=== PATIENT | female | born 1940 | race Caucasian/White ===

== ENCOUNTER → 2016-06-08 | Outpatient (CLI) | payer OTHER, MEDICARE ==
[~2016-06-08] MED LIST: AMLO5TAB12 PO; APIX1TAB PO; ASPI-232 PO; ASPI-435 PO; Boost PO; CEPH-570 PO; CILO100T PO; CMD4 PO; CNT PO; DIGO0.1267 PO; DOCU-94 PO; FURO-85 PO; HYDR-3419 PO; LNX125 PO; LSX20 PO; METO1TAB70 PO; NUTR-7 PO; SERT100T PO; SIMV40TA4 PO; SULF-183 PO; TRAM-10 PO; ULT/50 PO; VLTG EXT; ZCRT/40 PO; [UNRECOGNIZED DRUG - CODE] PO
== END | disposition home or self-care (01) ==
LOC: C.RADBC 13:47
PROVIDERS: ATTEND Internal Medicine Geriatric Medicine
DX: R05 Cough (principal)

== ENCOUNTER → 2016-06-09 | Outpatient (CLI) | payer OTHER, MEDICARE ==
--- NOTE | 2016-06-09 11:56 | DIAGNOSTIC IMAGING REPORT ---
CHEST 2 VIEWS ROUTINE CLINICAL HISTORY: Cough. COMPARISON STUDY: Chest radiograph August 20, 2013. FINDINGS: A dual lead left subclavian pacemaker is in place. There is no pneumothorax. There is a moderate to large left pleural effusion and a small right pleural effusion. Interstitial thickening is noted. There are perihilar and bibasilar opacities. IMPRESSION: 1. Moderate to large left and small right pleural effusions. 2. Interstitial thickening suggestive of pulmonary edema. 2. Perihilar and bibasilar opacities which could reflect pulmonary edema or consolidation. Radiographic follow-up to ensure resolution is recommended. Electronically signed by: Rikki Mcpherson M.D. 06/09/2016 11:54 AM Dictated Date/Time: 06/09/2016 11:52 AM
== END | disposition home or self-care (01) ==
LOC: C.RADBC 11:37
PROVIDERS: ATTEND Internal Medicine Geriatric Medicine
DX: R05 Cough (principal); J90 Pleural effusion, not elsewhere classified

== ENCOUNTER 2016-06-11 12:17 | Inpatient (IN) | payer OTHER, MEDICARE ==
[~2016-06-11] VITALS: Ht 162.6 cm; Wt 39.8 kg
[~2016-06-11 12:17] MED LIST changes: -APIX1TAB PO; -ASPI-232 PO; -ASPI-435 PO; -Boost PO; -CEPH-570 PO; -CNT PO; -DOCU-94 PO; -FURO-85 PO; -LNX125 PO; -LSX20 PO; -NUTR-7 PO; -TRAM-10 PO; -ULT/50 PO; -VLTG EXT; -ZCRT/40 PO
[2016-06-11] MEDS ORDERED: APIX1TAB PO (12:34)
[2016-06-11] MEDS ORDERED: ACETAMINOPHEN 500 MG TAB PO STA (12:38)
[2016-06-11] MEDS ORDERED: ONDANSETRON INJ 2 MG/ML 2 ML VIAL IV STA (12:38)
[2016-06-11] MEDS ORDERED: SODIUM CHLORIDE 0.9% 1000ML 1,000 ML IV STA (12:38)
[2016-06-11] MEDS ORDERED: IBUPROFEN 200 MG TAB PO STA (12:38)
--- NOTE | 2016-06-11 12:54 | EMERGENCY ROOM VISIT NOTE ---
History Report prepared by Moshe: Mega Eid Under the Supervision of: Dr. Aleja Gilliam M.D. First contact with patient: 12:37 Chief Complaint: FLU LIKE SX Stated Complaint: FLU LIKE SYMPTOMS History of Present Illness The patient is a 76 year old female who presents to the Emergency Room with complaints of a persistent illness that started a few days ago. The patient says that she has had cold symptoms, which include a cough and intermittent fevers. She denies any swelling in her legs. The patient notes that her family doctor told the patient that she has excess fluid in her lungs. The patient is on Digoxin for her heart and she has a pacemaker. She is not on Coumadin. She does take Eliquis. Source of History: patient Onset: A few days ago Position: other (global - illness) Timing: other (persistent) Associated Symptoms: + cough, + fevers Note: Associated symptoms: Denies any swelling in legs. Review of Systems See HPI for pertinent positives & negatives. A total of 10 systems reviewed and were otherwise negative. Past Medical & Surgical Medical Problems: (1) Atrial fibrillation (2) Benign hypertension (3) Cardiac pacemaker procedure (4) Chronic congestive heart failure (5) Hyperlipidemia Family History Family history omitted secondary to age. Social History Smoking Status: Former Smoker Drug Use: none Marital Status: single Occupation Status: retired Current/Historical Medications Scheduled Amlodipine Besylate-Valsartan (Exforge), 1 TAB PO DAILY Apixaban (Eliquis), 1 TAB PO BID Aspirin (Halfprin), 81 MG PO DAILY Cilostazol (Pletal), 100 MG PO Q12HR Digoxin (Lanoxin), 0.125 MG PO DAILY Metoprolol Succinate (Toprol Xl), 200 MG PO DAILY Sertraline Hcl (Zoloft), 100 MG PO DAILY Simvastatin (Zocor), 40 MG PO QAM Allergies Coded Allergies: HOLDEN Inhibitors (Verified Adverse Reaction, Mild, COUGH, 06/11/16) Physical Exam Vital Signs Date Time Temp Pulse Resp B/P Pulse Ox O2 Delivery O2 Flow Rate FiO2 06/11/16 19:16 88 20 143/84 92 Nasal Cannula 2.0 06/11/16 17:09 93 Nasal Cannula 2.0 06/11/16 17:07 81 111/81 88 Room Air 06/11/16 14:25 141/79 06/11/16 12:22 115 20 126/79 98 Room Air Physical Exam CONSTITUTIONAL: Mild distress. HEENT: No icterus, moist mucous membranes NECK: No meningismus, trachea is midline. CARDIOVASCULAR: Regular rate, normal perfusion RESPIRATORY: Unlabored breathing. Breath sounds present bilaterally. Diminished at bases L > R GASTROINTESTINAL: Non-tender GENITOURINARY: No flank tenderness MUSCULOSKELETAL: Full range of motion NEUROLOGIC: No acute gross focal deficits. PSYCHIATRIC: Normal affect SKIN: Normal for ethnicity. No pedal edema. Medical Decision & Procedures ER Provider Diagnostic Interpretation: X-ray results as stated below per interpretation by me and the radiologist. CHEST 2 VIEWS ROUTINE CLINICAL HISTORY: weakness FLULIKE SYMPTOMS COMPARISON STUDY: 06/09/2016 FINDINGS: The heart remains enlarged. There is a left subclavian dual-chamber central venous pacemaker present. There are persistent bilateral pleural effusions left greater than right. Left effusion appears slightly larger. There are associated bibasal airspace opacities. Right perihilar airspace opacities are also evident.[ IMPRESSION: Persistent bilateral pleural effusions left greater than right slight interval increase in the size of the left pleural effusion. Persistent right perihilar and bibasal airspace opacities. Electronically signed by: Cristopher Bedoya M.D. 06/11/2016 2:42 PM Dictated Date/Time: 06/11/2016 2:41 PM Laboratory Results 06/11/16 13:05 Red Blood Count 4.53, Mean Corpuscular Volume 93.2, Mean Corpuscular Hemoglobin 31.6, Mean Corpuscular Hemoglobin Concent 33.9, Mean Platelet Volume 10.1, Neutrophils (%) (Auto) 76.3, Lymphocytes (%) (Auto) 9.8, Monocytes (%) (Auto) 10.6, Eosinophils (%) (Auto) 2.6, Basophils (%) (Auto) 0.5, Neutrophils # (Auto ) 7.29, Lymphocytes # (Auto) 0.94, Monocytes # (Auto) 1.01, Eosinophils # (Auto ) 0.25, Basophils # (Auto) 0.05 06/11/16 13:05 Test 06/11/16 13:05 06/11/16 13:10 06/11/16 13:15 06/11/16 15:00 White Blood Count 9.56 K/uL (4.8-10.8) Red Blood Count 4.53 M/uL (4.2-5.4) Hemoglobin 14.3 g/dL (12.0-16.0) Hematocrit 42.2 % (37-47) Mean Corpuscular Volume 93.2 fL (80-100) Mean Corpuscular Hemoglobin 31.6 pg (25-34) Mean Corpuscular Hemoglobin Concent 33.9 g/dl (32-36) Platelet Count 252 K/uL (130-400) Mean Platelet Volume 10.1 fL (7.4-10.4) Neutrophils (%) (Auto) 76.3 % Lymphocytes (%) (Auto) 9.8 % Monocytes (%) (Auto) 10.6 % Eosinophils (%) (Auto) 2.6 % Basophils (%) (Auto) 0.5 % Neutrophils # (Auto) 7.29 K/uL (1.4-6.5) Lymphocytes # (Auto) 0.94 K/uL (1.2-3.4) Monocytes # (Auto) 1.01 K/uL (0.11-0.59) Eosinophils # (Auto) 0.25 K/uL (0-0.5) Basophils # (Auto) 0.05 K/uL (0-0.2) RDW Standard Deviation 51.7 fL (36.4-46.3) RDW Coefficient of Variation 15.3 % (11.5-14.5) Immature Granulocyte % (Auto) 0.2 % Immature Granulocyte # (Auto) 0.02 K/uL (0.00-0.02) Prothrombin Time 12.0 SECONDS (9.0-12.0) Prothromb Time International Ratio 1.1 (0.9-1.1) Activated Partial Thromboplast Time 31.5 SECONDS (21.0-31.0) Partial Thromboplastin Ratio 1.2 Anion Gap 10.0 mmol/L (3-11) Estimated GFR () 80.6 Estimated GFR (Non- 69.6 BUN/Creatinine Ratio 21.9 (10-20) Calcium Level 9.7 mg/dl (8.5-10.1) Magnesium Level 2.0 mg/dl (1.8-2.4) Pro-B-Type Natriuretic Peptide 8400 pg/ml (0-1800) Digoxin Level 1.4 ng/ml (0.8-2.0) Bedside Lactic Acid Venous 1.55 mmol/L (0.90-1.70) Influenza Type A Antigen Neg for Influ A (NEG) Influenza Type B Antigen Neg for Influ B (NEG) Troponin I 0.068 ng/ml (0-0.045) Labs reviewed by ED physician. Medications Administered Medications (Trade) Dose Ordered Sig/Christine Route Start Time Stop Time Status Last Admin Dose Admin Acetaminophen (Tylenol Tab) 1,000 mg NOW STAT PO 06/11/16 12:38 06/11/16 12:40 DC 06/11/16 13:37 1,000 MG Ibuprofen 400 mg 400 mg NOW STAT PO 06/11/16 12:38 06/11/16 12:40 DC 06/11/16 13:36 400 MG Sodium Chloride (Nss 1000ml) 1,000 ml @ 0 mls/hr Q0M STAT IV 06/11/16 12:38 06/11/16 16:42 DC 06/11/16 13:36 0 MLS/HR Ondansetron HCl (Zofran Inj) 4 mg NOW STAT IV 06/11/16 12:38 06/11/16 12:40 DC 06/11/16 13:36 4 MG Furosemide (Lasix Inj) 40 mg NOW STAT IV 06/11/16 16:41 06/11/16 16:42 DC 06/11/16 17:04 40 MG ECG Indication: other (illness) Rate (beats per minute): 68 Rhythm: other (atrial fibrillation paced) Findings: other (nonspecific ST findings, artifact, incomplete RBBB) ED Course 1238: Past medical records reviewed. The patient was evaluated in room A3. A complete history and physical examination was performed. 1238: Ordered Zofran Inj 4 mg IV, NSS 1000 ml @ 0 mls/hr Wide Open IV, Advil Tab 400 mg PO, Tylenol Tab 1000 mg PO. 1641: Ordered Lasix Inj 40 mg IV. 1743: I discussed the patient with Dr. Elkins - [facility] [place] straddle buggy operator - he will evaluate the patient for further treatment. 1746: I reevaluated the patient and she is resting comfortably. The patient verbally expressed agreement and understanding of the treatment plan. The patient will be evaluated for further treatment. Medical Decision Differential diagnoses include: Viral syndrome, congestive heart failure, pneumonia. 76 y/o afib on anticoagulation and digoxin presented with friend for evaluation of occasional dyspnea and concern about about "fluid on my lungs" after discussion with PCP's office. Review of systems notable for chronic worsening cough without fevers or other systemic complaints. The circumstances around outpatient management thus far are unclear at this time. Patient was noted to have a substantial pleural effusion and elevated BNP the emergency room she was also noted to be hypoxic at 88% with exertion. Therefore, decision made to hospitalize. Consults Time Called: 174 Consulting Physician: Dr. Severo TAVAREZ straddle buggy operator Returned Call: 174 I discussed the patient with Dr. Severo TAVAREZ straddle buggy operator - he will evaluate the patient for further treatment. Impression Primary Impression: Pleural effusion Additional Impression: Hypoxia Scribe Attestation The scribe's documentation has been prepared under my direction and personally reviewed by me in its entirety. I confirm that the note above accurately reflects all work, treatment, procedures, and medical decision making performed by me. Departure Information Dispostion Being Evaluated By Hospitalist Referrals Francesco Mancia M.D. (PCP) Patient Instructions A Signature Page, My [facility]
[2016-06-11 13:27] LABS: BASO % 0.5 %; BASO ABS # 0.05 K/uL (0-0.2); COMPLETE YES; EOS % 2.6 %; HEMATOCRIT 42.2 % (37-47); IG% 0.2 %; LYMPH % 9.8 %; LYMPH ABS # 0.94 K/uL (1.2-3.4); MEAN CELL VOLUME 93.2 fL (80-100); MEAN CORPUSCULAR HEMOGLOBIN 31.6 pg (25-34); MEAN CORPUSCULAR HGB CONC 33.9 g/dl (32-36); MEAN PLATELET VOLUME 10.1 fL (7.4-10.4); MONO % 10.6 %; NEUT % 76.3 %; PLATELET COUNT 252 K/uL (130-400); RED BLOOD COUNT 4.53 M/uL (4.2-5.4); WHITE BLOOD COUNT 9.56 K/uL (4.8-10.8)
[2016-06-11 13:45] LABS: BLOOD UREA NITROGEN 18 mg/dl (7-18); BUN/CREATININE RATIO 21.9 (10-20); CALCIUM 9.7 mg/dl (8.5-10.1); CARBON DIOXIDE 24 mmol/L (21-32); CHLORIDE 110 mmol/L (98-107); CREATININE 0.81 mg/dl (0.60-1.20); GLUCOSE 100 mg/dl (70-99); POTASSIUM 3.8 mmol/L (3.5-5.1); SODIUM 144 mmol/L (136-145)
--- NOTE | 2016-06-11 14:44 | DIAGNOSTIC IMAGING REPORT ---
CHEST 2 VIEWS ROUTINE CLINICAL HISTORY: weakness FLULIKE SYMPTOMS COMPARISON STUDY: 06/09/2016 FINDINGS: The heart remains enlarged. There is a left subclavian dual-chamber central venous pacemaker present. There are persistent bilateral pleural effusions left greater than right. Left effusion appears slightly larger. There are associated bibasal airspace opacities. Right perihilar airspace opacities are also evident.[ IMPRESSION: Persistent bilateral pleural effusions left greater than right slight interval increase in the size of the left pleural effusion. Persistent right perihilar and bibasal airspace opacities. Electronically signed by: Cristopher Bedoya M.D. 06/11/2016 2:42 PM Dictated Date/Time: 06/11/2016 2:41 PM
[2016-06-11] MEDS ORDERED: FUROSEMIDE 40 MG/4 ML VIAL IV STA ×2 (16:41→20:15)
[2016-06-11 18:48] VITALS: O2SAT 94
[2016-06-11] MEDS ORDERED: ALUMINUM/MAGNESIUM/SIMETH (MAALOX MAX) 30 ML UDC PO PRN (19:00)
[2016-06-11] MEDS ORDERED: ONDANSETRON INJ 2 MG/ML 2 ML VIAL IV PRN (19:00)
[2016-06-11] MEDS ORDERED: ACETAMINOPHEN 325 MG TAB PO PRN (19:00)
[2016-06-11 19:11] LABS: INR 1.1 (0.9-1.1); PARTIAL THROMBOPLASTIN RATIO 1.2
[2016-06-11 20:00] VITALS: O2SAT 95
--- NOTE | 2016-06-11 20:13 | History and Physical ---
History & Physical Date & Time of Service: Jun 11, 2016 at 19:55 Chief Complaint: Flu Like Symptoms Primary Care Physician: Francesco Mancia M.D. History of Present Illness Source: patient The patient is a 76 year old female who presents to the Emergency Room as a referral from her PCP Dr Mancia. Pt reports last week having flu like sx including cough, intermittent fevers. Pt reported to Dr Brady office where she had an CXR obtained and was told that she had fluid around her lung. She reports no edema, or worsening shortness of breath. Pt has hx of only atrial fibrillation and is on eliquis. Pt also has hx of pacemaker. Upon arrival to ER pt noted mod effusions left greater than right on CXR. Past Medical/Surgical History Medical Problems: (1) Atrial fibrillation Status: Chronic (2) Benign hypertension Status: Chronic (3) Cardiac pacemaker procedure Status: Resolved (4) Chronic congestive heart failure Status: Chronic (5) Hyperlipidemia Status: Chronic Social History Smoking Status: Former Smoker Drug Use: none Marital Status: single Occupational Status: retired Immunizations History of Influenza Vaccine: Yes History of Tetanus Vaccine?: Yes History of Pneumococcal: No History of Hepatitis B Vaccine: No Multi-Drug Resistant Organisms History of MDRO: No Allergies Coded Allergies: HOLDEN Inhibitors (Verified Adverse Reaction, Mild, COUGH, 06/11/16) Home Medications Scheduled Amlodipine Besylate-Valsartan (Exforge), 1 TAB PO DAILY Apixaban (Eliquis), 1 TAB PO BID Aspirin (Halfprin), 81 MG PO DAILY Cilostazol (Pletal), 100 MG PO Q12HR Digoxin (Lanoxin), 0.125 MG PO DAILY Metoprolol Succinate (Toprol Xl), 200 MG PO DAILY Sertraline Hcl (Zoloft), 100 MG PO DAILY Simvastatin (Zocor), 40 MG PO QAM Review of Systems Constitutional: + fatigue, + weakness, No chills, No fever Respiratory: + cough, No dyspnea on exertion, No shortness of breath, No sputum , No wheezing Cardiovascular: No PND, No chest pain, No orthopnea Abdomen: No diarrhea, No nausea, No pain, No vomiting Musculoskeletal: No joint pain, No muscle pain Genitourinary - Female: No dysuria, No urinary frequency Neurologic: No paralysis, No weakness Physical Exam Vital Signs Date Time Temp Pulse Resp B/P Pulse Ox O2 Delivery O2 Flow Rate FiO2 06/11/16 19:48 88 20 154/77 92 06/11/16 19:16 88 20 143/84 92 Nasal Cannula 2.0 06/11/16 17:09 93 Nasal Cannula 2.0 06/11/16 17:07 81 111/81 88 Room Air 06/11/16 14:25 141/79 06/11/16 12:22 115 20 126/79 98 Room Air General Appearance: WD/WN, no apparent distress Neck: supple, no adenopathy Respiratory/Chest: chest non-tender, + decreased breath sounds, + crackles Cardiovascular: no edema, no gallop Abdomen/GI: non tender, soft Neurologic/Psych: alert, oriented x 3 Diagnostics Laboratory Results Results Past 24 Hours Test 06/11/16 13:05 06/11/16 13:10 06/11/16 13:15 06/11/16 15:00 Range/Units White Blood Count 9.56 4.8-10.8 K/uL Red Blood Count 4.53 4.2-5.4 M/uL Hemoglobin 14.3 12.0-16.0 g/dL Hematocrit 42.2 37-47 % Mean Corpuscular Volume 93.2 80-100 fL Mean Corpuscular Hemoglobin 31.6 25-34 pg Mean Corpuscular Hemoglobin Concent 33.9 32-36 g/dl Platelet Count 252 130-400 K/uL Mean Platelet Volume 10.1 7.4-10.4 fL Neutrophils (%) (Auto) 76.3 % Lymphocytes (%) (Auto) 9.8 % Monocytes (%) (Auto) 10.6 % Eosinophils (%) (Auto) 2.6 % Basophils (%) (Auto) 0.5 % Neutrophils # (Auto) 7.29 1.4-6.5 K/uL Lymphocytes # (Auto) 0.94 1.2-3.4 K/uL Monocytes # (Auto) 1.01 0.11-0.59 K/uL Eosinophils # (Auto) 0.25 0-0.5 K/uL Basophils # (Auto) 0.05 0-0.2 K/uL RDW Standard Deviation 51.7 36.4-46.3 fL RDW Coefficient of Variation 15.3 11.5-14.5 % Immature Granulocyte % (Auto) 0.2 % Immature Granulocyte # (Auto) 0.02 0.00-0.02 K/uL Prothrombin Time 12.0 9.0-12.0 SECONDS Prothromb Time International Ratio 1.1 0.9-1.1 Activated Partial Thromboplast Time 31.5 21.0-31.0 SECONDS Partial Thromboplastin Ratio 1.2 Sodium Level 144 136-145 mmol/L Potassium Level 3.8 3.5-5.1 mmol/L Chloride Level 110 98-107 mmol/L Carbon Dioxide Level 24 21-32 mmol/L Anion Gap 10.0 3-11 mmol/L Blood Urea Nitrogen 18 7-18 mg/dl Creatinine 0.81 0.60-1.20 mg/dl Estimated GFR () 80.6 Estimated GFR (Non- 69.6 BUN/Creatinine Ratio 21.9 10-20 Random Glucose 100 70-99 mg/dl Calcium Level 9.7 8.5-10.1 mg/dl Magnesium Level 2.0 1.8-2.4 mg/dl Troponin I 0.080 0.068 0-0.045 ng/ml Pro-B-Type Natriuretic Peptide 8400 0-1800 pg/ml Digoxin Level 1.4 0.8-2.0 ng/ml Bedside Lactic Acid Venous 1.55 0.90-1.70 mmol/L Influenza Type A Antigen Neg for Influ A NEG Influenza Type B Antigen Neg for Influ B NEG Microbiology Results 06/11/16 Blood Culture, Received Pending 06/11/16 Blood Culture, Received Pending Impression Assessment and Plan Pt is a 76 yo female with cough, malaise for past few days and presented to PCP Dr Brady in which CXR revealed moderate pleural effusions. Pt was referred to ER for further assessment. Cough/hypoxia likely secondary to pleural effusions. CXR with bilateral pleural effusions, left greater than right. Pt denies any hx of heart failure. Will obtain an ECHO at this time. Lasix 40 IV x 1 given in ER and will cont daily. Pt satting over 90% on 2 L NC at this time. Continue to monitor I/Os, daily weights. Poor EKG obtained, will repeat, trops only mildly elev, cont to trend. Tachybrady syndrome s/p pacemaker insertion HTN - Cont exforge Afib - Rate controlled on dig and metoprolol, will obtain level. Cont eliquis VTE Prophylaxis VTE Risk Assessment Done? Y/N: Yes Risk Level: Moderate
[2016-06-11] MEDS ORDERED: FUROSEMIDE INJ 40 MG in SYRINGE 0 ML IV SCH (20:45)
[2016-06-11 21:09] VITALS: BP 153/88; PULSE 80; TEMP 36.3; O2SAT 95; Ht 162.6 cm; Wt 39.8 kg
[2016-06-11] MEDS ORDERED: HEPARIN SOD 5000 UNIT/0.5 ML CARP SQ SCH (22:00)
[2016-06-11] MEDS: CILOSTAZOL 100 MG TAB PO SCH (22:00)
[2016-06-11] MEDS: APIXABAN 2.5 MG TAB PO SCH (22:01)
[2016-06-11 22:25] LABS: URINE APPEARANCE CLEAR (CLEAR); URINE BILIRUBIN NEG (NEG); URINE COLOR YELLOW; URINE NITRITE NEG (NEG); URINE SPECIFIC GRAVITY 1.002 (1.000-1.030); UROBILINOGEN NEG (NEG); ZZUR CULT IF INDIC CLEAN CATCH NO
[2016-06-11 22:28] LABS: MANUAL MICROSCOPIC REQUIRED? NO; REVIEW REQ? NO
[2016-06-11 23:59] VITALS: O2SAT 95
[2016-06-12] VITALS (10 sets, daily range): BP systolic 120–162; BP diastolic 54–74; PULSE 70–87; TEMP 36.2–36.8; O2SAT 95–98
--- NOTE | 2016-06-12 07:51 | DIAGNOSTIC IMAGING REPORT ---
CHEST ONE VIEW PORTABLE CLINICAL HISTORY: pleural effusions COMPARISON STUDY: 06/11/2016 FINDINGS: The heart is enlarged. There are bilateral pleural effusions left greater than right. There is associated basilar atelectasis/consolidation. There are subtle right perihilar airspace opacity similar to the prior study. There is a left subclavian dual-chamber central venous pacemaker. There is a left apical line shadow. A trace pneumothorax cannot be excluded.[ IMPRESSION: Persistent bilateral pleural effusions left greater than right with associated basilar airspace opacities. Persistent right perihilar airspace opacity. Equivocal trace left apical pneumothorax Electronically signed by: Cristopher Bedoya M.D. 06/12/2016 7:50 AM Dictated Date/Time: 06/12/2016 7:48 AM
[2016-06-12] MEDS: FUROSEMIDE INJ 40 MG in SYRINGE 0 ML IV SCH (08:01)
[2016-06-12] MEDS: APIXABAN 2.5 MG TAB PO SCH (08:01)
[2016-06-12] MEDS: ASPIRIN 81 MG ECTAB PO SCH (08:02)
[2016-06-12] MEDS: SIMVASTATIN 40 MG TAB PO SCH (08:03)
[2016-06-12] MEDS: CILOSTAZOL 100 MG TAB PO SCH ×2 (08:03→20:37)
[2016-06-12] MEDS: SERTRALINE HCL 100 MG TAB PO SCH (08:03)
[2016-06-12] MEDS: METOPROLOL SUCC 50MG EXT REL TAB PO SCH (08:03)
--- NOTE | 2016-06-12 09:14 | Clinical Documentation Query ---
CLINICAL DOCUMENTATION QUERY Dr. BORRERO, In your clinical opinion is this patient being managed for: ( ) Acute diastolic CHF ( ) Acute systolic CHF ( ) Acute combined systolic and diastolic CHF ( ) Other explanation of clinical findings (Please Explain) ( x ) Unable to determine (Please Define) Unsure if effusion due to CHF, going to get CT chest and possible thoracentesis to analyze pleural fluid, will document cause of effusion and status of CHF once effusion worked up ( ) Need to Discuss ( ) Not Agree The medical record reflects the following clinical findings, treatment, and risk factors. Clinical Indicators: 76 yo female presenting with flu like symptoms and cough. BNP 8400, lungs assessed with decreased breath sounds and crackles. O2 sat dropped to 88% on RA, improved to 92% on 2L. Treatment: tele monitoring, pending ECHO, O2 support, daily wts, IV lasix, I/O Risk Factors: age, HTN, A fib Please clarify and document your clinical opinion in the progress notes and discharge summary. Terms such as "probable", "suspected", "likely", "questionable", "possible", or "still to be ruled out" are acceptable. IF IN AGREEMENT, YOU MUST DOCUMENT ABOVE DIAGNOSTIC STATEMENT IN DAILY PROGRESS NOTES AND DISCHARGE SUMMARY. This document is not part of the patient's record. Thank You, Ora Rdz RN [phone]
[2016-06-12] MEDS ORDERED: OPTIRAY 320 IV PRN (09:30)
--- NOTE | 2016-06-12 10:50 | DIAGNOSTIC IMAGING REPORT ---
CT OF THE CHEST WITH IV CONTRAST CLINICAL HISTORY: Pleural effusions COMPARISON STUDY: Chest x-ray dated 06/12/2016, chest CT dated 06/02/2007 TECHNIQUE: Following the IV administration of 118 mL of [id number]-[id number], CT of the thorax was performed from the thoracic inlet to the lung bases. Images are reviewed in the axial, sagittal, and coronal planes. IV contrast was administered without complication. CT DOSE: 164.81 mGycm FINDINGS: Thyroid: Imaged portions of the thyroid gland are normal in appearance. Thoracic aorta: The thoracic aorta is normal in course and caliber, noting standard 3-vessel arch anatomy. No aneurysm or dissection is seen. Pulmonary vasculature: The pulmonary trunk is normal in caliber. There are no central filling defects identified to suggest pulmonary embolus. Note that this examination was not protocoled for the evaluation of pulmonary emboli. HEART: The heart is enlarged. There is a left subclavian dual-chamber central venous pacemaker. Lungs and pleural spaces: There is a moderate left pleural effusion. There is a very small right pleural effusion. There is left lower lobe compressive atelectatic change. There are dependent right basilar airspace opacities, likely atelectatic. There are subtle groundglass attenuation the right perihilar region. Postsurgical changes are evident within the right hemithorax. Mediastinum: There is no mediastinal lymphadenopathy. Vangie: Clear. Axilla: Clear. Upper abdomen: Partially visualized upper abdominal viscera is within normal limits. Skeletal structures: There are no lytic or blastic osseous lesions. IMPRESSION: 1. Presumed postsurgical changes involving the right hemithorax with trace pleural right fluid/thickening and minor basilar atelectatic change. There are areas of interstitial scarring. 2. Moderate left pleural effusion with left lower lobe compressive atelectatic changes 3. No evidence of pathologic adenopathy Electronically signed by: Cristopher Bedoya M.D. 06/12/2016 10:48 AM Dictated Date/Time: 06/12/2016 10:32 AM
--- NOTE | 2016-06-12 11:11 | Hospitalist Progress Note ---
Hospitalist Progress Note Date of Service Jun 12, 2016. Subjective Pt evaluation today including: conversation w/ patient, physical exam, chart review, lab review, review of studies, review of inpatient medication list Voiding: no voiding problems, no incontinence Patient states she is feeling well. Her only complaint at admission was "cold- like" symptoms and body aches. She admits to chest congestion today. Denies any SOB or dyspnea on exertion. Patient denies any fever, chills, sweats, lightheadedness, dizziness, vision changes, CP, palpitations, edema, SOB, wheezing, cough, abdominal pain, nausea, vomiting, diarrhea, urinary symptoms, melena, numbness/tingling, weakness, muscle/joint pain, anxiety/depression, active bleeding, or new skin discoloration/changes. Medications Current Inpatient Medications Medications (Trade) Dose Ordered Sig/Christine Route Start Time Stop Time Status Last Admin Dose Admin Acetaminophen (Tylenol Tab) 650 mg Q4H PRN PO 06/11/16 19:00 07/11/16 18:59 Al Hydrox/Mg Hydrox/Simethicone (Maalox Max Susp) 15 ml Q4H PRN PO 06/11/16 19:00 07/11/16 18:59 Ondansetron HCl 4 mg 4 mg Q6H PRN IV 06/11/16 19:00 07/11/16 18:59 Furosemide/Syringe (Lasix Inj/ Syringe) 4 ml @ 4 mls/min DAILY@0900 IV 06/12/16 09:00 07/12/16 08:59 06/12/16 08:01 4 MLS/MIN Aspirin (Ecotrin Tab) 81 mg DAILY PO 06/12/16 09:00 07/12/16 08:59 06/12/16 08:02 81 MG Cilostazol (Pletal Tab) 100 mg BID PO 06/11/16 21:00 07/11/16 20:59 06/12/16 08:03 100 MG Digoxin (Lanoxin Tab) 0.125 mg DAILY@1600 PO 06/12/16 16:00 07/12/16 15:59 Metoprolol Succinate (Toprol Xl Tab) 200 mg DAILY PO 06/12/16 09:00 07/12/16 08:59 06/12/16 08:03 200 MG Sertraline HCl (Zoloft Tab) 100 mg DAILY PO 06/12/16 09:00 07/12/16 08:59 06/12/16 08:03 100 MG Simvastatin (Zocor Tab) 40 mg QAM PO 06/12/16 09:00 07/12/16 08:59 06/12/16 08:03 40 MG Miscellaneous Information (Order Awaiting Action) 1 ea QS N/A 06/11/16 21:00 07/11/16 20:59 Ioversol (Optiray 320) 100 ml UD PRN IV 06/12/16 09:30 06/16/16 09:29 UNV Objective Vital Signs Date Time Temp Pulse Resp B/P Pulse Ox O2 Delivery O2 Flow Rate FiO2 06/12/16 08:42 36.6 87 20 124/63 96 Nasal Cannula 2.0 06/12/16 04:02 36.6 77 18 148/63 97 Nasal Cannula 2.0 06/12/16 04:00 95 Nasal Cannula 2.0 06/12/16 00:00 36.3 86 18 162/74 95 Nasal Cannula 2.0 06/11/16 23:59 95 Nasal Cannula 2.0 06/11/16 21:09 36.3 80 18 153/88 95 Nasal Cannula 2.0 06/11/16 20:00 95 Nasal Cannula 2.0 06/11/16 19:48 88 20 154/77 92 06/11/16 19:16 88 20 143/84 92 Nasal Cannula 2.0 06/11/16 18:48 94 Nasal Cannula 2.0 06/11/16 17:09 93 Nasal Cannula 2.0 06/11/16 17:07 81 111/81 88 Room Air 06/11/16 14:25 141/79 06/11/16 12:22 115 20 126/79 98 Room Air Physical Exam General Appearance: no apparent distress, + thin Eyes: normal inspection, PERRL ENT: hearing grossly normal Neck: supple Respiratory/Chest: no respiratory distress, no accessory muscle use, + decreased breath sounds (L>R ), + crackles (right lung base) Cardiovascular: no edema, + irregularly irregular Abdomen: normal bowel sounds, non tender, soft Extremities: no pedal edema, no calf tenderness Neurologic/Psychiatric: alert, normal mood/affect, oriented x 3 Skin: normal color, warm/dry, no rash Laboratory Results Last 24 Hours Test 06/11/16 13:05 06/11/16 13:10 06/11/16 13:15 06/11/16 15:00 White Blood Count 9.56 K/uL Red Blood Count 4.53 M/uL Hemoglobin 14.3 g/dL Hematocrit 42.2 % Mean Corpuscular Volume 93.2 fL Mean Corpuscular Hemoglobin 31.6 pg Mean Corpuscular Hemoglobin Concent 33.9 g/dl Platelet Count 252 K/uL Mean Platelet Volume 10.1 fL Neutrophils (%) (Auto) 76.3 % Lymphocytes (%) (Auto) 9.8 % Monocytes (%) (Auto) 10.6 % Eosinophils (%) (Auto) 2.6 % Basophils (%) (Auto) 0.5 % Neutrophils # (Auto) 7.29 K/uL Lymphocytes # (Auto) 0.94 K/uL Monocytes # (Auto) 1.01 K/uL Eosinophils # (Auto) 0.25 K/uL Basophils # (Auto) 0.05 K/uL RDW Standard Deviation 51.7 fL RDW Coefficient of Variation 15.3 % Immature Granulocyte % (Auto) 0.2 % Immature Granulocyte # (Auto) 0.02 K/uL Prothrombin Time 12.0 SECONDS Prothromb Time International Ratio 1.1 Activated Partial Thromboplast Time 31.5 SECONDS Partial Thromboplastin Ratio 1.2 Sodium Level 144 mmol/L Potassium Level 3.8 mmol/L Chloride Level 110 mmol/L Carbon Dioxide Level 24 mmol/L Anion Gap 10.0 mmol/L Blood Urea Nitrogen 18 mg/dl Creatinine 0.81 mg/dl Estimated GFR () 80.6 Estimated GFR (Non- 69.6 BUN/Creatinine Ratio 21.9 Random Glucose 100 mg/dl Calcium Level 9.7 mg/dl Magnesium Level 2.0 mg/dl Troponin I 0.080 ng/ml 0.068 ng/ml Pro-B-Type Natriuretic Peptide 8400 pg/ml Digoxin Level 1.4 ng/ml Bedside Lactic Acid Venous 1.55 mmol/L Influenza Type A Antigen Neg for Influ A Influenza Type B Antigen Neg for Influ B Test 06/11/16 20:38 06/11/16 22:00 Troponin I 0.087 ng/ml Urine Color YELLOW Urine Appearance CLEAR Urine pH 5.0 Urine Specific Bennet 1.002 Urine Protein NEG Urine Glucose (UA) NEG Urine Ketones NEG Urine Occult Blood NEG Urine Nitrite NEG Urine Bilirubin NEG Urine Urobilinogen NEG Urine Leukocyte Esterase NEG Diagnostic Results CHEST ONE VIEW PORTABLE CLINICAL HISTORY: pleural effusions COMPARISON STUDY: 06/11/2016 FINDINGS: The heart is enlarged. There are bilateral pleural effusions left greater than right. There is associated basilar atelectasis/consolidation. There are subtle right perihilar airspace opacity similar to the prior study. There is a left subclavian dual-chamber central venous pacemaker. There is a left apical line shadow. A trace pneumothorax cannot be excluded.[ IMPRESSION: Persistent bilateral pleural effusions left greater than right with associated basilar airspace opacities. Persistent right perihilar airspace opacity. Equivocal trace left apical pneumothorax Electronically signed by: Cristopher Bedoya M.D. 06/12/2016 7:50 AM Dictated Date/Time: 06/12/2016 7:48 AM The status of this report is Signed. Draft = Not yet reviewed or approved by Radiologist. Signed = Reviewed and approved by Radiologist. Assessment and Plan The patient is a 76 year old female who presents to the Emergency Room as a referral from her PCP Dr Mancia. Pt reports last week having flu like sx including cough, intermittent fevers. Pt reported to Dr Mancia's office where she had an CXR obtained and was told that she had fluid around her lung. She reports no edema, or worsening shortness of breath. Pt has hx of only atrial fibrillation and is on Eliquis. Pt also has hx of pacemaker. Upon arrival to ER pt noted mod effusions left greater than right on CXR. Cough/hypoxia likely secondary to pleural effusions: -Admit tele -CXR with bilateral pleural effusions, left greater than right (06/11) --Repeated CXR on 06/12 Persistent bilateral pleural effusions left greater than right with associated basilar airspace opacities. Persistent right perihilar airspace opacity. Equivocal trace left apical pneumothorax --Repeat CXR tomorrow (06/13) -Chest CT- moderate left pleural effusions with small right pleural effusion. No evidence of pathologic adenopathy. -ECHO -Lasix 40 IV x 1 given in ER on 06/11 and will continue daily -Monitor I/Os, daily weights -Trend troponin -Patient requiring 2L O2. Does not wear O2 at home -Blood cultures pending Tachybrady syndrome s/p pacemaker insertion HTN: -Continue Exforge 1 tablet PO daily Afib, rate controlled: -Continue Digoxin 0.125 mg PO daily -Checked dig level, 1.4 -Continue Metoprolol 200 mg PO daily -Held Eliquis 2.5 mg PO BID. Last dose given 06/12 @ 0800. ?need for thoracic surgery intervention. PVD: -Continue Zocor 40 mg PO QAM -Continue Pletal 100 mg PO BID Anxiety: -Continue Zoloft 100 mg PO daily DVT prophylaxis: -Held Eliquis, ?need for thoracic surgery intervention. -ALICIA and SCDs Code Status: -LEVEL V, DNR Dispo: -Diuresis tonight. ?Consult thoracic surgery, pending how patient does with IV Lasix. F/U CXR tomorrow AM. -PT/OT evaluations. Patient currently lives with a friend
--- NOTE | 2016-06-12 12:56 | ECHOCARDIOGRAM REPORT ---
*NOTICE TO RECEIVING LIBERTARIAN AGENCY This information is strictly Confidential and protected under [place] law. [place] law prohibits you from making any further disclosure of this information unless further disclosure is expressly permitted by the written consent of the person to whom it pertains or is authorized by law. A general authorization for the release of medical or other information is not sufficient for this purpose. Hospital accepts no responsibility if the information is made available to any other person, INCLUDING THE PATIENT. Interpretation Summary * Name: ARTURO SALINAS Study Date: 06/12/2016 06:51 AM BP: 148/63 mmHg * Patient Location: C.2T\S\S229\S\1 HR: 82 * : 1940 (M/d/yyy) Gender: Female Height: 64 in * Age: 76 yrs Ethnicity: [place] Weight: 87 lb * Ordering Physician: Mandeep Elkins * Referring Physician: Self, Referred * Performed By: Amado Erazo RCS * * Reason For Study: Pleural Effusions * BSA: 1.4 m2 * -- Conclusions -- * Left ventricular systolic function is normal. * No regional wall motion abnormalities noted. * Ejection Fraction = 60-65%. * There is mild concentric left ventricular hypertrophy. * There is mild mitral regurgitation. * There is mild tricuspid regurgitation. * Large left pleural effusion. Procedure Details * A complete two-dimensional transthoracic echocardiogram was performed (2D, M-mode, Doppler and color flow Doppler). Left Ventricle * The left ventricle is normal in size. * There is mild concentric left ventricular hypertrophy. * Ejection Fraction = 60-65%. * Left ventricular systolic function is normal. * No regional wall motion abnormalities noted. Right Ventricle * The right ventricle is grossly normal size. * There is a pacemaker lead in the right ventricle. * The right ventricular systolic function is normal. Atria * The left atrial size is normal. * Right atrial size is normal. * No ASD detected; PFO is not assessed. Mitral Valve * The mitral valve is grossly normal. * There is no mitral valve stenosis. * There is mild mitral regurgitation. Tricuspid Valve * The tricuspid valve is not well visualized, but is grossly normal. * There is mild tricuspid regurgitation. Aortic Valve * The aortic valve is not well visualized. * The aortic valve opens well. * No hemodynamically significant valvular aortic stenosis. * There is no significant aortic regurgitation. Pulmonic Valve * The pulmonary valve is not well seen, but the Doppler examination is normal without significant regurgitation or stenosis. * There is no significant pulmonary regurgitation. Great Vessels * The aortic root is normal size. * The pulmonary is not well visualized. Pericardium/Pleural * There is no pericardial effusion. * Large left pleural effusion. Great Vessels * Normal inferior vena cava size and collapsability with sniff indicates a normal right atrial pressure of 3 mmHg MMode 2D Measurements and Calculations IVSd 0.83 cm IVSs 1.0 cm LVIDd 3.5 cm LVIDs 2.1 cm LVPWd 0.86 cm LVPWs 1.0 cm IVS/LVPW 0.96 FS 39.5 % EDV(Teich) 50.2 ml ESV(Teich) 14.5 ml EF(Teich) 71.1 % EDV(cubed) 42.2 ml ESV(cubed) 9.3 ml EF(cubed) 77.9 % % IVS thick 26.4 % % LVPW thick 18.9 % LV mass(C)d 80.5 grams LV mass(C)dI 58.6 grams/m\S\2 LV mass(C)s 53.5 grams LV mass(C)sI 39.0 grams/m\S\2 CO(Teich) 3.2 l/min CI(Teich) 2.4 l/min/m\S\2 SV(Teich) 35.7 ml SI(Teich) 26.0 ml/m\S\2 CO(cubed) 3.0 l/min CI(cubed) 2.2 l/min/m\S\2 SV(cubed) 32.8 ml SI(cubed) 23.9 ml/m\S\2 Ao root diam 3.3 cm Ao root area 8.4 cm\S\2 ACS 1.4 cm LA dimension 3.3 cm LA/Ao 1.0 LVAd ap4 15.5 cm\S\2 LVLd ap4 6.1 cm EDV(MOD-sp4) 33.0 ml LVAs ap4 8.2 cm\S\2 LVLs ap4 5.3 cm ESV(MOD-sp4) 11.0 ml EF(MOD-sp4) 66.7 % LVAd ap2 15.5 cm\S\2 LVLd ap2 6.4 cm EDV(MOD-sp2) 34.0 ml LVAs ap2 8.8 cm\S\2 LVLs ap2 5.5 cm ESV(MOD-sp2) 14.0 ml EF(MOD-sp2) 58.8 % CO(MOD-sp4) 2.0 l/min CI(MOD-sp4) 1.5 l/min/m\S\2 SV(MOD-sp4) 22.0 ml SI(MOD-sp4) 16.0 ml/m\S\2 CO(MOD-sp2) 1.8 l/min CI(MOD-sp2) 1.3 l/min/m\S\2 SV(MOD-sp2) 20.0 ml SI(MOD-sp2) 14.6 ml/m\S\2 Doppler Measurements and Calculations MV E max delisa 120.4 cm/sec MV P1/2t max delisa 145.2 cm/sec MV P1/2t 58.1 msec MVA(P1/2t) 3.8 cm\S\2 MV dec slope 732.5 cm/sec\S\2 MV dec time 0.15 sec Ao V2 max 128.0 cm/sec Ao max PG 6.6 mmHg Ao max PG (full) 4.0 mmHg LV V1 max PG 2.6 mmHg LV V1 max 80.5 cm/sec PA V2 max 90.8 cm/sec PA max PG 3.3 mmHg TR max delisa 326.3 cm/sec
[2016-06-12] MEDS ORDERED: DIGOXIN 0.125 MG TAB PO SCH (16:00)
[2016-06-13 03:23] VITALS: BP 117/60; PULSE 69; TEMP 36.5; O2SAT 97
[2016-06-13 06:19] LABS: HEMATOCRIT 34.5 % (37-47); MEAN CORPUSCULAR HEMOGLOBIN 30.9 pg (25-34); MEAN CORPUSCULAR HGB CONC 33.6 g/dl (32-36); MEAN PLATELET VOLUME 9.9 fL (7.4-10.4); PLATELET COUNT 225 K/uL (130-400); RED BLOOD COUNT 3.75 M/uL (4.2-5.4); WHITE BLOOD COUNT 6.46 K/uL (4.8-10.8)
[2016-06-13 06:54] LABS: BUN/CREATININE RATIO 19.2 (10-20); CALCIUM 8.4 mg/dl (8.5-10.1); CREATININE 0.88 mg/dl (0.60-1.20); POTASSIUM 3.5 mmol/L (3.5-5.1)
--- NOTE | 2016-06-13 07:20 | DIAGNOSTIC IMAGING REPORT ---
CHEST ONE VIEW PORTABLE CLINICAL HISTORY: Bilateral pleural effusions COMPARISON STUDY: 06/12/2016 FINDINGS: The heart remains enlarged. There is a left subclavian dual-chamber central venous pacemaker present. There are persistent bilateral pleural effusions left greater than right. There is associated left basilar atelectasis/consolidation.[ IMPRESSION: Stable findings. Electronically signed by: Cristopher Bedoya M.D. 06/13/2016 7:18 AM Dictated Date/Time: 06/13/2016 7:16 AM
[2016-06-13] MEDS: ASPIRIN 81 MG ECTAB PO SCH (07:45)
[2016-06-13] MEDS: FUROSEMIDE INJ 40 MG in SYRINGE 0 ML IV SCH (07:45)
[2016-06-13] MEDS: CILOSTAZOL 100 MG TAB PO SCH (07:45)
[2016-06-13] MEDS: SERTRALINE HCL 100 MG TAB PO SCH (07:46)
[2016-06-13] MEDS: SIMVASTATIN 40 MG TAB PO SCH (07:46)
[2016-06-13] MEDS: METOPROLOL SUCC 50MG EXT REL TAB PO SCH (07:46)
[2016-06-13 08:00] VITALS: O2SAT 98
[2016-06-13 08:54] VITALS: BP 107/59; PULSE 68; TEMP 36.6; O2SAT 98
--- NOTE | 2016-06-13 11:12 | Hospitalist Progress Note ---
Hospitalist Progress Note Date of Service Jun 13, 2016. Subjective Pt evaluation today including: conversation w/ patient, physical exam, chart review, lab review, review of studies, review of inpatient medication list Voiding: no voiding problems, no incontinence Patient states she is feeling well. She is eating and drinking OK. +nasal congestion/drip- per patient has experienced this on and off throughout the year. Patient denies any fever, chills, sweats, lightheadedness, dizziness, vision changes, CP, palpitations, edema, SOB, wheezing, cough, abdominal pain, nausea, vomiting, diarrhea, urinary symptoms, melena, numbness/tingling, weakness, muscle/joint pain, anxiety/depression, active bleeding, or new skin discoloration/changes. Medications Current Inpatient Medications Medications (Trade) Dose Ordered Sig/Christine Route Start Time Stop Time Status Last Admin Dose Admin Acetaminophen (Tylenol Tab) 650 mg Q4H PRN PO 06/11/16 19:00 07/11/16 18:59 Al Hydrox/Mg Hydrox/Simethicone (Maalox Max Susp) 15 ml Q4H PRN PO 06/11/16 19:00 07/11/16 18:59 Ondansetron HCl 4 mg 4 mg Q6H PRN IV 06/11/16 19:00 07/11/16 18:59 Furosemide/Syringe (Lasix Inj/ Syringe) 4 ml @ 4 mls/min DAILY@0900 IV 06/12/16 09:00 07/12/16 08:59 06/13/16 07:45 4 MLS/MIN Aspirin (Ecotrin Tab) 81 mg DAILY PO 06/12/16 09:00 07/12/16 08:59 06/13/16 07:45 81 MG Cilostazol (Pletal Tab) 100 mg BID PO 06/11/16 21:00 07/11/16 20:59 06/13/16 07:45 100 MG Digoxin (Lanoxin Tab) 0.125 mg DAILY@1600 PO 06/12/16 16:00 07/12/16 15:59 06/12/16 15:38 0.125 MG Metoprolol Succinate (Toprol Xl Tab) 200 mg DAILY PO 06/12/16 09:00 07/12/16 08:59 06/13/16 07:46 200 MG Sertraline HCl (Zoloft Tab) 100 mg DAILY PO 06/12/16 09:00 07/12/16 08:59 06/13/16 07:46 100 MG Simvastatin (Zocor Tab) 40 mg QAM PO 06/12/16 09:00 07/12/16 08:59 06/13/16 07:46 40 MG Miscellaneous Information (Order Awaiting Action) 1 ea QS N/A 06/11/16 21:00 07/11/16 20:59 Ioversol (Optiray 320) 100 ml UD PRN IV 06/12/16 09:30 06/16/16 09:29 Objective Vital Signs Date Time Temp Pulse Resp B/P Pulse Ox O2 Delivery O2 Flow Rate FiO2 06/13/16 08:54 36.6 68 18 107/59 98 Nasal Cannula 2.0 06/13/16 08:00 98 Nasal Cannula 2.0 06/13/16 04:00 Nasal Cannula 2.0 06/13/16 03:23 36.5 69 16 117/60 97 Nasal Cannula 2.0 06/12/16 23:59 Nasal Cannula 2.0 06/12/16 23:01 36.2 83 16 149/68 98 Nasal Cannula 3.0 06/12/16 20:00 Nasal Cannula 2.0 06/12/16 19:12 36.6 70 18 152/73 97 Nasal Cannula 3.0 06/12/16 18:48 97 Nasal Cannula 3.0 06/12/16 16:00 98 Nasal Cannula 2.0 06/12/16 15:38 77 06/12/16 15:00 36.8 79 19 120/54 96 Nasal Cannula 3.0 06/12/16 12:00 Nasal Cannula 2.0 06/12/16 11:59 36.4 79 16 126/69 98 Room Air Physical Exam General Appearance: no apparent distress, + thin Eyes: normal inspection, PERRL ENT: hearing grossly normal Neck: supple Respiratory/Chest: lungs clear, no respiratory distress, no accessory muscle use, + decreased breath sounds (L>R at lung bases ) Cardiovascular: no edema, + irregularly irregular Abdomen: normal bowel sounds, non tender, soft Extremities: no pedal edema, no calf tenderness Neurologic/Psychiatric: alert, normal mood/affect, oriented x 3 Skin: normal color, warm/dry, no rash Laboratory Results Last 24 Hours Test 06/13/16 05:25 White Blood Count 6.46 K/uL Red Blood Count 3.75 M/uL Hemoglobin 11.6 g/dL Hematocrit 34.5 % Mean Corpuscular Volume 92.0 fL Mean Corpuscular Hemoglobin 30.9 pg Mean Corpuscular Hemoglobin Concent 33.6 g/dl RDW Standard Deviation 49.4 fL RDW Coefficient of Variation 14.7 % Platelet Count 225 K/uL Mean Platelet Volume 9.9 fL Sodium Level 145 mmol/L Potassium Level 3.5 mmol/L Chloride Level 107 mmol/L Carbon Dioxide Level 30 mmol/L Anion Gap 8.0 mmol/L Blood Urea Nitrogen 17 mg/dl Creatinine 0.88 mg/dl Est Creatinine Clear Calc Drug Dose 33.1 ml/min Estimated GFR () 72.9 Estimated GFR (Non- 62.9 BUN/Creatinine Ratio 19.2 Random Glucose 85 mg/dl Calcium Level 8.4 mg/dl Diagnostic Results CHEST ONE VIEW PORTABLE CLINICAL HISTORY: Bilateral pleural effusions COMPARISON STUDY: 06/12/2016 FINDINGS: The heart remains enlarged. There is a left subclavian dual-chamber central venous pacemaker present. There are persistent bilateral pleural effusions left greater than right. There is associated left basilar atelectasis/consolidation.[ IMPRESSION: Stable findings. Electronically signed by: Cristopher Bedoya M.D. 06/13/2016 7:18 AM Dictated Date/Time: 06/13/2016 7:16 AM The status of this report is Signed. Draft = Not yet reviewed or approved by Radiologist. Signed = Reviewed and approved by Radiologist Assessment and Plan The patient is a 76 year old female who presents to the Emergency Room as a referral from her PCP Dr Mancia. Pt reports last week having flu like sx including cough, intermittent fevers. Pt reported to Dr Macnia's office where she had an CXR obtained and was told that she had fluid around her lung. She reports no edema, or worsening shortness of breath. Pt has hx of only atrial fibrillation and is on Eliquis. Pt also has hx of pacemaker. Upon arrival to ER pt noted mod effusions left greater than right on CXR. Cough/hypoxia likely secondary to pleural effusions: -Admit tele -CXR with bilateral pleural effusions, left greater than right (06/11) --Repeated CXR on 06/12: Persistent bilateral pleural effusions left greater than right with associated basilar airspace opacities. Persistent right perihilar airspace opacity. Equivocal trace left apical pneumothorax --Repeated CXR on 06/13: Stable findings. Persistent bilateral pleural effusions L>R. -Chest CT- moderate left pleural effusions with small right pleural effusion. No evidence of pathologic adenopathy. -ECHO: * Left ventricular systolic function is normal. * No regional wall motion abnormalities noted. * Ejection Fraction = 60-65%. * There is mild concentric left ventricular hypertrophy. * There is mild mitral regurgitation. * There is mild tricuspid regurgitation. * Large left pleural effusion. -Lasix 40 IV x 1 given in ER on 06/11 and will continue daily -Monitor I/Os, daily weights -Trend troponin -Patient requiring 2L O2. Does not wear O2 at home -Blood cultures, preliminary negative -Persistent bilateral pleural effusions despite IV Lasix treatment. Consult thoracic surgery, appreciate recommendations. Tachybrady syndrome s/p pacemaker insertion HTN: -Continue Exforge 1 tablet PO daily Afib, rate controlled: -Continue Digoxin 0.125 mg PO daily -Checked dig level, 1.4 -Continue Metoprolol 200 mg PO daily -Held Eliquis 2.5 mg PO BID. Last dose given 06/12 @ 0800. ?need for thoracic surgery intervention. PVD: -Continue Zocor 40 mg PO QAM -Continue Pletal 100 mg PO BID Anxiety: -Continue Zoloft 100 mg PO daily DVT prophylaxis: -Held Eliquis, ?need for thoracic surgery intervention. -ALICIA and SCDs Code Status: -LEVEL V, DNR Dispo: -Consult thoracic surgery. ?thoracentesis -PT/OT- patient is OK to return to home. Lives with a friend.
[2016-06-13 11:48] VITALS: BP 116/56; PULSE 86; TEMP 36.4; O2SAT 94
[2016-06-13 12:00] VITALS: O2SAT 98
--- NOTE | 2016-06-13 12:36 | DIAGNOSTIC IMAGING REPORT ---
CHEST ONE VIEW PORTABLE CLINICAL HISTORY: pleural effusion--s/p thoracentesis COMPARISON STUDY: 06/13/2016 FINDINGS: The cardiac and mediastinal contours remain stable. There is a left subclavian dual-chamber central venous pacemaker present. There is evidence for interval left-sided thoracentesis with significant reduction in the pleural fluid and improved aeration left lower lobe. No pneumothorax is visualized. Postsurgical changes are again visualized in the right hemithorax with partial resection of the posterior eighth rib.[ IMPRESSION: Interval left sided thoracentesis. Significant reduction in the amount of left pleural fluid. No evidence of pneumothorax Electronically signed by: Cristopher Bedoya M.D. 06/13/2016 12:35 PM Dictated Date/Time: 06/13/2016 12:33 PM
[2016-06-13 12:39] LABS: PLEURAL FLUID TOTAL PROTEIN 2.4 g/dl
--- NOTE | 2016-06-13 14:39 | Discharge Instructions ---
Discharge Instructions Admission Reason for Admission: Pleural Effusion Discharge Discharge Diagnosis / Problem: Bilateral pleural effusions Discharge Goals Goal(s): Decrease discomfort, Diagnostic testing, Therapeutic intervention Activity Recommendations Activity Limitations: resume your previous activity . Instructions / Follow-Up Instructions / Follow-Up You may resume Eliquis 2.5 mg by mouth twice per day on 06/14. You will need close follow-up with your family provider. You received a thoracentesis (removal of the fluid around your lung)- this fluid was sent off for testing. You will need to follow-up with your PCP for these results. You may resume all regular home medications as prescribed to you Please follow-up with your PCP within 5-7 days. Please follow-up/keep all of your subspecialty appointments. Current Hospital Diet Patient's current hospital diet: AHA Diet (Heart Healthy) Discharge Diet Recommended Diet: AHA Diet (Heart Healthy) Procedures Procedures Performed: 1. Thoracentesis 2. Echocardiogram 3. Chest CT 4. CXR x4 Pending Studies Studies pending at discharge: yes List of pending studies: Pleural fluid studies Laboratory Results Last 24 Hours Test 06/13/16 00:00 06/13/16 05:25 06/13/16 12:25 Pleural Fluid pH 7.48 Pleural Fluid Total Protein 2.4 g/dl Pleural Fluid LDH 77 IU Pleural Fluid Glucose 103 mg/dl Pleural Fluid Amylase 45 U/L White Blood Count 6.46 K/uL Red Blood Count 3.75 M/uL Hemoglobin 11.6 g/dL Hematocrit 34.5 % Mean Corpuscular Volume 92.0 fL Mean Corpuscular Hemoglobin 30.9 pg Mean Corpuscular Hemoglobin Concent 33.6 g/dl RDW Standard Deviation 49.4 fL RDW Coefficient of Variation 14.7 % Platelet Count 225 K/uL Mean Platelet Volume 9.9 fL Sodium Level 145 mmol/L Potassium Level 3.5 mmol/L Chloride Level 107 mmol/L Carbon Dioxide Level 30 mmol/L Anion Gap 8.0 mmol/L Blood Urea Nitrogen 17 mg/dl Creatinine 0.88 mg/dl Est Creatinine Clear Calc Drug Dose 33.1 ml/min Estimated GFR () 72.9 Estimated GFR (Non- 62.9 BUN/Creatinine Ratio 19.2 Random Glucose 85 mg/dl Calcium Level 8.4 mg/dl Lactate Dehydrogenase 187 U/L Medical Emergencies . Who to Call and When: Medical Emergencies: If at any time you feel your situation is an emergency, please call 911 immediately. . Non-Emergent Contact Non-Emergency issues call your: Primary Care Provider Call Non-Emergent contact if: you have a fever, your pain is unusual for you, your pain is concerning you, you have any medication questions . Past History Medical & Surgical History: (1) Atrial fibrillation (2) Benign hypertension (3) Cardiac pacemaker procedure (4) Chronic congestive heart failure (5) Hyperlipidemia . "Provider Documentation" section prepared by Jeri Machado. VTE Core Measure Inpt VTE Proph given/why not?: Other Anticoagulation, T.E.D. Stockings, SCD's
--- NOTE | 2016-06-13 14:41 | Discharge Summary ---
Discharge Summary Admission Date: Jun 11, 2016 at 18:48 Discharge Date: Jun 13, 2016 Discharge Disposition: Home Principal Diagnosis: Bilateral pleural effusions Immunizations: Have You Had Influenza Vaccine: Yes History of Tetanus Vaccine?: Yes History of Pneumococcal: No History of Hepatitis B Vaccine: No Procedures: 1. ECHOCARDIOGRAM Interpretation Summary * Name: ARTURO SALINAS Study Date: 06/12/2016 06:51 AM BP: 148/63 mmHg * Patient Location: [facility]\S\[facility]\S\1 HR: 82 * : 1940 (M/d/yyyy) Gender: Female Height: 64 in * Age: 76 yrs Ethnicity: [place] Weight: 87 lb * Ordering Physician: Mandeep Elkins * Referring Physician: Self, Referred * Performed By: Amado Erazo RCS * * Reason For Study: Pleural Effusions * BSA: 1.4 m2 * -- Conclusions -- * Left ventricular systolic function is normal. * No regional wall motion abnormalities noted. * Ejection Fraction = 60-65%. * There is mild concentric left ventricular hypertrophy. * There is mild mitral regurgitation. * There is mild tricuspid regurgitation. * Large left pleural effusion. Procedure Details * A complete two-dimensional transthoracic echocardiogram was performed (2D, M- mode, Doppler and color flow Doppler). Left Ventricle * The left ventricle is normal in size. * There is mild concentric left ventricular hypertrophy. * Ejection Fraction = 60-65%. * Left ventricular systolic function is normal. * No regional wall motion abnormalities noted. Right Ventricle * The right ventricle is grossly normal size. * There is a pacemaker lead in the right ventricle. * The right ventricular systolic function is normal. Atria * The left atrial size is normal. * Right atrial size is normal. * No ASD detected; PFO is not assessed. Mitral Valve * The mitral valve is grossly normal. * There is no mitral valve stenosis. * There is mild mitral regurgitation. Tricuspid Valve * The tricuspid valve is not well visualized, but is grossly normal. * There is mild tricuspid regurgitation. Aortic Valve * The aortic valve is not well visualized. * The aortic valve opens well. * No hemodynamically significant valvular aortic stenosis. * There is no significant aortic regurgitation. Pulmonic Valve * The pulmonary valve is not well seen, but the Doppler examination is normal without significant regurgitation or stenosis. * There is no significant pulmonary regurgitation. Great Vessels * The aortic root is normal size. * The pulmonary is not well visualized. Pericardium/Pleural * There is no pericardial effusion. * Large left pleural effusion. Great Vessels * Normal inferior vena cava size and collapsability with sniff indicates a normal right atrial pressure of 3 mmHg MMode 2D Measurements and Calculations IVSd 0.83 cm IVSs 1.0 cm LVIDd 3.5 cm LVIDs 2.1 cm LVPWd 0.86 cm LVPWs 1.0 cm IVS/LVPW 0.96 FS 39.5 % EDV(Teich) 50.2 ml ESV(Teich) 14.5 ml EF(Teich) 71.1 % EDV(cubed) 42.2 ml ESV(cubed) 9.3 ml EF(cubed) 77.9 % % IVS thick 26.4 % % LVPW thick 18.9 % LV mass(C)d 80.5 grams LV mass(C)dI 58.6 grams/m\S\2 LV mass(C)s 53.5 grams LV mass(C)sI 39.0 grams/m\S\2 CO(Teich) 3.2 l/min CI(Teich) 2.4 l/min/m\S\2 SV(Teich) 35.7 ml SI(Teich) 26.0 ml/m\S\2 CO(cubed) 3.0 l/min CI(cubed) 2.2 l/min/m\S\2 SV(cubed) 32.8 ml SI(cubed) 23.9 ml/m\S\2 Ao root diam 3.3 cm Ao root area 8.4 cm\S\2 ACS 1.4 cm LA dimension 3.3 cm LA/Ao 1.0 LVAd ap4 15.5 cm\S\2 LVLd ap4 6.1 cm EDV(MOD-sp4) 33.0 ml LVAs ap4 8.2 cm\S\2 LVLs ap4 5.3 cm ESV(MOD-sp4) 11.0 ml EF(MOD-sp4) 66.7 % LVAd ap2 15.5 cm\S\2 LVLd ap2 6.4 cm EDV(MOD-sp2) 34.0 ml LVAs ap2 8.8 cm\S\2 LVLs ap2 5.5 cm ESV(MOD-sp2) 14.0 ml EF(MOD-sp2) 58.8 % CO(MOD-sp4) 2.0 l/min CI(MOD-sp4) 1.5 l/min/m\S\2 SV(MOD-sp4) 22.0 ml SI(MOD-sp4) 16.0 ml/m\S\2 CO(MOD-sp2) 1.8 l/min CI(MOD-sp2) 1.3 l/min/m\S\2 SV(MOD-sp2) 20.0 ml SI(MOD-sp2) 14.6 ml/m\S\2 Doppler Measurements and Calculations MV E max delisa 120.4 cm/sec MV P1/2t max delisa 145.2 cm/sec MV P1/2t 58.1 msec MVA(P1/2t) 3.8 cm\S\2 MV dec slope 732.5 cm/sec\S\2 MV dec time 0.15 sec Ao V2 max 128.0 cm/sec Ao max PG 6.6 mmHg Ao max PG (full) 4.0 mmHg LV V1 max PG 2.6 mmHg LV V1 max 80.5 cm/sec PA V2 max 90.8 cm/sec PA max PG 3.3 mmHg TR max delisa 326.3 cm/sec Created: Initialized: 06/12/16; 1256 <Electronically signed by Franco Becker M.D.> Signed: 06/12/16 1533 Franco Becker M.D. The status of this report is Signed. Draft = Not yet reviewed or approved by Line Mechanic. Signed = Reviewed and approved by Line Mechanic. 2. Thoracentesis Consultations: Thoracic Surgery- Dr. Lamas, Zhen Ruiz, PAAbelC Medication Reconciliation Continued Medications: Amlodipine Besylate-Valsartan (Exforge) 1 Tab Tab 1 TAB PO DAILY Apixaban (Eliquis) 2.5 Mg Tab 1 TAB PO BID Aspirin (Halfprin) 81 Mg Tab 81 MG PO DAILY Cilostazol (Pletal) 100 Mg Tab 100 MG PO Q12HR, TAB Digoxin (Lanoxin) 0.125 Mg Tab 0.125 MG PO DAILY, TAB Metoprolol Succinate (Toprol Xl) 200 Mg Tab 200 MG PO DAILY, TAB Sertraline Hcl (Zoloft) 100 Mg Tab 100 MG PO DAILY, TAB Simvastatin (Zocor) 40 Mg Tab 40 MG PO QAM, TAB Discharge Exam Review of Systems: Constitutional: No chills, No fatigue, No fever, No sweats, No weakness ENT: + nasal symptoms Respiratory: No cough, No hemoptysis, No shortness of breath Cardiovascular: No chest pain, No edema, No palpitations Abdomen: No constipation, No diarrhea, No nausea, No pain, No vomiting Genitourinary - Female: No dysuria, No hematuria Neurologic: No weakness Psychiatric: No anxiety, No depression symptoms Hematologic / Lymphatic: No abnormal bleeding/bruising Integumentary: No itch, No new/changing skin lesions, No rash Physical Exam: General Appearance: no apparent distress, + thin Eyes: normal inspection, PERRL ENT: hearing grossly normal Neck: supple Respiratory/Chest: lungs clear, no respiratory distress, no accessory muscle use, + decreased breath sounds (at bilateral lung bases L>R) Cardiovascular: no edema, + irregularly irregular Abdomen / GI: normal bowel sounds, non tender, soft Extremities: no calf tenderness, no pedal edema Neurologic/Psychiatric: alert, normal mood/affect, oriented x 3 Skin: normal color, warm/dry, no rash Hospital Course The patient is a 76 year old female who presents to the Emergency Room as a referral from her PCP Dr Mancia. Pt reports last week having flu like sx including cough, intermittent fevers. Pt reported to Dr Mancia's office where she had an CXR obtained and was told that she had fluid around her lung. She reports no edema, or worsening shortness of breath. Pt has hx of only atrial fibrillation and is on Eliquis. Pt also has hx of pacemaker. Upon arrival to ER pt noted mod effusions left greater than right on CXR. Cough/hypoxia likely secondary to pleural effusions: -Admit tele -CXR with bilateral pleural effusions, left greater than right (06/11) --Repeated CXR on 06/12: Persistent bilateral pleural effusions left greater than right with associated basilar airspace opacities. Persistent right perihilar airspace opacity. Equivocal trace left apical pneumothorax --Repeated CXR on 06/13: Stable findings. Persistent bilateral pleural effusions L>R. --Repeated CXR of 06/13 s/p thoracentesis: Interval left sided thoracentesis. Significant reduction in the amount of left pleural fluid. No evidence of pneumothorax -Chest CT- moderate left pleural effusions with small right pleural effusion. No evidence of pathologic adenopathy. -ECHO: * Left ventricular systolic function is normal. * No regional wall motion abnormalities noted. * Ejection Fraction = 60-65%. * There is mild concentric left ventricular hypertrophy. * There is mild mitral regurgitation. * There is mild tricuspid regurgitation. * Large left pleural effusion. -Lasix 40 IV x 1 given in ER on 06/11 and will continue daily -Monitor I/Os, daily weights -Trend troponin -Patient requiring 2L O2. Does not wear O2 at home -Blood cultures, preliminary negative -Persistent bilateral pleural effusions despite IV Lasix treatment. Consult thoracic surgery, appreciate recommendations. --Thoracentesis on 06/13. Pleural fluid studies pending. Tachybrady syndrome s/p pacemaker insertion HTN: -Continue Exforge 1 tablet PO daily Afib, rate controlled: -Continue Digoxin 0.125 mg PO daily -Checked dig level, 1.4 -Continue Metoprolol 200 mg PO daily -Held Eliquis 2.5 mg PO BID. Last dose given 06/12 @ 0800. ?need for thoracic surgery intervention. --Thoracentesis on 06/13- may resume medication on 06/14 PVD: -Continue Zocor 40 mg PO QAM -Continue Pletal 100 mg PO BID Anxiety: -Continue Zoloft 100 mg PO daily DVT prophylaxis: -Held Eliquis, ?need for thoracic surgery intervention. -ALICIA and SCDs Code Status: -LEVEL V, DNR Dispo: -Discharge to home Total Time Spent: Greater than 30 minutes This includes examination of the patient, discharge planning, medication reconciliation, and communication with other providers. Discharge Instructions Please refer to the electronic Patient Visit Report (Discharge Instructions) for additional information. Follow-Up Please follow-up with your PCP within 5-7 days. Please follow-up/keep all of your subspecialty appointments. Additional Copies To Francesco Mancia M.D.
[2016-06-13 15:10] LABS: PLEURAL FLUID APPEARANCE CLOUDY; PLEURAL FLUID COLOR YELLOW; PLEURAL FLUID MONONUC RELAT 76.7 %; PLEURAL FLUID POLYNUC 23.3 %; PLEURAL FLUID SOURCE LEFT LUNG; PLEURAL FLUID WBC (A) 512 /uL
[2016-06-13 15:33] VITALS: BP 116/56; PULSE 86; TEMP 36.4; O2SAT 98
--- NOTE | 2016-06-13 19:35 | OPERATIVE REPORT ---
DATE OF OPERATION: 06/13/2016 PREOPERATIVE DIAGNOSIS: Left pleural effusion. POSTOPERATIVE DIAGNOSIS: Same. PROCEDURE: Left thoracentesis. SURGEON: Dr. Lamas. CHIEF EXECUTIVE OFFICER: CARMELINA Pedersen. ANESTHESIA: Local. SPECIFICS OF PROCEDURE: The patient seated up and on evaluation of her chest with the ultrasound, I was able to find a nice window about the eighth interspace in the posterior axillary line. She was prepped and draped in usual sterile fashion. Appropriate timeout was called. A skin wheal was raised with 25 gauge needle, 1% Xylocaine. A large bore needle was used to anesthetize the deeper tissues and then free flowing fluid was obtained. A guidewire was inserted through needle and needle removed. A dilator was slid over the guidewire and then removed. The triple lumen catheter was then slid over the guidewire and the guidewire removed. This was then inserted up to 17 cm. Approximately 500 mL of fluid was drained. However, she had reexpansion pain and it appeared that we got to the end of the drainage. I removed this catheter. We placed an antimicrobial dressing over her puncture site. X-ray showed no evidence of pneumothorax with excellent resolution of the fluid. She tolerated it well. I attest to the content of the Intraoperative Record and any orders documented therein. Any exceptio ns are noted below.
--- NOTE | 2016-06-14 02:18 | SURGICAL CONSULTATION ---
DATE OF CONSULTATION: 06/13/2016 REASON FOR CONSULTATION: Left pleural effusion. HISTORY OF PRESENT ILLNESS: This is a delightful 76-year-old petite female who presented with flu like symptoms over the last week or so. She is normally followed by Dr. Francesco Mancia. She had a chest x-ray and bilateral pleural effusions, left greater than right. She is on room air but does have dyspnea on exertion. I was asked to evaluate her for management of these pleural effusions. PAST MEDICAL HISTORY: 1. Hypertension. 2. Atrial fibrillation. 3. Episodes of congestive heart failure in the past. 4. Hyperlipidemia. 5. History of cigarette smoking in the past. PAST SURGICAL HISTORY: Insertion of a left infraclavicular pacemaker. MEDICATIONS: 1. Exforge. 2. Zocor. 3. Zoloft. 4. Eliquis. 5. Toprol. 6. Aspirin. 7. Lanoxin. 8. Pletal. ALLERGIES: HOLDEN INHIBITORS. SOCIAL HISTORY: The patient is never . She has no children. She smoked in the past. 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 She lives with a friend who is . She is independent with her activities of daily living. REVIEW OF SYSTEMS: The patient denies any fevers or chills, but she has been quite tired. She has also been quite weak. She has had a cough that is really not productive now. She also has dyspnea on exertion but denies any wheezing or orthopnea. She denies any peripheral edema. She has had no chest pain, no palpitations. She denies any GI or complaints such as nausea, vomiting, diarrhea, or hematuria. She has had no neurologic events such as amaurosis, fugax, transient ischemic attack. PHYSICAL EXAMINATION: GENERAL: This is a very tiny woman who stands 5 feet 5 inches tall but only weighs 88 pounds. HEENT: Her extraocular movements are intact. She appears to have temporal wasting. Her teeth are pretty good repair. She has no nasolabial flattening. Her tongue is midline. Oral mucosa is a bit dry. She has no leukoplakia or oral candidiasis. NECK: Supple. I detect no supraclavicular or cervical lymphadenopathy or neck vein distention. She has no thyroid nodules. LUNGS: He has decreased breath sounds in the base, especially the left relative to the right. HEART: She is being paced, regular rate and rhythm in the 60s. ABDOMEN: Soft and nontender. EXTREMITIES: She has femoral pulses. She really has no peripheral edema and I can palpate dorsalis pedis pulses. She has no joint effusions. NEUROLOGIC: She is awake, alert, oriented, and has no obvious focal deficits. DATA: I reviewed her chest x-ray and she does have significant effusions, left much greater than the right. PLAN: I am going to perform a left thoracentesis as I think this will be helpful in not only diagnosing the etiology but also helping her dyspnea. MOLLY
--- NOTE | 2016-06-18 14:47 | EDITING REQUIRED CODING QUERY ---
CODING QUERY To promote full compliance with coding requirements relating to patient care, provider participation is requested in all cases of powered bridge specialist uncertainty. Please assist us with the question(s) below: Dear Dr. Sorensen, Coding Question(s): Please clarify Pneumothorax CXR with bilateral pleural effusions, left greater than right (06/11) --Repeated CXR on 06/12: Persistent bilateral pleural effusions left greater than right with associated basilar airspace opacities. Persistent right perihilar airspace opacity. Equivocal trace left apical pneumothorax --Repeated CXR on 06/13: Stable findings. Persistent bilateral pleural effusions L>R. --Repeated CXR of 06/13 s/p thoracentesis: Interval left sided thoracentesis. Significant reduction in the amount of left pleural fluid. No evidence of pneumothorax Pneumothorax: ( ) Possible Pneumothorax (x ) Pneumothorax Ruled Out ( ) Other: Please explain ( ) Unable to determine Physician's Response(s): Thank you for your time. Lilliana García [facility] Principal Diagnosis: "_that condition established after study, to be chiefly responsible for occasioning the admission of the patient to the hospital for care." Co-Existing Principal Diagnosis: "_when two or more diagnoses equally meet the criteria for principal diagnosis as determined by the circumstances of admission, diagnostic work up, and/or therapy provided, and the Alphabetic Index, Tabular List, or another coding guideline does not provide sequencing direction, any one of the diagnoses may be sequenced first." "When the physician has documented what appears to be a current diagnosis in the body of the record, but has not included the diagnosis in the final diagnostic statement, the physician should be asked whether the diagnosis should be added." (Source [facility] 2 QTR90. p3-4)
[2016-06-24] MEDS ORDERED: LNX125 PO (14:07)
[2016-06-24] MEDS ORDERED: VLTG EXT (14:07)
[2016-06-24] MEDS ORDERED: CNT PO (14:07)
[2016-06-24] MEDS ORDERED: CEPH-570 PO (14:07)
[2016-06-24] MEDS ORDERED: LSX20 PO (14:07)
[2016-06-24] MEDS ORDERED: Boost PO (14:07)
== END 2016-06-13 15:53 | disposition home or self-care (01) | DRG 188 ==
LOC: ENRESERVTM → ENRESERVDT → C.EDB 12:19 → C.2T 18:48
PROVIDERS: ADMIT Hospitalist; ATTEND Internal Medicine
PROC: 0W9B3ZZ Drainage of Left Pleural Cavity, Percutaneous Approach (ICD-10-PCS; principal; 2016-06-13)
DX: J90 Pleural effusion, not elsewhere classified (principal); I48.2 Chronic atrial fibrillation; E78.5 Hyperlipidemia, unspecified; F41.9 Anxiety disorder, unspecified; I48.91 Unspecified atrial fibrillation; I50.9 Heart failure, unspecified; I73.9 Peripheral vascular disease, unspecified; R09.02 Hypoxemia; R05 Cough; I11.0 Hypertensive heart disease with heart failure; R53.83 Other fatigue; Z87.891 Personal history of nicotine dependence; Z66 Do not resuscitate; Z95.0 Presence of cardiac pacemaker; Z79.82 Long term (current) use of aspirin; Z79.899 Other long term (current) drug therapy; Z79.01 Long term (current) use of anticoagulants

== ENCOUNTER 2016-06-20 03:00 | Inpatient (IN) | payer OTHER, MEDICARE ==
[2016-06-20] VITALS (11 sets, daily range): BP systolic 117–147; BP diastolic 54–79; PULSE 61–75; TEMP 36.2–36.5; O2SAT 94–100; Ht 162.6 cm; Wt 37.4 kg
[~2016-06-20] VITALS: Ht 162.6 cm; Wt 37.4 kg
[~2016-06-20 03:00] MED LIST changes: +APIX1TAB PO; -CMD4 PO; -HYDR-3419 PO; -SULF-183 PO
[2016-06-20] MEDS ORDERED: LORAZEPAM 2 MG/ML 1 ML VIAL ONE (03:10)
[2016-06-20] MEDS ORDERED: FUROSEMIDE 40 MG/4 ML VIAL IV STA (03:26)
[2016-06-20] MEDS ORDERED: NITROGLYCERIN OINT 2% 1GM PACKET ONE (03:28)
--- NOTE | 2016-06-20 03:39 | EMERGENCY ROOM VISIT NOTE ---
History Report prepared by Moshe: Iker London Under the Supervision of: Dr. Federico Malik M.D. First contact with patient: 03:07 Chief Complaint: RESPIRATORY PROBLEMS Stated Complaint: RESPIRATORY PROBLEMS History of Present Illness The patient is a 76 year old female who presents to the Emergency Room with complaints of worsening shortness of breath beginning today. She states that she felt a little short of breath earlier today, but that it significantly worsened shortly prior to arrival. EMS states that the patient significantly worsened upon arrival to the ED. They state that the patient's blood oxygen saturations were 92-94% en route. HPI limited secondary to respiratory distress. Source of History: patient, EMS History Limited By: other (respiratory distress) Onset: Today Symptom Intensity: Blood oxygen saturation 92-94% Quality: other (shortness of breath) Timing: worsening Review of Systems ROS limited secondary to respiratory distress. Past Medical & Surgical Medical Problems: (1) Atrial fibrillation (2) Benign hypertension (3) Cardiac pacemaker procedure (4) Chronic congestive heart failure (5) Hyperlipidemia Family History Unobtainable secondary to respiratory distress. Social History Smoking Status: Former Smoker Drug Use: none Marital Status: single Occupation Status: retired Current/Historical Medications Scheduled Amlodipine Besylate-Valsartan (Exforge), 1 TAB PO DAILY Apixaban (Eliquis), 1 TAB PO BID Aspirin (Aspirin 81), 81 MG PO DAILY Cilostazol (Pletal), 100 MG PO Q12HR Digoxin (Digoxin), 0.125 MG PO DAILY Metoprolol Succinate (Toprol Xl), 200 MG PO DAILY Sertraline Hcl (Zoloft), 100 MG PO DAILY Simvastatin (Zocor), 40 MG PO QAM Allergies Coded Allergies: HOLDEN Inhibitors (Verified Adverse Reaction, Mild, COUGH, 06/11/16) Physical Exam Vital Signs Date Time Temp Pulse Resp B/P Pulse Ox O2 Delivery O2 Flow Rate FiO2 06/20/16 05:01 67 24 126/72 99 BiPAP 60 06/20/16 04:45 61 24 123/62 96 BiPAP 60 06/20/16 04:36 63 100 60 06/20/16 04:30 61 24 120/64 96 BiPAP 60 06/20/16 03:22 92 Non-Rebreather 15.0 06/20/16 03:22 75 95 100 06/20/16 03:21 78 06/20/16 03:09 80 Room Air 06/20/16 03:09 36.4 105 30 186/142 80 Room Air 06/20/16 03:00 85 Non-Rebreather 15.0 Physical Exam GENERAL: Patient is in significant respiratory distress. HEENT: No acute trauma, normocephalic atraumatic, mucous membranes moist, no nasal congestion, no scleral icterus. NECK: No stridor, no adenopathy, no meningismus, trachea is midline. LUNGS: Crackles bilaterally. Breath sounds diminished but equal. Increased respiratory rate with respiratory distress. HEART: Tachycardic with an irregular rhythm. No obvious murmurs. ABDOMEN: Soft, nontender, bowel sounds positive, no hernias, no peritonitis. EXTREMITIES: No cyanosis or edema, full range of motion of all the joints without pain or difficulty, no signs for acute trauma. NEUROLOGIC: Oriented x 3, no acute motor or sensory deficits, no focal weakness. SKIN: No rash, no jaundice, mild diaphoresis. Medical Decision & Procedures ER Provider Diagnostic Interpretation: One View Chest X-ray interpreted by me: Left sided pleural effusion. CHF noted. No pneumothorax. Laboratory Results 06/20/16 03:25 Red Blood Count 4.29, Mean Corpuscular Volume 94.2, Mean Corpuscular Hemoglobin 31.7, Mean Corpuscular Hemoglobin Concent 33.7, Mean Platelet Volume 9.9, Neutrophils (%) (Auto) 70.6, Lymphocytes (%) (Auto) 18.3, Monocytes (%) (Auto) 7.7, Eosinophils (%) (Auto) 2.8, Basophils (%) (Auto) 0.2, Neutrophils # (Auto) 8.54, Lymphocytes # (Auto) 2.21, Monocytes # (Auto) 0.93, Eosinophils # (Auto) 0.34, Basophils # (Auto) 0.03 06/20/16 03:25 Test 06/20/16 00:00 06/20/16 03:25 06/20/16 03:30 White Blood Count 12.10 K/uL (4.8-10.8) Red Blood Count 4.29 M/uL (4.2-5.4) Hemoglobin 13.6 g/dL (12.0-16.0) Hematocrit 40.4 % (37-47) Mean Corpuscular Volume 94.2 fL (80-100) Mean Corpuscular Hemoglobin 31.7 pg (25-34) Mean Corpuscular Hemoglobin Concent 33.7 g/dl (32-36) Platelet Count 325 K/uL (130-400) Mean Platelet Volume 9.9 fL (7.4-10.4) Neutrophils (%) (Auto) 70.6 % Lymphocytes (%) (Auto) 18.3 % Monocytes (%) (Auto) 7.7 % Eosinophils (%) (Auto) 2.8 % Basophils (%) (Auto) 0.2 % Neutrophils # (Auto) 8.54 K/uL (1.4-6.5) Lymphocytes # (Auto) 2.21 K/uL (1.2-3.4) Monocytes # (Auto) 0.93 K/uL (0.11-0.59) Eosinophils # (Auto) 0.34 K/uL (0-0.5) Basophils # (Auto) 0.03 K/uL (0-0.2) RDW Standard Deviation 52.6 fL (36.4-46.3) RDW Coefficient of Variation 15.4 % (11.5-14.5) Immature Granulocyte % (Auto) 0.4 % Immature Granulocyte # (Auto) 0.05 K/uL (0.00-0.02) Prothrombin Time 13.1 SECONDS (9.0-12.0) Prothromb Time International Ratio 1.2 (0.9-1.1) Activated Partial Thromboplast Time 31.1 SECONDS (21.0-31.0) Partial Thromboplastin Ratio 1.2 Anion Gap 13.0 mmol/L (3-11) Estimated GFR () 50.1 Estimated GFR (Non- 43.3 BUN/Creatinine Ratio 22.2 (10-20) Calcium Level 8.8 mg/dl (8.5-10.1) Total Bilirubin 0.4 mg/dl (0.2-1) Aspartate Amino Transf (AST/SGOT) 61 U/L (15-37) Alanine Aminotransferase (ALT/SGPT) 51 U/L (12-78) Alkaline Phosphatase 69 U/L (45-117) Troponin I 0.044 ng/ml (0-0.045) Pro-B-Type Natriuretic Peptide 6176 pg/ml (0-1800) Total Protein 6.9 gm/dl (6.4-8.2) Albumin 3.5 gm/dl (3.4-5.0) Globulin 3.4 gm/dl (2.5-4.0) Albumin/Globulin Ratio 1.0 (0.9-2) Digoxin Level 1.1 ng/ml (0.8-2.0) Lactic Acid Level 4.2 mmol/L (0.4-2.0) Laboratory results reviewed by me. Medications Administered Medications (Trade) Dose Ordered Sig/Christine Route Start Time Stop Time Status Last Admin Dose Admin Lorazepam (Ativan Inj) 2 mg STK-MED ONCE .ROUTE 06/20/16 03:10 06/20/16 03:11 DC 06/20/16 03:10 2 MG Furosemide (Lasix Inj) 40 mg NOW STAT IV 06/20/16 03:26 06/20/16 03:27 DC 06/20/16 03:46 40 MG Nitroglycerin (Nitroglycerin 2% Oint) 2 inch STK-MED ONCE .ROUTE 06/20/16 03:28 06/20/16 03:30 DC 06/20/16 03:28 2 INCH ECG Indication: SOB/dyspnea Rate (beats per minute): 92 Rhythm: atrial fibrillation (with paced beats) Findings: PVC, ST depression (inferior and lateral leads), T-wave inversion ( inferior and lateral leads) Comparison ECG Date: Jun 11, 2016 Change: T-wave changes are more pronounced and there are less paced beats. ED Course 0306: The patient was evaluated in room A12B. A complete history and physical exam was performed. 0310: Ordered Ativan Inj 0.5 mg IV. 0316: The patient was placed on BiPAP. Her symptoms appeared to improve immediately. 0326: Ordered Lasix Inj 40 mg IV, Nitroglycerin 2% Oint 2 inch EXT. 0425: Upon reexamination the patient is resting comfortably. I discussed results and treatment plan with the patient. She verbalizes agreement and understanding. The patient will be evaluated for further management. Medical Decision The patient is a 76 year old female who presents to the ED with complaints of shortness of breath. Differential diagnoses considered include CHF, pneumothorax pneumonia, acute bronchitis, cardiac ischemia, anemia, [place], electrolyte imbalance, as well as other etiologies were considered. There is a mild leukocytosis, this could be consistent with infection or just the stress of her presentation. No concerning anemia. No significant electrolyte abnormality, kidney failure or hepatitis. There is no coagulopathy. Digoxin level is not toxic. EKG shows A. fib without any acute ischemia. Cardiac enzyme testing times one is not suggestive of acute cardiac injury. Chest x-ray shows CHF with a left effusion, no pneumothorax. BNP is elevated consistent with fluid overload. Lactic acid level is elevated, I suspect this elevation may be from her hypoxia, I doubt she is septic. Influenza testing is pending. The patient was aggressively managed. She was in respiratory distress upon arrival. She was quickly given nitro paste and IV Ativan, she was placed on BiPAP. She was given IV Lasix. With the above treatment, the patient has significantly improved, she is resting comfortably. She is no longer hypoxic. She is no longer in any respiratory distress. Admission/observation is warranted. The patient requires further hospital care. I spoke to case management and the patient, the on-call hospitalist was consulted. Consults Time Called: [phone] Consulting Physician: [facility] [place] Returned Call: [phone] Discussed the patient's case. The patient will be evaluated for further management. Impression Primary Impression: Respiratory distress Additional Impressions: Hypoxia CHF (congestive heart failure) Critical Care I have personally spent greater than 30 minutes of critical care time in the direct management of this patient. This includes bedside care, interpretation of diagnostic studies, and testing, discussion with consultants, patient, and family members, and other required patient management activities. This 30 minutes is in excess of all separately billable procedures. Scribe Attestation The scribe's documentation has been prepared under my direction and personally reviewed by me in its entirety. I confirm that the note above accurately reflects all work, treatment, procedures, and medical decision making performed by me. Departure Information Dispostion Being Evaluated By Hospitalist Referrals Francesco Mancia M.D. (PCP) Patient Instructions My [facility] Problem Qualifiers
[2016-06-20 03:45] LABS: BASO % 0.2 %; BASO ABS # 0.03 K/uL (0-0.2); COMPLETE YES; EOS % 2.8 %; HEMATOCRIT 40.4 % (37-47); IG% 0.4 %; LYMPH % 18.3 %; LYMPH ABS # 2.21 K/uL (1.2-3.4); MEAN CELL VOLUME 94.2 fL (80-100); MEAN CORPUSCULAR HEMOGLOBIN 31.7 pg (25-34); MEAN CORPUSCULAR HGB CONC 33.7 g/dl (32-36); MEAN PLATELET VOLUME 9.9 fL (7.4-10.4); MONO % 7.7 %; NEUT % 70.6 %; PLATELET COUNT 325 K/uL (130-400); RED BLOOD COUNT 4.29 M/uL (4.2-5.4)
[2016-06-20 04:04] LABS: INR 1.2 (0.9-1.1); PARTIAL THROMBOPLASTIN RATIO 1.2; PROTHROMBIN TIME (PATIENT) 13.1 SECONDS (9.0-12.0)
[2016-06-20 04:06] LABS: ALT/SGPT 51 U/L (12-78); AST/SGOT 61 U/L (15-37); BLOOD UREA NITROGEN 27 mg/dl (7-18); BUN/CREATININE RATIO 22.2 (10-20); CALCIUM 8.8 mg/dl (8.5-10.1); CARBON DIOXIDE 21 mmol/L (21-32); CHLORIDE 110 mmol/L (98-107); GLUCOSE 180 mg/dl (70-99); POTASSIUM 3.5 mmol/L (3.5-5.1); SODIUM 144 mmol/L (136-145)
[2016-06-20 04:10] LABS: ALKALINE PHOSPHATASE 69 U/L (45-117)
[2016-06-20] MEDS ORDERED: LNX125 PO (04:45)
[2016-06-20] MEDS ORDERED: ASPI-435 PO (04:45)
[2016-06-20] MEDS ORDERED: ALUMINUM/MAGNESIUM/SIMETH (MAALOX MAX) 30 ML UDC PO PRN (05:45)
[2016-06-20] MEDS ORDERED: ONDANSETRON INJ 2 MG/ML 2 ML VIAL IV PRN (05:45)
[2016-06-20] MEDS ORDERED: POLYETHYLENE (MIRALAX) 17 GM PACK PO PRN (05:45)
[2016-06-20] MEDS ORDERED: ZOLPIDEM TARTRATE 5 MG TAB PO PRN (05:45)
[2016-06-20] MEDS ORDERED: MoRPHine SULFATE 2 MG/ML CARP IV PRN (05:45)
[2016-06-20] MEDS ORDERED: MAGNESIUM HYDROXIDE SUSP 30 ML UDC PO PRN (05:45)
[2016-06-20] MEDS ORDERED: NITROGLYCERIN 0.4 MG SL PER TAB CHARGE SL PRN (05:45)
[2016-06-20 06:06] LABS: INFLUENZA A PCR Neg for Influ A (NEG); INFLUENZA B PCR Neg for Influ B (NEG)
--- NOTE | 2016-06-20 06:10 | History and Physical ---
History & Physical Date & Time of Service: Jun 20, 2016 at 05:57 Chief Complaint: Respiratory Problems Primary Care Physician: Francesco Mancia M.D. History of Present Illness Source: patient 76 y.o F w/Hx AF, diasolic CHF and recent admission for effusions and related hypoxia. Pt had required IR drainage of effusions prior to D/C. She had been mildly SOB over the past 2 days and then woke from sleep thi arias in distress. She was brought into the hospital where she required Lasix and Bipap and is exhibiting improvement at the time of admission. She denies CP, a productive cough or fevers. Initial labs and imaging are consistent with CHF exacerbation. There appears to be reaccumulation of her effusions as well. Past Medical/Surgical History Medical Problems: (1) Atrial fibrillation Status: Chronic (2) Benign hypertension Status: Chronic (3) Cardiac pacemaker procedure (4) Chronic congestive heart failure Chronic systolic CHF (5) Hyperlipidemia Status: Chronic Family History Noncontributory Social History Smoking Status: Former Smoker Drug Use: none Marital Status: single Occupational Status: retired Immunizations History of Influenza Vaccine: Yes History of Tetanus Vaccine?: Yes History of Pneumococcal: No History of Hepatitis B Vaccine: No Multi-Drug Resistant Organisms History of MDRO: No Allergies Coded Allergies: HOLDEN Inhibitors (Verified Adverse Reaction, Mild, COUGH, 06/11/16) Home Medications Scheduled Amlodipine Besylate-Valsartan (Exforge), 1 TAB PO DAILY Apixaban (Eliquis), 1 TAB PO BID Aspirin (Aspirin 81), 81 MG PO DAILY Cilostazol (Pletal), 100 MG PO Q12HR Digoxin (Digoxin), 0.125 MG PO DAILY Metoprolol Succinate (Toprol Xl), 200 MG PO DAILY Sertraline Hcl (Zoloft), 100 MG PO DAILY Simvastatin (Zocor), 40 MG PO QAM Review of Systems Constitutional: No chills, No fever, No sweats Eyes: No worsening of vision ENT: No hearing loss, No nasal symptoms, No unusual epistaxis Respiratory: + dyspnea at rest, + dyspnea on exertion, + shortness of breath, No cough, No sputum, No wheezing Cardiovascular: + orthopnea, No chest pain Abdomen: No nausea, No pain, No vomiting Musculoskeletal: No joint pain, No muscle pain Genitourinary - Female: No dysuria, No urinary frequency, No urinary urgency Neurologic: No memory loss, No paralysis Psychiatric: No depression symptoms Endocrine: No fatigue Hematologic / Lymphatic: No abnormal bleeding/bruising Integumentary: No rash Allergic / Immunologic: No environmental allergies, No seasonal allergies Physical Exam Vital Signs Date Time Temp Pulse Resp B/P Pulse Ox O2 Delivery O2 Flow Rate FiO2 06/20/16 05:01 67 24 126/72 99 BiPAP 60 06/20/16 04:45 61 24 123/62 96 BiPAP 60 06/20/16 04:36 63 100 60 06/20/16 04:30 61 24 120/64 96 BiPAP 60 06/20/16 04:15 68 24 133/72 98 BiPAP 60 06/20/16 03:45 74 28 160/134 93 BiPAP 80 06/20/16 03:22 92 Non-Rebreather 15.0 06/20/16 03:22 75 95 100 06/20/16 03:21 78 06/20/16 03:09 80 Room Air 06/20/16 03:09 36.4 105 30 186/142 80 Room Air 06/20/16 03:00 85 Non-Rebreather 15.0 General Appearance: + thin, + pertinent finding (Thin elderly female - no distress following LAsix and 02 in ER) Head: normocephalic, atraumatic Eyes: normal inspection, EOMI ENT: normal ENT inspection, pharynx normal Neck: supple, + JVD Respiratory/Chest: chest non-tender, + accessory muscle use, + pertinent finding (Very poor b/l Air entry - no air at bases - no wheezing audible) Cardiovascular: regular rate, rhythm, no edema, + JVD Abdomen/GI: normal bowel sounds, non tender, soft Back: + pertinent finding (Kyphosis present) 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, no motor/sensory deficits, alert, oriented x 3 Skin: normal color, warm/dry, no rash Diagnostics Laboratory Results Results Past 24 Hours Test 06/20/16 00:00 06/20/16 03:25 06/20/16 03:30 06/20/16 05:42 Range/Units White Blood Count 12.10 4.8-10.8 K/uL Red Blood Count 4.29 4.2-5.4 M/uL Hemoglobin 13.6 12.0-16.0 g/dL Hematocrit 40.4 37-47 % Mean Corpuscular Volume 94.2 80-100 fL Mean Corpuscular Hemoglobin 31.7 25-34 pg Mean Corpuscular Hemoglobin Concent 33.7 32-36 g/dl Platelet Count 325 130-400 K/uL Mean Platelet Volume 9.9 7.4-10.4 fL Neutrophils (%) (Auto) 70.6 % Lymphocytes (%) (Auto) 18.3 % Monocytes (%) (Auto) 7.7 % Eosinophils (%) (Auto) 2.8 % Basophils (%) (Auto) 0.2 % Neutrophils # (Auto) 8.54 1.4-6.5 K/uL Lymphocytes # (Auto) 2.21 1.2-3.4 K/uL Monocytes # (Auto) 0.93 0.11-0.59 K/uL Eosinophils # (Auto) 0.34 0-0.5 K/uL Basophils # (Auto) 0.03 0-0.2 K/uL RDW Standard Deviation 52.6 36.4-46.3 fL RDW Coefficient of Variation 15.4 11.5-14.5 % Immature Granulocyte % (Auto) 0.4 % Immature Granulocyte # (Auto) 0.05 0.00-0.02 K/uL Prothrombin Time 13.1 9.0-12.0 SECONDS Prothromb Time International Ratio 1.2 0.9-1.1 Activated Partial Thromboplast Time 31.1 21.0-31.0 SECONDS Partial Thromboplastin Ratio 1.2 Sodium Level 144 136-145 mmol/L Potassium Level 3.5 3.5-5.1 mmol/L Chloride Level 110 98-107 mmol/L Carbon Dioxide Level 21 21-32 mmol/L Anion Gap 13.0 3-11 mmol/L Blood Urea Nitrogen 27 7-18 mg/dl Creatinine 1.20 0.60-1.20 mg/dl Estimated GFR () 50.1 Estimated GFR (Non- 43.3 BUN/Creatinine Ratio 22.2 10-20 Random Glucose 180 70-99 mg/dl Calcium Level 8.8 8.5-10.1 mg/dl Total Bilirubin 0.4 0.2-1 mg/dl Aspartate Amino Transf (AST/SGOT) 61 15-37 U/L Alanine Aminotransferase (ALT/SGPT) 51 12-78 U/L Alkaline Phosphatase 69 45-117 U/L Troponin I 0.044 0-0.045 ng/ml Pro-B-Type Natriuretic Peptide 6176 0-1800 pg/ml Total Protein 6.9 6.4-8.2 gm/dl Albumin 3.5 3.4-5.0 gm/dl Globulin 3.4 2.5-4.0 gm/dl Albumin/Globulin Ratio 1.0 0.9-2 Digoxin Level 1.1 0.8-2.0 ng/ml Lactic Acid Level 4.2 0.4-2.0 mmol/L Microbiology Results 06/20/16 Blood Culture, Received Pending 06/20/16 Blood Culture, Received Pending Diagnostic Radiology CXR consistent with CHF - b/l effusions L > R EKG AF - occasional pacing - nondiagnostic Impression Assessment and Plan 76 y.o F w/Hx AF, diasolic CHF and recent admission for effusions and related hypoxia. Pt had required IR drainage of effusions prior to D/C. She had been mildly SOB over the past 2 days and then woke from sleep this arias in distress. Rrequired Lasix and Bipap in ER and is exhibiting improvement at the time of admission. Initial labs and imaging are consistent with CHF exacerbation. There appears to be reaccumulation of her effusions as well. 1) CHF exacerbation / pleural effusions - placed on 02 protocol and will continue diuresis with BID Lasix - CXR will be repeated at noon and if there is no improvement she may require additional thoracentesis. Cont Bblocker. Will rule out acute event with serial trop. Lactic acid is elevated - likely due to hypoxemia - will repeat 2) AF - rate controlled with Dig and Metoprolol - will be continued - anticoagulated with Apixaban 3) HPL - cont statin Full code confirmed with pt - Apixaban precludes additional prophylaxis Total time foir this admit including review of records, labs, EKG, CXR - med rec - discussion with ER attending and Pt - 38 min Level of Care Telemetry Resuscitation Status FULL RESUSCITATION VTE Prophylaxis VTE Risk Assessment Done? Y/N: Yes Risk Level: Moderate Given or contraindicated: Other Anticoagulation
--- NOTE | 2016-06-20 06:40 | DIAGNOSTIC IMAGING REPORT ---
CHEST ONE VIEW PORTABLE CLINICAL HISTORY: Respiratory distress COMPARISON STUDY: 06/13/2016 FINDINGS: There is a left subclavian dual-chamber central venous pacemaker present. The heart is enlarged. There is evidence for asymmetric pulmonary edema. There are bilateral pleural effusions left greater than right.[ IMPRESSION: Interval development of asymmetric pulmonary edema pattern right greater than left. Cardiomegaly. Bilateral pleural effusions left greater than right. Electronically signed by: Cristopher Bedoya M.D. 06/20/2016 6:38 AM Dictated Date/Time: 06/20/2016 6:37 AM
[2016-06-20] MEDS: SERTRALINE HCL 100 MG TAB PO SCH (08:31)
[2016-06-20] MEDS: SIMVASTATIN 40 MG TAB PO SCH (08:31)
[2016-06-20] MEDS: ASPIRIN 81 MG ECTAB PO SCH (08:31)
[2016-06-20] MEDS: METOPROLOL SUCC 50MG EXT REL TAB PO SCH (08:31)
[2016-06-20] MEDS: CILOSTAZOL 100 MG TAB PO SCH ×2 (08:31→20:39)
[2016-06-20] MEDS: FUROSEMIDE INJ 40 MG in SYRINGE 0 ML IV SCH ×2 (08:31→16:24)
[2016-06-20] MEDS: POTASSIUM CHLORIDE 20 MEQ TABCR PO SCH ×2 (08:32→20:39)
[2016-06-20] MEDS ORDERED: APIXABAN 2.5 MG TAB PO SCH (09:00)
[2016-06-20] MEDS: NITROGLYCERIN OINT 2% 1GM PACKET EXT SCH ×3 (10:52→22:10)
--- NOTE | 2016-06-20 12:45 | DIAGNOSTIC IMAGING REPORT ---
SINGLE VIEW CHEST CLINICAL HISTORY: CHF. FINDINGS: An AP, portable, upright chest radiograph is compared to study performed earlier the same day 06/20/2016 and correlated with chest CT dated 06/12/2016. A 2-lead cardiac pacemaker is unchanged in position. The heart is enlarged and there is atherosclerotic calcification of the thoracic aorta. There is pulmonary vessel congestion with evidence of interstitial edema. This has modestly improved from earlier today. Layering pleural effusions with bibasilar consolidation is unchanged. No pneumothorax is seen. The skeletal structures are osteopenic. The bony thorax is grossly intact. IMPRESSION: 1. Cardiomegaly and cardiac pacemaker. There is evidence of congestive failure and interstitial edema. This has modestly improved from earlier today. 2. Layering pleural effusions and bibasilar consolidation is similar to previous. Electronically signed by: Federico Collazo M.D. 06/20/2016 12:43 PM Dictated Date/Time: 06/20/2016 12:42 PM
--- NOTE | 2016-06-20 13:33 | Hospitalist Progress Note ---
Hospitalist Progress Note Date of Service Jun 20, 2016. (Jeri Machado ., BRO) Subjective Pt evaluation today including: conversation w/ patient, physical exam, chart review, lab review, review of studies, review of inpatient medication list Voiding: bustamante catheter in place (Draining light yellow urine ) Patient is feeling OK today. +SOB. +non-productive cough. Patient denies any fever, chills, sweats, lightheadedness, dizziness, vision changes, CP, palpitations, edema, wheezing, abdominal pain, nausea, vomiting, diarrhea, urinary symptoms, melena, numbness/tingling, weakness, muscle/joint pain, anxiety/depression, active bleeding, or new skin discoloration/changes. (Jeri Machado ., RACHAELC) Medications Current Inpatient Medications Medications (Trade) Dose Ordered Sig/Christine Route Start Time Stop Time Status Last Admin Dose Admin Apixaban (Eliquis Tab) 2.5 mg BID PO 06/20/16 09:00 07/20/16 08:59 06/20/16 08:32 2.5 MG Aspirin (Ecotrin Tab) 81 mg DAILY PO 06/20/16 09:00 07/20/16 08:59 06/20/16 08:31 81 MG Cilostazol (Pletal Tab) 100 mg BID PO 06/20/16 09:00 07/20/16 08:59 06/20/16 08:31 100 MG Digoxin (Lanoxin Tab) 0.125 mg DAILY@1600 PO 06/20/16 16:00 07/20/16 15:59 Metoprolol Succinate (Toprol Xl Tab) 200 mg DAILY PO 06/20/16 09:00 07/20/16 08:59 06/20/16 08:31 200 MG Sertraline HCl (Zoloft Tab) 100 mg DAILY PO 06/20/16 09:00 07/20/16 08:59 06/20/16 08:31 100 MG Simvastatin (Zocor Tab) 40 mg QAM PO 06/20/16 09:00 07/20/16 08:59 06/20/16 08:31 40 MG Miscellaneous Information (Order Awaiting Action) 1 ea QS N/A 06/20/16 08:00 07/20/16 07:59 Acetaminophen (Tylenol Tab) 650 mg Q4H PRN PO 06/20/16 05:45 07/20/16 05:44 Al Hydrox/Mg Hydrox/Simethicone (Maalox Max Susp) 15 ml Q4H PRN PO 06/20/16 05:45 07/20/16 05:44 Magnesium Hydroxide (Milk Of Magnesia Susp) 30 ml Q12H PRN PO 06/20/16 05:45 07/20/16 05:44 Zolpidem Tartrate (Ambien Tab) 5 mg HSZ PRN PO 06/20/16 05:45 07/20/16 05:44 Ondansetron HCl (Zofran Inj) 4 mg Q6H PRN IV 06/20/16 05:45 07/20/16 05:44 Nitroglycerin (Nitrostat Tab) 0.4 mg UD PRN SL 06/20/16 05:45 07/20/16 05:44 Nitroglycerin (Nitroglycerin 2% Oint) 1 inch Q6H EXT 06/20/16 10:00 07/20/16 05:44 Morphine Sulfate (MoRPHine SULFATE INJ) 2 mg Q30M PRN IV 06/20/16 05:45 07/04/16 05:44 Polyethylene 17 gm 17 gm DAILY PRN PO 06/20/16 05:45 07/20/16 05:44 Furosemide/Syringe (Lasix Inj/ Syringe) 4 ml @ 4 mls/min BID17 IV 06/20/16 09:00 07/20/16 08:59 06/20/16 08:31 4 MLS/MIN Potassium Chloride (Klor-Con Tab) 20 meq BID PO 06/20/16 09:00 07/20/16 08:59 06/20/16 08:32 20 MEQ (Jeri Machado, CARMELINA-C) Objective Vital Signs Date Time Temp Pulse Resp B/P Pulse Ox O2 Delivery O2 Flow Rate FiO2 06/20/16 07:03 64 20 118/64 97 BiPAP 06/20/16 06:30 66 22 138/67 98 BiPAP 60 06/20/16 06:00 66 22 117/69 97 BiPAP 60 06/20/16 05:01 67 24 126/72 99 BiPAP 60 06/20/16 04:45 61 24 123/62 96 BiPAP 60 06/20/16 04:36 63 100 60 06/20/16 04:30 61 24 120/64 96 BiPAP 60 06/20/16 04:15 68 24 133/72 98 BiPAP 60 06/20/16 03:45 74 28 160/134 93 BiPAP 80 06/20/16 03:22 92 Non-Rebreather 15.0 06/20/16 03:22 75 95 100 06/20/16 03:21 78 06/20/16 03:09 80 Room Air 06/20/16 03:09 36.4 105 30 186/142 80 Room Air 06/20/16 03:00 85 Non-Rebreather 15.0 (Jeri Machado, PA-C) Physical Exam General Appearance: no apparent distress, + thin Eyes: normal inspection, PERRL ENT: hearing grossly normal Neck: supple Respiratory/Chest: no respiratory distress, no accessory muscle use, + decreased breath sounds (bilateral lung bases, L>R) Cardiovascular: no edema, + irregularly irregular Abdomen: normal bowel sounds, non tender, soft Extremities: no pedal edema, no calf tenderness Neurologic/Psychiatric: alert, normal mood/affect, oriented x 3 Skin: normal color, warm/dry, no rash (Jeri Machado ., PA-C) Laboratory Results Last 24 Hours Test 06/20/16 00:00 06/20/16 03:25 06/20/16 03:30 06/20/16 06:24 Influenza Type A (RT-PCR) Neg for Influ A Influenza Type B (RT-PCR) Neg for Influ B White Blood Count 12.10 K/uL Red Blood Count 4.29 M/uL Hemoglobin 13.6 g/dL Hematocrit 40.4 % Mean Corpuscular Volume 94.2 fL Mean Corpuscular Hemoglobin 31.7 pg Mean Corpuscular Hemoglobin Concent 33.7 g/dl Platelet Count 325 K/uL Mean Platelet Volume 9.9 fL Neutrophils (%) (Auto) 70.6 % Lymphocytes (%) (Auto) 18.3 % Monocytes (%) (Auto) 7.7 % Eosinophils (%) (Auto) 2.8 % Basophils (%) (Auto) 0.2 % Neutrophils # (Auto) 8.54 K/uL Lymphocytes # (Auto) 2.21 K/uL Monocytes # (Auto) 0.93 K/uL Eosinophils # (Auto) 0.34 K/uL Basophils # (Auto) 0.03 K/uL RDW Standard Deviation 52.6 fL RDW Coefficient of Variation 15.4 % Immature Granulocyte % (Auto) 0.4 % Immature Granulocyte # (Auto) 0.05 K/uL Prothrombin Time 13.1 SECONDS Prothromb Time International Ratio 1.2 Activated Partial Thromboplast Time 31.1 SECONDS Partial Thromboplastin Ratio 1.2 Sodium Level 144 mmol/L Potassium Level 3.5 mmol/L Chloride Level 110 mmol/L Carbon Dioxide Level 21 mmol/L Anion Gap 13.0 mmol/L Blood Urea Nitrogen 27 mg/dl Creatinine 1.20 mg/dl Estimated GFR () 50.1 Estimated GFR (Non- 43.3 BUN/Creatinine Ratio 22.2 Random Glucose 180 mg/dl Calcium Level 8.8 mg/dl Total Bilirubin 0.4 mg/dl Aspartate Amino Transf (AST/SGOT) 61 U/L Alanine Aminotransferase (ALT/SGPT) 51 U/L Alkaline Phosphatase 69 U/L Troponin I 0.044 ng/ml 0.488 ng/ml Pro-B-Type Natriuretic Peptide 6176 pg/ml Total Protein 6.9 gm/dl Albumin 3.5 gm/dl Globulin 3.4 gm/dl Albumin/Globulin Ratio 1.0 Digoxin Level 1.1 ng/ml Lactic Acid Level 4.2 mmol/L (Jeri Machado, PAAbelC) Assessment and Plan 76 y.o F w/Hx AF, diasolic CHF and recent admission for effusions and related hypoxia. Pt had required IR drainage of effusions prior to D/C. She had been mildly SOB over the past 2 days and then woke from sleep thi arias in distress. She was brought into the hospital where she required Lasix and Bipap and is exhibiting improvement at the time of admission. She denies CP, a productive cough or fevers. Initial labs and imaging are consistent with CHF exacerbation. There appears to be reaccumulation of her effusions as well. CHF exacerbation/bilateral pleural effusions: - Admit med/surg - CXR: Interval development of asymmetric pulmonary edema pattern right greater than left. Cardiomegaly. Bilateral pleural effusions left greater than right.Equivocal trace left apical pneumothorax -- Repeated CXR with modest improvement in pulmonary edema. No change in pleural effusions - ECHO on 06/12/16: * Left ventricular systolic function is normal. * No regional wall motion abnormalities noted. * Ejection Fraction = 60-65%. * There is mild concentric left ventricular hypertrophy. * There is mild mitral regurgitation. * There is mild tricuspid regurgitation. * Large left pleural effusion. - Lasix 40 IV x 1 given in ER on 06/20 and will continue BID - Monitor I/Os, daily weights - Trending upward troponin, ?likely secondary to increased oxygen demand - Patient requiring BIPAP at admission--> currently on 4L. Does not wear O2 at home - Pending blood cultures - Lactic acid 4.2, repeat of 1.1. ?likely secondary to hypoxia. Leukocytosis of 12.10. Follow s/s of infections/need for antibiotic therapy - Dieresis with IV Lasix, consider thoracic consult for thoracentesis as patient required this on 06/13/16. -- Reviewed pleural fluid, Light's Criteria not met- likely not exudative -Check TSH Tachybrady syndrome s/p pacemaker insertion" - Interrogate pacemaker HTN: - Continue Exforge 1 tablet PO daily Afib, rate controlled: - Continue Digoxin 0.125 mg PO daily -Checked dig level, 1.1 - Continue Metoprolol 200 mg PO daily - Hold Eliquis 2.5 mg PO BID. Last dose given @ 0830. ?need thoracentesis. PVD: - Continue Zocor 40 mg PO QAM - Continue Pletal 100 mg PO BID Anxiety: - Continue Zoloft 100 mg PO daily DVT prophylaxis: - Held Eliquis, ?need for thoracentesis - ALICIA and SCDs Code Status: - LEVEL V, DNR Dispo: - Lives at home with friend. - Cleared by PT/OT at last admission on 06/12/16--> will reconsult PT/OT when patient's status improves due to readmission. (Jeri Machado ., PAOscar) Attending Attestation: Pt seen/examined, chart reviewed, and care plan d/w CARMELINA Machado I agree with the campuzano components of her progress note documentation. During the visit the patient reports improved dyspnea and less orthopnea. Some cough. Tele with a. fib. Denies chest pain. VSS, afebrile gen - thin, cacechtic neck - no JVD heart - irregularly irregular, s1, s2 lungs - crackles b/l, decreased BS left base extending 1/2 way up back, mildly decreased right base abd - soft, NT, no mass ext - no edema labs - troponin + at 1.2 repeat lactate level normal A/P: 1. acute/chronic diastolic CHF 2. b/l pleural effusions, L>R, s/p thoracentesis 1 week ago for same issue; fluid studies previous admission suggestive of transudative 3. acute hypoxic resp failure 2nd to #1 4. +troponin - difficult to say if type 1 [place] vs type 2 [place]; certainly has risk factors for type 1; received eliquis this am; once cleared from system place on heparin drip; cont nitrates, BB 5. chronic a. fib with pacemaker insertion in past for tachy-nkechi syndrome cont lasix diuresis may need thoracentesis for left sided effusion but certainly she is stable and this is not urgent issue pacemaker interrogation; a. fib could be driving #1 TSH patient quite cacechtic -- underlying cancer??? add boost, MVI, etc Juancarlos LOWERY MD (Steffen Loweyr MD)
[2016-06-20] MEDS: DIGOXIN 0.125 MG TAB PO SCH (16:16)
[2016-06-20 19:13] LABS: CKMB/CK RATIO 17.4 (0-3.0)
[2016-06-20] MEDS: HEPARIN 25,000 UNIT/500ML D5W 500 ML IV PRN (20:36)
[2016-06-21] VITALS (8 sets, daily range): BP systolic 115–136; BP diastolic 54–76; PULSE 68–76; TEMP 36.3–36.5; O2SAT 94–98
[2016-06-21 03:02] LABS: PARTIAL THROMBOPLASTIN RATIO 2.4
[2016-06-21] MEDS: NITROGLYCERIN OINT 2% 1GM PACKET EXT SCH ×4 (04:11→21:26)
[2016-06-21 06:29] LABS: PARTIAL THROMBOPLASTIN RATIO 2.4
[2016-06-21 06:50] LABS: BUN/CREATININE RATIO 29.1 (10-20); CALCIUM 8.9 mg/dl (8.5-10.1); CREATININE 0.98 mg/dl (0.60-1.20); MAGNESIUM 1.7 mg/dl (1.8-2.4); POTASSIUM 3.7 mmol/L (3.5-5.1)
[2016-06-21] MEDS: CEROVITE ADV FORMULA TAB PO SCH (08:43)
[2016-06-21] MEDS: ASPIRIN 81 MG ECTAB PO SCH (08:43)
[2016-06-21] MEDS: FUROSEMIDE INJ 40 MG in SYRINGE 0 ML IV SCH (08:43)
[2016-06-21] MEDS: POTASSIUM CHLORIDE 20 MEQ TABCR PO SCH ×2 (08:44→21:23)
[2016-06-21] MEDS: SERTRALINE HCL 100 MG TAB PO SCH (08:44)
[2016-06-21] MEDS: METOPROLOL SUCC 50MG EXT REL TAB PO SCH (08:44)
[2016-06-21] MEDS: SIMVASTATIN 40 MG TAB PO SCH (08:44)
[2016-06-21] MEDS: CILOSTAZOL 100 MG TAB PO SCH ×2 (08:44→21:24)
[2016-06-21] MEDS ORDERED: MAGNESIUM SULFATE 1GM / D5W 1 GM in PREMIXED IN D5W 100 ML IV ONE (09:00)
[2016-06-21 10:28] LABS: PARTIAL THROMBOPLASTIN RATIO 2.4
[2016-06-21] MEDS: BOOST VANILLA PO SCH ×4 (10:43→16:49)
--- NOTE | 2016-06-21 14:22 | Hospitalist Progress Note ---
Hospitalist Progress Note Date of Service Jun 21, 2016. (Jeri Machado ., BRO) Subjective Pt evaluation today including: conversation w/ patient, physical exam, chart review, lab review, review of inpatient medication list Voiding: bustamatne catheter in place (draining yellow urine ) Patient states she is feeling very well. She was sitting in bedside chair while interviewing. SOB have greatly improved. She is eating and drinking OK. Patient denies any fever, chills, sweats, lightheadedness, dizziness, vision changes, CP , palpitations, edema, wheezing, cough, abdominal pain, nausea, vomiting, diarrhea, urinary symptoms, melena, numbness/tingling, weakness, muscle/joint pain, anxiety/depression, active bleeding, or new skin discoloration/changes. (Jeri Machado ., RACHAELC) Medications Current Inpatient Medications Medications (Trade) Dose Ordered Sig/Christine Route Start Time Stop Time Status Last Admin Dose Admin Apixaban (Eliquis Tab) 2.5 mg BID PO 06/20/16 09:00 07/20/16 08:59 Future Hold 06/20/16 08:32 2.5 MG Aspirin (Ecotrin Tab) 81 mg DAILY PO 06/20/16 09:00 07/20/16 08:59 06/21/16 08:43 81 MG Cilostazol (Pletal Tab) 100 mg BID PO 06/20/16 09:00 07/20/16 08:59 06/21/16 08:44 100 MG Digoxin (Lanoxin Tab) 0.125 mg DAILY@1600 PO 06/20/16 16:00 07/20/16 15:59 06/20/16 16:16 0.125 MG Metoprolol Succinate (Toprol Xl Tab) 200 mg DAILY PO 06/20/16 09:00 07/20/16 08:59 06/21/16 08:44 200 MG Sertraline HCl (Zoloft Tab) 100 mg DAILY PO 06/20/16 09:00 07/20/16 08:59 06/21/16 08:44 100 MG Simvastatin (Zocor Tab) 40 mg QAM PO 06/20/16 09:00 07/20/16 08:59 06/21/16 08:44 40 MG Miscellaneous Information (Order Awaiting Action) 1 ea QS N/A 06/20/16 08:00 07/20/16 07:59 Acetaminophen (Tylenol Tab) 650 mg Q4H PRN PO 06/20/16 05:45 07/20/16 05:44 Al Hydrox/Mg Hydrox/Simethicone (Maalox Max Susp) 15 ml Q4H PRN PO 06/20/16 05:45 07/20/16 05:44 Magnesium Hydroxide (Milk Of Magnesia Susp) 30 ml Q12H PRN PO 06/20/16 05:45 07/20/16 05:44 Zolpidem Tartrate (Ambien Tab) 5 mg HSZ PRN PO 06/20/16 05:45 07/20/16 05:44 Ondansetron HCl (Zofran Inj) 4 mg Q6H PRN IV 06/20/16 05:45 07/20/16 05:44 Nitroglycerin (Nitrostat Tab) 0.4 mg UD PRN SL 06/20/16 05:45 07/20/16 05:44 Nitroglycerin (Nitroglycerin 2% Oint) 1 inch Q6H EXT 06/20/16 10:00 07/20/16 05:44 06/21/16 04:11 1 INCH Morphine Sulfate (MoRPHine SULFATE INJ) 2 mg Q30M PRN IV 06/20/16 05:45 07/04/16 05:44 Polyethylene 17 gm 17 gm DAILY PRN PO 06/20/16 05:45 07/20/16 05:44 Furosemide/Syringe (Lasix Inj/ Syringe) 4 ml @ 4 mls/min BID17 IV 06/20/16 09:00 07/20/16 08:59 06/21/16 08:43 4 MLS/MIN Potassium Chloride 20 meq 20 meq BID PO 06/20/16 09:00 07/20/16 08:59 06/21/16 08:44 20 MEQ Heparin Sodium/ Dextrose (Heparin 25,000 Unit/500ml D5W) 500 ml @ 14 mls/hr Q24H PRN IV 06/20/16 20:15 07/20/16 20:14 06/20/16 20:36 14 MLS/HR Enteral Nutritional Formula (Boost) 1 can BIDM PO 06/21/16 08:00 07/21/16 07:59 Multivitamins/ Minerals (Multivitamin W/ Minerals Tab) 1 tab QAM PO 06/21/16 09:00 07/21/16 08:59 06/21/16 08:43 1 TAB (Jeri Machado PA-C) Objective Vital Signs Date Time Temp Pulse Resp B/P Pulse Ox O2 Delivery O2 Flow Rate FiO2 06/21/16 07:45 36.3 76 19 129/57 95 Nasal Cannula 2.0 06/21/16 04:11 70 136/54 06/21/16 04:00 Nasal Cannula 2.0 06/21/16 03:55 36.3 68 16 134/76 96 2.0 06/21/16 00:00 Nasal Cannula 2.0 06/20/16 23:59 36.3 69 16 125/68 96 2.0 06/20/16 22:06 67 146/71 06/20/16 20:12 36.5 68 18 147/73 95 Nasal Cannula 2.0 06/20/16 20:00 96 Nasal Cannula 2.0 06/20/16 19:31 36.5 74 14 129/57 95 Nasal Cannula 2.0 06/20/16 16:16 71 06/20/16 16:00 36.3 71 14 117/58 96 Room Air 06/20/16 16:00 96 Nasal Cannula 2.0 06/20/16 12:00 94 Nasal Cannula 2.0 06/20/16 10:52 36.2 61 16 126/54 97 Nasal Cannula 4.0 06/20/16 08:34 36.5 65 18 128/79 95 Nasal Cannula 4.0 (Jeri Machado PA-C) Physical Exam General Appearance: no apparent distress, + thin Eyes: normal inspection, PERRL ENT: hearing grossly normal Neck: supple Respiratory/Chest: no respiratory distress, no accessory muscle use, + decreased breath sounds (bilateral lower lung sanford L>R) Cardiovascular: no edema, + irregularly irregular Abdomen: normal bowel sounds, non tender, soft Extremities: no pedal edema, no calf tenderness Neurologic/Psychiatric: alert, normal mood/affect, oriented x 3 Skin: normal color, warm/dry, no rash (Jeri Machado, CARMELINA-C) Laboratory Results Last 24 Hours Test 06/20/16 12:28 06/20/16 13:58 06/20/16 18:09 06/21/16 02:34 Lactic Acid Level 1.1 mmol/L Troponin I 1.220 ng/ml 0.822 ng/ml Thyroid Stimulating Hormone (TSH) 1.800 uIu/ml Total Creatine Kinase 35 U/L Creatine Kinase MB 6.1 ng/ml Creatine Kinase MB Ratio 17.4 Activated Partial Thromboplast Time 62.7 SECONDS Partial Thromboplastin Ratio 2.4 Test 06/21/16 05:27 Activated Partial Thromboplast Time 63.4 SECONDS Partial Thromboplastin Ratio 2.4 Sodium Level 144 mmol/L Potassium Level 3.7 mmol/L Chloride Level 107 mmol/L Carbon Dioxide Level 26 mmol/L Anion Gap 11.0 mmol/L Blood Urea Nitrogen 29 mg/dl Creatinine 0.98 mg/dl Est Creatinine Clear Calc Drug Dose 29.4 ml/min Estimated GFR () 64.0 Estimated GFR (Non- 55.3 BUN/Creatinine Ratio 29.1 Random Glucose 89 mg/dl Calcium Level 8.9 mg/dl Magnesium Level 1.7 mg/dl (Jeri Machado ., PA-C) Assessment and Plan 76 y.o F w/Hx AF, diasolic CHF and recent admission for effusions and related hypoxia. Pt had required IR drainage of effusions prior to D/C. She had been mildly SOB over the past 2 days and then woke from sleep thi arias in distress. She was brought into the hospital where she required Lasix and Bipap and is exhibiting improvement at the time of admission. She denies CP, a productive cough or fevers. Initial labs and imaging are consistent with CHF exacerbation. There appears to be reaccumulation of her effusions as well. CHF exacerbation/bilateral pleural effusions: - Admit med/surg - CXR: Interval development of asymmetric pulmonary edema pattern right greater than left. Cardiomegaly. Bilateral pleural effusions left greater than right.Equivocal trace left apical pneumothorax -- Repeated CXR with modest improvement in pulmonary edema. No change in pleural effusions -- Repeat CXR - ECHO on 06/12/16: * Left ventricular systolic function is normal. * No regional wall motion abnormalities noted. * Ejection Fraction = 60-65%. * There is mild concentric left ventricular hypertrophy. * There is mild mitral regurgitation. * There is mild tricuspid regurgitation. * Large left pleural effusion. - Lasix 40 IV x 1 given in ER on 06/20 and will continue BID -- hold PM dosage on 06/21--> see how patient progresses - Monitor I/Os, daily weights -- ~4L urine output on 06/20 - Trending upward troponin, ?likely secondary to increased oxygen demand--> peaked at 1.220. Started IV Heparin on 06/20. -- Consult cardiology, appreciate recommendations - Patient requiring BIPAP at admission--> currently on 2L. Does not wear O2 at home -- Wean from O2 on 06/21 - Pending blood cultures- preliminary negative - Lactic acid 4.2, repeat of 1.1. ?likely secondary to hypoxia. Leukocytosis of 12.10. Follow s/s of infections/need for antibiotic therapy. No indications at this time. - Dieresis with IV Lasix, consider thoracic consult for thoracentesis as patient required this on 06/13/16. -- Reviewed pleural fluid, Light's Criteria not met- likely not exudative -Checked TSH- 1.8 Tachybrady syndrome s/p pacemaker insertion" - Interrogate pacemaker HTN: - Continue Exforge 1 tablet PO daily Afib, rate controlled: - Continue Digoxin 0.125 mg PO daily -Checked dig level, 1.1 - Continue Metoprolol 200 mg PO daily - Hold Eliquis 2.5 mg PO BID. Last dose given @ 0830. ?need thoracentesis. Hypomagnesemia: - Mag of 1.7- repleted with IV 1 gm - Follow mag level PVD: - Continue Zocor 40 mg PO QAM - Continue Pletal 100 mg PO BID Anxiety: - Continue Zoloft 100 mg PO daily DVT prophylaxis: - IV Heparin - ALICIA and SCDs Code Status: - LEVEL V, DNR Dispo: - Lives at home with friend. - PT/OT evaluations. (Jeri Machado ., PAOscar) Attending Attestation: Pt seen/examined, chart reviewed, and care plan d/w CARMELINA Machado I agree with the campuzano components of her progress note documentation except - pletal should be discontinued due to CHF. Pt w/o complaints for me today. Feels good. Denies dyspnea with exertion. Denies orthopnea. Tele with a. fib/paced rhythm. VSS, afebrile I/O: net neg nearly 4 liters gen - thin, cacechtic neck - no JVD heart - irregularly irregular, s1, s2 lungs - decreased BS left base but improved airation today; also decreased BS right base but that, too, is improved; no rales today abd - soft, NT, no mass ext - no edema labs - BMP with rising BUN Cr stable A/P: 1. acute/chronic diastolic CHF - improved clinically & radiographically 2. b/l pleural effusions, L>R, s/p thoracentesis 1 week ago for same issue; fluid studies previous admission suggestive of transudative; effusions clinically/radiographically are also better today 3. acute hypoxic resp failure 2nd to #1 - resolving nicely 4. +troponin - likely type 2 PA (demand ischemia from #1); cannot fully r/o type 1 PA; Cont heparin drip x 48 hours, nitrates, BB 5. chronic a. fib with pacemaker insertion in past for tachy-nkechi syndrome; pacer interrogation shows normal functioning pacer hold lasix this afternoon reassess labs and clinical exam in the AM to see if any further IV diuresis is needed daily weights defer on repeat thoracentesis as effusion (my interpretation) has gotten better wean O2 repeat cxr today consult cardiology (Katie MG) Juancarlos LOWERY MD Discharge planning: longterm facility (Steffen Lowery MD)
--- NOTE | 2016-06-21 14:51 | DIAGNOSTIC IMAGING REPORT ---
CHEST 2 VIEWS ROUTINE CLINICAL HISTORY: Congestive failure with bilateral pleural effusions COMPARISON STUDY: 06/20/2016 FINDINGS: There is a left subclavian dual-chamber central venous pacemaker present. The heart remains enlarged. There is resolving congestive failure with persistent bilateral pleural effusions left greater than right. There is associated left lower lobe atelectasis/consolidation.[ There is a stable nonspecific right perihilar opacity, likely representing a summation IMPRESSION: Cardiomegaly and resolving congestive failure with persistent bilateral pleural effusions left greater than right. Electronically signed by: Cristopher Bedoya M.D. 06/21/2016 2:49 PM Dictated Date/Time: 06/21/2016 2:48 PM
[2016-06-21] MEDS: HEPARIN 25,000 UNIT/500ML D5W 500 ML IV PRN ×2 (15:01→23:07)
--- NOTE | 2016-06-21 16:28 | Cardiology Consultation ---
Cardiology Consultation Date of Consultation: Jun 21, 2016 History of Present Illness Shaista Diaz is a 76 year old female seen in cardiology consultation per the request of Jeri Machado PA-C and Dr Steffen Lowery for the evaluation of acute diastolic heart failure decompensation, chronic atrial fibrillation, and troponin I elevation. The patient recently been admitted from 06/11/16-06/13/16 for newly diagnosed congestive heart failure. Echocardiogram revealed preserved LV systolic function during that admission. She responded favorably to IV diuretics, and ultimately underwent thoracentesis of a left-sided pleural effusion yielding 500 mL performed by thoracic surgery on 06/13/16. The patient was subsequently discharged, and after 3 days she felt poorly with recurrent shortness of breath. She therefore presented to the emergency department again in the shelter supervisor hours of 06/20/16. She required transient support with BiPAP in the emergency department improved after administration of IV diuretic. Chest x-ray had revealed triple development of asymmetric pulmonary edema pattern records and left, bilateral pleural effusions were noted left greater than right on admission. She received 3 doses of IV furosemide with significant urine output and fluid balance of -3.6 L for 06/20/16. Her last dose of diuretic was Lasix 40 mg which was advanced or this morning. Currently the patient is being monitored on telemetry. Her roommate from assisted living is visiting her. The patient is comfortable. She remains on supplemental oxygen. It has a Schwarz catheter in place. History PAST MEDICAL HISTORY: 1. Chronic atrial fibrillation, past difficulty regulating Coumadin and therefore she is on Eliquis as an outpatient 2. Prior history of atrial flutter for which she underwent right-sided flutter ablation in 2000 3. Sinoatrial node dysfunction for which she underwent Medtronic pacemaker implantation device check in our office in May 2016 the remaining generator longevity was 5 years she was ventricular paced 93% of the time and heart rates are noted to be well-controlled 4. 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 Hypertension 6. Bilateral peripheral vascular disease. The seen vascular surgery at [facility] in 2014 at that time she was graded as having moderate to severe lower extremity PAD, and the patient had declined intervention. 7. Dyslipidemia PAST SURGICAL HISTORY: History of permanent pacemaker implant FAMILY HISTORY: Noncontributory SOCIAL HISTORY: Former smoker, retired, lives in assisted living Review Of Systems See above for pertinent positives & negatives. A total of 10 systems reviewed and were otherwise negative. Allergies Coded Allergies: HOLDEN Inhibitors (Verified Adverse Reaction, Mild, COUGH, 06/11/16) Medications Reported Home Medications Medications Dose Route/Sig Max Daily Dose Days Date Category Digoxin 0.125 Mg Tab 0.125 Mg PO DAILY 06/20/16 Reported Aspirin 81 (Aspirin) 81 Mg Tab 81 Mg PO DAILY 06/20/16 Reported Eliquis (Apixaban) 2.5 Mg Tab 1 Tab PO BID 06/11/16 Reported Exforge (Amlodipine Besylate-Valsartan) 1 Tab Tab 1 Tab PO DAILY 01/06/13 Reported Zocor (Simvastatin) 40 Mg Tab 40 Mg PO QAM 10/03/12 Reported Toprol Xl (Metoprolol Succinate) 200 Mg Tab 200 Mg PO DAILY 10/03/12 Reported Zoloft (Sertraline Hcl) 100 Mg Tab 100 Mg PO DAILY 10/03/12 Reported Pletal (Cilostazol) 100 Mg Tab 100 Mg PO Q12HR 04/20/12 Reported Current Inpatient Medications Medications (Trade) Dose Ordered Sig/Christine Route Start Time Stop Time Status Last Admin Dose Admin Apixaban (Eliquis Tab) 2.5 mg BID PO 06/20/16 09:00 07/20/16 08:59 Future Hold 06/20/16 08:32 2.5 MG Aspirin (Ecotrin Tab) 81 mg DAILY PO 06/20/16 09:00 07/20/16 08:59 06/21/16 08:43 81 MG Cilostazol (Pletal Tab) 100 mg BID PO 06/20/16 09:00 07/20/16 08:59 06/21/16 08:44 100 MG Digoxin (Lanoxin Tab) 0.125 mg DAILY@1600 PO 06/20/16 16:00 07/20/16 15:59 06/20/16 16:16 0.125 MG Metoprolol Succinate (Toprol Xl Tab) 200 mg DAILY PO 06/20/16 09:00 07/20/16 08:59 06/21/16 08:44 200 MG Sertraline HCl (Zoloft Tab) 100 mg DAILY PO 06/20/16 09:00 07/20/16 08:59 06/21/16 08:44 100 MG Simvastatin (Zocor Tab) 40 mg QAM PO 06/20/16 09:00 07/20/16 08:59 06/21/16 08:44 40 MG Miscellaneous Information (Order Awaiting Action) 1 ea QS N/A 06/20/16 08:00 07/20/16 07:59 Acetaminophen (Tylenol Tab) 650 mg Q4H PRN PO 06/20/16 05:45 07/20/16 05:44 Al Hydrox/Mg Hydrox/Simethicone (Maalox Max Susp) 15 ml Q4H PRN PO 06/20/16 05:45 07/20/16 05:44 Magnesium Hydroxide (Milk Of Magnesia Susp) 30 ml Q12H PRN PO 06/20/16 05:45 07/20/16 05:44 Zolpidem Tartrate (Ambien Tab) 5 mg HSZ PRN PO 06/20/16 05:45 07/20/16 05:44 Ondansetron HCl (Zofran Inj) 4 mg Q6H PRN IV 06/20/16 05:45 07/20/16 05:44 Nitroglycerin (Nitrostat Tab) 0.4 mg UD PRN SL 06/20/16 05:45 07/20/16 05:44 Nitroglycerin (Nitroglycerin 2% Oint) 1 inch Q6H EXT 06/20/16 10:00 07/20/16 05:44 06/21/16 10:43 1 INCH Morphine Sulfate (MoRPHine SULFATE INJ) 2 mg Q30M PRN IV 06/20/16 05:45 07/04/16 05:44 Polyethylene (Miralax Powder Packet) 17 gm DAILY PRN PO 06/20/16 05:45 07/20/16 05:44 Potassium Chloride 20 meq 20 meq BID PO 06/20/16 09:00 07/20/16 08:59 06/21/16 08:44 20 MEQ Heparin Sodium/ Dextrose (Heparin 25,000 Unit/500ml D5W) 500 ml @ 14 mls/hr Q24H PRN IV 06/20/16 20:15 07/20/16 20:14 06/21/16 15:01 14 MLS/HR Enteral Nutritional Formula (Boost) 1 can BIDM PO 06/21/16 08:00 07/21/16 07:59 06/21/16 10:43 1 CAN Multivitamins/ Minerals (Multivitamin W/ Minerals Tab) 1 tab QAM PO 06/21/16 09:00 07/21/16 08:59 06/21/16 08:43 1 TAB Magnesium Oxide (Mag-Ox Tab) 400 mg BID PO 06/21/16 21:00 07/21/16 20:59 Physical Exam Vital Signs (Last 8hrs): Last 8 Hrs Date Time Temp Pulse Resp B/P Pulse Ox O2 Delivery O2 Flow Rate FiO2 06/21/16 16:01 36.4 69 16 126/67 96 Nasal Cannula 2.0 06/21/16 12:13 Nasal Cannula 2.0 06/21/16 12:00 36.3 74 20 126/74 94 Nasal Cannula 2.0 06/21/16 08:30 Nasal Cannula 2.0 General Appearance: Alert and Oriented x3. Cachectic, chronically ill in appearance Head: Normocephalic Atraumatic. Eyes: PERRLA, EOMI, conjunctiva and sclera clear Neck: Supple. No carotid bruits noted. No JVD. No HJD. Respiratory: Decreased breath sound bilaterally at the bases Cardiovascular: Reg rate and rhythm. S1 and S2 noted. No murmurs, rubs, gallops. PMI non displace. Abdomen: Normal bowel sounds, soft nontender. no abdominal bruits. Extremities: No edema, thin Neuro: No focal deficits. Data Serial troponin levels are drawn this admission, initially 0.044, 0.488, 1.22, and 0.822 ng/ml last measurement on 06/20/16 18:09hrs. Last Resulted 06/20/16 03:25 Red Blood Count 4.29, Mean Corpuscular Volume 94.2, Mean Corpuscular Hemoglobin 31.7, Mean Corpuscular Hemoglobin Concent 33.7, Mean Platelet Volume 9.9, Neutrophils (%) (Auto) 70.6, Lymphocytes (%) (Auto) 18.3, Monocytes (%) (Auto) 7.7, Eosinophils (%) (Auto) 2.8, Basophils (%) (Auto) 0.2, Neutrophils # (Auto) 8.54, Lymphocytes # (Auto) 2.21, Monocytes # (Auto) 0.93, Eosinophils # (Auto) 0.34, Basophils # (Auto) 0.03 Last Resulted 06/21/16 05:27 Past 24 Hours Test 06/20/16 18:09 Range/Units Creatine Kinase MB 6.1 H 0.5-3.6 ng/ml Creatine Kinase MB Ratio 17.4 H 0-3.0 Total Creatine Kinase 35 26-192 U/L Troponin I 0.822 *H 0-0.045 ng/ml Summary of transthoracic echocardiogram performed 06/12/2016 , interpreted by Dr Becker: Left ventricular systolic function is normal. No regional wall motion abnormalities noted. Ejection Fraction = 60-65%. There is mild concentric left ventricular hypertrophy. There is mild mitral regurgitation. There is mild tricuspid regurgitation. Large left pleural effusion. EKG: EKG on admission revealed atrial fibrillation with eyak QRS complexes, mild lateral ST segment depression consistent with ischemia. Repeat EKG performed at the bedside per my request on 06/21/2016 revealed underlying atrial fibrillation with ventricular paced curettes complexes Assessment & Plan Impression: 76-year-old female 1. Acute decompensation, recently diagnosed diastolic congestive heart failure 2. Chronic atrial fibrillation, tachybradycardia syndrome, for which patient has Medtronic pacemaker Discussion/recommendations: On admission, the patient was hypoxic, with a lactic acidosis at subsequently improved after BiPAP support and IV diuretic. Some degree of myocardial necrosis as documented with troponin peak at 1.22 ng/ ml , with no chest discomfort. Patient feels much improved with no anginal symptoms. Based on her history of underlying peripheral arterial disease, I would suspect the patient has underlying coronary artery disease. I see no past cardiac catheterizations on her inpatient or outpatient chart. At present, recommend medical therapy for non-ST segment elevation myocardial infarction, presumed type II event in the setting of hypoxia from acute diastolic heart failure. Her Eliquis has already been placed on hold, and she is on unfractionated heparin. Recommend infection heparin for 48 hours. If it is determined she does not need invasive therapy such as thoracentesis, will plan to transition her back to her Eliquis after 48 hours of heparin. She has had a significant diuretic effect, and I agree with holding off on her diuretics for now and reassessing her clinically and from a laboratory perspective tomorrow and determining ongoing diuretic therapy from there. It is noted that on her last admission she is not discharged on a daily dose of diuretic, and moving forward, will likely need a daily dose of loop diuretic. Other medication changes to note her that she was previously on Pletal on her outpatient medication list at [facility], and this has appropriately been discontinued as it is contraindicated in the setting of congestive heart failure. DVT prophylaxis she is on full dose anticoagulation with heparin infusion. Timothy Mae DO, FACC, FACOI Associate Design Engineer [employer] [facility], [facility]
[2016-06-21] MEDS: DIGOXIN 0.125 MG TAB PO SCH (16:46)
[2016-06-21] MEDS: MAGNESIUM OXIDE 400 MG TAB PO SCH (21:23)
[2016-06-22] VITALS (10 sets, daily range): BP systolic 96–152; BP diastolic 42–70; PULSE 60–80; TEMP 36.2–37.2; O2SAT 93–97
[2016-06-22] MEDS: NITROGLYCERIN OINT 2% 1GM PACKET EXT SCH ×2 (04:06→09:22)
[2016-06-22 06:21] LABS: HEMATOCRIT 33.5 % (37-47); MEAN CORPUSCULAR HEMOGLOBIN 31.6 pg (25-34); MEAN CORPUSCULAR HGB CONC 34.3 g/dl (32-36); MEAN PLATELET VOLUME 10.2 fL (7.4-10.4); PLATELET COUNT 276 K/uL (130-400); RED BLOOD COUNT 3.64 M/uL (4.2-5.4); WHITE BLOOD COUNT 14.21 K/uL (4.8-10.8)
[2016-06-22 06:50] LABS: CALCIUM 8.9 mg/dl (8.5-10.1); POTASSIUM 4.3 mmol/L (3.5-5.1)
[2016-06-22 06:57] LABS: CKMB/CK RATIO 9.6 (0-3.0)
[2016-06-22] MEDS: HEPARIN 25,000 UNIT/500ML D5W 500 ML IV PRN ×2 (07:02→08:34)
[2016-06-22] MEDS: METOPROLOL SUCC 50MG EXT REL TAB PO SCH (09:00)
[2016-06-22] MEDS: CEROVITE ADV FORMULA TAB PO SCH (09:20)
[2016-06-22] MEDS: SERTRALINE HCL 100 MG TAB PO SCH (09:20)
[2016-06-22] MEDS: SIMVASTATIN 40 MG TAB PO SCH (09:21)
[2016-06-22] MEDS: ASPIRIN 81 MG ECTAB PO SCH (09:22)
[2016-06-22] MEDS: POTASSIUM CHLORIDE 20 MEQ TABCR PO SCH ×2 (09:23→21:04)
[2016-06-22] MEDS: MAGNESIUM OXIDE 400 MG TAB PO SCH ×2 (09:24→21:04)
[2016-06-22] MEDS: AMLODIPINE BESYLATE 5 MG TAB PO SCH (09:26)
[2016-06-22] MEDS: RAMIPRIL 10 MG CAP PO SCH (09:28)
[2016-06-22] MEDS: BOOST VANILLA PO SCH ×4 (09:38→17:49)
--- NOTE | 2016-06-22 10:15 | Hospitalist Progress Note ---
Hospitalist Progress Note Date of Service Jun 22, 2016. (Jeri Machado ., PA-C) Subjective Pt evaluation today including: conversation w/ patient, physical exam, chart review, lab review, review of studies, review of inpatient medication list Voiding: bustamante catheter in place (draining pang urine) Patient states she is feeling well. SOB has improved- patient is currently on RA while interviewing. Unable to obtain pulse ox- patient did not appear SOB while speaking full sentences. Patient denies any fever, chills, sweats, lightheadedness, dizziness, vision changes, CP, palpitations, edema, wheezing, cough, abdominal pain, nausea, vomiting, diarrhea, urinary symptoms, melena, numbness/tingling, weakness, muscle/joint pain, anxiety/depression, active bleeding, or new skin discoloration/changes. (Jeri Machado ., PA-C) Medications Current Inpatient Medications Medications (Trade) Dose Ordered Sig/Christine Route Start Time Stop Time Status Last Admin Dose Admin Apixaban (Eliquis Tab) 2.5 mg BID PO 06/20/16 09:00 07/20/16 08:59 Future Hold 06/20/16 08:32 2.5 MG Aspirin (Ecotrin Tab) 81 mg DAILY PO 06/20/16 09:00 07/20/16 08:59 06/22/16 09:22 81 MG Digoxin (Lanoxin Tab) 0.125 mg DAILY@1600 PO 06/20/16 16:00 07/20/16 15:59 06/21/16 16:46 0.125 MG Metoprolol Succinate (Toprol Xl Tab) 200 mg DAILY PO 06/20/16 09:00 07/20/16 08:59 06/21/16 08:44 200 MG Sertraline HCl (Zoloft Tab) 100 mg DAILY PO 06/20/16 09:00 07/20/16 08:59 06/22/16 09:20 100 MG Simvastatin (Zocor Tab) 40 mg QAM PO 06/20/16 09:00 07/20/16 08:59 06/22/16 09:21 40 MG Acetaminophen (Tylenol Tab) 650 mg Q4H PRN PO 06/20/16 05:45 07/20/16 05:44 Al Hydrox/Mg Hydrox/Simethicone (Maalox Max Susp) 15 ml Q4H PRN PO 06/20/16 05:45 07/20/16 05:44 Magnesium Hydroxide (Milk Of Magnesia Susp) 30 ml Q12H PRN PO 06/20/16 05:45 07/20/16 05:44 Ondansetron HCl (Zofran Inj) 4 mg Q6H PRN IV 06/20/16 05:45 07/20/16 05:44 Nitroglycerin (Nitrostat Tab) 0.4 mg UD PRN SL 06/20/16 05:45 07/20/16 05:44 Nitroglycerin (Nitroglycerin 2% Oint) 1 inch Q6H EXT 06/20/16 10:00 07/20/16 05:44 06/22/16 09:22 1 INCH Morphine Sulfate (MoRPHine SULFATE INJ) 2 mg Q30M PRN IV 06/20/16 05:45 07/04/16 05:44 Polyethylene (Miralax Powder Packet) 17 gm DAILY PRN PO 06/20/16 05:45 07/20/16 05:44 Potassium Chloride 20 meq 20 meq BID PO 06/20/16 09:00 07/20/16 08:59 06/22/16 09:23 20 MEQ Heparin Sodium/ Dextrose (Heparin 25,000 Unit/500ml D5W) 500 ml @ 14 mls/hr Q24H PRN IV 06/20/16 20:15 07/20/16 20:14 06/22/16 08:34 14 MLS/HR Enteral Nutritional Formula (Boost) 1 can BIDM PO 06/21/16 08:00 07/21/16 07:59 06/22/16 09:38 1 CAN Multivitamins/ Minerals (Multivitamin W/ Minerals Tab) 1 tab QAM PO 06/21/16 09:00 07/21/16 08:59 06/22/16 09:20 1 TAB Magnesium Oxide (Mag-Ox Tab) 400 mg BID PO 06/21/16 21:00 07/21/16 20:59 06/22/16 09:24 400 MG Amlodipine Besylate (Norvasc Tab) 5 mg QAM PO 06/22/16 09:00 07/22/16 08:59 06/22/16 09:26 5 MG Ramipril (Ramipril) 10 mg QAM PO 06/22/16 09:00 07/22/16 08:59 06/22/16 09:28 10 MG Miscellaneous Information (Nursing Heparin Iv Rate Change) 1 ea ONE ONCE N/A 06/22/16 10:15 06/22/16 10:16 UNV (Jeri Machado, RACHAELC) Objective Vital Signs Date Time Temp Pulse Resp B/P Pulse Ox O2 Delivery O2 Flow Rate FiO2 06/22/16 07:09 36.8 62 18 101/42 93 Room Air 06/22/16 04:00 Nasal Cannula 2.0 06/22/16 02:56 36.7 60 16 111/61 97 Nasal Cannula 2.0 06/22/16 00:00 Nasal Cannula 2.0 06/21/16 23:34 36.5 68 16 115/68 98 06/21/16 20:00 Nasal Cannula 2.0 06/21/16 19:57 36.4 71 14 115/68 98 Nasal Cannula 2.0 06/21/16 16:46 69 06/21/16 16:01 36.4 69 16 126/67 96 Nasal Cannula 2.0 06/21/16 16:00 96 Nasal Cannula 2.0 06/21/16 12:13 Nasal Cannula 2.0 06/21/16 12:00 36.3 74 20 126/74 94 Nasal Cannula 2.0 06/21/16 08:30 Nasal Cannula 2.0 06/21/16 07:45 36.3 76 19 129/57 95 Nasal Cannula 2.0 (Jeri Machado PA-C) Physical Exam General Appearance: no apparent distress, + thin Eyes: normal inspection, PERRL ENT: hearing grossly normal Neck: supple, no JVD Respiratory/Chest: no respiratory distress, no accessory muscle use, + decreased breath sounds (bilateral lung bases, L>R--> slight improvement in BS ) , + crackles (bilateral lung bases ) Cardiovascular: regular rate, rhythm, no edema Abdomen: normal bowel sounds, non tender, soft Extremities: no pedal edema, no calf tenderness Neurologic/Psychiatric: alert, normal mood/affect, oriented x 3 Skin: normal color, warm/dry, no rash (Jeri Machado, RACHAELC) Laboratory Results Last 24 Hours Test 06/21/16 09:38 06/22/16 05:22 Activated Partial Thromboplast Time 62.5 SECONDS Partial Thromboplastin Ratio 2.4 White Blood Count 14.21 K/uL Red Blood Count 3.64 M/uL Hemoglobin 11.5 g/dL Hematocrit 33.5 % Mean Corpuscular Volume 92.0 fL Mean Corpuscular Hemoglobin 31.6 pg Mean Corpuscular Hemoglobin Concent 34.3 g/dl RDW Standard Deviation 50.3 fL RDW Coefficient of Variation 14.9 % Platelet Count 276 K/uL Mean Platelet Volume 10.2 fL Sodium Level 141 mmol/L Potassium Level 4.3 mmol/L Chloride Level 105 mmol/L Carbon Dioxide Level 27 mmol/L Anion Gap 9.0 mmol/L Blood Urea Nitrogen 30 mg/dl Creatinine 1.00 mg/dl Est Creatinine Clear Calc Drug Dose 29.5 ml/min Estimated GFR () 62.5 Estimated GFR (Non- 53.9 BUN/Creatinine Ratio 30.0 Random Glucose 120 mg/dl Calcium Level 8.9 mg/dl Magnesium Level 2.0 mg/dl Total Creatine Kinase 24 U/L Creatine Kinase MB 2.3 ng/ml Creatine Kinase MB Ratio 9.6 Troponin I 0.083 ng/ml (Jeri Machado ., PA-C) Diagnostic Results CHEST 2 VIEWS ROUTINE CLINICAL HISTORY: Congestive failure with bilateral pleural effusions COMPARISON STUDY: 06/20/2016 FINDINGS: There is a left subclavian dual-chamber central venous pacemaker present. The heart remains enlarged. There is resolving congestive failure with persistent bilateral pleural effusions left greater than right. There is associated left lower lobe atelectasis/consolidation.[ There is a stable nonspecific right perihilar opacity, likely representing a summation IMPRESSION: Cardiomegaly and resolving congestive failure with persistent bilateral pleural effusions left greater than right. Electronically signed by: Cristopher Bedoya M.D. 06/21/2016 2:49 PM Dictated Date/Time: 06/21/2016 2:48 PM The status of this report is Signed. Draft = Not yet reviewed or approved by Radiologist. Signed = Reviewed and approved by Radiologist. (Jeri Machado ., PA-C) Assessment and Plan 76 y.o F w/Hx AF, diasolic CHF and recent admission for effusions and related hypoxia. Pt had required IR drainage of effusions prior to D/C. She had been mildly SOB over the past 2 days and then woke from sleep thi arias in distress. She was brought into the hospital where she required Lasix and Bipap and is exhibiting improvement at the time of admission. She denies CP, a productive cough or fevers. Initial labs and imaging are consistent with CHF exacerbation. There appears to be reaccumulation of her effusions as well. CHF exacerbation/bilateral pleural effusions: - Admit med/surg - CXR: Interval development of asymmetric pulmonary edema pattern right greater than left. Cardiomegaly. Bilateral pleural effusions left greater than right.Equivocal trace left apical pneumothorax -- Repeated CXR with modest improvement in pulmonary edema. No change in pleural effusions -- Repeat CXR on 06/22- Cardiomegaly and resolving congestive failure with persistent bilateral pleural effusions left greater than right. -- Repeat CXR on 06/23 - ECHO on 06/12/16: * Left ventricular systolic function is normal. * No regional wall motion abnormalities noted. * Ejection Fraction = 60-65%. * There is mild concentric left ventricular hypertrophy. * There is mild mitral regurgitation. * There is mild tricuspid regurgitation. * Large left pleural effusion. - Lasix 40 IV x 1 given in ER on 06/20 and will continue BID -- hold PM dosage on 06/21--> see how patient progresses -- IV Lasix 40 mg x1 on 06/22 per cardiology -- Likely need daily diuretic at discharge ??torsemide 5 mg daily in am per cardiology - Monitor I/Os, daily weights -- ~4L urine output on 06/20 - Trending upward troponin, ?likely secondary to increased oxygen demand--> peaked at 1.220. Started IV Heparin on 06/20 x48 hrs -- Consult cardiology, appreciate recommendations - Patient requiring BIPAP at admission--> currently on 2L. Does not wear O2 at home -- Wean from O2 on 06/21 - Pending blood cultures- preliminary negative - Lactic acid 4.2, repeat of 1.1. ?likely secondary to hypoxia. Leukocytosis of 12.10. Follow s/s of infections/need for antibiotic therapy. No indications at this time. - Dieresis with IV Lasix, consider thoracic consult for thoracentesis as patient required this on 06/13/16. -- Reviewed pleural fluid, Light's Criteria not met- likely NOT exudative -Checked TSH- 1.8 Tachybrady syndrome s/p pacemaker insertion: - Interrogate pacemaker HTN: - Continue Exforge 1 tablet PO daily Afib, rate controlled: - Continue Digoxin 0.125 mg PO daily -Checked dig level, 1.1 - Continue Metoprolol 200 mg PO daily - Hold Eliquis 2.5 mg PO BID. Last dose given @ 0830. ?need thoracentesis. Hypomagnesemia: - Mag of 1.7- repleted with IV 1 gm on 06/21 - Follow mag level PVD: - Continue Zocor 40 mg PO QAM - Continue Pletal 100 mg PO BID -- d/c'd as per cardiology- contraindicated in CHF Anxiety: - Continue Zoloft 100 mg PO daily Moderate to severe protein calorie malnutrition: - Nutritional supplements DVT prophylaxis: - IV Heparin - ALICIA and SCDs Code Status: - LEVEL V, DNR Dispo: - Lives at home with friend. - PT/OT evaluations. (Jeri Machado ., PAAbelC) Attending Attestation: Pt seen/examined, chart reviewed, and care plan d/w CARMELINA Machado I agree with the campuzano components of her progress note documentation. O2 has been weaned off. She denies ANY pulmonary symptoms (no orthopnea, dyspnea, or cough). Main complaint is that of right knee pain. Chronic issue, a little worse lately however. Has had steroid shots in past w/ good relief. Tele with a. fib/paced rhythm. VSS, afebrile gen - thin, looks stable/NAD otherwise neck - no JVD heart - irregularly irregular, s1, s2 lungs - decreased BS left base but again improved airation today; slightly decreased BS right base; no rales abd - soft, NT, no mass ext - no edema; right knee - mild effusion noted; no warmth or redness; OA changes; scar medial joint line; passive ROM induces pain labs - BUN 30 Cr 1 K/mag nl trop <0.1 A/P: 1. acute/chronic diastolic CHF - resolved. 2. b/l pleural effusions, L>R, s/p thoracentesis 1 week ago for same issue; fluid studies previous admission suggestive of transudative; effusions clinically/radiographically improved. CXR for AM ordered by cardiology. 3. acute hypoxic resp failure 2nd to #1 - resolved. 4. +troponin - likely type 2 AZ (demand ischemia from #1); cannot fully r/o type 1 AZ; 5. chronic a. fib with pacemaker insertion in past for tachy-nkechi syndrome; pacer interrogation shows normal functioning pacer 6. right knee pain - likely advanced OA. Cannot rule out gout or pseudogout. check x-rays. offered steroid injection; she wants one - will perform tomorrow will stop heparin drip late tonight give injection in AM resume eliquis after injection in meantime - voltaren gel QID to right knee 7. weight loss, protein calorie malnutrition - needs w/u after discharge. Mammo [address] chest w/o mass. PT, OT consults appreciated need for rehab? Juancarlos LOWERY MD (Steffen Lowery MD)
--- NOTE | 2016-06-22 10:44 | Clinical Documentation Query ---
CLINICAL DOCUMENTATION QUERY Ms. MCMILLAN, In your clinical opinion is this patient being managed for: ( X ) moderate to severe protein-calorie malnutrition ( ) Other explanation of clinical findings (Please Explain) ( ) Unable to determine (Please Define) ( ) Need to Discuss ( ) Not Agree The medical record reflects the following clinical findings, treatment, and risk factors. Clinical Indicators:76 yo female presenting with acute diastolic CHF. Noted to have a BMI of 14.7. Paving Machine Operator note indicates pt has physical signs of moderate-severe malnutrition in the context of chronic illness with wt loss of 14% in the past year. Described as having cachexia, loss of subcutaneous fat noted in the orbital region and loss of muscle mass seen in temples & clavicle bone region. Suboptimal oral intake as evidenced by pt report of meal intake average ~ 50% at meals. Treatment:Liberalize diet to 2g Na+; AHA Rx too restrictive for pt, Continue Boost BID, Kitchen to send snacks BID b/w meals, MVI daily, daily wts and I/O monitoring Risk Factors: age, chronic illness--CHF, pleural effusion Please clarify and document your clinical opinion in the progress notes and discharge summary. Terms such as "probable", "suspected", "likely", "questionable", "possible", or "still to be ruled out" are acceptable. IF IN AGREEMENT, YOU MUST DOCUMENT ABOVE DIAGNOSTIC STATEMENT IN DAILY PROGRESS NOTES AND DISCHARGE SUMMARY. This document is not part of the patient's record. Thank You, Ora Rdz RN [phone]
--- NOTE | 2016-06-22 10:45 | Clinical Documentation Query ---
CLINICAL DOCUMENTATION QUERY Dr. MONAE, In your clinical opinion is this patient being managed for: ( ) moderate to severe protein-calorie malnutrition ( ) Other explanation of clinical findings (Please Explain) ( ) Unable to determine (Please Define) ( ) Need to Discuss ( ) Not Agree The medical record reflects the following clinical findings, treatment, and risk factors. Clinical Indicators:76 yo female presenting with acute diastolic CHF. Noted to have a BMI of 14.7. Director Of Billing note indicates pt has physical signs of moderate-severe malnutrition in the context of chronic illness with wt loss of 14% in the past year. Described as having cachexia, loss of subcutaneous fat noted in the orbital region and loss of muscle mass seen in temples & clavicle bone region. Suboptimal oral intake as evidenced by pt report of meal intake average ~ 50% at meals. Treatment:Liberalize diet to 2g Na+; AHA Rx too restrictive for pt, Continue Boost BID, Kitchen to send snacks BID b/w meals, MVI daily, daily wts and I/O monitoring Risk Factors: age, chronic illness--CHF, pleural effusion Please clarify and document your clinical opinion in the progress notes and discharge summary. Terms such as "probable", "suspected", "likely", "questionable", "possible", or "still to be ruled out" are acceptable. IF IN AGREEMENT, YOU MUST DOCUMENT ABOVE DIAGNOSTIC STATEMENT IN DAILY PROGRESS NOTES AND DISCHARGE SUMMARY. This document is not part of the patient's record. Thank You, Ora Rdz RN [phone]
[2016-06-22] MEDS: ACETAMINOPHEN 325 MG TAB PO PRN ×2 (10:56→17:49)
[2016-06-22] MEDS ORDERED: FUROSEMIDE INJ 40 MG in SYRINGE 0 ML IV ONE (11:30)
--- NOTE | 2016-06-22 12:10 | Cardiology Follow-Up ---
Subjective General Date of Service: Jun 22, 2016. Chief Complaint: follow up acute diastolic HF , chronic AF Pt evaluation today including: conversation w/ patient, physical exam History of Present Illness The patient is a 76 year old female seen in follow up. Pt comfortable. BUN still mildly elevated , but creatinine is stable. Allergies Coded Allergies: HOLDEN Inhibitors (Verified Adverse Reaction, Mild, COUGH, 06/11/16) Social History Smoking Status: Former Smoker Hx Tobacco Use In Past Year?: No Hx Alcohol Use - Type And Amou: No Hx Substance Use - Type And Am: No Problem List Medical Problems: (1) CHF (congestive heart failure) Status: Acute (2) Hypoxia Status: Acute (3) Hypoxia Status: Acute (4) Pleural effusion Status: Acute (5) Respiratory distress Status: Acute Physical Exam Vital Signs Last Vital Signs Documentation Date Time Temp Pulse Resp B/P Pulse Ox O2 Delivery O2 Flow Rate FiO2 06/22/16 11:40 37.2 79 18 146/64 95 Room Air 06/22/16 04:00 2.0 06/20/16 06:30 60 Physical Exam Constitutional: Level of Distress: chronically ill Neck: supple Lungs: Auscultation: no wheezing, no rales/crackles, no rhonchi Cardiovascular: Heart Auscultation: RRR, no murmurs Extremities: no cyanosis, no edema Neurologic: Gait & Station: pertinent finding (no focal deficits ) Assessment and Plan Assessment and Plan Impression: 76-year-old female 1. Acute decompensation, recently diagnosed diastolic congestive heart failure NSTEMI, likely type II myocardial injury in setting of hypoxia with assumed underlying CAD, no angina. 2. Chronic atrial fibrillation, tachybradycardia syndrome, for which patient has [employer] pacemaker 3. Moderate to severe PAD, declined past intervention to lower extremities, last seen by [facility] vascular surgery in 2014 Plan: Add back furosemide 40 mg IV x 1 today. No further diuretic until labs/ clinical assessment 06/23. I have requested a PA and later CXR to be performed in radiology department tomorrow for reassessment of pleural effusions/ chf. Will likely need daily diuretic at discharge, which she has not been on in the past, perhaps torsemide 5 mg daily in am. Continue medical Rx. Once it is determined if further invasive procedure necessary, can transition off of UF heparin and back to Eliquis Disposition: patient typically follows with Primo TAYLOR. Renata Mae DO Laboratory Results Last 24 Hours Test 06/22/16 05:22 White Blood Count 14.21 K/uL Red Blood Count 3.64 M/uL Hemoglobin 11.5 g/dL Hematocrit 33.5 % Mean Corpuscular Volume 92.0 fL Mean Corpuscular Hemoglobin 31.6 pg Mean Corpuscular Hemoglobin Concent 34.3 g/dl RDW Standard Deviation 50.3 fL RDW Coefficient of Variation 14.9 % Platelet Count 276 K/uL Mean Platelet Volume 10.2 fL Sodium Level 141 mmol/L Potassium Level 4.3 mmol/L Chloride Level 105 mmol/L Carbon Dioxide Level 27 mmol/L Anion Gap 9.0 mmol/L Blood Urea Nitrogen 30 mg/dl Creatinine 1.00 mg/dl Est Creatinine Clear Calc Drug Dose 29.5 ml/min Estimated GFR () 62.5 Estimated GFR (Non- 53.9 BUN/Creatinine Ratio 30.0 Random Glucose 120 mg/dl Calcium Level 8.9 mg/dl Magnesium Level 2.0 mg/dl Total Creatine Kinase 24 U/L Creatine Kinase MB 2.3 ng/ml Creatine Kinase MB Ratio 9.6 Troponin I 0.083 ng/ml
[2016-06-22] MEDS: DICLOFENAC SOD 1% GEL 100 GM TUBE EXT SCH ×2 (17:49→21:03)
[2016-06-22] MEDS: DIGOXIN 0.125 MG TAB PO SCH (17:51)
--- NOTE | 2016-06-22 23:38 | DIAGNOSTIC IMAGING REPORT ---
RIGHT KNEE 2 VIEWS CLINICAL HISTORY: Right knee swelling and pain. FINDINGS: AP and crosstable lateral portable views of the right knee are obtained. No prior studies are available for comparison at the time of dictation. The skeletal structures are osteopenic. No fracture is seen. There is advanced degenerative narrowing in the medial and patellofemoral compartments. Mild narrowing is seen in the lateral compartment. Bony sclerosis is seen in the medial compartment. There are large medial marginal osteophytes. Chondrocalcinosis is present in the medial and lateral compartments. There is a joint effusion and prepatellar soft tissue edema. Atherosclerotic calcification is noted in the popliteal artery. IMPRESSION: 1. Soft tissue edema and joint effusion. No acute bony abnormality is seen. 2. Osteopenia with arthritic change and chondrocalcinosis as above. Electronically signed by: Federico Collazo M.D. 06/22/2016 11:36 PM Dictated Date/Time: 06/22/2016 11:34 PM
[2016-06-23] VITALS (8 sets, daily range): BP systolic 110–128; BP diastolic 54–73; PULSE 57–90; TEMP 36.3–36.6; O2SAT 94–96
[2016-06-23 06:21] LABS: HEMATOCRIT 33.8 % (37-47); MEAN CELL VOLUME 93.4 fL (80-100); MEAN CORPUSCULAR HEMOGLOBIN 31.2 pg (25-34); MEAN CORPUSCULAR HGB CONC 33.4 g/dl (32-36); MEAN PLATELET VOLUME 9.8 fL (7.4-10.4); PLATELET COUNT 226 K/uL (130-400); RED BLOOD COUNT 3.62 M/uL (4.2-5.4)
[2016-06-23 06:50] LABS: CREATININE 1.1 mg/dl (0.60-1.20); MAGNESIUM 2.4 mg/dl (1.8-2.4); POTASSIUM 4.8 mmol/L (3.5-5.1)
[2016-06-23] MEDS: BOOST VANILLA PO SCH ×4 (07:56→16:53)
[2016-06-23] MEDS: INDOMETHACIN 25 MG CAP PO SCH ×3 (07:57→21:00)
[2016-06-23] MEDS ORDERED: PANTOprazole SOD 40 MG TAB PO ONE (08:00)
[2016-06-23] MEDS: ASPIRIN 81 MG ECTAB PO SCH (09:35)
[2016-06-23] MEDS: DICLOFENAC SOD 1% GEL 100 GM TUBE EXT SCH ×4 (09:35→21:01)
[2016-06-23] MEDS: MAGNESIUM OXIDE 400 MG TAB PO SCH ×2 (09:36→21:00)
[2016-06-23] MEDS: CEROVITE ADV FORMULA TAB PO SCH (09:36)
[2016-06-23] MEDS: POTASSIUM CHLORIDE 20 MEQ TABCR PO SCH ×2 (09:36→21:00)
[2016-06-23] MEDS: RAMIPRIL 10 MG CAP PO SCH (09:37)
[2016-06-23] MEDS: AMLODIPINE BESYLATE 5 MG TAB PO SCH (09:37)
[2016-06-23] MEDS: METOPROLOL SUCC 50MG EXT REL TAB PO SCH (09:38)
[2016-06-23] MEDS: SERTRALINE HCL 100 MG TAB PO SCH (09:39)
[2016-06-23] MEDS: SIMVASTATIN 40 MG TAB PO SCH (09:39)
--- NOTE | 2016-06-23 10:19 | DIAGNOSTIC IMAGING REPORT ---
TWO VIEW CHEST CLINICAL HISTORY: CHF and pleural effusions. FINDINGS: PA and lateral chest radiographs are compared to study dated 06/21/2016 and correlated with chest CT dated 06/12/2016. A 2-lead cardiac pacemaker is unchanged in position and partially obscures the left upper chest. The heart is enlarged and there is atherosclerotic calcification of the thoracic aorta. Pulmonary vascular congestion has a most completely resolved. Layering pleural effusions with bibasilar consolidation are unchanged, left larger than right. Apical scarring is observed. No pneumothorax is seen. The skeletal structures are osteopenic. The bony thorax is grossly intact. IMPRESSION: 1. Cardiomegaly and cardiac pacemaker. Pulmonary vascular congestion has also completely resolved. 2. Layering pleural effusions, left larger than right with bibasilar consolidation are similar to yesterday. Electronically signed by: Federico Collazo M.D. 06/23/2016 10:17 AM Dictated Date/Time: 06/23/2016 10:15 AM
--- NOTE | 2016-06-23 13:48 | CARDIOLOGY PROGRESS NOTE ---
DATE: 06/23/2016 DATE: 06/23/2016. The patient seen and examined. Chart, medications, telemetry reviewed. SUBJECTIVE: The patient feels well this morning. Notes that IV diuresis aided in symptoms yesterday. She is not wearing oxygen and is comfortable breathing at rest. Denies any chest pains or discomfort. OBJECTIVE: VITAL SIGNS: Heart rate is 83, blood pressure is 113/54. The patient is afebrile. HEAD, EYES, EARS, NOSE, AND THROAT EXAMINATION: Normocephalic, atraumatic. NECK: Thin. There is no jugular venous distention. LUNGS: Notable for blunted breath sounds at the left base. CARDIOVASCULAR EXAMINATION: Irregular with paced rhythm. Pacemaker sites without irritation. ABDOMEN: Soft. EXTREMITIES: Without cyanosis or clubbing. There is no peripheral edema. IMPRESSION: A 76-year-old female recently hospitalized with decompensated diastolic heart failure, bilateral pleural effusions who underwent thoracentesis. She is rehospitalized with rapid return of pleural effusion, mild congestive heart failure. Troponins are mildly elevated, likely secondary to demand ischemia. Issues are as follows: 1. Acute diastolic heart failure, clinically improved. Will resume diuretic with oral dosing at 20 mg of furosemide daily. Hopefully, this will aid in preventing recurrence of pleural effusions. 2. Chronic atrial fibrillation with pacemaker in place. The patient in the past had been anticoagulated with Eliquis. As there appears to be no acute plans for thoracentesis this time once orthopedic issues have been addressed would resume Eliquis at 2.5 mg twice per day with reduced dose secondary to weight less than 40 kilograms.
[2016-06-23] MEDS ORDERED: FUROSEMIDE 20 MG TAB PO ONE (14:00)
[2016-06-23] MEDS: DIGOXIN 0.125 MG TAB PO SCH (16:45)
--- NOTE | 2016-06-23 21:18 | Progress Note ---
Subjective Date of Service: Jun 23, 2016. Subjective Pt evaluation today including: conversation w/ patient, conversation w/ family (room-mate), physical exam, chart review, lab review, review of studies (x-rays , right knee), review of inpatient medication list Pain: right knee pain MARKEDLY improved; can bend knee w/o pain today PO Intake: fair Voiding: no voiding problems tele stable overnight with pacing/a. fib feels good with no sob, linton, orthopnea, pnd no chest pain right knee pain much better has chronic "buckling" of the knee with standing but this is unchanged swelling of knee also is better Problem List Medical Problems: (1) CHF (congestive heart failure) Status: Acute (2) Hypoxia Status: Acute (3) Hypoxia Status: Acute (4) Pleural effusion Status: Acute (5) Respiratory distress Status: Acute Objective Vital Signs Date Time Temp Pulse Resp B/P Pulse Ox O2 Delivery O2 Flow Rate FiO2 06/23/16 19:42 36.6 83 20 120/73 96 Room Air 06/23/16 19:20 Room Air 06/23/16 16:45 82 06/23/16 16:10 Room Air 06/23/16 15:17 36.4 57 16 126/58 96 Room Air 06/23/16 12:10 Room Air 06/23/16 11:16 36.3 90 16 113/54 94 Room Air 06/23/16 08:15 Room Air 06/23/16 08:01 36.6 83 16 128/63 95 Room Air 06/23/16 04:00 96 Room Air 06/23/16 03:40 36.4 60 16 110/58 96 Room Air 06/23/16 00:00 94 Room Air 06/22/16 23:52 36.8 80 16 152/70 93 Room Air Physical Exam General Appearance: no apparent distress, + cachetic, + thin ENT: pharynx normal Neck: no JVD Respiratory/Chest: lungs clear, no respiratory distress, no accessory muscle use, + decreased breath sounds (slight, left base only) Cardiovascular: no gallop, no murmur, + irregularly irregular Abdomen: normal bowel sounds, non tender, soft, no organomegaly Extremities: no pedal edema, + pertinent finding (right knee - effusion is improved; passive/active ROM is normal today with no pain; no warmth) Neurologic/Psychiatric: alert, oriented x 3 Laboratory Results Last 24 Hours Test 06/23/16 06:07 White Blood Count 9.40 K/uL Red Blood Count 3.62 M/uL Hemoglobin 11.3 g/dL Hematocrit 33.8 % Mean Corpuscular Volume 93.4 fL Mean Corpuscular Hemoglobin 31.2 pg Mean Corpuscular Hemoglobin Concent 33.4 g/dl RDW Standard Deviation 51.1 fL RDW Coefficient of Variation 15.0 % Platelet Count 226 K/uL Mean Platelet Volume 9.8 fL Erythrocyte Sedimentation Rate 34 mm/hr Sodium Level 140 mmol/L Potassium Level 4.8 mmol/L Chloride Level 105 mmol/L Carbon Dioxide Level 27 mmol/L Anion Gap 8.0 mmol/L Blood Urea Nitrogen 32 mg/dl Creatinine 1.10 mg/dl Est Creatinine Clear Calc Drug Dose 26.8 ml/min Estimated GFR () 55.7 Estimated GFR (Non- 48.1 BUN/Creatinine Ratio 29.0 Random Glucose 87 mg/dl Calcium Level 9.0 mg/dl Magnesium Level 2.4 mg/dl Assessment and Plan 76yo female with: 1. acute/chronic diastolic CHF - resolved. Cont BB, low-dose lasix, low-dose HOLDEN. Appears compensated. 2. b/l pleural effusions, L>R, s/p thoracentesis on left about 10 days ago for same issue; fluid studies previous admission suggestive of transudative; effusions clinically/radiographically improved. Suspect effusions 2nd to diastolic CHF. CXR today looks much better. Left-sided effusion is small and she is asymptomatic. Would not pursue any Rx of effusion (thoracentesis) at this time. 3. acute hypoxic resp failure 2nd to #1 - resolved. 4. +troponin - likely type 2 OH (demand ischemia from #1); cannot fully r/o type [address] she remains on BB, statin, HOLDEN, etc. 5. chronic a. fib with pacemaker insertion in past for tachy-nkechi syndrome; pacer interrogation shows normal functioning pacer. Resume eliquis tomorrow. 6. right knee pain - likely advanced OA and pseudogout. Latter is the likely reason for acute pain. MUCH improved today with NSAIDs. She can now bear weight and walk easily; defer on steroid injection. Cont indocin 1 more day then d/c. 7. weight loss, protein calorie malnutrition - needs w/u after discharge. Mammo [address] chest w/o mass. Has never had colonoscopy. Recommended one. hopefully d/c home tomorrow; will ask PT to re-eval her prior to discharge her room-mate was updated today
[2016-06-24 04:32] VITALS: BP 146/74; PULSE 61; TEMP 36.2; O2SAT 98
[2016-06-24 07:26] VITALS: BP 156/75; PULSE 85; TEMP 36.2; O2SAT 96
[2016-06-24 07:54] LABS: BUN/CREATININE RATIO 33.6 (10-20); CALCIUM 9.4 mg/dl (8.5-10.1); CREATININE 1.1 mg/dl (0.60-1.20); POTASSIUM 6.1 mmol/L (3.5-5.1)
[2016-06-24] MEDS: BOOST VANILLA PO SCH ×2 (08:00)
[2016-06-24] MEDS: DICLOFENAC SOD 1% GEL 100 GM TUBE EXT SCH ×2 (08:08→12:41)
[2016-06-24] MEDS: INDOMETHACIN 25 MG CAP PO SCH (08:09)
[2016-06-24] MEDS: ASPIRIN 81 MG ECTAB PO SCH (08:09)
[2016-06-24] MEDS: POTASSIUM CHLORIDE 20 MEQ TABCR PO SCH (08:11)
[2016-06-24] MEDS: MAGNESIUM OXIDE 400 MG TAB PO SCH (08:12)
[2016-06-24] MEDS: CEROVITE ADV FORMULA TAB PO SCH (08:13)
[2016-06-24] MEDS: AMLODIPINE BESYLATE 5 MG TAB PO SCH (08:13)
[2016-06-24] MEDS: RAMIPRIL 10 MG CAP PO SCH (08:14)
[2016-06-24] MEDS: SERTRALINE HCL 100 MG TAB PO SCH (08:15)
[2016-06-24] MEDS: SIMVASTATIN 40 MG TAB PO SCH (08:15)
[2016-06-24] MEDS: METOPROLOL SUCC 50MG EXT REL TAB PO SCH (08:15)
[2016-06-24] MEDS ORDERED: FUROSEMIDE 20 MG TAB PO SCH (09:00)
[2016-06-24 11:43] VITALS: BP 110/68; PULSE 63; TEMP 36.2; O2SAT 96
--- NOTE | 2016-06-24 11:49 | CARDIOLOGY PROGRESS NOTE ---
DATE: 06/24/2016 The patient seen and examined. Chart, medications, telemetry reviewed. SUBJECTIVE: The patient feels improved this morning. Notes no dizziness, lightheadedness, syncope or near syncope. Breathing is easy. She has not been hypoxic on room air. She has been up to the bathroom with good tolerance. PHYSICAL EXAMINATION: VITAL SIGNS: Heart rate is 80, blood pressure is 156/75. HEENT: Normocephalic, atraumatic. NECK: Thin. There is no jugular venous distention. LUNGS: Notable for mildly blunted breath sounds at the left base, but predominantly are clear. CARDIOVASCULAR: Regular with paced rhythm. There is no S3 gallop. ABDOMEN: Soft. EXTREMITIES: Free of edema. LABORATORY DATA: Sodium is 140, potassium is 4.7, chloride is 104, bicarb is 27, BUN is 37, creatinine is 1.1. IMPRESSION: A 76-year-old female admitted with recurrent pleural effusions after recent thoracentesis for transudative effusion secondary to diastolic heart failure. The patient has brittle diastolic dysfunction and longstanding hypertension, as well as chronic atrial fibrillation. RECOMMENDATIONS: Continue anticoagulation with Eliquis. Continue antihypertensive therapies with amlodipine, Toprol. Add furosemide initially at 20 mg per day. This may ultimately need to be reduced to 20 mg every other day. Would recommend follow up with primary care physician, as well as cardiology, in the next 2 weeks' time. MOLLY
[2016-06-24] MEDS ORDERED: APIXABAN 2.5 MG TAB PO SCH (12:00)
[2016-06-24 12:21] LABS: URINE APPEARANCE CLOUDY (CLEAR); URINE BILIRUBIN NEG (NEG); URINE COLOR YELLOW; URINE NITRITE POS (NEG); UROBILINOGEN NEG (NEG)
[2016-06-24 12:27] LABS: MANUAL MICROSCOPIC REQUIRED? NO; REVIEW REQ? NO
[2016-06-24 13:18] VITALS: BP 110/68; PULSE 63; O2SAT 96
[2016-06-24] MEDS ORDERED: CEFTRIAXONE SOD INJ 1 GM in DEXTROSE 5% ADD-VANTAGE 50ML 50 ML IV ONE (14:00)
[2016-06-24] MEDS ORDERED: LNX125 PO (14:07)
[2016-06-24] MEDS ORDERED: LSX20 PO (14:07)
[2016-06-24] MEDS ORDERED: VLTG EXT (14:07)
[2016-06-24] MEDS ORDERED: CEPH-570 PO (14:07)
[2016-06-24] MEDS ORDERED: Boost PO (14:07)
[2016-06-24] MEDS ORDERED: CNT PO (14:07)
--- NOTE | 2016-06-24 14:21 | Discharge Instructions ---
Discharge Instructions Admission Reason for Admission: Congestive Heart Failure Discharge Discharge Diagnosis / Problem: Congestive Heart Failure - MUCH IMPROVED. Likely bladder infection. Discharge Goals Goal(s): Learn about illness, Diagnostic testing, Therapeutic intervention Activity Recommendations Activity Limitations: resume your previous activity (as tolerated) Driving or Machine Use: no limitations . Instructions / Follow-Up Instructions / Follow-Up From Dr. Lowery - 1. Congestive Heart failure instructions: Call your Primary Care doctor if any of the following symptoms or problems start or get worse: * Shortness of breath or difficulty breathing * Wake up at night short of breath * Chest pain * Cough * Swelling of your hands, feet, or legs * More fatigued or tired with your normal activity * Palpitations - sudden fast heart beats WEIGHT * Weigh yourself every morning after using the bathroom. * Use the same scale. * Wear the same amount of clothing. * Write your weight down on a chart. * Call your Primary Care doctor or Stretching Machine Operator if you gain more than 2-3 pounds in 1-2 days.* MEDICATIONS * Use this discharge instruction sheet for medication instructions. * Take your medications at the time your doctor ordered. * Do not skip a dose of your medicines. * If you miss a dose of medicine, take it as soon as possible, but DO NOT DOUBLE A DOSE. * Read your medicine information when you get home. * Know all of the side effects of your medicine. If in doubt, ask your pharmacist * Call your Primary Care doctor's office if you have any side effects. * Be sure all of your doctors know what medicine and herbs you take (including cold, flu, and herbal medicine). Take the following with you to your follow-up doctor appointments: * Weight Chart * Medication List * List of questions 2. We have started you on LASIX (furosemide). This is a diuretic or "water pill." Take this EVERY MORNING. This is for your congestive heart failure. 3. STOP your pletal (cilastazol). 4. For your suspected urinary tract infection - * take keflex (cephalexin) 250mg twice daily for 6 days starting SATURDAY AM, 06/25 5. REDUCE your digoxin dose to every SATURDAY, SATURDAY, and SATURDAY only. Skip it on the other days. 6. RESUME your eliquis TONIGHT, 06/24/16. 7. You may use the voltaren gel to either knee up to 4 times a day. Use 4 grams for each application. 8. Take a multivitamin every day. 9. Consider drinking boost or ensure twice daily to help with your weight loss. 10. Lastly, speak with Dr. Mancia about having a colonoscopy because of your weight loss and diarrhea. 11. Appointments - * please see Dr. Mancia no later than THIS SATURDAY * see CARMELINA Vasquez - cardiology with Katie - within 1 week 12. Other - * we are going to order a "home health nurse" to come to your home a few times to check on your congestive heart failure and to ensure you are doing well; this will be arranged by our social workers Current Hospital Diet Patient's current hospital diet: Low Sodium Diet (2gm Na) Discharge Diet Recommended Diet: Low Sodium Diet (2gm Na) Fluid Restriction: 1800 ml (7 cups) Procedures Procedures Performed: 1. multiple chest x-rays that showed fluid from congestive heart failure. 2. right knee x-rays with "pseudogout" and advanced arthritis. Pending Studies Studies pending at discharge: yes List of pending studies: Urine culture - final result will be back by 06/26/16. Medical Emergencies . Who to Call and When: Call 911 or go to the Emergency Room if: * If at any time you feel your situation is an emergency * You have tightness or pain in your chest that does not go away with rest or Nitroglycerin * You are very short of breath even with rest . Non-Emergent Contact Non-Emergency issues call your: Primary Care Provider, Stretching Machine Operator Call Non-Emergent contact if: temperature is above 100.5, your pain is concerning you, you have any medication questions Weight gain, shortness of breath, difficulty breathing at night or with activity , fluid in your legs, etc. . . "Provider Documentation" section prepared by Steffen Lowery. VTE Core Measure Inpt VTE Proph given/why not?: Other Anticoagulation
[2016-06-24 14:35] VITALS: BP 110/68; PULSE 63; TEMP 36.2; O2SAT 96
--- NOTE | 2016-06-25 14:09 | EDITING REQUIRED CODING QUERY ---
CONGESTIVE HEART FAILURE To Promote full compliance with coding requirements relating to patient care, physician participation is requested in all cases of hat blocking machine operator uncertainty. Please assist us with the following questions. A diagnosis of Congestive Heart Failure is documented in the patient's medical record. To accurately code this diagnosis and to compare patient severity, we ask that you specify the type of heart failure by placing an X within the parenthesis (x). BOTH ACUTE DIASTOLIC, AND CHRONIC SYSTOLIC HEART FAILURE WAS DOCUMENTED. COULD YOU PLEASE VERIFY THE DIAGNOSIS. SYSTOLIC HEART FAILURE - NOT PRESENT; patient has normal ejection fraction. ( ) Acute ( ) Chronic ( ) Acute on Chronic ( ) Rheumatic ( ) Unknown DIASTOLIC HEART FAILURE ( ) Acute ( ) Chronic (x ) Acute on Chronic ( ) Rheumatic ( ) Unknown COMBINED SYSTOLIC AND DIASTOLIC HEART FAILURE - NOT PRESENT ( ) Acute ( ) Chronic ( ) Acute on Chronic ( ) Rheumatic ( ) Unknown Was the CHF Present On Admission? Please check the appropriate box: (x ) Present on Admission ( ) Not Present On Admission ( ) Clinically undetermined Thank you Darcy Jang
--- NOTE | 2016-06-25 22:41 | Discharge Summary ---
Discharge Summary Admission Date: Jun 20, 2016 at 05:51 Discharge Date: Jun 24, 2016 Discharge Disposition: Home with services Principal Diagnosis: acute/chronic diastolic CHF Problems/Secondary Diagnoses: 1. left-sided pleural effusion, transudative, 2nd to CHF 2. right knee pain 2nd to acute pseudogout and OA 3. a. fib on chronic anticoagulation 4. pacemaker status 5. recent weight loss - etiology uncertain 6. 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 HTN 9. hyperlipidemia 10. UTI 11. acute hypoxic respiratory failure - resolved; 2nd to CHF 12. type 2 CT (myocardial demand ischemia) Immunizations: Have You Had Influenza Vaccine: Yes History of Tetanus Vaccine?: Yes History of Pneumococcal: No History of Hepatitis B Vaccine: No Consultations: cardiology - Timothy Mae, PT, OT Medication Reconciliation New Medications: Cephalexin (Keflex) 250 Mg Cap 1 CAP PO BID for 6 Days, #12 CAP 0 Refills start 06/25/16 Diclofenac Sod (Voltaren) 100 Appln/100 Gm Gel 4 GM EXT QID PRN for knee pain, #1 1 Refill apply 4 grams to either knee up to 4 times each day as needed for pain. Furosemide (Furosemide) 20 Mg Tab 20 MG PO QAM, #30 TAB 2 Refills Multivitamins/Minerals (Certavite/Antioxidants) 1 Tab Tab 1 TAB PO QAM, #100 TAB 3 Refills [Boost] () 1 CAN LIQD 1 CAN PO BIDM, #60 2 Refills Changed Medications: Digoxin (Digoxin) 0.125 Mg Tab 0.125 MG PO Saturday/Sat/Saturday, #30 1 Refill (Changed from: DAILY; Refills: ) Continued Medications: Amlodipine Besylate-Valsartan (Exforge) 1 Tab Tab 1 TAB PO DAILY Apixaban (Eliquis) 2.5 Mg Tab 1 TAB PO BID Aspirin (Aspirin 81) 81 Mg Tab 81 MG PO DAILY Metoprolol Succinate (Toprol Xl) 200 Mg Tab 200 MG PO DAILY, TAB Sertraline Hcl (Zoloft) 100 Mg Tab 100 MG PO DAILY, TAB Simvastatin (Zocor) 40 Mg Tab 40 MG PO QAM, TAB Discontinued Medications: Cilostazol (Pletal) 100 Mg Tab 100 MG PO Q12HR, TAB Referrals At Discharge Follow up Referrals: [employer] Referral - Within 1 Week with Primo Johnson PA-C Physician Referral - Please Call For Appointment with Gerald Mancia M.D. Discharge Exam Physical Exam: General Appearance: no apparent distress, + cachetic, + thin ENT: pharynx normal Neck: no JVD Respiratory/Chest: lungs clear, no respiratory distress, no accessory muscle use, + decreased breath sounds (minimal, left base) Cardiovascular: no gallop, no murmur, normal peripheral pulses, + irregularly irregular Abdomen / GI: normal bowel sounds, non tender, soft, no organomegaly Extremities: no pedal edema, + pertinent finding (right knee with OA changes and crepitus with passive ROM; minimal effusion present; no warmth or redness ) Neurologic/Psychiatric: alert, oriented x 3 Hospital Course HISTORY OF PRESENT ILLNESS: Ms. Diaz is a 76yo female with history of atrial fibrillation, chronic diastolic CHF, and recent admission for pleural effusions and related hypoxia. Patient underwent left-sided thoracentesis during the recent stay; fluid studies were suggestive of transudative effusion. Following discharge she was feeling well. However, over the past 2 days, she developed worsening shortness of breath and then awoke from sleep tonight with respiratory distress. She was brought into the hospital where she required Lasix and Bipap for acute/chronic diastolic CHF. She denied chest pain, a productive cough or fevers. Initial labs and imaging were consistent with CHF exacerbation. There appeared to be reaccumulation of her pleural effusions as well. HOSPITAL COURSE: 1. acute hypoxic respiratory failure 2nd to acute/chronic diastolic CHF - resolved with use of BiPAP, diuresis, and supportive care. The patient was weaned from O2 support prior to discharge. Fortunately her pleural effusions also improved clinically and radiographically while here. She was seen in consult [facility] who recommended daily lasix 20mg QAM. She remains on beta jean and ARB. She was given CHF instructions including the importance of daily weights. Discharge weight was 37.5 kg. In light of her low body weight she may not need lasix every day; depending on labs and clinical status she may simply require every other day dosing or a weight-based scale. She will need follow-up in 3-4 days with her PCP and within 1 week with [facility] due to high risk of readmission. 2. b/l pleural effusions, L>R, s/p thoracentesis on left during her prior admission - Fluid studies during her prior stay were suggestive of transudative etiology likely from her diastolic CHF. Her most recent chest x-ray prior to discharge this admission showed resolution of the right-sided effusion and only a small, residual left-sided effusion. No intervention was taken on the left effusion. . Hopefully she will have full resolution with daily diuretic use at home. 3. right knee pain 2nd to advanced OA and pseudogout - she quickly responded to NSAIDs for such, and at discharge is walking well without limitation. She will discharge home on voltaren gel QID. 4. suspected UTI - on day of discharge her urinalysis was suggested of UTI. She received rocephin x 1, and will complete a course of oral keflex at home. Final urine culture is pending at discharge. 5. chronic a. 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 fib. She remains on eliquis. Digoxin level was top-normal, and in light of CKD and low body mass, we adjusted her digoxin to SATURDAY/SATURDAY/SATURDAY administration. 6. weight loss, protein calorie malnutrition - The patient has been losing an unspecified amount of weight over the last year. Records indicate her last mammogram was in [address] chest showed no mass. She has had change in bowel habits with diarrhea over the last few months. She also mentioned that she has never had a colonoscopy. I recommended she speak with her PCP about obtaining referral for colonoscopy and other testing. 7. type 2 CT - peak troponin was 1.2. Suspected to be type 2 CT from acute CHF. Cannot rule out a type 1 event, but less likely. 8. other - Seen by PT/OT and was cleared for home. We did ask social work to set up home nursing for CHF teaching and monitoring of this high-risk patient. Total Time Spent: Greater than 30 minutes This includes examination of the patient, discharge planning, medication reconciliation, and communication with other providers. Discharge Instructions Please refer to the electronic Patient Visit Report (Discharge Instructions) for additional information. Follow-Up 1. see CARMELINA Vasquez - [facility] - within [address] Mancia, PCP, within 3-4 days Additional Copies To Gerald Mancia M.D.; Francesco Mancia M.D.; Primo Johnson PA-C
--- NOTE | 2016-08-09 11:17 | EDITING REQUIRED CODING QUERY ---
CODING QUERY To promote full compliance with coding requirements relating to patient care, provider participation is requested in all cases of criminal research specialist uncertainty. Please assist us with the question(s) below: Coding Question(s): Please clarify Type 2 AL below Physician's Response(s): (x ) Demand Ischemia ( ) NSTEMI ( ) other(Please clarify) ( ) Unable to determine Thank you Darcy Jang Principal Diagnosis: "_that condition established after study, to be chiefly responsible for occasioning the admission of the patient to the hospital for care." Co-Existing Principal Diagnosis: "_when two or more diagnoses equally meet the criteria for principal diagnosis as determined by the circumstances of admission, diagnostic work up, and/or therapy provided, and the Alphabetic Index, Tabular List, or another coding guideline does not provide sequencing direction, any one of the diagnoses may be sequenced first." "When the physician has documented what appears to be a current diagnosis in the body of the record, but has not included the diagnosis in the final diagnostic statement, the physician should be asked whether the diagnosis should be added." (Source Coding Clinic 2 QTR90. p3-4)
== END 2016-06-24 14:55 | disposition home health service (06) | DRG 291 ==
LOC: ENRESERVTM → ENRESERVDT → EDBD 03:00 → C.EDA 03:01 → C.MED 05:51
PROVIDERS: ADMIT Internal Medicine; ATTEND Internal Medicine
DX: I50.33 Acute on chronic diastolic (congestive) heart failure (principal); J96.01 Acute respiratory failure with hypoxia; E43 Unspecified severe protein-calorie malnutrition; I42.9 Cardiomyopathy, unspecified; N39.0 Urinary tract infection, site not specified; R64 Cachexia; I13.0 Hypertensive heart and chronic kidney disease with heart failure and stage 1 through stage 4 chronic kidney disease, or unspecified chronic kidney disease; N18.4 Chronic kidney disease, stage 4 (severe); I24.8 Other forms of acute ischemic heart disease; M11.261 Other chondrocalcinosis, right knee; M17.11 Unilateral primary osteoarthritis, right knee; E78.5 Hyperlipidemia, unspecified; I25.10 Atherosclerotic heart disease of native coronary artery without angina pectoris; I48.2 Chronic atrial fibrillation; I49.5 Sick sinus syndrome; I73.9 Peripheral vascular disease, unspecified; Z66 Do not resuscitate; Z87.891 Personal history of nicotine dependence; Z95.0 Presence of cardiac pacemaker; Z79.01 Long term (current) use of anticoagulants; Z79.82 Long term (current) use of aspirin; F41.9 Anxiety disorder, unspecified; R63.4 Abnormal weight loss

== ENCOUNTER → 2016-06-26 | Outpatient (CLI) | payer OTHER, MEDICARE ==
[~2016-06-26] MED LIST changes: +ASPI-232 PO; +ASPI-435 PO; +Boost PO; +CEPH-570 PO; -CILO100T PO; +CNT PO; -DIGO0.1267 PO; +DOCU-94 PO; +FURO-85 PO; +LNX125 PO; +LSX20 PO; +NUTR-7 PO; +TRAM-10 PO; +ULT/50 PO; +VLTG EXT; +ZCRT/40 PO; -[UNRECOGNIZED DRUG - CODE] PO
--- NOTE | 2016-06-26 10:38 | DIAGNOSTIC IMAGING REPORT ---
CHEST 2 VIEWS ROUTINE CLINICAL HISTORY: Bilateral pleural effusions COMPARISON STUDY: 06/22/2016 FINDINGS: The chest has an emphysematous configuration. There is a left subclavian dual-chamber central venous pacemaker present. There are small bilateral pleural effusions left greater than right. There is associated left basilar atelectasis/consolidation.[ IMPRESSION: No significant change. Persistent bilateral pleural effusions left greater than right. Associated left basilar atelectasis/consolidation remains unchanged. Electronically signed by: Cristopher Bedoya M.D. 06/26/2016 10:36 AM Dictated Date/Time: 06/26/2016 10:35 AM
== END | disposition home or self-care (01) ==
LOC: C.RAD1850 10:22
PROVIDERS: ATTEND Internal Medicine
DX: J90 Pleural effusion, not elsewhere classified (principal)

== ENCOUNTER 2016-06-27 13:25 | Day surgery (SDC) | payer OTHER, MEDICARE ==
[~2016-06-27] VITALS: Ht 162.6 cm; Wt 39.0 kg
[~2016-06-27 13:25] MED LIST changes: -ASPI-232 PO; -DOCU-94 PO; -FURO-85 PO; -NUTR-7 PO; -TRAM-10 PO; -ULT/50 PO; -ZCRT/40 PO
--- NOTE | 2016-06-27 13:30 | Discharge Instructions ---
Discharge Instructions Visit Reason for Visit: Left Pleural Effusion Discharge Discharge Diagnosis / Problem: Left Pleural Effusion Discharge Goals Goal(s): Improve function, Learn about illness Activity Recommendations Activity Limitations: resume your previous activity (in 24 hours) Anesthesia . Post Anesthesia Instructions: If you have had General Anesthesia or IV Sedation: * Do not drive today. * Resume driving when surgeon permits. * Do not make important decisions or sign legal documents today. * Call surgeon for: 1. Temperature elevations greater than 101 degrees F. 2. Uncontrollable pain. 3. Excessive bleeding. 4. Persistent nausea and vomiting. 5. Medication intolerance (nausea, vomiting or rash). * For nausea and vomiting use only clear liquids such as: tea, soda, bouillon until nausea subsides, then gradually increase diet as tolerated. * If you have any concerns or questions, call your surgeon's office. If physician is unavailable and it is an emergency, call 911 or go to the nearest emergency room. . Instructions / Follow-Up Instructions / Follow-Up 1. Visiting nurses will assist you with drainage of pleurex catheter. Record amounts and bring to appointment with Dr. Lamas. 2. Keep your scheduled appointment with Dr. Lamas on July 04 @ 10:30. You will need a chest x-ray prior to appointment. Procedures Procedures Performed: Insertion of left pleurex catheter. Pending Studies Studies pending at discharge: no Medical Emergencies . Who to Call and When: Medical Emergencies: If at any time you feel your situation is an emergency, please call 911 immediately. . Non-Emergent Contact Non-Emergency issues call your: Surgeon Call Non-Emergent contact if: you have a fever, your pain is not controlled, wound has increased drainage . . "Provider Documentation" section prepared by Jean-Pierre Ruiz.
[2016-06-27] MEDS ORDERED: LIDOCAINE HCL 1% 20 ML VIAL ONE (13:36)
[2016-06-27 13:44] VITALS: BP 138/67; PULSE 75; TEMP 36.7; O2SAT 97; Ht 162.6 cm; Wt 39.0 kg
[2016-06-27] MEDS ORDERED: TRAMADOL HCL 50 MG TAB PO STA (14:18)
[2016-06-27] MEDS ORDERED: ULT/50 PO (14:21)
[2016-06-27] MEDS ORDERED: TRAMADOL HCL 50 MG TAB ONE (14:22)
[2016-06-27 14:30] VITALS: BP 134/67; PULSE 60; TEMP 36.7; O2SAT 99
[2016-06-27 15:06] LABS: PLEURAL FLUID TOTAL PROTEIN 2.9 g/dl
--- NOTE | 2016-06-27 15:10 | OPERATIVE REPORT ---
DATE OF OPERATION: 06/27/2016 PREOPERATIVE DIAGNOSIS: Recurrent left pleural effusion. POSTOPERATIVE DIAGNOSIS: Same. PROCEDURE: Insertion left PleurX catheter with ultrasound guidance. SURGEON: Dr. Lamas. SOCIETY REPORTER: Zhen Ruiz PA-C. ANESTHESIA: Local. SPECIFICS OF PROCEDURE: With the patient in right lateral decubitus position left chest prepped and draped in the usual sterile fashion. A ultrasound was used to find a good window into the left pleural cavity where there was pleural fluid. This was marked with indelible ink. The patient was then prepped and draped in usual sterile fashion and after appropriate timeout had been called a 25 gauge needle with 1% xylocaine was used to anesthetize the subcutaneous tissues at about the 8th interspace just a bit posterior to the mid axillary line. A large bore needle was used to anesthetize the skin, subcutaneous tissues and then the pleural cavity was entered. A guidewire was inserted through the needle and needle removed. A 1 cm incision was made here. About 10 cm anterior to this, another skin wheal was raised, 25 gauge needle 1% Xylocaine and another 1 cm incision was made. A long needle was used to anesthetize subcutaneous tissues between these 2 and then a tunneler was attached to the PleurX catheter and dragged from the anterior to posterior incision. The tunneler was removed. Introducer sheath was slid over the guidewire into the pleural cavity and inner cannula and guidewire removed. The PleurX catheter was inserted through the peel away sheath which was removed. Two separate 3-0 silk sutures were used to close the posterior incision and a 3-0 silk suture was used to anchor the catheter to the patient's skin anteriorly. About 500 mL of serous fluid was drained. Chest x-ray showed we completely drained her left chest. She tolerated it well. X-ray showed a very small pneumothorax but we did introduce some air. She tolerated it well. We will see her back in the office next week. I attest to the content of the Intraoperative Record and any orders documented therein. Any exceptio ns are noted below.
--- NOTE | 2016-06-27 15:13 | DIAGNOSTIC IMAGING REPORT ---
CHEST ONE VIEW PORTABLE CLINICAL HISTORY: pleurex insertion COMPARISON STUDY: 06/26/2016 FINDINGS: The heart is borderline enlarged. There is a left subclavian dual-chamber central venous pacemaker present. There is a small right pleural effusion. There is pulmonary emphysema. Increased markings are present within the right perihilar region, similar to the prior study and possibly representing postsurgical scar. There is been interval placement of a left-sided Pleurx catheter. There is marked interval decrease in the size of the left pleural effusion. There is a 1 cm left apical pneumothorax.[ IMPRESSION: 1. Interval insertion of a left-sided Pleurx catheter with evacuation left pleural effusion 2. Interval development of a small 1 cm left apical pneumothorax 3. Emphysema 4. Small right pleural effusion Electronically signed by: Cristopher Bedoya M.D. 06/27/2016 3:11 PM Dictated Date/Time: 06/27/2016 3:08 PM
[2016-06-27 16:51] LABS: PLEURAL FLUID APPEARANCE HAZY; PLEURAL FLUID COLOR YELLOW; PLEURAL FLUID MONONUC RELAT 86.9 %; PLEURAL FLUID POLYNUC 13.1 %; PLEURAL FLUID SOURCE LEFT LUNG; PLEURAL FLUID WBC (A) 777 /uL
[2016-06-28] MEDS ORDERED: TRAM-10 PO (01:02)
[2016-06-28] MEDS ORDERED: LNX125 PO (01:04)
[2016-06-28] MEDS ORDERED: FURO-85 PO (01:06)
[2016-06-28] MEDS ORDERED: NUTR-7 PO (01:08)
[2016-06-28] MEDS ORDERED: ASPI-232 PO (01:10)
[2016-06-28] MEDS ORDERED: APIX1TAB PO (01:11)
[2016-06-28] MEDS ORDERED: ZCRT/40 PO (01:13)
== END 2016-06-27 15:00 | disposition home or self-care (01) ==
LOC: C.ACU 13:25
PROVIDERS: ATTEND Surgery
DX: J90 Pleural effusion, not elsewhere classified (principal); T81.89XA Other complications of procedures, not elsewhere classified, initial encounter; Z79.01 Long term (current) use of anticoagulants; I48.91 Unspecified atrial fibrillation; I10 Essential (primary) hypertension; I50.9 Heart failure, unspecified; E78.5 Hyperlipidemia, unspecified; Z95.0 Presence of cardiac pacemaker; Z79.82 Long term (current) use of aspirin; Z87.891 Personal history of nicotine dependence

== ENCOUNTER 2016-06-27 22:39 | Emergency (ER) | payer OTHER, MEDICARE ==
[~2016-06-27] VITALS: Ht 162.6 cm; Wt 38.6 kg
[~2016-06-27 22:39] MED LIST changes: +ULT/50 PO
[2016-06-27 22:52] VITALS: TEMP 36.4; Ht 162.6 cm; Wt 38.6 kg
--- NOTE | 2016-06-27 23:49 | EMERGENCY ROOM VISIT NOTE ---
History Report prepared by Moshe: Mignon Kim Under the Supervision of: Dr. Praveena White M.D. First contact with patient: 23:13 Chief Complaint: OTHER COMPLAINT Stated Complaint: BLOODY DISCHARGE FROM CHEST DRAIN History of Present Illness The patient is a 76 year old female who presents to the Emergency Room with complaints of constant bleeding for the past 3 hours. Earlier today the patient had a Pleurx catheter placed in the left chest wall by Dr. Lamas. She states that after the procedure she was having some pain. Fluid was draining and it was slightly bloody. She took a nap and woke up 3 hours ago due to the pain in her left chest wall. She rates her pain as a 6/10 in severity. The patient notes that the incision site started bleeding more heavily when she woke up and this has been persistent for the past 3 hours. The area was only lightly bleeding when she left the hospital earlier today. She takes Eliquis for atrial fibrillation. Source of History: patient Onset: 3 hours ago Position: chest (left) Symptom Intensity: 6/10 Quality: other (bleeding) Timing: constant Modifying Factors (Worsening): other (recent Pleurx catheter placement) Review of Systems See HPI for pertinent positives & negatives. A total of 10 systems reviewed and were otherwise negative. Past Medical & Surgical Medical Problems: (1) Atrial fibrillation (2) Benign hypertension (3) Cardiac pacemaker procedure (4) CHF exacerbation (5) Chronic congestive heart failure (6) Hyperlipidemia (7) Pleural effusion Family History Heart disease Social History Smoking Status: Former Smoker Drug Use: none Marital Status: single Occupation Status: retired Current/Historical Medications Scheduled Amlodipine Besylate-Valsartan (Exforge), 1 TAB PO DAILY Apixaban (Eliquis), 2.5 MG PO BID Aspirin (Aspir-81), 81 MG PO DAILY Cephalexin (Keflex), 1 CAP PO BID Digoxin (Digoxin), 0.125 MG PO 3XWK Furosemide (Lasix), 20 MG PO QAM Metoprolol Succinate (Toprol Xl), 200 MG PO DAILY Multivitamins/Minerals (Certavite/Antioxidants), 1 TAB PO QAM Nutritional Supplements (Boost), 1 CAN PO BIDM Sertraline Hcl (Zoloft), 100 MG PO DAILY Simvastatin (Zocor), 40 MG PO QAM Scheduled PRN Diclofenac Sod (Voltaren), 4 GM EXT QID PRN for knee pain Tramadol (Ultram), 50 MG PO Q4H PRN for Pain Allergies Coded Allergies: HOLDEN Inhibitors (Verified Adverse Reaction, Mild, COUGH, 06/11/16) Physical Exam Vital Signs Date Time Temp Pulse Resp B/P Pulse Ox O2 Delivery O2 Flow Rate FiO2 06/28/16 01:49 65 18 130/65 96 06/28/16 00:18 64 18 121/62 95 Room Air 06/27/16 22:52 36.4 81 16 148/78 97 Room Air Physical Exam Vital signs reviewed. General: Chronically ill-appearing, thin 76-year-old female, in no significant distress. HEENT: No scleral icterus, PERRLA, neck supple. Atraumatic. Cardiovascular: Regular rate and rhythm, no extra sounds. Pulmonary: Clear to auscultation bilaterally, normal work of breathing. Chest: Catheter in the left chest wall with a blood saturated dressing. Abdomen: Soft, nontender, nondistended, positive bowel sounds. Musculoskeletal: Atraumatic, no peripheral edema. Neurologic: Patient awake alert and oriented x 3 Skin: Warm, dry, no rash Medical Decision & Procedures ER Provider Diagnostic Interpretation: 2-view chest x-ray as interpreted by myself reveals Pleurx catheter in the left base in good position, trace pleural effusion on the right, no pleural effusion on the left, pace-maker in place, no pneumothorax. Laboratory Results 06/28/16 00:25 Red Blood Count 3.58, Mean Corpuscular Volume 95.3, Mean Corpuscular Hemoglobin 31.0, Mean Corpuscular Hemoglobin Concent 32.6, Mean Platelet Volume 9.7, Neutrophils (%) (Auto) 85.5, Lymphocytes (%) (Auto) 7.1, Monocytes (%) (Auto) 6.8, Eosinophils (%) (Auto) 0.2, Basophils (%) (Auto) 0.2, Neutrophils # (Auto) 8.61, Lymphocytes # (Auto) 0.72, Monocytes # (Auto) 0.69, Eosinophils # (Auto) 0.02, Basophils # (Auto) 0.02 06/28/16 00:25 Test 06/28/16 00:25 White Blood Count 10.08 K/uL (4.8-10.8) Red Blood Count 3.58 M/uL (4.2-5.4) Hemoglobin 11.1 g/dL (12.0-16.0) Hematocrit 34.1 % (37-47) Mean Corpuscular Volume 95.3 fL (80-100) Mean Corpuscular Hemoglobin 31.0 pg (25-34) Mean Corpuscular Hemoglobin Concent 32.6 g/dl (32-36) Platelet Count 231 K/uL (130-400) Mean Platelet Volume 9.7 fL (7.4-10.4) Neutrophils (%) (Auto) 85.5 % Lymphocytes (%) (Auto) 7.1 % Monocytes (%) (Auto) 6.8 % Eosinophils (%) (Auto) 0.2 % Basophils (%) (Auto) 0.2 % Neutrophils # (Auto) 8.61 K/uL (1.4-6.5) Lymphocytes # (Auto) 0.72 K/uL (1.2-3.4) Monocytes # (Auto) 0.69 K/uL (0.11-0.59) Eosinophils # (Auto) 0.02 K/uL (0-0.5) Basophils # (Auto) 0.02 K/uL (0-0.2) RDW Standard Deviation 51.2 fL (36.4-46.3) RDW Coefficient of Variation 14.8 % (11.5-14.5) Immature Granulocyte % (Auto) 0.2 % Immature Granulocyte # (Auto) 0.02 K/uL (0.00-0.02) Anion Gap 10.0 mmol/L (3-11) Est Creatinine Clear Calc Drug Dose 23.5 ml/min Estimated GFR () 50.1 Estimated GFR (Non- 43.3 BUN/Creatinine Ratio 30.3 (10-20) Calcium Level 8.8 mg/dl (8.5-10.1) Laboratory results per my review. ED Course 2316: Past medical records reviewed. The patient was evaluated in room A12B. A complete history and physical examination was performed. 0135: I reassessed the patient at this time. A new dressing was applied to the patient's wound. She is feeling better and resting comfortably. I discussed the results and treatment plan with the patient. I answered all pertaining questions that she had. She expressed understanding and verbalized agreement. The patient will be discharged home. Medical Decision Differential diagnoses includes anticoagulant therapy, hemothorax, catheter misplacement. This pt was evaluated and lab work was drawn. Pt was placed on the radiographer cardiac catheterization. Catheter site appears to be doing well. A blood soaked dressing was removed, and only minimal bleeding was seen actively. CXR to my interpretation reveals catheter in good position. H/H appears to be stable. Pt is anticoagulated for afib and was advised to hold her Eliquis for the next 2-3 days. She will contact Dr Lamas later this morning and her PCP for further management of the anticoagulation. Cath site was redressed and Pt was d/c to care of a friend. She will return to the ED for worsening of symptoms or any medical concerns. Impression Primary Impression: Postoperative bleeding from incision Additional Impression: Anticoagulated Scribe Attestation The scribe's documentation has been prepared under my direction and personally reviewed by me in its entirety. I confirm that the note above accurately reflects all work, treatment, procedures, and medical decision making performed by me. Departure Information Dispostion Home / Self-Care Referrals Francesco Mancia M.D. (PCP) Forms HOME CARE DOCUMENTATION FORM, IMPORTANT VISIT INFORMATION, WORK / SCHOOL INSTRUCTIONS Patient Instructions My [facility] Additional Instructions Diagnosis: Bleeding from postoperative site, anticoagulation Do not take your Eloquis for the next 2 days. Contact your primary care physician tomorrow for further management of anticoagulation. Follow-up with Dr. Lamas by phone tomorrow. Case management will contact you tomorrow morning for assistance. Return to the ER for worsening of symptoms or any medical concerns. Problem Qualifiers
[2016-06-28 00:56] LABS: BASO % 0.2 %; BASO ABS # 0.02 K/uL (0-0.2); COMPLETE YES; EOS % 0.2 %; HEMATOCRIT 34.1 % (37-47); IG% 0.2 %; LYMPH % 7.1 %; LYMPH ABS # 0.72 K/uL (1.2-3.4); MEAN CELL VOLUME 95.3 fL (80-100); MEAN CORPUSCULAR HGB CONC 32.6 g/dl (32-36); MEAN PLATELET VOLUME 9.7 fL (7.4-10.4); MONO % 6.8 %; NEUT % 85.5 %; PLATELET COUNT 231 K/uL (130-400); RED BLOOD COUNT 3.58 M/uL (4.2-5.4); WHITE BLOOD COUNT 10.08 K/uL (4.8-10.8)
[2016-06-28] MEDS ORDERED: TRAM-10 PO (01:02)
[2016-06-28] MEDS ORDERED: LNX125 PO (01:04)
[2016-06-28] MEDS ORDERED: FURO-85 PO (01:06)
[2016-06-28] MEDS ORDERED: NUTR-7 PO (01:08)
[2016-06-28] MEDS ORDERED: ASPI-232 PO (01:10)
[2016-06-28] MEDS ORDERED: APIX1TAB PO (01:11)
[2016-06-28 01:12] LABS: BUN/CREATININE RATIO 30.3 (10-20); CALCIUM 8.8 mg/dl (8.5-10.1); CREATININE 1.2 mg/dl (0.60-1.20); POTASSIUM 4.1 mmol/L (3.5-5.1)
[2016-06-28] MEDS ORDERED: ZCRT/40 PO (01:13)
[2016-06-28 01:49] VITALS: BP 130/65; PULSE 65; O2SAT 96
--- NOTE | 2016-06-28 08:01 | DIAGNOSTIC IMAGING REPORT ---
CHEST 2 VIEWS ROUTINE CLINICAL HISTORY: L pleurx catheter bleeding COMPARISON STUDY: Chest radiograph June 27, 2016. FINDINGS: A left basilar pleural catheter is in place. A small left apical pneumothorax with pleural separation of 9 mm is unchanged. A small right pleural effusion is noted. There is a trace left pleural effusion. There is hazy right lower lung opacity. There is no evidence of pulmonary edema. Cardiomediastinal silhouette is stable. A dual lead left subclavian pacemaker is in place. IMPRESSION: 1. Small left apical pneumothorax with left pleural catheter in place. No significant change since prior exam. 2. Small right and trace left pleural effusions with hazy right basilar opacity. Electronically signed by: Rikki Mcpherson M.D. 06/28/2016 8:00 AM Dictated Date/Time: 06/28/2016 7:54 AM
== END 2016-06-28 01:49 | disposition home or self-care (01) ==
LOC: EDBD 22:39 → C.EDA 22:40
DX: T81.89XA Other complications of procedures, not elsewhere classified, initial encounter (principal); Z79.01 Long term (current) use of anticoagulants; I48.91 Unspecified atrial fibrillation; I10 Essential (primary) hypertension; I50.9 Heart failure, unspecified; E78.5 Hyperlipidemia, unspecified; J90 Pleural effusion, not elsewhere classified; Z95.0 Presence of cardiac pacemaker; Z79.82 Long term (current) use of aspirin; Z87.891 Personal history of nicotine dependence

== ENCOUNTER → 2016-06-29 | Outpatient (CLI) | payer OTHER, MEDICARE ==
[~2016-06-29] MED LIST changes: +ASPI-232 PO; +CILO100T PO; +CMD4 PO; +DIGO0.1267 PO; +DOCU-94 PO; +FURO-85 PO; +HYDR-3419 PO; +NUTR-7 PO; +SULF-183 PO; +TRAM-10 PO; +ZCRT/40 PO; +[UNRECOGNIZED DRUG - CODE] PO
--- NOTE | 2016-06-29 17:09 | DIAGNOSTIC IMAGING REPORT ---
CHEST 2 VIEWS ROUTINE HISTORY: Follow up bilateral pleural effusions. COMPARISON: Chest 06/28/2016. FINDINGS: Small left apical pneumothorax has slightly decreased in size. This demonstrates a pleural gap of 4 mm. Small right and trace left pleural effusions persist. Left basilar chest tube is unchanged in position. Hazy appearance to the right lung base remains unchanged. No new focal lung consolidations. The heart is normal in size. There is a left-sided dual-chamber a smoker. IMPRESSION: Slight decrease in size in the small left apical pneumothorax. Bilateral pleural effusions persist. Electronically signed by: Rob Lobato M.D. 06/29/2016 5:08 PM Dictated Date/Time: 06/29/2016 5:06 PM
== END | disposition home or self-care (01) ==
LOC: C.RADBC 16:52
PROVIDERS: ATTEND Internal Medicine
DX: J90 Pleural effusion, not elsewhere classified (principal)

== ENCOUNTER 2016-07-17 00:08 | Emergency (ER) | payer OTHER, MEDICARE ==
[~2016-07-17] VITALS: Ht 162.6 cm; Wt 40.5 kg
[~2016-07-17 00:08] MED LIST changes: -ASPI-435 PO; -Boost PO; -CILO100T PO; -CMD4 PO; -DIGO0.1267 PO; -DOCU-94 PO; -HYDR-3419 PO; -LSX20 PO; -SIMV40TA4 PO; -SULF-183 PO; -ULT/50 PO; -[UNRECOGNIZED DRUG - CODE] PO
[2016-07-17 00:09] VITALS: TEMP 36.7; Ht 162.6 cm; Wt 40.5 kg
[2016-07-17] MEDS ORDERED: SODIUM CHLORIDE 0.9% 500ML 500 ML IV STA (00:31)
--- NOTE | 2016-07-17 00:40 | EMERGENCY ROOM VISIT NOTE ---
History Report prepared by Moshe: Netta Widler Under the Supervision of: Dr. Cuhck Montalvo M.D. First contact with patient: 00:22 Chief Complaint: ABDOMINAL PAIN Stated Complaint: ABDOMINAL PAIN Nursing Triage Summary: Pt arrived via [facility] from home. Per EMS, pt has not had BM in 5-7 days. Normally regular. Has been having abdominal pain, especially while trying to move bowels. Pain got worse today and called EMS for evaluation. Took laxative yesterday without result. Drain to left chest to drain pleural fluid. Home health changes dressing and empties drain. Denies SOB. History of Present Illness The patient is a 76 year old female who presents to the Emergency Room with complaints of persistent constipation starting about 1 week [employer]OUBLE [employer]. The patient states that she has been unable to have a bowl movement over the last week and has had some abdominal pain associated with the constipation. She states she has been eating normally over the last week but has had some abdominal pain and vomiting. She states that earlier tonight she took Miralax with no relief of her symptoms. The patient denies taking any medications daily, any history of abdominal surgeries or bowel obstructions. The patient states that she has been able to pass some gas during the last week. Source of History: patient Onset: 1 week DOUBLE [employer] Position: abdomen Timing: other (persistent) Associated Symptoms: + abdominal pain, + vomiting Review of Systems See HPI for pertinent positives & negatives. A total of 10 systems reviewed and were otherwise negative. Past Medical & Surgical Medical Problems: (1) Atrial fibrillation (2) Benign hypertension (3) Cardiac pacemaker procedure (4) CHF exacerbation (5) Chronic congestive heart failure (6) Hyperlipidemia (7) Pleural effusion Family History Heart disease Social History Smoking Status: Former Smoker Drug Use: none Marital Status: single Housing Status: lives with friends Occupation Status: retired Current/Historical Medications Scheduled Amlodipine Besylate-Valsartan (Exforge), 1 TAB PO DAILY Apixaban (Eliquis), 2.5 MG PO BID Aspirin (Aspir-81), 81 MG PO DAILY Digoxin (Digoxin), 0.125 MG PO 3XWK Docusate Sodium (Colace), 1 CAP PO BID Furosemide (Lasix), 20 MG PO QAM Metoprolol Succinate (Toprol Xl), 200 MG PO DAILY Multivitamins/Minerals (Certavite/Antioxidants), 1 TAB PO QAM Nutritional Supplements (Boost), 1 CAN PO BIDM Sertraline Hcl (Zoloft), 100 MG PO DAILY Simvastatin (Zocor), 40 MG PO QAM Scheduled PRN Diclofenac Sod (Voltaren), 4 GM EXT QID PRN for knee pain Tramadol (Ultram), 50 MG PO Q4H PRN for Pain Allergies Coded Allergies: HOLDEN Inhibitors (Verified Adverse Reaction, Mild, COUGH, 07/17/16) Physical Exam Vital Signs Date Time Temp Pulse Resp B/P Pulse Ox O2 Delivery O2 Flow Rate FiO2 07/17/16 03:17 84 16 161/60 99 07/17/16 01:46 78 18 150/68 98 Room Air 07/17/16 00:09 36.7 85 22 155/87 98 Room Air Physical Exam GENERAL: Patient is mild distress and uncomfortably appearing. Cachetic appearing. HEENT: No acute trauma, normocephalic atraumatic, mucous membranes dry, no nasal congestion, no scleral icterus. NECK: No stridor, no adenopathy, no meningismus, trachea is midline. LUNGS: No dyspnea. Clear to auscultation and equal bilaterally. No wheeze, no rhonchi. HEART: Regular rate and rhythm. No murmurs, rubs, gallops appreciated. ABDOMEN: Soft, vague diffuse abdominal tenderness, constipation felt on exam, bowel sounds positive, no masses appreciated, no peritonitis. BACK: No midline tenderness, no CVA tenderness EXTREMITIES: Normal motion all extremities, no cyanosis, no edema. NEUROLOGIC: Alert and oriented, no acute motor or sensory deficits, no focal weakness, cranial nerves grossly intact. SKIN: No rash, no jaundice, no diaphoresis. Medical Decision & Procedures ER Provider Diagnostic Interpretation: CT results as stated below per interpretation by me and the radiologist: Preliminary Findings Only--- See Final Report for Complete Findings: CT ABDOMEN & PELVIS: Large retained fecal ball in the rectum, suggesting constipation/fecal impaction Colonic diverticulosis without evidence of diverticulitis Extensive atherosclerosis with high-grade stenosis to occlusion of the left external iliac artery. 7 mm nonobstructing left renal calculus. Bilateral renal cortical scarring. Few bilateral renal hypodensities, some indeterminate, for example, a 12 mm focus in the lower pole of the right kidney (2/36). Recommended ultrasound for further evaluation. Heterogeneous enhancement of the liver, likely passive hepatic congestion. Cardiomegaly. Trace bilateral pleural effusions with bibasilar atelectasis. Radiologist: Torrey Marcus MD study ready at 0140 and initial results transmitted at 0204 Laboratory Results 07/17/16 01:03 Red Blood Count 3.85, Mean Corpuscular Volume 93.0, Mean Corpuscular Hemoglobin 30.4, Mean Corpuscular Hemoglobin Concent 32.7, Mean Platelet Volume 9.8, Neutrophils (%) (Auto) 76.7, Lymphocytes (%) (Auto) 10.2, Monocytes (%) (Auto) 9.4, Eosinophils (%) (Auto) 3.1, Basophils (%) (Auto) 0.3, Neutrophils # (Auto) 5.72, Lymphocytes # (Auto) 0.76, Monocytes # (Auto) 0.70, Eosinophils # (Auto) 0.23, Basophils # (Auto) 0.02 07/17/16 01:03 Test 07/17/16 01:03 07/17/16 01:10 White Blood Count 7.45 K/uL (4.8-10.8) Red Blood Count 3.85 M/uL (4.2-5.4) Hemoglobin 11.7 g/dL (12.0-16.0) Hematocrit 35.8 % (37-47) Mean Corpuscular Volume 93.0 fL (80-100) Mean Corpuscular Hemoglobin 30.4 pg (25-34) Mean Corpuscular Hemoglobin Concent 32.7 g/dl (32-36) Platelet Count 178 K/uL (130-400) Mean Platelet Volume 9.8 fL (7.4-10.4) Neutrophils (%) (Auto) 76.7 % Lymphocytes (%) (Auto) 10.2 % Monocytes (%) (Auto) 9.4 % Eosinophils (%) (Auto) 3.1 % Basophils (%) (Auto) 0.3 % Neutrophils # (Auto) 5.72 K/uL (1.4-6.5) Lymphocytes # (Auto) 0.76 K/uL (1.2-3.4) Monocytes # (Auto) 0.70 K/uL (0.11-0.59) Eosinophils # (Auto) 0.23 K/uL (0-0.5) Basophils # (Auto) 0.02 K/uL (0-0.2) RDW Standard Deviation 51.8 fL (36.4-46.3) RDW Coefficient of Variation 15.1 % (11.5-14.5) Immature Granulocyte % (Auto) 0.3 % Immature Granulocyte # (Auto) 0.02 K/uL (0.00-0.02) Est Creatinine Clear Calc Drug Dose 32.2 ml/min Estimated GFR () 69.1 Estimated GFR (Non- 59.6 BUN/Creatinine Ratio 29.9 (10-20) Calcium Level 8.8 mg/dl (8.5-10.1) Total Bilirubin 0.3 mg/dl (0.2-1) Direct Bilirubin 0.1 mg/dl (0-0.2) Aspartate Amino Transf (AST/SGOT) 18 U/L (15-37) Alanine Aminotransferase (ALT/SGPT) 21 U/L (12-78) Alkaline Phosphatase 50 U/L (45-117) Total Protein 6.4 gm/dl (6.4-8.2) Albumin 3.4 gm/dl (3.4-5.0) Lipase 276 U/L (73-393) Bedside Hemoglobin 12.2 g/dl (12.0-16.0) Bedside Hematocrit 36 % (37-47) Bedside Sodium 142 mEq/L (135-144) Bedside Potassium 3.9 mEq/L (3.3-5.0) Bedside Chloride 100 mEq/L (101-112) Bedside Total CO2 28 mEq/l (24-31) Anion Gap 19.0 mmol/L (16-25) Bedside Blood Urea Nitrogen 27 mg/dl (7-18) Bedside Creatinine 0.9 mg/dl (0.6-1.3) Bedside Glucose (other) 139 mg/dl (70-99) Bedside Ionized Calcium (So) 1.17 mmol/l (1.12-1.32) Laboratory results as reviewed by me. Medications Administered Medications (Trade) Dose Ordered Sig/Christine Route Start Time Stop Time Status Last Admin Dose Admin Sodium Chloride (Nss 500ml) 500 ml @ 999 mls/hr Q31M STAT IV 07/17/16 00:31 07/17/16 01:01 DC 07/17/16 01:45 999 MLS/HR Miscellaneous (Soap Suds Enema) 1 ea NOW STAT MS 07/17/16 02:19 07/17/16 02:20 DC 07/17/16 02:34 1 EA Lactulose (Chronulac Syrup) 30 gm NOW STAT PO 07/17/16 02:19 07/17/16 02:20 DC 07/17/16 02:38 30 GM ED Course 0025: The patient was evaluated in room A2. A complete history and physical exam was performed. 0031: Order Sodium Chloride 500 ml @ 999 mls/hr. 0219: Ordered Lactulose 30 gm PO, Soap Suds Enema 1 ea MS. 0230: I reevaluated the patient and she states she is feeling well and agreed to have an enema. 0312: I reevaluated the patient and she states she is feeling much better and is looking forwards to getting home. Discussed results and discharge instructions: She verbalized understanding and agreement. The patient is ready for discharge. Medical Decision Differential: Functional, Impaction, Obstruction, Volvulus, Ischemic Bowel, Infectious, Neurologic, Metabolic, amongst other pathologies entertained. Pleasant 76 yr old modestly cachetic (chronic) female arrives with abdominal discomfort and no BM in last week. Concerning as she notes having vomited earlier though denies other symptoms. Exam consistent with constipation however I feel that without significant history of this happening previously requires further investigation prior to coming to final diagnosis. CT with large amount of fecal impaction. Vastly improved after enema with large bowel movement. Patient happy and in no distress stating she wishes to go home. Discussed keeping well hydrated and will add on colace over next few days to keep regular. Impression Primary Impression: Constipation Scribe Attestation The scribe's documentation has been prepared under my direction and personally reviewed by me in its entirety. I confirm that the note above accurately reflects all work, treatment, procedures, and medical decision making performed by me. Departure Information Dispostion Home / Self-Care Prescriptions Docusate Sodium (COLACE) 100 Mg Cap 1 CAP PO BID for 15 Days, #30 CAP Prov: Chuck Montalvo M.D. 07/17/16 Referrals Francesco Mancia M.D. (PCP) Forms HOME CARE DOCUMENTATION FORM, IMPORTANT VISIT INFORMATION Patient Instructions ED Constipation, My [facility] Problem Qualifiers Primary Impression: Constipation Constipation type: slow transit constipation Qualified Codes: K59.01 - Slow transit constipation
[2016-07-17] MEDS ORDERED: OPTIRAY 320 IV PRN (00:45)
[2016-07-17 01:09] LABS: BASO % 0.3 %; BASO ABS # 0.02 K/uL (0-0.2); COMPLETE YES; EOS % 3.1 %; HEMATOCRIT 35.8 % (37-47); IG% 0.3 %; LYMPH % 10.2 %; LYMPH ABS # 0.76 K/uL (1.2-3.4); MEAN CORPUSCULAR HEMOGLOBIN 30.4 pg (25-34); MEAN CORPUSCULAR HGB CONC 32.7 g/dl (32-36); MEAN PLATELET VOLUME 9.8 fL (7.4-10.4); MONO % 9.4 %; NEUT % 76.7 %; PLATELET COUNT 178 K/uL (130-400); RED BLOOD COUNT 3.85 M/uL (4.2-5.4); WHITE BLOOD COUNT 7.45 K/uL (4.8-10.8)
[2016-07-17 01:20] LABS: ISTAT CREATININE 0.9 mg/dl (0.6-1.3); ISTAT HEMOGLOBIN 12.2 g/dl (12.0-16.0); ISTAT IONIZED CALCIUM 1.17 mmol/l (1.12-1.32)
[2016-07-17 02:00] LABS: BUN/CREATININE RATIO 29.9 (10-20); CALCIUM 8.8 mg/dl (8.5-10.1); CREATININE 0.92 mg/dl (0.60-1.20)
[2016-07-17] MEDS ORDERED: LACTULOSE SYRUP 20 GM/30 ML UDC PO STA (02:19)
[2016-07-17] MEDS ORDERED: SOAP SUDS ENEMA PR STA (02:19)
[2016-07-17] MEDS ORDERED: DOCU-94 PO (02:59)
[2016-07-17 03:17] VITALS: BP 161/60; PULSE 84; O2SAT 99
--- NOTE | 2016-07-17 07:20 | DIAGNOSTIC IMAGING REPORT ---
ABDOMEN AND PELVIS CT WITH IV CONTRAST CT DOSE: 259.74 mGy.cm HISTORY: Nausea. Vomiting. vomiting, no BM x 7 days TECHNIQUE: Multiaxial CT images of the abdomen and pelvis were performed following the use of intravenous contrast. COMPARISON STUDY: None. FINDINGS: Small bilateral pleural effusions. Like atelectasis both lung bases. Left basilar drainage catheter. Cortical scarring and atrophic change both kidneys. Nonobstructive bowel pattern within the abdomen. Fecal impaction. Chronic sigmoid diverticulosis. Trace free fluid within the pelvic cul-de-sac. IMPRESSION: 1. Fecal impaction. 2. Chronic sigmoid diverticulosis. 3. Nonobstructive bowel pattern.4. Chronic renal cortical scarring with a nonobstructing mid pole left renal calcification. 4. Small bilateral pleural effusions with mild bibasilar atelectatic change. Electronically signed by: Primo Hill M.D. 07/17/2016 7:19 AM Dictated Date/Time: 07/17/2016 7:17 AM
== END 2016-07-17 03:17 | disposition home or self-care (01) ==
LOC: EDBD 00:08 → C.EDA 00:09
DX: K59.01 Slow transit constipation (principal); R64 Cachexia; I48.91 Unspecified atrial fibrillation; I10 Essential (primary) hypertension; Z95.0 Presence of cardiac pacemaker; E78.5 Hyperlipidemia, unspecified; Z87.891 Personal history of nicotine dependence; Z79.82 Long term (current) use of aspirin; Z79.899 Other long term (current) drug therapy

== ENCOUNTER → 2016-07-18 | Outpatient (CLI) | payer OTHER, MEDICARE ==
[~2016-07-18] MED LIST changes: -CEPH-570 PO; +DOCU-94 PO
--- NOTE | 2016-07-18 12:47 | DIAGNOSTIC IMAGING REPORT ---
CHEST 2 VIEWS ROUTINE CLINICAL HISTORY: Pulmonary hypertension. COMPARISON STUDY: Chest CT June 12, 2016 and chest radiograph June 29, 2016. FINDINGS: A left basilar pleural catheter is in place. There are small bilateral pleural effusions. There is no pneumothorax. Linear right lung opacities favor atelectasis or scarring. Mild left basilar opacity is suggestive of atelectasis. There is no evidence of pulmonary edema. Cardiomediastinal silhouette is stable. A dual lead left subclavian pacemaker is in place. IMPRESSION: 1. Small bilateral pleural effusions with left basilar pleural catheter in place. No pneumothorax. 2. Linear right lung opacities which favor atelectasis or scarring. Electronically signed by: Rikki Mcpherson M.D. 07/18/2016 12:45 PM Dictated Date/Time: 07/18/2016 12:43 PM
== END | disposition home or self-care (01) ==
LOC: C.RAD1850 12:26
PROVIDERS: ATTEND Internal Medicine
DX: I27.2 Other secondary pulmonary hypertension (principal); J90 Pleural effusion, not elsewhere classified

== ENCOUNTER → 2016-08-06 | Outpatient (CLI) | payer OTHER, MEDICARE ==
[~2016-08-06] MED LIST changes: -DOCU-94 PO
--- NOTE | 2016-08-06 10:58 | DIAGNOSTIC IMAGING REPORT ---
CHEST 2 VIEWS ROUTINE CLINICAL HISTORY: J90 Pleural [id number] dyspnea COMPARISON STUDY: 07/18/2016 FINDINGS: Unchanged position of a left basilar catheter. Small left effusion unchanged. Trace pleural effusion right base unchanged. Lungs otherwise are considered clear. IMPRESSION: No change in the prior exam. Left basilar catheter unchanged in position. Small bilateral pleural effusions unchanged Electronically signed by: Primo Hill M.D. 08/06/2016 10:56 AM Dictated Date/Time: 08/06/2016 10:55 AM
== END | disposition home or self-care (01) ==
LOC: C.RAD1850 09:47
PROVIDERS: ATTEND Surgery
DX: Z87.09 Personal history of other diseases of the respiratory system (principal)

== ENCOUNTER → 2016-09-10 | Outpatient (CLI) | payer OTHER, MEDICARE ==
[~2016-09-10] MED LIST changes: +METO-648 PO; -METO1TAB70 PO
--- NOTE | 2016-09-10 10:38 | DIAGNOSTIC IMAGING REPORT ---
TWO VIEW CHEST CLINICAL HISTORY: Pleural effusions. FINDINGS: PA and lateral chest radiographs are compared to study dated 08/06/2016 and correlated with chest CT dated 06/12/2016. A 2-lead cardiac pacemaker is unchanged in position and partially obscures the left upper chest. A pleural drain is again seen in the left lung base. The heart is enlarged and there is atherosclerotic calcification of the thoracic aorta. The pulmonary vasculature is noncongested. Emphysema is suspected. Small pleural effusions with bibasilar consolidation are unchanged. Apical scarring is observed. No pneumothorax is seen. The skeletal structures are osteopenic. The bony thorax is grossly intact. IMPRESSION: 1. Cardiomegaly and cardiac pacemaker without radiographic evidence of congestive failure. 2. Small pleural effusions with bibasilar consolidation are similar to previous. A left pleural drain is unchanged in position. Electronically signed by: Federico Collazo M.D. 09/10/2016 10:36 AM Dictated Date/Time: 09/10/2016 10:32 AM
== END | disposition home or self-care (01) ==
LOC: C.RAD1850 10:10
PROVIDERS: ATTEND Surgery
DX: J90 Pleural effusion, not elsewhere classified (principal); I51.7 Cardiomegaly; Z95.0 Presence of cardiac pacemaker

== ENCOUNTER → 2016-10-18 | Outpatient (CLI) | payer OTHER, MEDICARE ==
--- NOTE | 2016-10-18 09:57 | DIAGNOSTIC IMAGING REPORT ---
CHEST 2 VIEWS ROUTINE CLINICAL HISTORY: Bilateral pleural effusions COMPARISON STUDY: 09/10/2016 FINDINGS: The chest has an emphysematous configuration. There is stable right apical pleural thickening. There are small bilateral pleural effusions. There is no change the position of the left-sided pleural drainage catheter. The cardiac and sternal contours remain stable. There is a left subclavian dual-chamber central venous pacemaker present. There are old right-sided rib deformities.[ A left renal calculus is visualized. IMPRESSION: 1. Mild cardiomegaly and emphysema 2. Small bilateral pleural effusions with associated minor basilar opacities 3. No change in the position left-sided pleural drainage catheter 4. No evidence of pneumothorax 5. Left-sided nephrolithiasis Electronically signed by: Cristopher Bedoya M.D. 10/18/2016 9:55 AM Dictated Date/Time: 10/18/2016 9:53 AM
== END | disposition home or self-care (01) ==
LOC: C.RAD1850 09:37
PROVIDERS: ATTEND Physician Assistant
DX: J90 Pleural effusion, not elsewhere classified (principal); R91.8 Other nonspecific abnormal finding of lung field; N20.0 Calculus of kidney

== ENCOUNTER → 2016-11-20 | Outpatient (CLI) | payer OTHER, MEDICARE ==
--- NOTE | 2016-11-20 10:57 | DIAGNOSTIC IMAGING REPORT ---
CHEST 2 VIEWS ROUTINE CLINICAL HISTORY: J90 Bilateral pleural [id number] COMPARISON STUDY: 10/18/2016 FINDINGS: Pleural catheter left lung base. Trace blunting right base and right lateral gastric angle. Lungs otherwise appear clear. Bipolar cardiac pacemaker. IMPRESSION: Stable evaluation of the chest. Small bilateral pleural effusions. No significant pneumothorax. No change from the prior exam. Electronically signed by: Primo Hill M.D. 11/20/2016 10:56 AM Dictated Date/Time: 11/20/2016 10:54 AM
== END | disposition home or self-care (01) ==
LOC: C.RAD1850 10:38
PROVIDERS: ATTEND Physician Assistant
DX: J90 Pleural effusion, not elsewhere classified (principal)

== ENCOUNTER 2016-11-30 13:03 | Emergency (ER) | payer OTHER, MEDICARE ==
[~2016-11-30] VITALS: Ht 165.1 cm; Wt 37.6 kg
[~2016-11-30 13:03] MED LIST changes: -METO-648 PO; +METO1TAB70 PO
[2016-11-30 13:09] VITALS: TEMP 36.4; Ht 165.1 cm; Wt 37.6 kg
[2016-11-30 14:34] LABS: BASO % 0.2 %; BASO ABS # 0.02 K/uL (0-0.2); COMPLETE YES; IG% 0.4 %; LYMPH % 11.7 %; LYMPH ABS # 0.96 K/uL (1.2-3.4); MEAN CELL VOLUME 92.4 fL (80-100); MEAN CORPUSCULAR HEMOGLOBIN 30.3 pg (25-34); MEAN CORPUSCULAR HGB CONC 32.7 g/dl (32-36); MEAN PLATELET VOLUME 9.9 fL (7.4-10.4); MONO % 12.1 %; NEUT % 73.6 %; PLATELET COUNT 187 K/uL (130-400); RED BLOOD COUNT 4.76 M/uL (4.2-5.4); WHITE BLOOD COUNT 8.19 K/uL (4.8-10.8)
[2016-11-30 14:56] LABS: INR 1.1 (0.9-1.1); PARTIAL THROMBOPLASTIN RATIO 1.1
[2016-11-30 14:58] LABS: CALCIUM 9.3 mg/dl (8.5-10.1); CREATININE 0.94 mg/dl (0.60-1.20); POTASSIUM 3.6 mmol/L (3.5-5.1)
--- NOTE | 2016-11-30 15:04 | EMERGENCY ROOM VISIT NOTE ---
History Report prepared by Moshe: Christian Mccoy Under the Supervision of: Dr. Praveena White M.D. First contact with patient: 13:42 Chief Complaint: BLEEDING Stated Complaint: BLEEDING FROM LUNG AREA Nursing Triage Summary: per triage. pt referred to ER by Dr. Lamas. pt had pleurec cathetar 3-4 months ago and has it drained mondays, wednesdays and . today 130ml blood drainage today which is unsual per patient. denies SOB, chest pain. chest tube not visualized in triage History of Present Illness The patient is a 76 year old female who presents to the Emergency Room with complaints of blood from left sided Pleurx catheter occurring today. The patient has a history of CHF. She had the Pleurx catheter placed about 3-4 months ago and has it drained Mondays, Wednesdays, and Fridays. This morning, the patient woke up with some blood in her mouth. The Home health nurse drained the catheter today and about 130 mls of blood came out. She was referred to the Emergency Room by Dr. Lamas's office. The patient currently denies any pain. She denies any history of malignancy. She has a history of A-Fib and is on Eliquis. She is also on Aspirin. The patient denies any chest pain, shortness of breath, blood in stool/urine, or any other complaints. Source of History: patient Onset: today Position: other (left sided Pleurx catheter ) Symptom Intensity: No pain Quality: other (blood drainage) Associated Symptoms: No chest pain, No SOB Review of Systems See HPI for pertinent positives & negatives. A total of 10 systems reviewed and were otherwise negative. Past Medical & Surgical Medical Problems: (1) Atrial fibrillation (2) Benign hypertension (3) Cardiac pacemaker procedure (4) CHF exacerbation (5) Chronic congestive heart failure (6) Hyperlipidemia (7) Pleural effusion Family History Heart disease Kidney disease Kidney stones Social History Smoking Status: Former Smoker Drug Use: none Marital Status: single Housing Status: lives with friends Occupation Status: retired Current/Historical Medications Scheduled Amlodipine Besylate-Valsartan (Exforge), 1 TAB PO DAILY Apixaban (Eliquis), 2.5 MG PO BID Aspirin (Aspir-81), 81 MG PO DAILY Digoxin (Digoxin), 0.125 MG PO 3XWK Furosemide (Lasix), 20 MG PO QAM Metoprolol Succinate (Toprol Xl), 200 MG PO DAILY Multivitamins/Minerals (Certavite/Antioxidants), 1 TAB PO QAM Sertraline Hcl (Zoloft), 100 MG PO DAILY Simvastatin (Zocor), 40 MG PO QAM Scheduled PRN Tramadol (Ultram), 50 MG PO Q4H PRN for Pain Allergies Coded Allergies: HOLDEN Inhibitors (Verified Adverse Reaction, Mild, COUGH, 11/30/16) Physical Exam Vital Signs Date Time Temp Pulse Resp B/P (MAP) Pulse Ox O2 Delivery O2 Flow Rate FiO2 11/30/16 16:42 64 17 152/74 98 Room Air 11/30/16 15:06 64 19 162/81 98 Room Air 11/30/16 14:50 67 11/30/16 13:09 36.4 88 22 134/69 94 Room Air Physical Exam Vital signs reviewed. General: Cachectic, chronically ill-appearing, in no significant distress. HEENT: No scleral icterus, PERRLA, neck supple. Atraumatic. Cardiovascular: Regular rate and rhythm, no extra sounds. Pulmonary: Pleurx catheter with serosanguineous in the left hemithorax. Lungs are largely clear, normal work of breathing. Abdomen: Soft, nontender, nondistended, positive bowel sounds. Musculoskeletal: Atraumatic, no significant edema. Neurologic: Patient awake alert and oriented x 3, full strength in all 4 extremities. Cranial nerves 2 through 12 grossly intact. Skin: Warm, dry, no rash Medical Decision & Procedures ER Provider Diagnostic Interpretation: X-ray results as stated below per interpretation by me and the radiologist: CHEST 2 VIEWS ROUTINE CLINICAL HISTORY: bloody pleur cath drainage catheter position COMPARISON STUDY: 11/20/2016 FINDINGS: Left basilar drainage catheter in good position. No evidence pneumothorax. Mild bibasilar interstitial change. Trace pleural fluid right base laterally. IMPRESSION: Left basilar drainage catheter in good position. Mild bibasilar atelectasis. No evidence pneumothorax. Electronically signed by: Primo Hill M.D. 11/30/2016 3:01 PM Dictated Date/Time: 11/30/2016 3:00 PM Laboratory Results 11/30/16 14:20 Red Blood Count 4.76, Mean Corpuscular Volume 92.4, Mean Corpuscular Hemoglobin 30.3, Mean Corpuscular Hemoglobin Concent 32.7, Mean Platelet Volume 9.9, Neutrophils (%) (Auto) 73.6, Lymphocytes (%) (Auto) 11.7, Monocytes (%) (Auto) 12.1, Eosinophils (%) (Auto) 2.0, Basophils (%) (Auto) 0.2, Neutrophils # (Auto ) 6.03, Lymphocytes # (Auto) 0.96, Monocytes # (Auto) 0.99, Eosinophils # (Auto ) 0.16, Basophils # (Auto) 0.02 11/30/16 14:20 Test 11/30/16 14:20 White Blood Count 8.19 K/uL (4.8-10.8) Red Blood Count 4.76 M/uL (4.2-5.4) Hemoglobin 14.4 g/dL (12.0-16.0) Hematocrit 44.0 % (37-47) Mean Corpuscular Volume 92.4 fL (80-100) Mean Corpuscular Hemoglobin 30.3 pg (25-34) Mean Corpuscular Hemoglobin Concent 32.7 g/dl (32-36) Platelet Count 187 K/uL (130-400) Mean Platelet Volume 9.9 fL (7.4-10.4) Neutrophils (%) (Auto) 73.6 % Lymphocytes (%) (Auto) 11.7 % Monocytes (%) (Auto) 12.1 % Eosinophils (%) (Auto) 2.0 % Basophils (%) (Auto) 0.2 % Neutrophils # (Auto) 6.03 K/uL (1.4-6.5) Lymphocytes # (Auto) 0.96 K/uL (1.2-3.4) Monocytes # (Auto) 0.99 K/uL (0.11-0.59) Eosinophils # (Auto) 0.16 K/uL (0-0.5) Basophils # (Auto) 0.02 K/uL (0-0.2) RDW Standard Deviation 51.7 fL (36.4-46.3) RDW Coefficient of Variation 15.3 % (11.5-14.5) Immature Granulocyte % (Auto) 0.4 % Immature Granulocyte # (Auto) 0.03 K/uL (0.00-0.02) Prothrombin Time 12.0 SECONDS (9.0-12.0) Prothromb Time International Ratio 1.1 (0.9-1.1) Activated Partial Thromboplast Time 28.9 SECONDS (21.0-31.0) Partial Thromboplastin Ratio 1.1 Anion Gap 5.0 mmol/L (3-11) Est Creatinine Clear Calc Drug Dose 29.3 ml/min Estimated GFR () 67.3 Estimated GFR (Non- 58.1 BUN/Creatinine Ratio 22.0 (10-20) Calcium Level 9.3 mg/dl (8.5-10.1) Total Bilirubin 0.4 mg/dl (0.2-1) Direct Bilirubin 0.1 mg/dl (0-0.2) Aspartate Amino Transf (AST/SGOT) 32 U/L (15-37) Alanine Aminotransferase (ALT/SGPT) 40 U/L (12-78) Alkaline Phosphatase 72 U/L (45-117) Total Protein 7.3 gm/dl (6.4-8.2) Albumin 3.8 gm/dl (3.4-5.0) Laboratory results per my review. ECG Indication: other (Blood drainage from Pleurx catheter) Rate (beats per minute): 71 Rhythm: other (Ventricular paced rhythm) Findings: other (Repolarization abnormality; consecutive supraventricular complexes) Comparison ECG Date: June 21, 2016 Change: Consecutive supraventricular complexes are new when compared to June 21, 2016. ED Course 1342: Past medical records reviewed. The patient was evaluated in room A12A. A complete history and physical examination was performed. 1645: Upon reevaluation, the patient appeared to have improvement of her symptoms. I discussed findings with her. She verbalized agreement of the treatment plan. She was discharged home. Medical Decision Medication Reconciliation: I attest that I have personally reviewed the patient' s current medication list. Blood Pressure Screening: Patient was found to have an elevated blood pressure and was referred to their primary doctor for recheck and further treatment. Differential diagnosis includes but is not limited to anticoagulation, thrombocytopenia, anemia, trauma, medication interaction, pneumonia, PE. This patient was evaluated and appeared to be in no significant distress. IV access was obtained and laboratory work was drawn. Chest x-ray reveals the pleurex catheter in good position. Laboratory work reveals a stable H&H. Patient complained of some oropharyngeal bleeding earlier in the day. She has been taking out his due to atrial fibrillation as well as aspirin. The patient was advised to stop her Eliquis 7 days, continue the aspirin therapy. She will elevate her primary care physician this week to discuss initiating the Eliquis was once again. She will return to the ED for worsening of symptoms or any medical concerns. Impression Primary Impression: Bloody pleural effusion Additional Impression: Anticoagulant adverse reaction Scribe Attestation The scribe's documentation has been prepared under my direction and personally reviewed by me in its entirety. I confirm that the note above accurately reflects all work, treatment, procedures, and medical decision making performed by me. Departure Information Dispostion Home / Self-Care Referrals Francesco Mancia M.D. (PCP) Forms HOME CARE DOCUMENTATION FORM, IMPORTANT VISIT INFORMATION Patient Instructions My [facility] Additional Instructions Diagnosis: Bloody pleural fluid Continue the aspirin as prescribed. Hold Eliquis for 1 week. Follow up with your doctor prior to restarting the medication. Continue drainage as prescribed. Follow up with your doctor this week for reevaluation. Return to the ED for worsening of symptoms or any medical concerns. Problem Qualifiers
[2016-11-30 16:42] VITALS: BP 152/74; PULSE 64; O2SAT 98
== END 2016-11-30 17:05 | disposition home or self-care (01) ==
LOC: C.EDB 13:04 → C.EDA 17:05
DX: J90 Pleural effusion, not elsewhere classified (principal); T45.515A Adverse effect of anticoagulants, initial encounter; I48.91 Unspecified atrial fibrillation; I10 Essential (primary) hypertension; E78.5 Hyperlipidemia, unspecified; Z79.01 Long term (current) use of anticoagulants; Z79.82 Long term (current) use of aspirin; Z79.899 Other long term (current) drug therapy; Z86.79 Personal history of other diseases of the circulatory system; Z87.891 Personal history of nicotine dependence; Z82.49 Family history of ischemic heart disease and other diseases of the circulatory system; Z84.1 Family history of disorders of kidney and ureter; Z97.8 Presence of other specified devices

== ENCOUNTER → 2016-12-24 | Outpatient (CLI) | payer OTHER, MEDICARE ==
--- NOTE | 2016-12-24 13:44 | DIAGNOSTIC IMAGING REPORT ---
CHEST 2 VIEWS ROUTINE CLINICAL HISTORY: J90 Bilateral pleural [id number] dyspnea COMPARISON STUDY: 11/30/2016 FINDINGS: Small bilateral pleural effusions. Mild bibasilar atelectasis. Appearance is similar as compared to the prior study. Mild emphysematous change. Chronic apical pleural thickening bilaterally. IMPRESSION: Mild bibasilar atelectatic change combined with a trace amount pleural fluid both lung bases. No major change compared to the prior study. The above report was generated using voice recognition software. It may contain grammatical, syntax or spelling errors. Electronically signed by: Primo Hill M.D. 12/24/2016 1:42 PM Dictated Date/Time: 12/24/2016 1:20 PM
== END | disposition home or self-care (01) ==
LOC: C.RAD1850 13:10
PROVIDERS: ATTEND Surgery
DX: J90 Pleural effusion, not elsewhere classified (principal)

== ENCOUNTER → 2017-01-28 | Outpatient (CLI) | payer OTHER, MEDICARE ==
[~2017-01-28] MED LIST changes: -NUTR-7 PO; -VLTG EXT
--- NOTE | 2017-01-28 10:24 | DIAGNOSTIC IMAGING REPORT ---
CHEST 2 VIEWS ROUTINE CLINICAL HISTORY: J90 Bilateral pleural effusion COMPARISON STUDY: 12/24/2016 FINDINGS: The chest has an emphysematous configuration. There is mild right apical pleural thickening. There is a left subclavian dual-chamber central venous pacemaker present. There are small bilateral pleural effusions similar to the prior study. There is no change the position of the left basilar pleural drainage catheter. There is no lobar consolidation. There is minor basilar atelectasis.[ IMPRESSION: No change the position of the left pleural drainage catheter. Emphysema. Small bilateral pleural effusions. Electronically signed by: Cristopher Bedoya M.D. 01/28/2017 10:23 AM Dictated Date/Time: 01/28/2017 10:21 AM
== END | disposition home or self-care (01) ==
LOC: C.RAD1850 10:07
PROVIDERS: ATTEND Physician Assistant
DX: J90 Pleural effusion, not elsewhere classified (principal); J43.9 Emphysema, unspecified; Z95.0 Presence of cardiac pacemaker

== ENCOUNTER → 2017-02-26 | Outpatient (CLI) | payer OTHER, MEDICARE ==
--- NOTE | 2017-02-26 14:02 | DIAGNOSTIC IMAGING REPORT ---
CHEST 2 VIEWS ROUTINE CLINICAL HISTORY: J90 Bilateral pleural [id number] COMPARISON STUDY: January 28, 2017 FINDINGS: There is a left subclavian dual-chamber central venous pacemaker present. The left-sided pleural drain is unchanged in position. The heart is the upper limits of normal in size. There is no failure. There is no lobar consolidation. There are small bilateral pleural effusions similar to the prior study. There is a minimal basilar atelectasis.[ IMPRESSION: No change from the prior study. Persistent small pleural effusions. Emphysema. No change in the position of the left pleural drainage catheter. Electronically signed by: Cristopher Bedoya M.D. 02/26/2017 2:01 PM Dictated Date/Time: 02/26/2017 1:55 PM
== END | disposition home or self-care (01) ==
LOC: C.RAD1850 13:44
PROVIDERS: ATTEND Surgery
DX: J90 Pleural effusion, not elsewhere classified (principal)

== ENCOUNTER 2017-05-20 08:28 | Observation (INO) | payer OTHER, MEDICARE ==
[~2017-05-20] VITALS: Ht 165.1 cm; Wt 37.3 kg
[~2017-05-20 08:28] MED LIST changes: +METO-648 PO; -METO1TAB70 PO
[2017-05-20] MEDS ORDERED: ACETAMINOPHEN 500 MG TAB PO STA (08:46)
--- NOTE | 2017-05-20 08:48 | EMERGENCY ROOM VISIT NOTE ---
History Report prepared by Moshe: Indu Morales Under the Supervision of: Dr. Gm Brown M.D. First contact with patient: 08:32 Chief Complaint: CHEST PAIN Stated Complaint: CHEST PAIN History of Present Illness The patient is a 77 year old white female with a past medical history of Atrial fibrillation, hypertension, pacemaker, congestive heart failure, hyperlipidemia , and pleural effusion who presents to the ED with a cc of intermittent chest pain beginning one month ago. Positive cough and pain in left arm. Negative shortness of breath, diaphoresis, nausea, fever, or chills. The patient states that certain movements and exertion worsen her symptoms. She states that she was taken off her Eloquis 3 days ago. Source of History: patient Onset: one month ago Position: chest Timing: intermittent Modifying Factors (Worsening): exertion, movement Associated Symptoms: + cough, No fevers, No chills, No diaphoresis, No SOB, No nausea Review of Systems See HPI for pertinent positives and negatives. A total of ten systems were reviewed and were otherwise negative. Past Medical & Surgical Medical Problems: (1) Atrial fibrillation (2) Benign hypertension (3) Cardiac pacemaker procedure (4) CHF exacerbation (5) Chronic congestive heart failure (6) Hyperlipidemia (7) Pleural effusion Family History Heart disease Kidney disease Kidney stones Social History Smoking Status: Former Smoker Drug Use: none Marital Status: single Housing Status: lives with friends Occupation Status: retired Current/Historical Medications Scheduled Amlodipine (Norvasc), 5 MG PO DAILY Apixaban (Eliquis), 2.5 MG PO BID Atorvastatin (Lipitor), 40 MG PO DAILY Digoxin (Digoxin), 0.125 MG PO DAILY Furosemide (Lasix), 20 MG PO DAILY Metoprolol Succinate (Toprolxl (Toprol-Xl), 200 MG PO DAILY Ramipril (Ramipril), 10 MG PO DAILY Sertraline (Zoloft), 100 MG PO DAILY Allergies Coded Allergies: HOLDEN Inhibitors (Verified Adverse Reaction, Mild, COUGH, 05/20/17) Physical Exam Vital Signs Date Time Temp Pulse Resp B/P (MAP) Pulse Ox O2 Delivery O2 Flow Rate FiO2 05/20/17 11:00 66 18 168/84 97 Room Air 05/20/17 10:11 64 18 157/64 94 Room Air 05/20/17 08:50 36.7 63 18 180/76 97 Room Air 05/20/17 08:39 97 Room Air 05/20/17 08:37 71 Physical Exam GENERAL: Awake, alert, emaciated-appearing, NAD, very thin. HENT: Normocephalic, atraumatic. EYES: Normal conjunctiva. Sclera non-icteric. NECK: Supple. No nuchal rigidity. FROM. CHEST: Device left lateral chest. RESPIRATORY: CTAB, no rhonchi, wheezing, crackles CARDIAC: RRR, no MRG ABDOMEN: Soft, NTND, BS+ MSK: Some left lateral chest wall TTP, no LE edema, dressing to the left mid axillary chest NEURO: GCS 15, CN 2-12 intact, moves all 4s on command SKIN: No rash or jaundice noted. Medical Decision & Procedures ER Provider Diagnostic Interpretation: X-ray: Per my interpretation, radiologist review. CHEST ONE VIEW PORTABLE CLINICAL HISTORY: Atypical chest pain COMPARISON STUDY: 04/08/2017 FINDINGS: The heart remains enlarged. There is a left subclavian dual-chamber central venous pacemaker present. The patient is hyperinflated. Underlying pulmonary emphysema is suspected. There is a left basilar pleural catheter unchanged in position. There are small bilateral pleural effusions. There is no lobar consolidation.[ IMPRESSION: Persistent small bilateral pleural effusions. No change in the position of the left basilar pleural drainage catheter. No evidence of acute parenchymal consolidation Electronically signed by: Cristopher Bedoya M.D. 05/20/2017 9:22 AM Dictated Date/Time: 05/20/2017 9:21 AM Laboratory Results 05/20/17 09:00 Red Blood Count 4.60, Mean Corpuscular Volume 93.5, Mean Corpuscular Hemoglobin 30.2, Mean Corpuscular Hemoglobin Concent 32.3, Mean Platelet Volume 10.2, Neutrophils (%) (Auto) 70.5, Lymphocytes (%) (Auto) 11.7, Monocytes (%) (Auto) 13.4, Eosinophils (%) (Auto) 3.7, Basophils (%) (Auto) 0.4, Neutrophils # (Auto ) 4.89, Lymphocytes # (Auto) 0.81, Monocytes # (Auto) 0.93, Eosinophils # (Auto ) 0.26, Basophils # (Auto) 0.03 05/20/17 09:00 Test 05/20/17 09:00 White Blood Count 6.94 K/uL (4.8-10.8) Red Blood Count 4.60 M/uL (4.2-5.4) Hemoglobin 13.9 g/dL (12.0-16.0) Hematocrit 43.0 % (37-47) Mean Corpuscular Volume 93.5 fL (80-100) Mean Corpuscular Hemoglobin 30.2 pg (25-34) Mean Corpuscular Hemoglobin Concent 32.3 g/dl (32-36) Platelet Count 193 K/uL (130-400) Mean Platelet Volume 10.2 fL (7.4-10.4) Neutrophils (%) (Auto) 70.5 % Lymphocytes (%) (Auto) 11.7 % Monocytes (%) (Auto) 13.4 % Eosinophils (%) (Auto) 3.7 % Basophils (%) (Auto) 0.4 % Neutrophils # (Auto) 4.89 K/uL (1.4-6.5) Lymphocytes # (Auto) 0.81 K/uL (1.2-3.4) Monocytes # (Auto) 0.93 K/uL (0.11-0.59) Eosinophils # (Auto) 0.26 K/uL (0-0.5) Basophils # (Auto) 0.03 K/uL (0-0.2) RDW Standard Deviation 49.0 fL (36.4-46.3) RDW Coefficient of Variation 14.5 % (11.5-14.5) Immature Granulocyte % (Auto) 0.3 % Immature Granulocyte # (Auto) 0.02 K/uL (0.00-0.02) Prothrombin Time 11.4 SECONDS (9.0-12.0) Prothromb Time International Ratio 1.1 (0.9-1.1) Activated Partial Thromboplast Time 28.9 SECONDS (21.0-31.0) Partial Thromboplastin Ratio 1.1 Anion Gap 4.0 mmol/L (3-11) Est Creatinine Clear Calc Drug Dose 39.2 ml/min Estimated GFR () 89.3 Estimated GFR (Non- 77.1 BUN/Creatinine Ratio 23.9 (10-20) Calcium Level 9.3 mg/dl (8.5-10.1) Total Bilirubin 0.4 mg/dl (0.2-1) Direct Bilirubin 0.1 mg/dl (0-0.2) Aspartate Amino Transf (AST/SGOT) 33 U/L (15-37) Alanine Aminotransferase (ALT/SGPT) 34 U/L (12-78) Alkaline Phosphatase 81 U/L (45-117) Troponin I < 0.015 ng/ml (0-0.045) Pro-B-Type Natriuretic Peptide 4464 pg/ml (0-1800) Total Protein 6.9 gm/dl (6.4-8.2) Albumin 3.3 gm/dl (3.4-5.0) Lipase 262 U/L (73-393) Laboratory results reviewed by me Medications Administered Medications (Trade) Dose Ordered Sig/Christine Route Start Time Stop Time Status Last Admin Dose Admin Acetaminophen (Tylenol Tab) 1,000 mg NOW STAT PO 05/20/17 08:46 05/20/17 08:48 DC 05/20/17 09:03 1,000 MG ECG Indication: chest pain Rate (beats per minute): 64 Rhythm: other (ventricularly paced) Findings: LBBB, T-wave inversion (lead 2 and 3), other (wide QRS) Comparison ECG Date: 11/30/16 Change: When compared to EKG done on 11/30/16, T wave inversions in lead 2 are new. ED Course 0841: The patient was evaluated in room B2. A complete history and physical exam was performed. 1017: I reevaluated the patient and she is resting comfortably. I discussed the test results with her and I discussed the treatment plan. She verbalized complete understanding and agreement. She is going to be evaluated for further treatment. 1021: I discussed the patients case with Dr. Barahona [facility] – [place], [place]. She is going to evaluate the patient for further treatment. Medical Decision Differential diagnosis: Etiologies such as cardiac ischemia, aortic dissection, pulmonary embolism, pneumonia, pneumothorax, musculoskeletal, infections, pericarditis, myocarditis , esophageal rupture, gastrointestinal, as well as others were considered. The patient is a 77 year old white female with a past medical history of Atrial fibrillation, hypertension, pacemaker, congestive heart failure, hyperlipidemia , and pleural effusion who presents to the ED with a cc of intermittent chest pain beginning one month ago. Patient was seen and evaluated at the bedside. Patient has been complaining of intermittent left-sided chest pain occasionally goes to the right side. Patient states is reproducible. Patient does not complain of exertional symptoms. Patient does state occasionally discomfort to the left arm. Patient does have a prior history of a Pleurx catheter. Patient states she gets a strained every 3 days. Patient denies any recent falls. Patient recently saw her PCP was taken off [place]. Patient distal take aspirin. Patient has no lower extremity swelling and does have some reproducible chest wall tenderness. Patient did have EKG, troponin, blood work, and chest x-ray completed. Patient's EKG did show some acute changes in her inferior leads she had no T- wave inversions. Patient denies any complaints of chest pain at this time. 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 I also discussed the hospitalist that the patient was recently taken off Elequis 3 days ago. Patient's troponin was negative and the rest of her blood work was fairly unremarkable. Patient was admitted for observation. Medication Reconcilliation Current Medication List: was personally reviewed by me Blood Pressure Screening Patient's blood pressure: Elevated blood pressure Blood pressure disposition: Referred to PCP (to hospitalist) Consults Time Called: 1018 Consulting Physician: CORBY Hart Returned Call: 1021 I discussed the patients case with CORBY Hart. She is going to evaluate the patient for further treatment. Impression Primary Impression: Atypical chest pain Additional Impression: Acute electrocardiogram changes Scribe Attestation The scribe's documentation has been prepared under my direction and personally reviewed by me in its entirety. I confirm that the note above accurately reflects all work, treatment, procedures, and medical decision making performed by me. Departure Information Dispostion Being Evaluated By Hospitalist Referrals Francesco Mancia M.D. (PCP) Problem Qualifiers
--- NOTE | 2017-05-20 09:23 | DIAGNOSTIC IMAGING REPORT ---
CHEST ONE VIEW PORTABLE CLINICAL HISTORY: Atypical chest pain COMPARISON STUDY: 04/08/2017 FINDINGS: The heart remains enlarged. There is a left subclavian dual-chamber central venous pacemaker present. The patient is hyperinflated. Underlying pulmonary emphysema is suspected. There is a left basilar pleural catheter unchanged in position. There are small bilateral pleural effusions. There is no lobar consolidation.[ IMPRESSION: Persistent small bilateral pleural effusions. No change in the position of the left basilar pleural drainage catheter. No evidence of acute parenchymal consolidation Electronically signed by: Cristopher Bedoya M.D. 05/20/2017 9:22 AM Dictated Date/Time: 05/20/2017 9:21 AM
[2017-05-20 09:31] LABS: BASO % 0.4 %; BASO ABS # 0.03 K/uL (0-0.2); COMPLETE YES; EOS % 3.7 %; IG% 0.3 %; LYMPH % 11.7 %; LYMPH ABS # 0.81 K/uL (1.2-3.4); MEAN CELL VOLUME 93.5 fL (80-100); MEAN CORPUSCULAR HEMOGLOBIN 30.2 pg (25-34); MEAN CORPUSCULAR HGB CONC 32.3 g/dl (32-36); MEAN PLATELET VOLUME 10.2 fL (7.4-10.4); MONO % 13.4 %; NEUT % 70.5 %; PLATELET COUNT 193 K/uL (130-400); WHITE BLOOD COUNT 6.94 K/uL (4.8-10.8)
[2017-05-20 09:38] LABS: INR 1.1 (0.9-1.1); PARTIAL THROMBOPLASTIN RATIO 1.1; PROTHROMBIN TIME (PATIENT) 11.4 SECONDS (9.0-12.0)
[2017-05-20 09:54] LABS: ALT/SGPT 34 U/L (12-78); AST/SGOT 33 U/L (15-37); BLOOD UREA NITROGEN 18 mg/dl (7-18); BUN/CREATININE RATIO 23.9 (10-20); CALCIUM 9.3 mg/dl (8.5-10.1); CARBON DIOXIDE 31 mmol/L (21-32); CHLORIDE 105 mmol/L (98-107); CREATININE 0.74 mg/dl (0.60-1.20); GLUCOSE 84 mg/dl (70-99); POTASSIUM 3.7 mmol/L (3.5-5.1); SODIUM 140 mmol/L (136-145)
[2017-05-20 09:59] LABS: ALKALINE PHOSPHATASE 81 U/L (45-117)
[2017-05-20] MEDS ORDERED: LNX125 PO (10:08)
[2017-05-20] MEDS ORDERED: APIX1TAB PO (10:08)
[2017-05-20] MEDS ORDERED: AMLO-110 PO (10:08)
[2017-05-20] MEDS ORDERED: LPT/40 PO (10:08)
[2017-05-20] MEDS ORDERED: SERT-234 PO (10:08)
[2017-05-20] MEDS ORDERED: FURO20TA PO (10:08)
[2017-05-20] MEDS ORDERED: RAMI10CA PO (10:08)
[2017-05-20] MEDS ORDERED: METO-649 PO (10:08)
[2017-05-20] MEDS ORDERED: ASPI81TA28 PO (10:08)
[2017-05-20] MEDS ORDERED: ONDANSETRON INJ 2 MG/ML 2 ML VIAL IV PRN (11:15)
[2017-05-20] MEDS ORDERED: ACETAMINOPHEN 325 MG TAB PO PRN (11:15)
[2017-05-20] MEDS ORDERED: MAGNESIUM HYDROXIDE SUSP 30 ML UDC PO PRN (11:15)
[2017-05-20] MEDS ORDERED: OPTIRAY 320 IV PRN (11:30)
--- NOTE | 2017-05-20 11:31 | History and Physical ---
History & Physical Date & Time of Service: May 20, 2017 at 11:14 Chief Complaint: Chest Pain Primary Care Physician: Francesco Mancia M.D. History of Present Illness Source: patient, family 77 y/o F c/o chest pain. Pt states that she has been having episodes of chest pain daily for the past month, but it has increased in frequency over the last week. The pain starts in the L side of the chest and can radiate to the R side , L arm, or other parts of the L side of her chest. The pain lasts from seconds to minutes and goes away spontaneously. She generally gets these pains when she moves her arms around. It does not seem to happen at rest. Because of this, she has been less active over the last week, but does not have issues with movement in general. There are no other sx with this pain. She has not had any SOB. She has a decreased appetite, but this is not new. She states she does not think she has lost weight. No intolerance to the PO she does take. Of note, pt has a L sided pleur-x drain in place, which has been the case for almost a year. This is for recurrent pleural effusions of unknown origin. She has nursing coming to her home to drain this periodically and there has been increased need for drainage lately. 3 days ago, HH was emptying her drain and the fluid was noted to be somewhat bloody in color. They do not believe there were any clots in the fluid, just a bloody discoloration. This has happened in the past as well. Pt's PCP was contacted and she was instructed to hold her eliquis for 3 days. HH was to return today to drain her catheter and she was to possibly resume her eliquis if the bleeding was no longer present. She takes eliquis and aspirin 81mg at baseline for afib and she was instructed to continue the aspirin during this time. Pt was also to see her order processing manager today and Dr. Lamas tomorrow for routine follow up appts. Pt denies fever, abd pain, n/v/c/d, LE pain or swelling. Past Medical/Surgical History Medical Problems: (1) Atrial fibrillation Status: Chronic (2) Benign hypertension Status: Chronic (3) Cardiac pacemaker procedure Status: Resolved (4) Chronic congestive heart failure Status: Chronic (5) Hyperlipidemia Status: Chronic Recurrent pleural effusions, pleur-x in place Family History Family history was reviewed; no changes noted. Father s/p MS Social History Smoking Status: Former Smoker (quit >30 years ago) Alcohol Use: none Drug Use: none Marital Status: single Occupational Status: retired Immunizations History of Influenza Vaccine: Yes History of Tetanus Vaccine?: Yes History of Pneumococcal: No History of Hepatitis B Vaccine: No Multi-Drug Resistant Organisms History of MDRO: No Allergies Coded Allergies: HOLDEN Inhibitors (Verified Adverse Reaction, Mild, COUGH, 05/20/17) Home Medications Scheduled Amlodipine (Norvasc), 5 MG PO DAILY Apixaban (Eliquis), 2.5 MG PO BID Atorvastatin (Lipitor), 40 MG PO DAILY Digoxin (Digoxin), 0.125 MG PO DAILY Furosemide (Lasix), 20 MG PO DAILY Metoprolol Succinate (Toprolxl (Toprol-Xl), 200 MG PO DAILY Ramipril (Ramipril), 10 MG PO DAILY Sertraline (Zoloft), 100 MG PO DAILY Review of Systems Pertinent positives and negatives reviewed in HPI--all others negative Physical Exam Vital Signs Date Time Temp Pulse Resp B/P (MAP) Pulse Ox O2 Delivery O2 Flow Rate FiO2 05/20/17 11:00 66 18 168/84 97 Room Air 05/20/17 10:11 64 18 157/64 94 Room Air 05/20/17 08:50 36.7 63 18 180/76 97 Room Air 05/20/17 08:39 97 Room Air 05/20/17 08:37 71 General Appearance: no apparent distress, + cachetic Head: normocephalic, atraumatic Eyes: normal inspection, EOMI, sclerae normal Respiratory/Chest: no respiratory distress, + crackles (bases, scant) Cardiovascular: no edema, normal peripheral pulses, + abnormal rhythm Abdomen/GI: non tender, soft Extremities/Musculoskelatal: no calf tenderness, no pedal edema Neurologic/Psych: alert, normal mood/affect, oriented x 3 Skin: normal color, warm/dry Diagnostics Laboratory Results Results Past 24 Hours Test 05/20/17 09:00 Range/Units White Blood Count 6.94 4.8-10.8 K/uL Red Blood Count 4.60 4.2-5.4 M/uL Hemoglobin 13.9 12.0-16.0 g/dL Hematocrit 43.0 37-47 % Mean Corpuscular Volume 93.5 80-100 fL Mean Corpuscular Hemoglobin 30.2 25-34 pg Mean Corpuscular Hemoglobin Concent 32.3 32-36 g/dl Platelet Count 193 130-400 K/uL Mean Platelet Volume 10.2 7.4-10.4 fL Neutrophils (%) (Auto) 70.5 % Lymphocytes (%) (Auto) 11.7 % Monocytes (%) (Auto) 13.4 % Eosinophils (%) (Auto) 3.7 % Basophils (%) (Auto) 0.4 % Neutrophils # (Auto) 4.89 1.4-6.5 K/uL Lymphocytes # (Auto) 0.81 1.2-3.4 K/uL Monocytes # (Auto) 0.93 0.11-0.59 K/uL Eosinophils # (Auto) 0.26 0-0.5 K/uL Basophils # (Auto) 0.03 0-0.2 K/uL RDW Standard Deviation 49.0 36.4-46.3 fL RDW Coefficient of Variation 14.5 11.5-14.5 % Immature Granulocyte % (Auto) 0.3 % Immature Granulocyte # (Auto) 0.02 0.00-0.02 K/uL Prothrombin Time 11.4 9.0-12.0 SECONDS Prothromb Time International Ratio 1.1 0.9-1.1 Activated Partial Thromboplast Time 28.9 21.0-31.0 SECONDS Partial Thromboplastin Ratio 1.1 Sodium Level 140 136-145 mmol/L Potassium Level 3.7 3.5-5.1 mmol/L Chloride Level 105 98-107 mmol/L Carbon Dioxide Level 31 21-32 mmol/L Anion Gap 4.0 3-11 mmol/L Blood Urea Nitrogen 18 7-18 mg/dl Creatinine 0.74 0.60-1.20 mg/dl Est Creatinine Clear Calc Drug Dose 39.2 ml/min Estimated GFR () 89.3 Estimated GFR (Non- 77.1 BUN/Creatinine Ratio 23.9 10-20 Random Glucose 84 70-99 mg/dl Calcium Level 9.3 8.5-10.1 mg/dl Total Bilirubin 0.4 0.2-1 mg/dl Direct Bilirubin 0.1 0-0.2 mg/dl Aspartate Amino Transf (AST/SGOT) 33 15-37 U/L Alanine Aminotransferase (ALT/SGPT) 34 12-78 U/L Alkaline Phosphatase 81 45-117 U/L Troponin I < 0.015 0-0.045 ng/ml Pro-B-Type Natriuretic Peptide 4464 0-1800 pg/ml Total Protein 6.9 6.4-8.2 gm/dl Albumin 3.3 3.4-5.0 gm/dl Lipase 262 73-393 U/L Diagnostic Radiology CXR: small b/l pleural effusions, catheter in place EKG Ventricular pacing Impression Assessment and Plan 77 y/o F who was admitted for observation on 05/20 for chest pain Chest pain: ACS seems less likely, possibly related to scar tissue or other catheter related irritation given pleur-x in place for almost 12 months vs new pathology related to pleural effusions EKG noted, monitor on tele Trop neg x1, serials pending Last CT chest was 06/2016, new imaging pending Given recent bloody pleural effusion and new/worsening chest pain with movement, I am concerned about the possibility of new pathology. She notes that her pleural effusions have no known etiology WBC WNL, afebrile, no SOB or hypoxia making PNA, PE less likely Follows with CARMELINA Vasquez and Dr. Cheung if needed Recent bloody pleural effusions: Nursing to drain catheter Continue to hold eliquis for now, will resume aspirin if no concern for blood Hb stable Recurrent pleural effusions: continue lasix Follows with Dr. Lamas if needed HTN: stable, continue home meds Afib: stable, aspirin and eliquis at baseline, possibly resume aspirin as noted above Depression: zoloft listed on med rec, however pt states she no longer takes this and friend who helps with her pill box does agree with this Other: Full code AHA diet Aspirin for DVT proph, possibly resume eliquis Level of Care Telemetry Resuscitation Status FULL RESUSCITATION VTE Prophylaxis VTE Risk Assessment Done? Y/N: Yes Risk Level: Low
[2017-05-20] MEDS ORDERED: IV FLUIDS COMPLETED PRN (11:45)
[2017-05-20 12:10] VITALS: O2SAT 96
--- NOTE | 2017-05-20 12:16 | DIAGNOSTIC IMAGING REPORT ---
CHEST CT WITH CONTRAST CT DOSE: 198.06 mGy.cm HISTORY: Acute chest pain with pleural effusion chest pain, bloody pleural effusion TECHNIQUE: Multiaxial CT images of the chest were performed following the intravenous administration of contrast. A dose lowering technique was utilized adhering to the principles of ALARA. COMPARISON: Chest radiograph 05/20/2017, chest CT 06/12/2016. FINDINGS: Thyroid is heterogeneous with multiple subcentimeter nodules. No definite pathologic adenopathy identified. Moderate cardiomegaly with coronary arterial calcifications. Pacer leads overlie the right atrium and right ventricle. No aortic aneurysm or dissection. There is at least moderate atherosclerosis of the thoracic aorta. Image great vessels appear to be patent. Atherosclerosis involving the proximal right renal artery causes high-grade stenosis as seen on image 299 series 4. There appears to be asymmetric atrophy of the right kidney compared to the left. The opacified pulmonary arterial tree is unremarkable. Small to moderate left and trace right pleural effusions. Biapical pleural-parenchymal scarring without pneumothorax. Subsegmental bibasilar consolidation. There is a calcified granuloma of the left lower lobe. There is a multifocal pleural parenchymal scarring are noted within the right lung base which appears unchanged from comparison. Mild bronchial wall thickening of the right lower lobe. Left-sided pleural drainage catheter is noted with distal tip terminating adjacent to the medial basal left lower lobe. No acute abnormality of the imaged upper abdomen. The soft tissues are unremarkable. The bones appear intact. Multiple remote right-sided rib fractures. IMPRESSION: 1. Small to moderate left and trace right pleural effusions with left pleural drainage catheter in place. Bibasilar consolidation suggests compressive atelectasis with superimposed pneumonia also in the differential. 2. Multifocal subsegmental pleural-parenchymal scarring of the right lung base redemonstrated. 3. Cardiomegaly with at least moderate atherosclerosis of the aorta and proximal branch vessels. Atherosclerosis at the origin of the right renal artery results in high-grade renal arterial luminal narrowing. Additionally there is asymmetric atrophy of the right kidney compared to the left suggesting chronic long-standing renal artery stenosis. Electronically signed by: Albert Nice M.D. 05/20/2017 12:14 PM Dictated Date/Time: 05/20/2017 12:05 PM
[2017-05-20 12:45] VITALS: BP 150/79; PULSE 82; TEMP 36.5; O2SAT 94
[2017-05-20 13:15] VITALS: Ht 165.1 cm; Wt 37.3 kg
[2017-05-20 15:21] VITALS: BP 146/64; PULSE 60; TEMP 36.6; O2SAT 96
[2017-05-20] MEDS ORDERED: DIGOXIN 0.125 MG TAB PO SCH (16:00)
[2017-05-20 19:04] VITALS: BP 149/70; PULSE 66; TEMP 36.4; O2SAT 97
[2017-05-20 23:22] VITALS: BP 158/74; PULSE 68; TEMP 36.6; O2SAT 95
[2017-05-21 04:00] VITALS: BP 166/71; PULSE 64; TEMP 36.5; O2SAT 96
[2017-05-21 07:24] VITALS: BP 161/77; PULSE 72; TEMP 36.4; O2SAT 95
[2017-05-21] MEDS ORDERED: METOPROLOL SUCC 50MG EXT REL TAB PO SCH (09:00)
[2017-05-21] MEDS ORDERED: ASPIRIN 81 MG ECTAB PO SCH (09:00)
[2017-05-21] MEDS ORDERED: FUROSEMIDE 20 MG TAB PO SCH (09:00)
[2017-05-21] MEDS ORDERED: AMLODIPINE BESYLATE 5 MG TAB PO SCH (09:00)
[2017-05-21] MEDS ORDERED: ENALAPRIL MALEATE 10 MG TAB PO SCH (09:00)
[2017-05-21] MEDS ORDERED: ATORVASTATIN 40 MG TAB PO SCH (09:00)
[2017-05-21 11:14] VITALS: BP 125/68; PULSE 75; TEMP 36.2; O2SAT 96
[2017-05-21] MEDS ORDERED: ASPI81TA28 PO (13:46)
--- NOTE | 2017-05-21 13:50 | Discharge Instructions ---
Discharge Instructions Date of Service May 21, 2017. Admission Reason for Admission: Atypical Chest Pain Discharge Discharge Diagnosis / Problem: Atypical Chest Pain Discharge Goals Goal(s): Decrease discomfort, Improve function, Increase independence Activity Recommendations Activity Limitations: resume your previous activity . Instructions / Follow-Up Instructions / Follow-Up Chest Pain: - This pain could be related to your catheter causing irritation/ musculoskeletal pain. Your heart rhythm was stable on monitor and cardiac enzymes were negative. This does not appear to be an acute heart issue - Would recommend to continue to follow with Dr. Lamas for your effusions and catheter. Continue drainage as prescribed with your home nurses -- May need to have repeat testing of the fluid since you had a bloody drainage to see if anything changed with the fluid - You may continue your aspirin and blood thinner as prescribed and monitor for further bleeding and discuss with your family doctor if it reoccurs Current Hospital Diet Patient's current hospital diet: AHA Diet (Heart Healthy) Discharge Diet Recommended Diet: AHA Diet (Heart Healthy) Pending Studies Studies pending at discharge: no Medical Emergencies . Who to Call and When: Medical Emergencies: If at any time you feel your situation is an emergency, please call 911 immediately. . Non-Emergent Contact Non-Emergency issues call your: Primary Care Provider Call Non-Emergent contact if: you have a fever, your pain is concerning you, you have any medication questions . . "Provider Documentation" section prepared by Josefina Sprague. . VTE Core Measure Inpt VTE Proph given/why not?: SCD's
[2017-05-21 14:35] VITALS: BP 146/73; PULSE 97; TEMP 36.4; O2SAT 96
[2017-05-21 15:03] VITALS: BP 146/73; PULSE 97; TEMP 36.4; O2SAT 96
--- NOTE | 2017-05-21 15:07 | Discharge Summary ---
Discharge Summary Date of Service May 21, 2017. Discharge Summary Admission Date: May 20, 2017 at 11:13 Discharge Date: May 21, 2017 Discharge Disposition: Home with services Principal Diagnosis: Atypical Chest Pain - Possible Musculoskeletal Problems/Secondary Diagnoses: 1. Persistent Atrial Fibrillation S/P Pacer - Underlying rhythm appears to be A Fib when not paced 2. HTN 3. Diastolic Congestive Heart Failure 4. HLD 5. Recurrent Idiopathic Pleural Effusions S/P L-Sided Pleur-X Immunizations: Have You Had Influenza Vaccine: Yes History of Tetanus Vaccine?: Yes History of Pneumococcal: No History of Hepatitis B Vaccine: No Procedures: CHEST CT WITH CONTRAST FINDINGS: Thyroid is heterogeneous with multiple subcentimeter nodules. No definite pathologic adenopathy identified. Moderate cardiomegaly with coronary arterial calcifications. Pacer leads overlie the right atrium and right ventricle. No aortic aneurysm or dissection. There is at least moderate atherosclerosis of the thoracic aorta. Image great vessels appear to be patent. Atherosclerosis involving the proximal right renal artery causes high-grade stenosis as seen on image 299 series 4. There appears to be asymmetric atrophy of the right kidney compared to the left. The opacified pulmonary arterial tree is unremarkable. Small to moderate left and trace right pleural effusions. Biapical pleural-parenchymal scarring without pneumothorax. Subsegmental bibasilar consolidation. There is a calcified granuloma of the left lower lobe. There is a multifocal pleural parenchymal scarring are noted within the right lung base which appears unchanged from comparison. Mild bronchial wall thickening of the right lower lobe. Left-sided pleural drainage catheter is noted with distal tip terminating adjacent to the medial basal left lower lobe. No acute abnormality of the imaged upper abdomen. The soft tissues are unremarkable. The bones appear intact. Multiple remote right-sided rib fractures. IMPRESSION: 1. Small to moderate left and trace right pleural effusions with left pleural drainage catheter in place. Bibasilar consolidation suggests compressive atelectasis with superimposed pneumonia also in the differential. 2. Multifocal subsegmental pleural-parenchymal scarring of the right lung base redemonstrated. 3. Cardiomegaly with at least moderate atherosclerosis of the aorta and proximal branch vessels. Atherosclerosis at the origin of the right renal artery results in high-grade renal arterial luminal narrowing. Additionally there is asymmetric atrophy of the right kidney compared to the left suggesting chronic long-standing renal artery stenosis. Consultations: 1. CT Surgery - Dr. Whitlark Medication Reconciliation Continued Medications: Amlodipine (Norvasc) 5 Mg Tab 5 MG PO DAILY Apixaban (Eliquis) 2.5 Mg Tab 2.5 MG PO BID Aspirin (Aspirin Ec) 81 Mg Tab 81 MG PO DAILY Atorvastatin (Lipitor) 40 Mg Tab 40 MG PO DAILY Digoxin (Digoxin) 0.125 Mg Tab 0.125 MG PO DAILY Furosemide (Lasix) 20 Mg Tab 20 MG PO DAILY Metoprolol Succinate (Toprolxl (Toprol-Xl) 200 Mg Tabcr 200 MG PO DAILY Ramipril (Ramipril) 10 Mg Cap 10 MG PO DAILY Sertraline (Zoloft) 100 Mg Tab 100 MG PO DAILY Discharge Exam Review of Systems: Constitutional: No fever, No chills Respiratory: No cough, No shortness of breath Cardiovascular: No chest pain Abdomen: No pain, No nausea, No vomiting, No diarrhea, No constipation Musculoskeletal: No swelling, No calf pain Genitourinary - Female: No dysuria Hematologic / Lymphatic: No abnormal bleeding/bruising Integumentary: No rash Physical Exam: General Appearance: no apparent distress, + cachetic ENT: hearing grossly normal Neck: supple, no JVD, trachea midline Respiratory/Chest: no respiratory distress, no accessory muscle use, + crackles (bases) Cardiovascular: + irregularly irregular Abdomen / GI: normal bowel sounds, non tender, soft Neurologic/Psychiatric: alert, oriented x 3 Skin: normal color, warm/dry Hospital Course ADMISSION: 77 y/o F c/o chest pain. Pt states that she has been having episodes of chest pain daily for the past month, but it has increased in frequency over the last week. The pain starts in the L side of the chest and can radiate to the R side, L arm, or other parts of the L side of her chest. The pain lasts from seconds to minutes and goes away spontaneously. She generally gets these pains when she moves her arms around. It does not seem to happen at rest. Because of this, she has been less active over the last week, but does not have issues with movement in general. There are no other sx with this pain. She has not had any SOB. She has a decreased appetite, but this is not new. She states she does not think she has lost weight. No intolerance to the PO she does take. Of note, pt has a L sided pleur-x drain in place, which has been the case for almost a year. This is for recurrent pleural effusions of unknown origin. She has nursing coming to her home to drain this periodically and there has been increased need for drainage lately. 3 days ago, HH was emptying her drain and the fluid was noted to be somewhat bloody in color. They do not believe there were any clots in the fluid, just a bloody discoloration. This has happened in the past as well. Pt's PCP was contacted and she was instructed to hold her eliquis for 3 days. HH was to return today to drain her catheter and she was to possibly resume her eliquis if the bleeding was no longer present. She takes eliquis and aspirin 81mg at baseline for afib and she was instructed to continue the aspirin during this time. Pt was also to see her president educational institution today and Dr. Lamas tomorrow for routine follow up appts. Pt denies fever, abd pain, n/v/c/d, LE pain or swelling. HOSPITAL COURSE: Ms. Diaz was admitted for atypical chest pain that may likely be musculoskeletal. Pain is reproducible with movement but denies SOB and no O2 needs while hospitalized. Normally is on Eliquis but has been held due to bloody drainage from Pleur-X. Plan is to continue with ASA therapy and Eliquis on D/C as drainage here in-hospital without blood. Serial cardiac enzymes obtained and negative. Monitor reveals a paced rhythm with underlying A Fib that is rate controlled when not paced. Recommend to continue monitoring with Dr. Lamas and consideration for further testing of fluid given blood drainage if suspicion of other etiology as currently patient reports idiopathic effusions. CT did reveal a calcified granuloma of the LLL that wasn't mentioned on previous imaging and can be monitored. Supervising Note DR. MARES I performed a history and physical examination. I reviewed and agree with above note, while also discussing analysis and plan with patient and APC. I answered all of the patient's questions while I was in the room with the patient. My physical exam is below: Physical Exam: General Appearance: WD/WN, no apparent distress, cachetic ENT: hearing grossly normal Neck: supple, no JVD, trachea midline Respiratory/Chest: lungs clear, normal breath sounds, no respiratory distress, no accessory muscle use Cardiovascular: irregularly irregular, no gallop, no murmur Abdomen / GI: normal bowel sounds, non tender, soft Neurologic/Psychiatric: alert, oriented x 3 Skin: normal color, warm/dry Total Time Spent: Greater than 30 minutes This includes examination of the patient, discharge planning, medication reconciliation, and communication with other providers. Discharge Instructions Please refer to the electronic Patient Visit Report (Discharge Instructions) for additional information. Additional Copies To Brionna Cee PA-C; Francesco Mancia M.D.
--- NOTE | 2017-05-21 16:39 | SURGICAL CONSULTATION ---
DATE OF CONSULTATION: 05/21/2017 DATE OF CONSULTATION: 05/21/2017 REASON FOR CONSULTATION: Followup of left PleurX catheter. HISTORY OF PRESENT ILLNESS: Shaista Diaz is a 77-year-old female that I know quite well. Almost a year ago I inserted a left PleurX catheter for chronic pleural effusion which is benign. This really helped her and while the drainage has decreased is is not to the point where we can remove this. She is quite anxious about having it removed because she feels so much better. She presented now with chest pain and apparently myocardial injury was ruled out. She states she has had no pain since she cam in from the ER last night. I saw her in the early afternoon of 05/21/2017. She was drained this morning for 100 mL. She was drained for about 225 last night in the ER. Her drainage has gone up. He had decreased quite a bit, in fact we were discussing removing this chest tube, but given her increased drainage the nurses had to come out there more frequently to drain her. In addition, the fluid became a bit bloody. She was taking Eliquis and aspirin and her aspirin was stopped. She feels much better now and would like to go home. PAST MEDICAL HISTORY: 1. Chronic atrial fibrillation. 2. Chronic left pleural effusion. 3. Sick sinus syndrome. 4. Hypertension. 5. Hyperlipidemia. PAST SURGICAL HISTORY: 1. Insertion of a pacemaker. 2. Insertion of left PleurX catheter. MEDICATIONS: Please see chart. SOCIAL HISTORY: The patient lives with her friend. She does not smoke cigarettes or use alcohol. She is retired of course. REVIEW OF SYSTEMS: She is a very small woman but her weight has been stable. She denies shortness of breath per se. She has had some bloody drainage from her PleurX in the past and is on Eliquis and usually stops when the Eliquis is held. She denies any neurologic symptoms such as amaurosis fugax, transient ischemic attacks. She states appetite has been a bit poor but she has been eating and drinking. Denies any genitourinary or GI symptoms. She has had no skin breakdown. She denies any auditory or visual symptoms. PHYSICAL EXAMINATION: GENERAL: This is a 5 feet 5 inch, 82 pound white female who is awake, alert and oriented. HEAD, EYES, EARS, NOSE, AND THROAT: Extraocular movements are intact. Pupils are equal, round and reactive. Oral mucosa is moist. Teeth are in good repair. NECK: Supple. I do not detect neck vein distention. She is moving air fairly well. She was drained this morning before I listened to her. Her PleurX site is clean. She has a well-healed pacemaker site. HEART: She has a regular rate and rhythm of her heart but appears she is being paced. ABDOMEN: Flat, soft, nontender with no hepatosplenomegaly. EXTREMITIES: She has no peripheral edema. NEUROLOGIC: She is completely intact. ASSESSMENT AND PLAN: Chronic left pleural effusion with PleurX catheter in place. We will follow her back up in the office. I am quite happy with her CT scan. She had some fluid but this was before we had drained her. She looks quite good.
== END 2017-05-21 15:58 | disposition home or self-care (01) ==
LOC: EDBD 08:28 → C.EDB 08:29 → C.MED 11:13 → ENRESERV 11:45
PROVIDERS: ADMIT Family Medicine; ATTEND Internal Medicine Sports Medicine
DX: R07.89 Other chest pain (principal); R94.31 Abnormal electrocardiogram [ECG] [EKG]; I48.91 Unspecified atrial fibrillation; I10 Essential (primary) hypertension; J90 Pleural effusion, not elsewhere classified; Z95.0 Presence of cardiac pacemaker; E78.5 Hyperlipidemia, unspecified; I50.9 Heart failure, unspecified; Z82.49 Family history of ischemic heart disease and other diseases of the circulatory system; Z84.1 Family history of disorders of kidney and ureter; Z87.891 Personal history of nicotine dependence; F32.9 Major depressive disorder, single episode, unspecified

== ENCOUNTER → 2017-06-20 | Outpatient (CLI) | payer OTHER, MEDICARE | END | disposition home or self-care (01) | LOC: C.RAD1850 10:38 | DX: J90 Pleural effusion, not elsewhere classified (principal) ==

== ENCOUNTER → 2017-07-23 | Outpatient (CLI) | payer OTHER, MEDICARE ==
[~2017-07-23] MED LIST changes: +AMLO-110 PO; -AMLO5TAB12 PO; -ASPI-232 PO; +ASPI81TA28 PO; -CNT PO; -FURO-85 PO; +FURO20TA PO; +LPT/40 PO; -METO-648 PO; +METO200T32 PO; +RAMI10CA PO; +SERT-234 PO; -SERT100T PO; -TRAM-10 PO; -ZCRT/40 PO
[2017-07-23 13:22] LABS: BASO % 0.4 %; BASO ABS # 0.02 K/uL (0-0.2); EOS % 2.7 %; EOS ABS # 0.15 K/uL (0-0.5); HEMATOCRIT 41.1 % (37-47); HEMOGLOBIN 13.5 g/dL (12.0-16.0); IG# 0.02 K/uL (0.00-0.02); LYMPH % 13.5 %; LYMPH ABS # 0.74 K/uL (1.2-3.4); MEAN CELL VOLUME 92.2 fL (80-100); MEAN CORPUSCULAR HEMOGLOBIN 30.3 pg (25-34); MEAN CORPUSCULAR HGB CONC 32.8 g/dl (32-36); MEAN PLATELET VOLUME 10.1 fL (7.4-10.4); MONO % 10.6 %; MONO ABS # 0.58 K/uL (0.11-0.59); NEUT % 72.4 %; NEUT ABS # 3.98 K/uL (1.4-6.5); PLATELET COUNT 206 K/uL (130-400); RED CELL DISTRIBUTION WIDTH CV 14.6 % (11.5-14.5); RED CELL DISTRIBUTION WIDTH SD 49.8 fL (36.4-46.3); WHITE BLOOD COUNT 5.49 K/uL (4.8-10.8)
[2017-07-23 15:25] LABS: ALBUMIN 3.4 gm/dl (3.4-5.0); ALT/SGPT 20 U/L (12-78); BLOOD UREA NITROGEN 20 mg/dl (7-18); CALCIUM 9.4 mg/dl (8.5-10.1); CARBON DIOXIDE 28 mmol/L (21-32); CREATININE 0.85 mg/dl (0.60-1.20); GLUCOSE 113 mg/dl (70-99); POTASSIUM 3.4 mmol/L (3.5-5.1); SODIUM 141 mmol/L (136-145)
[2017-07-23 15:28] LABS: ALKALINE PHOSPHATASE 70 U/L (45-117); AST/SGOT 24 U/L (15-37); TOTAL PROTEIN 7.2 gm/dl (6.4-8.2)
== END | disposition home or self-care (01) ==
LOC: C.LABBC 09:47
PROVIDERS: ATTEND Internal Medicine
DX: R05 Cough (principal)

== ENCOUNTER → 2017-08-05 | Outpatient (CLI) | payer OTHER, MEDICARE ==
--- NOTE | 2017-08-05 11:33 | DIAGNOSTIC IMAGING REPORT ---
CHEST 2 VIEWS ROUTINE CLINICAL HISTORY: J90 Pleural effusion, [id number] COMPARISON STUDY: 06/20/2017 FINDINGS: The cardiac and mediastinal contours remain stable. There is pulmonary emphysema. There is stable right apical pleural thickening. There are small bilateral pleural effusions left greater than right. There is no acute parenchymal consolidation. There is no failure.[ The left-sided pleural catheter remains unchanged in position. IMPRESSION: 1. Pulmonary emphysema 2. No change the position of the left-sided pleural drain 3. Small bilateral pleural effusions left greater than right Electronically signed by: Cristopher Bedoya M.D. 08/05/2017 11:31 AM Dictated Date/Time: 08/05/2017 11:31 AM
== END | disposition home or self-care (01) ==
LOC: C.RAD1850 11:21
PROVIDERS: ATTEND Surgery
DX: J90 Pleural effusion, not elsewhere classified (principal); J43.9 Emphysema, unspecified

== ENCOUNTER → 2017-08-19 | Outpatient (CLI) | payer OTHER, MEDICARE ==
--- NOTE | 2017-08-19 11:05 | DIAGNOSTIC IMAGING REPORT ---
CHEST 2 VIEWS ROUTINE CLINICAL HISTORY: 77 years-old Female presenting with J90 Pleural effusion, [id number]. TECHNIQUE: PA and lateral views of the chest were obtained. COMPARISON: 08/05/2017. FINDINGS: Interval removal of the left pleural drain. Left subclavian pacer with leads to the right atrium and right ventricular apex. Atherosclerosis of aortic arch. Cardiac silhouette mildly enlarged, unchanged. Persistent loculated bilateral small pleural effusions, greater on the left. Bibasilar opacities as on prior exam. Heterogeneity of lung parenchyma. No pneumothorax. Osteopenia may be present. Upper abdomen normal. IMPRESSION: 1. Unchanged bilateral small pleural effusions greater on the left, which are likely loculated. 2. Interval removal of the left pleural drain. No pneumothorax. 3. Persistent bibasilar consolidation or atelectasis. Electronically signed by: Francesco Anguiano M.D. 08/19/2017 11:03 AM Dictated Date/Time: 08/19/2017 11:01 AM
== END | disposition home or self-care (01) ==
LOC: C.RAD1850 09:54
PROVIDERS: ATTEND Physician Assistant
DX: J90 Pleural effusion, not elsewhere classified (principal)

== ENCOUNTER 2017-09-25 09:17 | Emergency (ER) | payer OTHER, MEDICARE ==
[~2017-09-25] VITALS: Ht 162.6 cm; Wt 39.6 kg
[2017-09-25 09:19] VITALS: TEMP 36.4; Ht 162.6 cm; Wt 39.6 kg
[2017-09-25 10:32] LABS: BASO % 0.3 %; BASO ABS # 0.02 K/uL (0-0.2); EOS % 2.1 %; EOS ABS # 0.12 K/uL (0-0.5); HEMATOCRIT 41.7 % (37-47); HEMOGLOBIN 13.7 g/dL (12.0-16.0); IG# 0.01 K/uL (0.00-0.02); LYMPH % 10.5 %; LYMPH ABS # 0.61 K/uL (1.2-3.4); MEAN CELL VOLUME 91.4 fL (80-100); MEAN CORPUSCULAR HGB CONC 32.9 g/dl (32-36); MEAN PLATELET VOLUME 9.4 fL (7.4-10.4); MONO % 11.5 %; MONO ABS # 0.67 K/uL (0.11-0.59); NEUT % 75.4 %; PLATELET COUNT 196 K/uL (130-400); RED CELL DISTRIBUTION WIDTH CV 15.8 % (11.5-14.5); WHITE BLOOD COUNT 5.83 K/uL (4.8-10.8)
[2017-09-25] MEDS ORDERED: MULT-506 PO (10:33)
[2017-09-25] MEDS ORDERED: SIMV40TA2 PO (10:33)
[2017-09-25 10:36] LABS: ALBUMIN 3.9 gm/dl (3.4-5.0); CALCIUM 9.5 mg/dl (8.5-10.1); CREATININE 0.81 mg/dl (0.60-1.20); POTASSIUM 3.3 mmol/L (3.5-5.1)
[2017-09-25 10:45] LABS: TOTAL PROTEIN 7.7 gm/dl (6.4-8.2)
[2017-09-25 11:31] VITALS: BP 175/88; PULSE 67; O2SAT 95
--- NOTE | 2017-09-25 13:45 | EMERGENCY ROOM VISIT NOTE ---
History Report prepared by Moshe: Surjit Forrest Under the Supervision of: Dr. Jae Orr D.O. First contact with patient: 09:25 Chief Complaint: UNABLE TO VOID Stated Complaint: CANT URINATE History of Present Illness The patient is a 77 year old female who presents to the Emergency Room with complaints of difficulty voiding urine that she has been experiencing for the past 2-3 days. The patient states that she feels the need to go, but is unable to void completely. She has not experienced any burning with urination or increased frequency. She does note some "fullness" in her abdomen as well. The patient has a pacemaker placed, but also mentioned that she has been able to feel her heart beating "irregularly" lately but notes that she does not feel this now.. She denies headache, change in vision, fevers, shortness of breath, nausea, vomiting, diarrhea. No new medications. Source of History: patient Onset: 2-3 days ago Position: abdomen, other (genitorurinary) Quality: other (Fullness in abdomen) Timing: constant Associated Symptoms: No fevers Review of Systems See HPI for pertinent positives & negatives. A total of 10 systems reviewed and were otherwise negative. Past Medical & Surgical Medical Problems: (1) Atrial fibrillation (2) Benign hypertension (3) Cardiac pacemaker procedure (4) CHF exacerbation (5) Chronic congestive heart failure (6) Hyperlipidemia (7) Pleural effusion Family History Heart disease Kidney disease Kidney stones Social History Smoking Status: Former Smoker Drug Use: none Marital Status: single Housing Status: lives with friends Occupation Status: retired Current/Historical Medications Scheduled Amlodipine (Norvasc), 5 MG PO DAILY Apixaban (Eliquis), 2.5 MG PO BID Aspirin (Aspirin Ec), 81 MG PO DAILY Digoxin (Digoxin), 0.125 MG PO DAILY Furosemide (Lasix), 20 MG PO DAILY Metoprolol Succinate (Toprolxl (Toprol-Xl), 200 MG PO DAILY Multivitamin (Multivitamin), 1 TAB PO DAILY Ramipril (Ramipril), 10 MG PO DAILY Sertraline (Zoloft), 100 MG PO DAILY Simvastatin (Zocor), 40 MG PO QPM Allergies Coded Allergies: HOLDEN Inhibitors (Verified Adverse Reaction, Mild, COUGH, 09/25/17) Physical Exam Vital Signs Date Time Temp Pulse Resp B/P (MAP) Pulse Ox O2 Delivery O2 Flow Rate FiO2 09/25/17 11:31 67 18 175/88 95 09/25/17 11:03 81 21 176/74 96 Room Air 09/25/17 11:03 71 09/25/17 09:19 36.4 85 18 174/96 98 Room Air Physical Exam GENERAL: Sitting up in bed, alert, well appearing, well nourished, no distress, non-toxic EYE EXAM: normal conjunctiva. OROPHARYNX: no exudate, no erythema, lips, buccal mucosa, and tongue normal and mucous membranes are moist NECK: supple, no nuchal rigidity, no adenopathy, non-tender LUNGS: Clear to auscultation. Normal chest wall mechanics HEART: no murmurs, S1 normal and S2 normal ABDOMEN: abdomen soft, non-tender, normo-active bowel sounds, no masses, no rebound or guarding. BACK: Back is symmetrical on inspection and there is no deformity, no midline tenderness, no CVA tenderness. SKIN: no rashes and no bruising UPPER EXTREMITIES: upper extremities are grossly normal. LOWER EXTREMITIES: No pitting edema. NEURO EXAM: Normal sensorium, cranial nerves II-XII grossly intact, normal speech, no gross weakness of arms, no gross weakness of legs. Medical Decision & Procedures Laboratory Results 09/25/17 10:00 Red Blood Count 4.56, Mean Corpuscular Volume 91.4, Mean Corpuscular Hemoglobin 30.0, Mean Corpuscular Hemoglobin Concent 32.9, Mean Platelet Volume 9.4, Neutrophils (%) (Auto) 75.4, Lymphocytes (%) (Auto) 10.5, Monocytes (%) (Auto) 11.5, Eosinophils (%) (Auto) 2.1, Basophils (%) (Auto) 0.3, Neutrophils # (Auto ) 4.40, Lymphocytes # (Auto) 0.61, Monocytes # (Auto) 0.67, Eosinophils # (Auto ) 0.12, Basophils # (Auto) 0.02 09/25/17 10:00 Test 09/25/17 10:00 09/25/17 10:20 White Blood Count 5.83 K/uL (4.8-10.8) Red Blood Count 4.56 M/uL (4.2-5.4) Hemoglobin 13.7 g/dL (12.0-16.0) Hematocrit 41.7 % (37-47) Mean Corpuscular Volume 91.4 fL (80-100) Mean Corpuscular Hemoglobin 30.0 pg (25-34) Mean Corpuscular Hemoglobin Concent 32.9 g/dl (32-36) Platelet Count 196 K/uL (130-400) Mean Platelet Volume 9.4 fL (7.4-10.4) Neutrophils (%) (Auto) 75.4 % Lymphocytes (%) (Auto) 10.5 % Monocytes (%) (Auto) 11.5 % Eosinophils (%) (Auto) 2.1 % Basophils (%) (Auto) 0.3 % Neutrophils # (Auto) 4.40 K/uL (1.4-6.5) Lymphocytes # (Auto) 0.61 K/uL (1.2-3.4) Monocytes # (Auto) 0.67 K/uL (0.11-0.59) Eosinophils # (Auto) 0.12 K/uL (0-0.5) Basophils # (Auto) 0.02 K/uL (0-0.2) RDW Standard Deviation 53.0 fL (36.4-46.3) RDW Coefficient of Variation 15.8 % (11.5-14.5) Immature Granulocyte % (Auto) 0.2 % Immature Granulocyte # (Auto) 0.01 K/uL (0.00-0.02) Anion Gap 3.0 mmol/L (3-11) Est Creatinine Clear Calc Drug Dose 35.2 ml/min Estimated GFR () 80.1 Estimated GFR (Non- 69.1 BUN/Creatinine Ratio 14.9 (10-20) Calcium Level 9.5 mg/dl (8.5-10.1) Total Bilirubin 0.6 mg/dl (0.2-1) Direct Bilirubin 0.2 mg/dl (0-0.2) Aspartate Amino Transf (AST/SGOT) 23 U/L (15-37) Alanine Aminotransferase (ALT/SGPT) 21 U/L (12-78) Alkaline Phosphatase 80 U/L (45-117) Total Protein 7.7 gm/dl (6.4-8.2) Albumin 3.9 gm/dl (3.4-5.0) Lipase 193 U/L (73-393) Urine Color YELLOW Urine Appearance CLEAR (CLEAR) Urine pH 7.0 (4.5-7.5) Urine Specific [place] 1.013 (1.000-1.030) Urine Protein 2+ (NEG) Urine Glucose (UA) NEG (NEG) Urine Ketones NEG (NEG) Urine Occult Blood 1+ (NEG) Urine Nitrite NEG (NEG) Urine Bilirubin NEG (NEG) Urine Urobilinogen NEG (NEG) Urine Leukocyte Esterase NEG (NEG) Urine WBC (Auto) 0 /hpf (0-5) Urine RBC (Auto) 5-10 /hpf (0-4) Urine Hyaline Casts (Auto) 1-5 /lpf (0-5) Urine Epithelial Cells (Auto) 5-10 /lpf (0-5) Urine Bacteria (Auto) NEG (NEG) Laboratory results per my review. Procedure BEDSIDE US: Bedside Ultra Sounds Reveals: This showed minimal residual urine in the bladder. ECG Per My Interpretation Indication: palpitations Rate (beats per minute): 92 Rhythm: atrial fibrillation (intermittently paced) Findings: nonspecific-ST abn (inferior and lateral), Q waves (Septal), T-wave inversion (Inferior and lateral), paced rhythm Comparison ECG Date: 04/20/2018 Change: no significant change ED Course ED COURSE: Vital signs were reviewed and showed hypertensive vitals. The patients medical record was reviewed The above diagnostic studies were performed and reviewed. ED treatments and interventions as stated above. 0931: The patient was evaluated in room A10. A complete history and physical examination was performed. 0956: I updated the patient and performed a BEDSIDE Ultra Sound of the bladder. This showed minimal residual urine in the bladder. 1107: Upon reevaluation, the patient is resting in bed.I discussed my findings with the patient and she understands and agrees with the treatment plan. Based on the patients age, coexisting illnesses, exam and lab findings the decision to treat as an outpatient was made. The patient remained stable while under my care. The patient appeared well at the time of discharge. Medical Decision Differential diagnoses includes but is not limited to gastritis, peptic ulcer disease, GERD, gallbladder disease, pancreatitis, small bowel obstruction, acute coronary syndrome, pericarditis, ischemic bowel, irritable bowel disease, irritable bowel syndrome, appendicitis, diverticulitis, malignancy, hernia, urinary tract infection, torsion, perforation, trauma, infectious. Patient is a 77-year-old female who presents the ER for urinary urgency and is feeling as though she cannot fully empty her bladder. She has no other complaints at this time with the exception of some intermittent fluttering in her heart but denies any chest pain or shortness of breath. CBC along with BMP , LFTs, bilirubin lipase is unremarkable. UA was negative. Bladder scan for 6 6 mL's postvoid. Bedside ultrasound was unremarkable for any large retention. EKG was unchanged from previous with an intermittently paced rhythm. Patient was updated at bedside. She was discharged to follow-up with PCP as an outpatient with symptoms involving the urinary tract. Discussed with Pt concerning signs and symptoms to watch out for. Pt was instructed to follow up with their PCP and discussed with the patient their option to return to the ED at anytime for persistent or worsening symptoms. The appropriate anticipatory guidance and out-patient management, including indications for return to the emergency department, were explained at length to the patient and understood. Medication Reconcilliation Current Medication List: was personally reviewed by me Blood Pressure Screening Patient's blood pressure: Elevated blood pressure Impression Primary Impression: Lower urinary tract symptoms Scribe Attestation The scribe's documentation has been prepared under my direction and personally reviewed by me in its entirety. I confirm that the note above accurately reflects all work, treatment, procedures, and medical decision making performed by me. Departure Information Dispostion Home / Self-Care Referrals Francesco Mancia M.D. (PCP) Forms HOME CARE DOCUMENTATION FORM, IMPORTANT VISIT INFORMATION, WORK / SCHOOL INSTRUCTIONS Patient Instructions My [facility] Additional Instructions Please follow up with your primary care doctor with in the next 24 hours. Any worsening of your symptoms, please return to the ED immediately. This includes any fevers greater than 100.4, worsening pain, chest pain, shortness breath, persistent nausea, vomiting, unable to eat or drink, or any other concerning signs or symptoms from your standpoint. Please follow-up with your primary care doctor to have a repeat bladder scan as your initial here was normal.
== END 2017-09-25 11:33 | disposition home or self-care (01) ==
LOC: C.EDB 09:19 → C.EDA 11:33
DX: R30.0 Dysuria (principal); Z95.0 Presence of cardiac pacemaker; I48.91 Unspecified atrial fibrillation; I11.0 Hypertensive heart disease with heart failure; E78.5 Hyperlipidemia, unspecified; Z84.1 Family history of disorders of kidney and ureter; Z87.891 Personal history of nicotine dependence; Z79.01 Long term (current) use of anticoagulants; Z79.899 Other long term (current) drug therapy; Z88.8 Allergy status to other drugs, medicaments and biological substances

== ENCOUNTER 2017-10-07 11:18 | Emergency (ER) | payer OTHER, MEDICARE ==
[~2017-10-07] VITALS: Ht 162.6 cm; Wt 39.7 kg
[~2017-10-07 11:18] MED LIST changes: -LPT/40 PO; +MULT-506 PO; +SIMV40TA2 PO
[2017-10-07 11:33] VITALS: TEMP 36.4; Ht 162.6 cm; Wt 39.7 kg
--- NOTE | 2017-10-07 12:41 | DIAGNOSTIC IMAGING REPORT ---
CHEST ONE VIEW PORTABLE CLINICAL HISTORY: Difficulty breathing. Pleural effusions. COMPARISON STUDY: 08/19/2017 FINDINGS: The heart is mildly enlarged. There is a left subclavian dual-chamber central venous pacemaker present. There is underlying pulmonary emphysema. There is slight increase in the bilateral pleural effusions left greater than right. Left pleural effusion is likely partially loculated. Left basal airspace opacities with nonspecific likely representing compressive atelectatic change. Postsurgical changes involve the right eighth rib.[ IMPRESSION: 1. Emphysema 2. Slight increase in the bilateral pleural effusions left greater than right 3. Left basal airspace opacities, likely representing compressive atelectasis Electronically signed by: Cristopher Bedoya M.D. 10/07/2017 12:40 PM Dictated Date/Time: 10/07/2017 12:38 PM
[2017-10-07 13:52] VITALS: BP 156/78; PULSE 77; O2SAT 97
--- NOTE | 2017-10-07 14:23 | EMERGENCY ROOM VISIT NOTE ---
History Report prepared by Moshe: Iker London Under the Supervision of: Dr. Hola Dia M.D. First contact with patient: 11:55 Chief Complaint: SHORTNESS OF BREATH Stated Complaint: HARD TO BREATH History of Present Illness The patient is a 77 year old female who presents to the Emergency Room with complaints of worsening shortness of breath beginning a few days ago. She states that she has been having recurrent pleural effusion requiring drainage. The patient previously had a catheter in place, but had it removed about a month ago. She feel that her left lung is filling up with fluid today. She denies any chest pain. Source of History: patient Onset: A few days ago Quality: other (shortness of breath) Timing: worsening Associated Symptoms: No chest pain Review of Systems See HPI for pertinent positives & negatives. A total of 10 systems reviewed and were otherwise negative. Past Medical & Surgical Medical Problems: (1) Atrial fibrillation (2) Benign hypertension (3) Cardiac pacemaker procedure (4) CHF exacerbation (5) Chronic congestive heart failure (6) Hyperlipidemia (7) Pleural effusion Family History Heart disease Kidney disease Kidney stones Social History Smoking Status: Former Smoker Drug Use: none Marital Status: single Housing Status: lives with friends Occupation Status: retired Current/Historical Medications Scheduled Amlodipine (Norvasc), 5 MG PO DAILY Apixaban (Eliquis), 2.5 MG PO BID Aspirin (Aspirin Ec), 81 MG PO DAILY Digoxin (Digoxin), 0.125 MG PO DAILY Furosemide (Lasix), 20 MG PO DAILY Ramipril (Ramipril), 10 MG PO DAILY Sertraline (Zoloft), 100 MG PO DAILY Simvastatin (Zocor), 40 MG PO QPM Allergies Coded Allergies: HOLDEN Inhibitors (Verified Adverse Reaction, Mild, COUGH, 10/07/17) Physical Exam Vital Signs Date Time Temp Pulse Resp B/P (MAP) Pulse Ox O2 Delivery O2 Flow Rate FiO2 10/07/17 13:52 77 18 156/78 97 Room Air 10/07/17 12:58 72 18 163/82 98 Room Air 10/07/17 12:23 Room Air 10/07/17 11:33 36.4 86 20 136/72 98 Room Air Physical Exam GENERAL: Awake, alert, well-appearing, in no acute distress HENT: Normocephalic, atraumatic. Oropharynx unremarkable. EYES: Normal conjunctiva. Sclera non-icteric. NECK: Supple. No nuchal rigidity. FROM. No JVD. RESPIRATORY: Distant lung sounds. CARDIAC: Regular rate, normal rhythm. Extremities warm and well perfused. Pulses equal. ABDOMEN: Soft, non-distended. No tenderness to palpation. No rebound or guarding. No masses. RECTAL: Deferred. MUSCULOSKELETAL: Chest examination reveals no tenderness. The back is symmetrical on inspection without obvious abnormality. There is no CVA tenderness to palpation. No joint edema. LOWER EXTREMITIES: Calves are equal size bilaterally and non-tender. No edema. No discoloration. NEURO: Normal sensorium. No sensory or motor deficits noted. SKIN: No rash or jaundice noted. Medical Decision & Procedures ER Provider Diagnostic Interpretation: Radiology results as stated below per my review and radiologist interpretation: CHEST ONE VIEW PORTABLE FINDINGS: The heart is mildly enlarged. There is a left subclavian dual-chamber central venous pacemaker present. There is underlying pulmonary emphysema. There is slight increase in the bilateral pleural effusions left greater than right. Left pleural effusion is likely partially loculated. Left basal airspace opacities with nonspecific likely representing compressive atelectatic change. Postsurgical changes involve the right eighth rib.[ IMPRESSION: 1. Emphysema 2. Slight increase in the bilateral pleural effusions left greater than right 3. Left basal airspace opacities, likely representing compressive atelectasis Electronically signed by: Cristopher Bedoya M.D. 10/07/2017 12:40 PM ED Course 1200: Past medical records reviewed. The patient was evaluated in room A9B. A complete history and physical examination was performed. 1251: A call was placed to Dr. Lamas's office. 1407: Dr. Lamas's office notified us that he is out of town. 1416: Upon reexamination the patient is resting comfortably. I discussed results and treatment plan with the patient. She verbalizes agreement and understanding. The patient is ready for discharge. Medical Decision Differential diagnosis: Etiologies such as infections, reactive airway disease, pneumonia, pneumothorax , COPD, CHF, cardiac ischemia, pulmonary embolism, musculoskeletal, gastrointestinal, as well as others were entertained. This is a 77-year-old female who presents the emergency department complaining of pleural effusion. Patient reports she is having difficulty breathing on the left side of her chest and attributes this to her pleural effusion. She notes that Dr. Lamas has placed a tube previously in this position to have the effusion drained. Using shared medical decision making with the patient the patient only wants to have a chest x-ray performed. This showed the effusion to be about the same size as previous. I did discuss this patient's case with Dr. Lamas's office. As he is unavailable to see the patient today she will have a close follow-up appointment with the office on the . Patient feels she is well enough to be discharged home until and however she will return if she develops severe chest pain or shortness of breath. Patient and family were in agreement with the treatment plan. Medication Reconcilliation Current Medication List: was personally reviewed by me Blood Pressure Screening Patient's blood pressure: Elevated blood pressure Blood pressure disposition: Referred to PCP Impression Primary Impression: Pleural effusion Scribe Attestation The scribe's documentation has been prepared under my direction and personally reviewed by me in its entirety. I confirm that the note above accurately reflects all work, treatment, procedures, and medical decision making performed by me. Departure Information Dispostion Home / Self-Care Referrals Francesco Mancia M.D. (PCP) Forms HOME CARE DOCUMENTATION FORM, IMPORTANT VISIT INFORMATION Patient Instructions Effusion Pleural, My [facility] Additional Instructions Follow up with Dr Lamas's office on 10/15 Return for difficulty breathing or chest pain You have been examined and treated today on an emergency basis only. This is not a substitute for, or an effort to provide, complete comprehensive medical care. It is impossible to recognize and treat all injuries or illnesses in a single emergency department visit. It is therefore important that you follow up closely with [facility]. Call as soon as possible for an appointment. Thank you for your time and consideration. I look forward to speaking with you again soon. Please don't hesitate to call us if you have any questions.
== END 2017-10-07 14:28 | disposition home or self-care (01) ==
LOC: C.EDB 11:19 → C.EDA 14:28
DX: J90 Pleural effusion, not elsewhere classified (principal); I48.91 Unspecified atrial fibrillation; I11.0 Hypertensive heart disease with heart failure; I50.9 Heart failure, unspecified; E78.5 Hyperlipidemia, unspecified; Z95.0 Presence of cardiac pacemaker; Z87.891 Personal history of nicotine dependence; Z79.01 Long term (current) use of anticoagulants; Z79.82 Long term (current) use of aspirin; Z79.899 Other long term (current) drug therapy; Z88.8 Allergy status to other drugs, medicaments and biological substances

== ENCOUNTER → 2017-10-15 | Outpatient (CLI) | payer OTHER, MEDICARE ==
[~2017-10-15] MED LIST changes: -METO200T32 PO; -MULT-506 PO
--- NOTE | 2017-10-15 10:27 | DIAGNOSTIC IMAGING REPORT ---
TWO VIEW CHEST CLINICAL HISTORY: Pleural effusions. FINDINGS: PA and lateral chest radiographs are compared to study dated 10/07/2017 and correlated with chest CT dated 05/20/2017. A 2-lead cardiac pacemaker is unchanged in position and partially obscures the left upper chest. The heart is enlarged and there is atherosclerotic calcification of the thoracic aorta. The pulmonary vasculature is noncongested. Emphysema is suspected. There are small pleural effusions, left larger right with associated atelectasis. These are similar in appearance to the 10/07/2017 examination. Apical scarring is observed. No pneumothorax is seen. The skeletal structures are osteopenic. The skeletal structures are osteopenic. There are healed right-sided rib fractures. IMPRESSION: 1. Cardiomegaly and cardiac pacemaker without radiographic evidence of congestive failure. 2. Small pleural effusions with bibasilar atelectasis are similar to 10/07/2017. Electronically signed by: Federico Collazo M.D. 10/15/2017 10:26 AM Dictated Date/Time: 10/15/2017 10:24 AM
== END | disposition home or self-care (01) ==
LOC: C.RAD1850 09:55
PROVIDERS: ATTEND Surgery
DX: J90 Pleural effusion, not elsewhere classified (principal); I51.7 Cardiomegaly; Z95.0 Presence of cardiac pacemaker; R91.8 Other nonspecific abnormal finding of lung field

== ENCOUNTER → 2018-01-27 | Outpatient (CLI) | payer OTHER, MEDICARE ==
[~2018-01-27] MED LIST changes: -AMLO-110 PO; +AMLO5TAB3 PO
--- NOTE | 2018-01-27 12:11 | DIAGNOSTIC IMAGING REPORT ---
CHEST 2 VIEWS ROUTINE HISTORY: J90 Pleural effusion, [id number] COMPARISON: Chest 10/15/2017. FINDINGS: Emphysema. Biapical pleural thickening, unchanged. Old, healed right-sided rib fractures. Small bilateral pleural effusions, unchanged. The heart is stable in size. Left-sided dual-chamber pacemaker. No evidence for pulmonary edema. No new focal lung consolidations. Bibasilar linear densities likely represent atelectasis. This also unchanged. IMPRESSION: No significant change compared the prior study. Small bilateral pleural effusions and bibasilar densities persist. This favors atelectasis. Electronically signed by: Rob Lobato M.D. 01/27/2018 12:10 PM Dictated Date/Time: 01/27/2018 12:07 PM
== END | disposition home or self-care (01) ==
LOC: C.RAD1850 11:46
PROVIDERS: ATTEND Surgery
DX: J90 Pleural effusion, not elsewhere classified (principal)

== ENCOUNTER 2019-11-10 20:21 | Inpatient (IN) ==
[2019-11-10] MEDS ORDERED: SODIUM CHLORIDE 0.9% 500 ML IV ONE (21:52)
[2019-11-10 22:09] LABS: Basophils # (auto) 0.03 K/uL (0-0.2); Basophils % (auto) 0.4 %; Eosinophils # (auto) 0.19 K/uL (0-0.5); Eosinophils % (auto) 2.3 %; Hematocrit (blood only) 42.1 % (37-47); Immature Granulocytes # (auto) 0.02 K/uL (0.00-0.02); Immature Granulocytes % (auto) 0.2 %; Lymphocytes # (auto) 1.16 K/uL (1.2-3.4); Lymphocytes % (auto) 13.8 %; Mean Corpuscular Hemoglobin 30.1 pg (25-34); Mean Corpuscular Hgb Conc 30.9 g/dL (32-36); Mean Corpuscular Volume 97.5 fL (80-100); Monocytes # (auto) 1.02 K/uL (0.11-0.59); Monocytes % (auto) 12.1 %; Neutrophils # (auto) 5.98 K/uL (1.4-6.5); Neutrophils % (auto) 71.2 %; Platelet Count 210 K/uL (130-400); RDW Coefficient of Variation 14.5 % (11.5-14.5); RDW Standard Deviation 52.1 fL (36.4-46.3); Red Blood Count 4.32 M/uL (4.2-5.4)
[2019-11-10 22:15] LABS: Albumin Level 4.1 gm/dl (3.4-5.0); BUN Creatinine Ratio 15.3 (10-20); Calcium 9.5 mg/dl (8.5-10.1); Creatinine Clr Calc Pharmacy 27.3 ml/min; Est GFR (African American) 67.7; Est GFR (Non-African American) 58.4; Potassium 3.4 mmol/L (3.5-5.1)
[2019-11-10 22:18] LABS: Albumin Globulin Ratio 1.1 (0.9-2); Bilirubin,Total 0.5 mg/dl (0.2-1); Globulin 3.6 gm/dl (2.5-4.0); Total Protein 7.7 gm/dl (6.4-8.2)
[2019-11-10 22:20] LABS: INR 1.2 (0.9-1.1); Prothrombin Time 12.9 Seconds (9.0-12.0)
[2019-11-10 22:26] LABS: iSTAT Creatinine 0.8 mg/dl (0.6-1.3); iSTAT Hemoglobin 13.6 g/dl (12.0-16.0); iSTAT Ionized Calcium 1.18 mmol/l (1.12-1.32); iSTAT Potassium 3.4 mmol/L (3.3-5.0)
[2019-11-10] MEDS ORDERED: IOVERSOL 100ml IV PRN (22:28)
--- NOTE | 2019-11-11 00:12 | Emergency Department Note ---
Impression & Plan Hematochezia, Diverticulosis, On apixaban therapy, Atrial fibrillation ED Provider Note NAME: ARTURO SALINAS AGE: 79 SEX: F ARRIVES VIA: Walk-In INFORMANT: Patient, ED PROVIDER(S): Ajit Hale MD CHIEF COMPLAINT: GI bleeding PLAN: Disposition: Admit MEDICAL DECISION MAKING: The patient is a pleasant 79-year-old woman with a past medical history of atrial fibrillation on Eliquis who presents emergency department with acute onset red blood per rectum when having a bowel movement. Patient denies any associated symptoms such as denies abdominal pain, lightheadedness, chest pain, shortness of breath, nausea, vomiting, diarrhea. On arrival the patient is fatigued appearing but no acute distress, afebrile stable vital signs. Abdomen is benign. In the emergency department the patient did have repeat episodes of hematochezia when attempting to have a bowel movement. EKG demonstrates atrial fibrillation without overt ST elevation. WBC, H/H and platelets within normal limits. Chemistry without acidosis. Potassium 3.4 and otherwise electrolytes and LFTs unremarkable. CT ab pelvis was performed. Per preliminary stat read report there was no acute findings. Of note, diverticulosis without diverticulitis is noted as well as fluid-filled colon which was suggestive of diarrheal state however the patient's hematochezia may represent diverticular GI bleed. Upon reevaluation the patient continued to remain hemodynamically stable and in no distress. However given her recurrent hematochezia reasonable to admit this elderly patient on Eliquis for further management. The patient is agreeable with this. Case was discussed with Dr. Scott, [facility] hospitalist, who will evaluate the patient for admission. Triage Nursing notes reviewed and agree them. Additional history obtained from friend at bedside. Prior medical records reviewed Vital Signs: reviewed and remarkable for no significant abnormalities Differential diagnosis: Diverticulosis, AVM, coagulopathy, colitis, inflammatory bowel disease, malignancy, Cheryl-Montano tear, esophagitis, peptic ulcer disease, variceal bleed, gastritis, epistaxis, fissure, hemorrhoids, as well as other pathologies. ER treatment provided: See below. Diagnostics interpreted by me: ECG: Atrial fibrillation with PVCs, 71 bpm, ST and T wave abnormality, no overt ST elevation, QTc 419, QRS 76. Cardiac Monitoring: An order for continuous cardiac monitoring was placed and demonstrated atrial fibrillation, 71 bpm, frequent PVCs. Laboratory studies: See below Imaging studies: STATRAD: Preliminary Findings Only See Final Report For Complete Findings CT ABDOMEN & PELVIS With Contrast: Comparison:CT abdomen and pelvis 07/17/16. Trace right pleural effusion. Bibasilar atelectasis. Liver, gallbladder, spleen, pancreas, and adrenal glands are unremarkable. No hydronephrosis. Renal cortical scarring. Renal cysts. Nonobstructing 9 mm left kidney lower pole stone. No bowel obstruction. Sigmoid diverticulosis without acute diverticulitis. Fluid levels in the colon suggesting diarrheal disease. Hysterectomy. Normal urinary bladder. No acute osseous findings. Radiologist: Woodrow Murrell M.D. Consultation(s): Case was discussed with Dr. Scott, [facility] hospitalist, who will evaluate the patient for admission. HPI: Patient is a pleasant 79-year-old woman with a past medical history of atrial fibrillation on Eliquis who presents emergency department with acute on set red blood per rectum when having a bowel movement. Patient denies any associated symptoms such as denies abdominal pain, lightheadedness, chest pain, shortness of breath, nausea, vomiting, diarrhea. ROS: See above HPI for pertinent positives & negatives. A total of 10 systems reviewed and were otherwise negative. PAST MEDICAL HISTORY:See Below PAST SURGICAL HISTORY:See Below FAMILY HISTORY:See Below SOCIAL HISTORY:See Below HOME MEDICATIONS:See Below ALLERGIES:See Below VITALS:See Below PHYSICAL EXAMINATION: GENERAL: Awake, alert, fatigued-appearing, in no distress HENT: Normocephalic, atraumatic. Oropharynx with dry mucous membranes and otherwise unremarkable. EYES: Normal conjunctiva. Sclera non-icteric. NECK: Supple. No nuchal rigidity. FROM. No JVD. RESPIRATORY: Clear to auscultation. CARDIAC: Regular rate, normal rhythm. Extremities warm and well perfused. Pulses equal. ABDOMEN: Soft, non-distended. No tenderness to palpation. No rebound or guarding. No masses. RECTAL: Deferred. MUSCULOSKELETAL: Chest examination reveals no tenderness. The back is symmetrical on inspection without obvious abnormality. There is no CVA tenderness to palpation. No joint edema. LOWER EXTREMITIES: Calves are equal size bilaterally and non-tender. No edema. No discoloration. NEURO: Normal sensorium. No sensory or motor deficits noted. SKIN: No rash or jaundice noted. Ajit Hale MD Past Med/Surg History Medical History (HFpEF) heart failure with preserved ejection fraction (Acute) Anticoagulant long-term use (Acute) Atrial fibrillation (Acute) Benign hypertension (10/03/12) Chronic hoarseness Dyshidrotic eczema Gait disturbance (Acute) Hyperlipidemia (Acute 10/03/12) Hypertension (Acute) Insomnia (Acute) Low BMI (Acute) Mitral valve insufficiency, acquired (Acute) Osteoarthritis of knee (Acute) Peripheral vascular disease (Acute) Pleural effusion (Inactive) Poor balance Postoperative bleeding from incision (Resolved) Pulmonary hypertension (Acute) Right asymmetrical SNHL Severe protein-energy malnutrition (Acute) Vitamin B12 deficiency (Acute) Surgical History History of appendectomy History of cataract surgery 2009 History of corneal transplant History of exploratory thoracotomy History of hysterectomy age 36 History of knee surgery ACL repair History of lung surgery insertion of tunnel pleural catheter with cuff left History of tonsillectomy Status post placement of cardiac pacemaker Family History Family/Other No problems noted. 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 Feels Safe at Home: Yes Smoking Status: Former smoker Second Hand Exposure: Yes ; Hx Alcohol Use: No Hx Substance Use: No caffeine: Yes Dental Care, Regularly: Yes Physical Activity Frequency: 3-4 Times per Week Allergies Allergies Allergy/AdvReac Type Severity Reaction Status Date / Time HOLDEN Inhibitors AdvReac Mild COUGH Verified 11/10/19 21:52 Home Meds Home Medications Medication Instructions Recorded Confirmed metoprolol succinate 200 mg PO DAILY 07/14/18 11/10/19 ramipril 10 mg PO DAILY 07/14/18 11/10/19 simvastatin 40 mg tablet 40 mg PO DAILY tab 11/06/18 11/10/19 Previous Rx's Medication Instructions Recorded amlodipine 5 mg tablet 5 mg PO DAILY #90 tab 01/20/19 furosemide 20 mg tablet 20 mg PO DAILY #90 tab 05/28/19 digoxin 125 mcg (0.125 mg) tablet 125 mcg PO 3XWK #60 tab 07/08/19 sertraline 100 mg tablet 100 mg PO DAILY #90 tab 09/10/19 apixaban 2.5 mg tablet 2.5 mg PO BID #60 tab 09/28/19 Results & Data (ED) Vital Signs Vital Signs - 24 hr 11/10/19 20:23 11/10/19 20:51 11/10/19 22:02 Temperature 36.4 C L Temperature Source Oral Pulse Rate 88 Pulse Rate [Finger] 63 Pulse Rate from SpO2 Sensor Respiratory Rate 20 20 Respiratory Effort / Characteristics Non-Labored Spontaneous Non-Labored Spontaneous Respiratory Depth Normal Normal Respiratory Pattern Regular Blood Pressure 159/81 H Blood Pressure [Left Arm] 165/76 H Blood Pressure Mean 107 Blood Pressure Mean [Left Arm] 105 Blood Pressure Position Sitting Pulse Oximetry 96 99 97 Oxygen Delivery Method Room Air Room Air Room Air Sepsis Recent Fever Within 48 Hours No Sepsis Action Taken by Nursing No Action Required 11/10/19 22:07 11/10/19 23:37 Temperature Temperature Source Pulse Rate 83 Pulse Rate [Finger] 70 Pulse Rate from SpO2 Sensor 86 Respiratory Rate 20 22 Respiratory Effort / Characteristics Non-Labored Spontaneous Respiratory Depth Normal Respiratory Pattern Blood Pressure 179/83 H Blood Pressure [Left Arm] 170/74 H Blood Pressure Mean 128 Blood Pressure Mean [Left Arm] 106 Blood Pressure Position Pulse Oximetry 97 97 Oxygen Delivery Method Room Air Room Air Sepsis Recent Fever Within 48 Hours Sepsis Action Taken by Nursing Laboratory Data Attestation: I reviewed the patient's lab results. Result diagrams: 11/10/19 20:45 11/10/19 20:45 Lab Results 11/10/19 11/10/19 11/10/19 Range/Units 20:45 20:45 20:45 WBC 8.40 (4.8-10.8) K/uL RBC 4.32 (4.2-5.4) M/uL Hgb 13.0 (12.0-16.0) g/dL POC Hgb (12.0-16.0) g/dl Hct 42.1 (37-47) % POC Hct (37-47) % MCV 97.5 (80-100) fL MCH 30.1 (25-34) pg MCHC 30.9 L (32-36) g/dL RDW Std Deviation 52.1 H (36.4-46.3) fL RDW Coeff of Khalida 14.5 (11.5-14.5) % Plt Count 210 (130-400) K/uL MPV 11.0 H (7.4-10.4) fL Immature Gran % (Auto) 0.2 % Neut % (Auto) 71.2 % Lymph % (Auto) 13.8 % Hanson % (Auto) 12.1 % Eos % (Auto) 2.3 % Baso % (Auto) 0.4 % Immature Gran # (Auto) 0.02 (0.00-0.02) K/uL Neut # (Auto) 5.98 (1.4-6.5) K/uL Lymph # (Auto) 1.16 L (1.2-3.4) K/uL Hanson # (Auto) 1.02 H (0.11-0.59) K/uL Eos # (Auto) 0.19 (0-0.5) K/uL Baso # (Auto) 0.03 (0-0.2) K/uL PT 12.9 H (9.0-12.0) Seconds INR 1.2 H (0.9-1.1) POC Sodium (135-144) mmol/L Sodium 141 (136-145) mmol/L POC Potassium (3.3-5.0) mmol/L Potassium 3.4 L (3.5-5.1) mmol/L POC Chloride (101-112) mmol/L Chloride 104 (98-107) mmol/L Carbon Dioxide 32 (21-32) mmol/L POC Total CO2 (24-31) mmol/L Anion Gap 5.0 (3-11) POC Anion Gap (16-25) mmol/L POC BUN (7-18) mg/dl BUN 14 (7-18) mg/dl Creatinine 0.92 (0.6-1.2) mg/dl POC Creatinine (0.6-1.3) mg/dl Est Cr Clr Drug Dosing 27.3 ml/min Est GFR ( Amer) 67.7 Est GFR (Non-Af Amer) 58.4 BUN/Creatinine Ratio 15.3 (10-20) Glucose 102 H (70-99) mg/dl POC Glucose (other) (70-99) mg/dl Calcium 9.5 (8.5-10.1) mg/dl POC Ioniz Calcium So (1.12-1.32) mmol/l Total Bilirubin 0.5 (0.2-1) mg/dl AST 33 (15-37) U/L ALT 32 (12-78) U/L Alkaline Phosphatase 81 (45-117) U/L Total Protein 7.7 (6.4-8.2) gm/dl Albumin 4.1 (3.4-5.0) gm/dl Globulin 3.6 (2.5-4.0) gm/dl Albumin/Globulin Ratio 1.1 (0.9-2) Lipase 203 (73-393) U/L 11/10/19 Range/Units 22:14 WBC (4.8-10.8) K/uL RBC (4.2-5.4) M/uL Hgb (12.0-16.0) g/dL POC Hgb 13.6 (12.0-16.0) g/dl Hct (37-47) % POC Hct 40 (37-47) % MCV (80-100) fL MCH (25-34) pg MCHC (32-36) g/dL RDW Std Deviation (36.4-46.3) fL RDW Coeff of Khalida (11.5-14.5) % Plt Count (130-400) K/uL MPV (7.4-10.4) fL Immature Gran % (Auto) % Neut % (Auto) % Lymph % (Auto) % Hanson % (Auto) % Eos % (Auto) % Baso % (Auto) % Immature Gran # (Auto) (0.00-0.02) K/uL Neut # (Auto) (1.4-6.5) K/uL Lymph # (Auto) (1.2-3.4) K/uL Hanson # (Auto) (0.11-0.59) K/uL Eos # (Auto) (0-0.5) K/uL Baso # (Auto) (0-0.2) K/uL PT (9.0-12.0) Seconds INR (0.9-1.1) POC Sodium 143 (135-144) mmol/L Sodium (136-145) mmol/L POC Potassium 3.4 (3.3-5.0) mmol/L Potassium (3.5-5.1) mmol/L POC Chloride 101 (101-112) mmol/L Chloride (98-107) mmol/L Carbon Dioxide (21-32) mmol/L POC Total CO2 31 (24-31) mmol/L Anion Gap (3-11) POC Anion Gap 16.0 (16-25) mmol/L POC BUN 16 (7-18) mg/dl BUN (7-18) mg/dl Creatinine (0.6-1.2) mg/dl POC Creatinine 0.8 (0.6-1.3) mg/dl Est Cr Clr Drug Dosing ml/min Est GFR ( Amer) Est GFR (Non-Af Amer) BUN/Creatinine Ratio (10-20) Glucose (70-99) mg/dl POC Glucose (other) 97 (70-99) mg/dl Calcium (8.5-10.1) mg/dl POC Ioniz Calcium So 1.18 (1.12-1.32) mmol/l Total Bilirubin (0.2-1) mg/dl AST (15-37) U/L ALT (12-78) U/L Alkaline Phosphatase (45-117) U/L Total Protein (6.4-8.2) gm/dl Albumin (3.4-5.0) gm/dl Globulin (2.5-4.0) gm/dl Albumin/Globulin Ratio (0.9-2) Lipase (73-393) U/L Administered Medications Ioversol (Optiray 320 100ml) 89 ml IV ONCE PRN PRN Reason: Interaction Checking Stop: 11/14/19 22:27 Last Admin: 11/10/19 22:29 Dose: 89 ml Documented by: [id number] Discontinued Medications Sodium Chloride (Nss) 500 mls @ 999 mls/hr IV .Q31M ONE Stop: 11/10/19 22:22 Last Infusion: 11/10/19 22:30 Dose: 0 mls/hr Documented by: [id number] Admin: 11/10/19 22:06 Dose: 999 mls/hr Documented by: [id number] Blood Pressure Blood Pressure Findings: Elevated blood pressure Blood Pressure Disposition: elevated BP felt to be situational Discharge Plan Visit Data Chief Complaint: Rectal Bleed Stated Complaint: THROWING UP BLOOD, DARK BM ED Provider: Ajit Hale Discharge Problem: Hematochezia, Diverticulosis, On apixaban therapy, Atrial fibrillation Forms Stand Alone Forms: My [facility] Prescriptions Prescriptions: No Action amlodipine 5 mg tablet 5 mg PO DAILY Qty: 90 RF: 3 furosemide [Lasix] 20 mg tablet 20 mg PO DAILY Qty: 90 RF: 3 digoxin 125 mcg (0.125 mg) tablet 125 mcg PO 3XWK Qty: 60 RF: 3 sertraline 100 mg tablet 100 mg PO DAILY Qty: 90 RF: 3 Eliquis 2.5 mg tablet 2.5 mg PO BID Qty: 60 RF: 3 simvastatin 40 mg tablet 40 mg PO DAILY RF: 0 metoprolol succinate 200 mg Tablet Extended Release 24 Hr 200 mg PO DAILY RF: 0 ramipril 10 mg Capsule 10 mg PO DAILY RF: 0 Discharge Problem: Atrial fibrillation Qualifiers: Atrial fibrillation type: unspecified chronic Qualified Code(s): I48.20 - Chronic atrial fibrillation, unspecified
--- NOTE | 2019-11-11 03:06 | History & Physical Report ---
Date of Service November 11, 2019 Assessment & Plan (1) Hematochezia: Hematochezia/bright red blood per rectum- Painless blood loss. NPO NSS + KCl 20 mEq at 80 mils per hour. H&H every 4 hours Hold apixaban, and will not reverse at this time unless has additional bleeding. Consult gastroenterology. Present on Admission?: Yes (2) On apixaban therapy: Presently on apixaban for atrial fibrillation, but will be held as noted above Present on Admission?: Yes (3) (HFpEF) heart failure with preserved ejection fraction: HFpEF/cardiac pacemaker/hypertension/atrial fibrillation/peripheral vascular disease- While n.p.o., hold amlodipine, furosemide, metoprolol succinate and ramipril. Lopressor 5 mg IV every 4 hours PRN heart rate greater than 110. Check digoxin level and Rx digoxin IV as appropriate. Present on Admission?: Yes (4) Presence of permanent cardiac pacemaker: See above Present on Admission?: Yes (5) Hypertension: See above Present on Admission?: Yes (6) Atrial fibrillation: See above Present on Admission?: Yes (7) Peripheral vascular disease: See above Present on Admission?: Yes (8) Hyperlipidemia: Hold simvastatin while n.p.o. Present on Admission?: Yes (9) Severe protein-energy malnutrition: Noted in the past, Nutrition counseling Present on Admission?: Yes History of Present Illness Chief Complaint: Patient presents to the emergency department with complaint of a single episode of bright red blood per rectum when she had a bowel movement earlier in the day prior to arrival. Primary Care Provider: Francesco Mancia MD The patient is an 79-year-old female with a past medical history including cardiac pacemaker, B12 deficiency, severe protein energy malnutrition, pulmonary hypertension, peripheral vascular disease, mitral valve insufficiency, hypertension, hyperlipidemia, atrial fibrillation, HFpEF and long-term anticoagulant use presently on apixaban. The patient presents to the emergency department with acute onset of bright red blood per rectum when she had a bowel movement earlier in the day prior to arrival. She denies any previous occurrence of bleeding. She has no abdominal pain or rectal pain. She has not had any recent travels or sick exposures. She does not feel lightheaded, dizzy or have any presyncopal symptoms. Allergies Allergy/AdvReac Type Severity Reaction Status Date / Time HOLDEN Inhibitors AdvReac Mild COUGH Verified 11/10/19 21:52 Home Medications Home Medications Medication Instructions Recorded Confirmed Type metoprolol succinate 200 mg PO DAILY 07/14/18 11/10/19 History ramipril 10 mg PO DAILY 07/14/18 11/10/19 History simvastatin 40 mg tablet 40 mg PO DAILY tab 11/06/18 11/10/19 History amlodipine 5 mg tablet 5 mg PO DAILY #90 tab 01/20/19 11/10/19 Rx furosemide 20 mg tablet 20 mg PO DAILY #90 tab 05/28/19 11/10/19 Rx digoxin 125 mcg (0.125 mg) tablet 125 mcg PO 3XWK #60 tab 07/08/19 11/10/19 Rx sertraline 100 mg tablet 100 mg PO DAILY #90 tab 09/10/19 11/10/19 Rx apixaban 2.5 mg tablet 2.5 mg PO BID #60 tab 09/28/19 11/10/19 Rx Past Med/Surg History Medical History (HFpEF) heart failure with preserved ejection fraction (Acute) Anticoagulant long-term use (Acute) Atrial fibrillation (Acute) Benign hypertension (10/03/12) Chronic hoarseness Dyshidrotic eczema Gait disturbance (Acute) Hyperlipidemia (Acute 10/03/12) Hypertension (Acute) Insomnia (Acute) Low BMI (Acute) Mitral valve insufficiency, acquired (Acute) Osteoarthritis of knee (Acute) Peripheral vascular disease (Acute) Pleural effusion (Inactive) Poor balance Postoperative bleeding from incision (Resolved) Pulmonary hypertension (Acute) Right asymmetrical SNHL Severe protein-energy malnutrition (Acute) Vitamin B12 deficiency (Acute) Surgical History History of appendectomy History of cataract surgery 2009 History of corneal transplant History of exploratory thoracotomy History of hysterectomy age 36 History of knee surgery ACL repair History of lung surgery insertion of tunnel pleural catheter with cuff left History of tonsillectomy Status post placement of cardiac pacemaker Family History Family/Other No problems noted. 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 Feels Safe at Home: Yes Smoking Status: Former smoker Second Hand Exposure: Yes ; Hx Alcohol Use: No Hx Substance Use: No caffeine: Yes Dental Care, Regularly: Yes Physical Activity Frequency: 3-4 Times per Week Review of Systems Review of Systems: The patient denies chest pain, palpitations, shortness of breath, dyspnea on exertion, cough, lower extremity swelling, sore throat, fevers, chills, sweats, fatigue, nausea, vomiting, constipation, abdominal pain, pelvic pain, blood in urine, dysuria, urinary frequency or urgency, lightheadedness, dizziness, headache, memory loss, loss of consciousness, rash, abnormal bruising , imbalance, focal or generalized weakness, numbness or tingling in arms or legs, generalized arthralgias or myalgias, back or neck pain, or night sweats. The review of systems is otherwise negative other than for that already noted above, and at least 10 systems have been reviewed. Physical Exam Physical Exam: The patient is awake, alert and oriented 3, appears malnourished, normocephalic and atraumatic, lying in bed and in no acute distress. HEENT--PERRL, EOMI, mucous membranes and oropharynx dry. Neck--supple. No JVD. No bruits. Thyroid normal, trachea midline, no adenopathy. Heart--normal S1 and S2. No murmurs, rubs or gallops. Lungs--clear bilaterally, no respiratory distress, no accessory muscle use. Abdomen--normal bowel sounds and soft. Nontender. Nondistended. Extremities--no cyanosis or clubbing. No edema. Dermatologic--normal skin turgor, normal color, no abnormal lymph nodes, no rash. Neurologic--cranial nerves II through XII grossly intact. Rheumatologic--normal range of motion. Psychiatric--normal affect. Results & Data Results & Data ([facility]) Vital Signs (Past 12 Hours) Vital Signs Temp Pulse Pulse Resp BP BP Pulse Ox 11/11/19 02:00 67 19 148/61 H 96 11/11/19 01:30 66 20 154/66 H 98 11/11/19 00:30 66 19 151/65 H 98 11/11/19 00:00 75 21 164/78 H 99 11/10/19 23:37 83 22 179/83 H 97 11/10/19 22:07 70 20 170/74 H 97 11/10/19 22:02 97 11/10/19 20:51 63 20 165/76 H 99 11/10/19 20:23 97.5 F L 88 20 159/81 H 96 Laboratory Results Laboratory Results WBC 8.40 K/uL (4.8-10.8) 11/10/19 20:45 RBC 4.32 M/uL (4.2-5.4) 11/10/19 20:45 Hgb 13.0 g/dL (12.0-16.0) 11/10/19 20:45 POC Hgb 13.6 g/dl (12.0-16.0) 11/10/19 22:14 Hct 42.1 % (37-47) 11/10/19 20:45 POC Hct 40 % (37-47) 11/10/19 22:14 MCV 97.5 fL (80-100) 11/10/19 20:45 MCH 30.1 pg (25-34) 11/10/19 20:45 MCHC 30.9 g/dL (32-36) L 11/10/19 20:45 RDW Std Deviation 52.1 fL (36.4-46.3) H 11/10/19 20:45 RDW Coeff of Khalida 14.5 % (11.5-14.5) 11/10/19 20:45 Plt Count 210 K/uL (130-400) 11/10/19 20:45 MPV 11.0 fL (7.4-10.4) H 11/10/19 20:45 Immature Gran % (Auto) 0.2 % 11/10/19 20:45 Neut % (Auto) 71.2 % 11/10/19 20:45 Lymph % (Auto) 13.8 % 11/10/19 20:45 [place] % (Auto) 12.1 % 11/10/19 20:45 Eos % (Auto) 2.3 % 11/10/19 20:45 Baso % (Auto) 0.4 % 11/10/19 20:45 Immature Gran # (Auto) 0.02 K/uL (0.00-0.02) 11/10/19 20:45 Neut # (Auto) 5.98 K/uL (1.4-6.5) 11/10/19 20:45 Lymph # (Auto) 1.16 K/uL (1.2-3.4) L 11/10/19 20:45 [place] # (Auto) 1.02 K/uL (0.11-0.59) H 11/10/19 20:45 Eos # (Auto) 0.19 K/uL (0-0.5) 11/10/19 20:45 Baso # (Auto) 0.03 K/uL (0-0.2) 11/10/19 20:45 PT 12.9 Seconds (9.0-12.0) H 11/10/19 20:45 INR 1.2 (0.9-1.1) H 11/10/19 20:45 POC Sodium 143 mmol/L (135-144) 11/10/19 22:14 Sodium 141 mmol/L (136-145) 11/10/19 20:45 POC Potassium 3.4 mmol/L (3.3-5.0) 11/10/19 22:14 Potassium 3.4 mmol/L (3.5-5.1) L 11/10/19 20:45 POC Chloride 101 mmol/L (101-112) 11/10/19 22:14 Chloride 104 mmol/L (98-107) 11/10/19 20:45 Carbon Dioxide 32 mmol/L (21-32) 11/10/19 20:45 POC Total CO2 31 mmol/L (24-31) 11/10/19 22:14 Anion Gap 5.0 (3-11) 11/10/19 20:45 POC Anion Gap 16.0 mmol/L (16-25) 11/10/19 22:14 POC BUN 16 mg/dl (7-18) 11/10/19 22:14 BUN 14 mg/dl (7-18) 11/10/19 20:45 Creatinine 0.92 mg/dl (0.6-1.2) 11/10/19 20:45 POC Creatinine 0.8 mg/dl (0.6-1.3) 11/10/19 22:14 Est Cr Clr Drug Dosing 27.3 ml/min 11/10/19 20:45 Est GFR ( Amer) 67.7 11/10/19 20:45 Est GFR (Non-Af Amer) 58.4 11/10/19 20:45 BUN/Creatinine Ratio 15.3 (10-20) 11/10/19 20:45 Glucose 102 mg/dl (70-99) H 11/10/19 20:45 POC Glucose (other) 97 mg/dl (70-99) 11/10/19 22:14 Calcium 9.5 mg/dl (8.5-10.1) 11/10/19 20:45 POC Ioniz Calcium So 1.18 mmol/l (1.12-1.32) 11/10/19 22:14 Total Bilirubin 0.5 mg/dl (0.2-1) 11/10/19 20:45 AST 33 U/L (15-37) 11/10/19 20:45 ALT 32 U/L (12-78) 11/10/19 20:45 Alkaline Phosphatase 81 U/L (45-117) 11/10/19 20:45 Total Protein 7.7 gm/dl (6.4-8.2) 11/10/19 20:45 Albumin 4.1 gm/dl (3.4-5.0) 11/10/19 20:45 Globulin 3.6 gm/dl (2.5-4.0) 11/10/19 20:45 Albumin/Globulin Ratio 1.1 (0.9-2) 11/10/19 20:45 Lipase 203 U/L (73-393) 11/10/19 20:45 Diagnostic Findings [facility] Patient: ARTURO SALINAS (Female) : 36 Status: ER Date: 11/10/19 22:42 Room #: History: HEMATOCHEZIA Slices: [id number] Priors: Tech: Enzo Izquierdo @ [id number] Exams: CT ABDOMEN & PELVIS With Contrast Contrast: IV Amt: 90 Accession Numbers: [id number] Preliminary Findings Only See Final Report For Complete Findings CT ABDOMEN & PELVIS With Contrast: Comparison: CT abdomen and pelvis 07/17/16. Trace right pleural effusion. Bibasilar atelectasis. Liver, gallbladder, spleen, pancreas, and adrenal glands are unremarkable. No hydronephrosis. Renal cortical scarring. Renal cysts. Nonobstructing 9 mm left kidney lower pole stone. No bowel obstruction. Sigmoid diverticulosis without acute diverticulitis. Fluid levels in the colon suggesting diarrheal disease. Hysterectomy. Normal urinary bladder. No acute osseous findings. Radiologist: Woodrow Murrell M.D. Study ready at 22:51 and initial results transmitted at 23:00 *This report constitutes a preliminary interpretation only. Non-acute findings felt to be unrelated to the clinical presentation may not be discussed in this report. The study will be interpreted and a final report will be generated by the local Radiologist the following shift. To reach the hospital radiology department call [phone]. If a discrepancy is found between the preliminary and final interpretations of this study, please notify us via our Client Portal at [email or web address] under QA Exams.You can also fax this report with a description of the discrepancy, or include the final report, to our daytime fax number [phone].If faxing, please indicate the severity of discrepancy using one of the following categories: [ ] 1 - Agree/Informational [ ] 2 - Unlikely to Affect Management [ ] 3 - Possible Eventual Change of Management [ ] 4 - Probable Immediate Change of Management For all other patient related information, please fax us at [phone]. [id number] Code Status & VTE Plan Code Status Full code VTE Prophylaxis Plan VTE Prophylaxis will be ordered: Yes PG Care Time/CCT Total # of Minutes Spent Total Time Spent with Patient: Total time spent is greater than 50% in coordination of care (as documented) at patient's floor/unit and/or counseling patient: Coding Level of Care Code 26082 Initial Inpt Care Lvl 3 Diagnoses Hematochezia K92.1 On apixaban therapy Z79.01 (HFpEF) heart failure with preserved ejection fraction I50.30 Presence of permanent cardiac pacemaker Z95.0 Hypertension I10 Atrial fibrillation I48.20 Atrial fibrillation type: unspecified chronic Peripheral vascular disease I73.9 Hyperlipidemia E78.5 Severe protein-energy malnutrition E43 (1) Atrial fibrillation Atrial fibrillation type: unspecified chronic Qualified Code(s): I48.20 - Chronic atrial fibrillation, unspecified
[2019-11-11] MEDS ORDERED: METOPROLOL TARTRATE 1 MG/ML VIAL IV PRN (04:16)
[2019-11-11] MEDS ORDERED: ONDANSETRON INJ 2 MG/ML 2 ML VIAL IV PRN (04:48)
[2019-11-11] MEDS ORDERED: PNEUMOCOCCAL Polysaccharide Vaccine 25mcg/0.5mL vial/Syr IM ONE (05:15)
[2019-11-11] MEDS: FAMOTIDINE 20 MG in SYRINGE 3 ML IV SCH ×2 (05:25→20:23)
[2019-11-11 05:46] LABS: Hematocrit (blood only) 32.1 % (37-47); Hemoglobin 10.5 g/dL (12.0-16.0)
--- NOTE | 2019-11-11 07:57 | CT Scan Report ---
CT OF THE ABDOMEN AND PELVIS WITH CONTRAST CLINICAL HISTORY: hematochezia COMPARISON STUDY: CT of the abdomen and pelvis July 17, 2016. TECHNIQUE: Following IV administration of 89 mL of Optiray-320, axial images of the abdomen and pelvi s were obtained from the lung bases to the proximal femurs. Images were reviewed in the axial, sagitt al, and coronal planes. IV contrast was administered without complication. Automated exposure contro l was utilized for the study. A dose lowering technique was utilized adhering to the principles of A SHAZIA. CT DOSE: 231.69 mGy.cm FINDINGS: Imaged portions of the lower chest demonstrate moderate cardiomegaly. Pacer lead is noted. There are trace bilateral pleural effusions with associated atelectasis. Heterogeneity of the liver p arenchyma could be due to phase of enhancement or right heart dysfunction. The spleen, adrenal glands and pancreas are unremarkable. There is no peripancreatic infiltration. There is no hydronephrosis. Note is made of a 9 mm left renal calculus. No hydronephrosis is present. There are no ureteral calculi. A 2.4 cm lesion within lower pole of the right kidney measures above water attenuation however this probably reflects a cyst. Colonic diverticulosis is noted without evid ence for acute diverticulitis. Colon is mildly fluid-filled. There is no evidence for a bowel obstruc tion. The appendix is not visualized. There is no lymphadenopathy. Trace fluid within the pelvis is n oted. There is extensive plaque of the abdominal aorta and branch vessels. IMPRESSION: 1. Colonic diverticulosis without evidence for acute diverticulitis. Mildly fluid-filled colon. 2. Trace fluid within the pelvis. 3. No bowel obstruction. 4. Heterogeneity of the liver parenchyma which may be due to right heart dysfunction or phase of enha ncement. 5. 9 mm left renal calculus. ACT 112: Negative or not required by law. Electronically signed by: Rikki Mcpherson M.D. 11/11/2019 7:56 AM
--- NOTE | 2019-11-11 09:26 | Gastrointestinal Consultation ---
Date of Consultation November 11, 2019 Assessment & Plan (1) Acute blood loss anemia: (2) Hematochezia: Diff dx: PUD vs AVM vs diverticular vs malignancy (no discrete mass seen on CT) vs hemorrhoids vs other. 1. Clear liquid diet today. 2. GoLytely bowel preparation this evening. 3. NPO x prep after midnight. 4. EGD and colonoscopy by Dr. Ramirez tomorrow for further evaluation. 5. Continue supportive care. Agree with holding Apixaban for now. 6. Additional recommendations will be made pending results of testing. Thank you for allowing us to participate in the care of this pleasant patient. If you have any questions or concerns, please do not hesitate to contact us. Supervising Physician Co-Signing Physician Notes I personally evaluated the patient and agree with the findings as documented by HEIDE Duncan Exam: abd: soft, nt, nd possible diverticulosis vs. AVM vs. PUD vs. less likely malignancy given the acute blood loss. EGD and colonoscopy to evaluate tomorrow. History of Present Illness Reason for Consultation: GIB Requesting Physician: Dr. Scott Attending Physician: Jae Roldan DO History of Present Illness Patient is a 79 y.o. female with a history of A fib on apixaban, HTN, pulmonary hypertension, PVD, mitral valve insufficiency, and HLD status post cardiac pacemaker placement admitted last evening after presenting with painless rectal bleeding. The patient states she has been having ongoing bright red rectal bleeding with passage of soft stools. No abdominal pain, n/v, chest pain, syncope, dizziness or SOB. H&H on arrival was noted to be 13.0 and 42.1 with a noted drop to 1.5/32.[address] a/p with IV enhancement did not demonstrate any discrete colonic mass. +Diverticulosis without diverticulitis. Apixiban has been held and she remains NPO at this time. Allergies Allergy/AdvReac Type Severity Reaction Status Date / Time HOLDEN Inhibitors AdvReac Mild COUGH Verified 11/10/19 21:52 Home Medications Home Medications Medication Instructions Recorded Confirmed Type metoprolol succinate 200 mg PO DAILY 07/14/18 11/10/19 History ramipril 10 mg PO DAILY 07/14/18 11/10/19 History simvastatin 40 mg tablet 40 mg PO DAILY tab 11/06/18 11/10/19 History amlodipine 5 mg tablet 5 mg PO DAILY #90 tab 01/20/19 11/10/19 Rx furosemide 20 mg tablet 20 mg PO DAILY #90 tab 05/28/19 11/10/19 Rx digoxin 125 mcg (0.125 mg) tablet 125 mcg PO 3XWK #60 tab 07/08/19 11/10/19 Rx sertraline 100 mg tablet 100 mg PO DAILY #90 tab 09/10/19 11/10/19 Rx apixaban 2.5 mg tablet 2.5 mg PO BID #60 tab 09/28/19 11/10/19 Rx Patient History Medical History (HFpEF) heart failure with preserved ejection fraction (Acute) Anticoagulant long-term use (Acute) Atrial fibrillation (Acute) Benign hypertension (10/03/12) Chronic hoarseness Dyshidrotic eczema Gait disturbance (Acute) Hyperlipidemia (Acute 10/03/12) Hypertension (Acute) Insomnia (Acute) Low BMI (Acute) Mitral valve insufficiency, acquired (Acute) Osteoarthritis of knee (Acute) Peripheral vascular disease (Acute) Pleural effusion (Inactive) Poor balance Postoperative bleeding from incision (Resolved) Pulmonary hypertension (Acute) Right asymmetrical SNHL Severe protein-energy malnutrition (Acute) Vitamin B12 deficiency (Acute) Surgical History History of appendectomy History of cataract surgery 2009 History of corneal transplant History of exploratory thoracotomy History of hysterectomy age 36 History of knee surgery ACL repair History of lung surgery insertion of tunnel pleural catheter with cuff left History of tonsillectomy Status post placement of cardiac pacemaker Family History Family/Other No problems noted. 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 Feels Safe at Home: Yes Smoking Status: Former smoker Second Hand Exposure: Yes ; Hx Alcohol Use: No Hx Substance Use: No caffeine: Yes Dental Care, Regularly: Yes Physical Activity Frequency: 3-4 Times per Week Review of Systems Constitutional: no fever, no chills and no fatigue Eyes: no problem reported Ear, Nose, Mouth, Throat: no dysphagia and no pain with swallowing Respiratory: no cough and no dyspnea Cardiovascular: no chest pain and no palpitations Gastrointestinal: as per Subjective / HPI Genitourinary: no problem reported Musculoskeletal: no joint pain and no swelling Integumentary: no rash and no lesions Neurologic: as per Subjective / HPI Psychiatric: no problem reported Endocrine: no problem reported Hematologic / Lymphatic: no easy bleeding and no easy bruising Physical Exam Constitutional: WD/WN, vitals as above Eyes: EOM intact bilaterally Neck: normal appearance Respiratory: normal respiratory effort, lungs clear to auscultation Cardiovascular: Rate/Rhythm: regular rate and regular rhythm Heart Sounds: + murmur Gastrointestinal (Abdomen): normal bowel sounds, soft, nontender, no hepatosplenomegaly Inspection/Auscultation: abdomen not distended Musculoskeletal: Extremities: no cyanosis no lower extremity edema Skin: no rashes, warm and dry Neurologic: moves all extremities Psychiatric: A+Ox3, euthymic affect Results & Data ([facility]) Vital Signs (Past 12 Hours) Vital Signs Temp Pulse Pulse Resp BP BP Pulse Ox 11/11/19 07:42 36.5 C 71 16 149/62 H 98 11/11/19 07:25 70 11/11/19 04:52 36.6 C 72 16 106/72 99 11/11/19 04:00 72 21 166/71 H 98 11/11/19 03:30 70 17 129/75 97 11/11/19 03:00 66 18 153/77 H 94 11/11/19 02:30 65 18 134/60 96 11/11/19 02:00 67 19 148/61 H 96 11/11/19 01:30 66 20 154/66 H 98 11/11/19 00:30 66 19 151/65 H 98 11/11/19 00:00 75 21 164/78 H 99 11/10/19 23:37 83 22 179/83 H 97 11/10/19 22:07 70 20 170/74 H 97 11/10/19 22:02 97 PG Care Time/CCT Total # of Minutes Spent Total Time Spent with Patient: Total time spent is greater than 50% in coordination of care (as documented) at patient's floor/unit and/or counseling patient: Coding Level of Care Code 74269 Initial Inpt Care Lvl 3 Diagnoses Acute blood loss anemia D62 Hematochezia K92.1
[2019-11-11 11:06] LABS: Hematocrit (blood only) 31.7 % (37-47); Hemoglobin 10.2 g/dL (12.0-16.0)
--- NOTE | 2019-11-11 11:16 | Hospitalist Progress Note ---
Date of Service November 11, 2019 Assessment & Plan Admission and Anticipated Discharge Date Admission Date: November 11, 2019 79 year old female w/ pMHx. of atrial fibrillation on Eliquis (stopped), pHTN, PVD, HLD, s/p pacemaker presenting with BRBPR Hematochezia - consulted GI and differential includes PUD vs. AVM vs. Diverticulitis vs. malignancy w/o mass on CT vs. hemorrhoids - clear liquid diet, go lytely prep., NPO after midnight, EGD tomorrow. - NSS + KCl 20 mEq at 80 mils per hour. - H&H every 4 hours - Hold apixaban, and will not reverse at this time unless has additional bleeding. Apixaban therapy - held d/t hematochezia and scope planned for tomorrow heart failure with preserved ejection fraction - HFpEF/cardiac pacemaker/hypertension/atrial fibrillation/peripheral vascular disease- - While n.p.o., hold amlodipine, furosemide, metoprolol succinate and ramipril. - Lopressor 5 mg IV every 4 hours PRN heart rate greater than 110. - Check digoxin level and Rx digoxin IV as appropriate. Hypertension Atrial fibrillation - see above Hyperlipidemia - Hold simvastatin while n.p.o. Peripheral vascular disease Presence of permanent cardiac pacemaker Severe protein-energy malnutrition over the last year - Nutrition counseling - will further investigate if this represents decreased intake DVT: contraindicated, holding Eliquis Code: full Diet: clears today, NPO at midnight for scope tomorrow Supervising Physician Co-Signing Physician Notes I personally examined the patient and verified all campuzano points of history and exam, discussed case, and agree with decision making with Dr De La Cruz. still w some bloody BM. no other new sx. explained plans to the best of my ability and her satisfaction vitals noted nad heent nc at mmm breathing unlabored no accessory muscles good effort skin no rashes no pallor or icterus GI bleed with acute blood loss anemia exacerbated by [facility] use of apixaban -- continue to follow - fortunately hemodynamically stable. holding eliquis. for scopes tomorrow. otherwise as above Subjective Doing, "pretty well" this morning but has been having blood in her bowel movements that she describes the quantity as, "significant". She denies constipation, and states that her bowel movements are fairly soft. She has not had any syncope or presyncope. She mentioned that she has been losing weight over the last year. She has not had a colonoscopy or any fecal testing. Review of Systems Review of Systems: constitutional: denies fever, chills, or fatigue cardiac: denies chest pain or palpitations GI: denies nausea or vomiting pulm.: denies shortness of breath or cough neuro: denies headache : denies increased frequency, urgency or pain Physical Exam Constitutional: + cachectic; no acute distress and + not appropriately hydrated Eyes: PERRL, conjunctivae normal, anicteric sclerae ENMT: Ears: + hearing impairment Mouth: + oral mucosal abnormality (dry) Neck: normal visual inspection Respiratory: normal respiratory effort Cardiovascular: RRR, no murmur, no edema Gastrointestinal (Abdomen): Inspection/Auscultation: normal bowel sounds Percussion/Palpation: abdomen soft; abdomen nontender, no guarding and abdomen not rigid Musculoskeletal: no cyanosis or clubbing, extremities motor strength 5/5 Psychiatric: Orientation: alert and oriented x 3 Results & Data Results & Data ([facility]) Vital Signs (Past 12 Hours) Vital Signs Temp Pulse Pulse Resp BP BP Pulse Ox 11/11/19 07:42 36.5 C 71 16 149/62 H 98 11/11/19 07:25 70 11/11/19 04:52 36.6 C 72 16 106/72 99 11/11/19 04:00 72 21 166/71 H 98 11/11/19 03:30 70 17 129/75 97 11/11/19 03:00 66 18 153/77 H 94 11/11/19 02:30 65 18 134/60 96 11/11/19 02:00 67 19 148/61 H 96 11/11/19 01:30 66 20 154/66 H 98 11/11/19 00:30 66 19 151/65 H 98 11/11/19 00:00 75 21 164/78 H 99 11/10/19 23:37 83 22 179/83 H 97 Resident Activity Tracking Resident Involvement: Resident Care Provided Care Provided: Adult [facility] Medicine
[2019-11-11 17:04] LABS: Hematocrit (blood only) 28.7 % (37-47); Hemoglobin 9.3 g/dL (12.0-16.0)
[2019-11-11] MEDS: LAVAGE SOLUTION 4000ML PO SCH (17:57)
--- NOTE | 2019-11-11 19:14 | Billing Data ---
Date of Service November 11, 2019 Coding Level of Care Code 63080 Subseq Hosp Care Lvl 3
--- NOTE | 2019-11-11 22:38 | Electrocardiogram Report ---
Test Reason : Blood Pressure : / mmHG Vent. Rate : 071 BPM Atrial Rate : 163 BPM P-R Int : 000 ms QRS Dur : 076 ms QT Int : 386 ms P-R-T Axes : 000 097 -85 degrees QTc Int : 419 ms Poor data quality, interpretation may be adversely affected Atrial fibrillation with frequent ventricular-paced complexes Rightward axis Anteroseptal infarct , age undetermined Abnormal ECG When compared with ECG of 14-OCT-2019 19:11, Vent. rate has decreased BY 14 BPM Confirmed by Ky Bosch ([id number]) on 11/11/2019 10:38:47 PM Referred By: REFERRED SELF Confirmed By:Ky Bosch
[2019-11-11 23:04] LABS: Hematocrit (blood only) 27.7 % (37-47); Hemoglobin 9.1 g/dL (12.0-16.0)
[2019-11-12] MEDS: LAVAGE SOLUTION 4000ML PO SCH (01:24)
[2019-11-12 06:19] LABS: Basophils # (auto) 0.03 K/uL (0-0.2); Basophils % (auto) 0.5 %; Eosinophils # (auto) 0.08 K/uL (0-0.5); Eosinophils % (auto) 1.2 %; Hematocrit (blood only) 26.7 % (37-47); Immature Granulocytes # (auto) 0.02 K/uL (0.00-0.02); Immature Granulocytes % (auto) 0.3 %; Lymphocytes # (auto) 0.76 K/uL (1.2-3.4); Lymphocytes % (auto) 11.5 %; Mean Corpuscular Hemoglobin 31.4 pg (25-34); Mean Corpuscular Hgb Conc 33.7 g/dL (32-36); Mean Platelet Volume 9.4 fL (7.4-10.4); Monocytes # (auto) 0.71 K/uL (0.11-0.59); Monocytes % (auto) 10.7 %; Neutrophils # (auto) 5.03 K/uL (1.4-6.5); Neutrophils % (auto) 75.8 %; Platelet Count 130 K/uL (130-400); RDW Coefficient of Variation 14.5 % (11.5-14.5); RDW Standard Deviation 49.7 fL (36.4-46.3); Red Blood Count 2.87 M/uL (4.2-5.4); White Blood Count 6.63 K/uL (4.8-10.8)
[2019-11-12 06:29] LABS: INR 1.3 (0.9-1.1); Partial Thromboplastin Ratio 1.1; Partial Thromboplastin Time 30.6 Seconds (21.0-31.0); Prothrombin Time 13.2 Seconds (9.0-12.0)
[2019-11-12 07:00] LABS: Albumin Level 2.9 gm/dl (3.4-5.0); BUN Creatinine Ratio 17.5 (10-20); Calcium 8.3 mg/dl (8.5-10.1); Creatinine Clr Calc Pharmacy 37.4 ml/min; Est GFR (African American) 95.1; Magnesium 1.8 mg/dl (1.8-2.4); Phosphorus 2.8 mg/dl (2.5-4.9); Potassium 2.8 mmol/L (3.5-5.1)
--- NOTE | 2019-11-12 08:32 | History & Physical Bridge Note ---
Date of Service November 12, 2019 History & Physical Bridge Note I have examined the patient, reviewed the History & Physical and in the interval since the performance of the History & Physical I have noted the following changes of clinical significance: no changes noted Patient noted to have worsening anemia and hematochezia, painless rectal bleeding. Hgb is 9 this morning, was 13 prior to admission. She is currently confused and there are no family members nor POA available to consent for her. Given that these are medical emergencies, we are doing a physician to physician consent as these procedures are medically necessary. proceed with colonoscopy. Proceed with EGD. risks/benefits and procedure discussed with patient, who agrees to proceed Esteban Ramirez MD Gastroenterology
--- NOTE | 2019-11-12 08:34 | Anesthesiology Consultation ---
Date of Service November 12, 2019 Assessment & Plan Chart Review Chart Review: Acceptable Risk for Surgery and Patient NOT seen in Pre Admission Testing Consults Requested none ASA [id number] Proposed Anesthesia Anesthesia Type: MAC Risk / Benefits Reviewed With: PT / POA / Parent / Guardian, Accepts Plan and Informed Consent Obtained Additional Comments: serum K+ is 2.8 and we shall administer potassium 20 meq x 1 hour and recheck prior to procedure. As per my discussion w/ Dr Ramirez, pt has progessively become mor anemic,symptomatically, and it is felt that this is an emergency, hence, a physician to physician consent, as there is no an available legal insurance verification representative for the pt.,who has dementia. History Surgery Operation Date: 11/12/19 15:45 Proposed Procedures p Colonoscopy EGD Dr. Ramirez - Esteban Ramirez MD Height/Weight Height: 5 ft 5 in Weight: 36.5 kg Allergies Allergy/AdvReac Type Severity Reaction Status Date / Time HOLDEN Inhibitors AdvReac Mild COUGH Verified 11/10/19 21:52 Medications Home Medications Medication Instructions Recorded Confirmed Last Taken metoprolol succinate 200 mg PO DAILY 07/14/18 11/10/19 11/10/19 ramipril 10 mg PO DAILY 07/14/18 11/10/19 11/10/19 simvastatin 40 mg tablet 40 mg PO DAILY tab 11/06/18 11/10/19 11/10/19 amlodipine 5 mg tablet 5 mg PO DAILY #90 tab 01/20/19 11/10/19 11/10/19 furosemide 20 mg tablet 20 mg PO DAILY #90 tab 05/28/19 11/10/19 11/10/19 digoxin 125 mcg (0.125 mg) tablet 125 mcg PO 3XWK #60 tab 07/08/19 11/10/19 sertraline 100 mg tablet 100 mg PO DAILY #90 tab 09/10/19 11/10/19 11/10/19 apixaban 2.5 mg tablet 2.5 mg PO BID #60 tab 09/28/19 11/10/19 11/10/19 Active Medications Generic Name Dose Route Start Last Admin Trade Name Freq PRN Reason Stop Dose Admin Famotidine 20 mg/ Syringe 5 mls @ 2.5 mls/min 11/11/19 04:48 11/11/19 20:23 IV 12/11/19 04:47 2.5 mls/min Q12 RAQUEL Administration Ioversol 89 ml 11/10/19 22:28 11/10/19 22:29 Optiray 320 100ml IV 11/14/19 22:27 89 ml ONCE PRN Administration Interaction Checking Polyethylene Glycol/Electrolytes 8 dose 11/11/19 18:00 11/12/19 01:24 Golytely PO 11/12/19 09:00 8 dose BID@0300,1800 RAQUEL Administration NPO Date Last Intake of Fluids: 11/12/19 Time Last Intake of Fluids: 00:01 Date Last Intake of Solids: 11/11/19 Time Last Intake of Solids: 05:00 Past Medical History Medical History (HFpEF) heart failure with preserved ejection fraction (Acute) Anticoagulant long-term use (Acute) Atrial fibrillation (Acute) Benign hypertension (10/03/12) Chronic hoarseness Dyshidrotic eczema Gait disturbance (Acute) Hyperlipidemia (Acute 10/03/12) Hypertension (Acute) Insomnia (Acute) Low BMI (Acute) Mitral valve insufficiency, acquired (Acute) Osteoarthritis of knee (Acute) Peripheral vascular disease (Acute) Pleural effusion (Inactive) Poor balance Postoperative bleeding from incision (Resolved) Pulmonary hypertension (Acute) Right asymmetrical SNHL Severe protein-energy malnutrition (Acute) Vitamin B12 deficiency (Acute) Exercise / Class Metabolic Activity III < 4 Walking/Shop/Light housework Past Family History Family History Family/Other No problems noted. Father Myocardial infarction Other Heart disease Hypertension Nephrolithiasis Past Surgical History Surgical History History of appendectomy History of cataract surgery 2010 History of corneal transplant History of exploratory thoracotomy History of hysterectomy age 36 History of knee surgery ACL repair History of lung surgery insertion of tunnel pleural catheter with cuff left History of tonsillectomy Status post placement of cardiac pacemaker Past Anesthesia History No Hx of Anesthesia Complications and No Family Hx of Anesthesia Complications History of PONV No Hx of PONV and No Hx of Motion Sickness Social History Smoking Status: Former smoker Hx Alcohol Use: No Hx Substance Use: No Physical Exam Vital Signs Last Vital Signs Temp 36.8 C 11/12/19 08:19 Pulse 70 11/12/19 08:19 Resp 18 11/12/19 08:19 BP 177/75 H 11/12/19 08:19 Pulse Ox 93 11/12/19 08:19 Constitutional + cachectic ENMT Mouth: + dental restorations Thyromental Distance: < 3.5 Finger Breadths Mallampati Class: II Neck normal visual inspection and trachea midline; neck extension not limited Respiratory normal respiratory effort Auscultation: + diminished lung sounds Cardiovascular Rate/Rhythm: regular rate and regular rhythm Heart Sounds: no murmur Vessels: no carotid bruit Chest (Breasts) Chest: + pacemaker (left subclavian) Musculoskeletal Spine: normal cervical ROM Extremities: extremities normal to inspection Neurologic moves all extremities Motor/Sensory: no sensory deficit Psychiatric Orientation: + not alert and + not oriented x 3 dementia Testing Laboratory Results 11/12/19 06:07 11/12/19 06:07 PT 13.2 Seconds (9.0-12.0) H 11/12/19 06:07 INR 1.3 (0.9-1.1) H 11/12/19 06:07 APTT 30.6 Seconds (21.0-31.0) 11/12/19 06:07 Blood Type O Positive 11/11/19 10:50 Antibody Screen NEGATIVE 11/11/19 10:50 Electrocardiogram Date: 11/10/19 Findings: + AFIB @ (at 71;w/v paced complexes;? anteroseptal VT;ST and T wave abnl) Chest X-Ray Date: 10/14/19 Findings: + NAD, + pleural effusion (bilat. l> r) and + other (emphysema;left subclav. dual chamber pacer)
[2019-11-12] MEDS ORDERED: POTASSIUM CHLORIDE 20 MEQ TABCR PO STA (08:40)
[2019-11-12] MEDS: POTASSIUM CHLORIDE / WTR 10 MEQ/100 ML PLCT IV SCH ×2 (09:00→12:39)
[2019-11-12] MEDS ORDERED: POTASSIUM CHLORIDE / WTR 10 MEQ/100 ML PLCT IV SCH ×2 (09:00→11:15)
--- NOTE | 2019-11-12 10:38 | Communication Note ---
Date of Service: November 12, 2019 serum K+ repeat after 10 MeQ is 3.0, and this is satisfactory for proceeding with procedure. pt has not been tested for covid. protocol will be used.
[2019-11-12 10:44] LABS: iSTAT Creatinine 0.7 mg/dl (0.6-1.3); iSTAT Hemoglobin 9.5 g/dl (12.0-16.0); iSTAT Ionized Calcium 1.26 mmol/l (1.12-1.32)
[2019-11-12] MEDS ORDERED: ATROPINE SULFATE 0.1 MG/ML 10ML SYR IV PRN (11:00)
[2019-11-12] MEDS ORDERED: ePHEDrine sulfate 50 MG/ML AMP IV PRN (11:00)
[2019-11-12] MEDS ORDERED: LIDOCAINE HCL 2% 2 ML VIAL/AMP(20MG/ML) INFIL ONE (11:33)
[2019-11-12] MEDS ORDERED: PROPOFOL IV EMULSION 10 MG/ML 20 ML VIAL IV ONE (11:33)
--- NOTE | 2019-11-12 11:56 | Anesthesiology Progress Note ---
Date of Service November 12, 2019 Anesthesia Post Procedure Vital Signs Vital Signs: Temp Pulse Pulse Resp BP Pulse Ox 11/12/19 11:47 75 16 156/58 H 98 11/12/19 11:32 77 16 139/62 99 11/12/19 08:19 36.8 C 70 18 177/75 H 93 11/12/19 06:57 36.9 C 82 16 159/71 H 97 11/12/19 04:00 36.6 C 80 16 136/56 L 95 11/12/19 01:23 36.9 C 77 16 145/71 H 95 11/11/19 19:34 36.5 C 76 20 110/55 L 96 11/11/19 17:30 88 11/11/19 15:12 36.4 C L 65 18 136/50 L 98 Transfer of Care Handoff Completed per policy Notes Mental Status: alert / awake / arousable Patient Amnestic to Procedure: Yes Nausea / Vomiting: adequately controlled Pain: adequately controlled Airway Patency, RR, SpO2: stable & adequate BP & HR: stable & adequate Hydration State: stable & adequate Anesthetic Complications: no major complications apparent
--- NOTE | 2019-11-12 12:25 | GI REPORT ---
Patient Name: Shaista Diaz Procedure Date: 11/12/2019 10:43 AM Date of : 1940 Admit Type: Inpatient Age: 79 Gender: Female Attending MD: Esteban Ramirez MD Procedure: Upper GI endoscopy Providers: Esteban Ramirez MD Referring MD: Jae Roldan Indications: Hematochezia Medicines: Monitored Anesthesia Care Complications: No immediate complications. Estimated blood loss: None. Estimated Blood Loss: Estimated blood loss: none. Procedure: Pre-Anesthesia Assessment: - ASA Grade Assessment: III - A patient with severe systemic disease. After obtaining informed consent, the endoscope was passed under direct vision. Throughout the procedure, the patient's blood pressure, pulse, and oxygen saturations were monitored continuously. The Endoscope was introduced through the mouth, and advanced to the second part of duodenum. The upper GI endoscopy was accomplished without difficulty. The patient tolerated the procedure well. Findings: The examined esophagus was normal. A small hiatal hernia was present. The entire examined stomach was normal. The duodenal bulb and second portion of the duodenum were normal. Impression: - Normal esophagus. - Small hiatal hernia. - Normal stomach. - Normal duodenal bulb and second portion of the duodenum. - No specimens collected. Recommendation: - Return patient to [facility] for [facility] care. - Resume previous diet today. Avoid NSAIDS strictly Esteban Ramirez MD 11/12/2019 12:25:11 PM This report has been signed electronically. Note Initiated On: 11/12/2019 10:43 AM Number of Addenda: 0 I attest to the content of the Intraoperative Record and orders documented therein, exceptions below {[id number]}
--- NOTE | 2019-11-12 12:28 | GI REPORT ---
Patient Name: Shaista Diaz Procedure Date: 11/12/2019 10:42 AM Date of : 1940 Admit Type: Inpatient Age: 79 Gender: Female Attending MD: Esteban Ramirez MD Procedure: Colonoscopy Providers: Esteban Ramirez MD Referring MD: Jae Roldan Indications: Hematochezia Medicines: Monitored Anesthesia Care Complications: No immediate complications. Estimated blood loss: None. Estimated Blood Loss: Estimated blood loss: none. Procedure: Pre-Anesthesia Assessment: - Prior Anticoagulants: The patient has taken no previous anticoagulant or antiplatelet agents. - ASA Grade Assessment: III - A patient with severe systemic disease. After I obtained informed consent, the scope was passed under direct vision. Throughout the procedure, the patient's blood pressure, pulse, and oxygen saturations were monitored continuously. The Colonoscope was introduced through the anus and advanced to the cecum, identified by appendiceal orifice and ileocecal valve. The colonoscopy was performed without difficulty. The patient tolerated the procedure well. The quality of the bowel preparation was fair. Findings: A 5 mm polyp was found in the ascending colon. The polyp was sessile. The polyp was removed with a cold snare. Resection and retrieval were complete. To prevent bleeding after the polypectomy, one hemostatic clip was successfully placed. There was no bleeding at the end of the procedure. Estimated blood loss: none. Many small and large-mouthed diverticula were found in the sigmoid colon, descending colon, transverse colon and ascending colon. Estimated blood loss: none. No active bleeding noted throughout the entire colon. Old blood was noted in the colon. Impression: - Preparation of the colon was fair. - One 5 mm polyp in the ascending colon, removed with a cold snare. Resected and retrieved. Clip was placed. - Diverticulosis in the sigmoid colon, in the descending colon, in the transverse colon and in the ascending colon. Recommendation: - Resume previous diet today. - Return patient to [facility] for ongoing care. - Await pathology results. - Avoid NSAIDS strictly as this can cause recurrent diverticular bleeding Esteban Ramirez MD 11/12/2019 12:28:13 PM This report has been signed electronically. Note Initiated On: 11/12/2019 10:42 AM Number of Addenda: 0 I attest to the content of the Intraoperative Record and orders documented therein, exceptions below {[id number]}
[2019-11-12] MEDS: FAMOTIDINE 20 MG in SYRINGE 3 ML IV SCH (12:31)
[2019-11-12 13:10] LABS: BUN Creatinine Ratio 15.2 (10-20); Calcium 8.7 mg/dl (8.5-10.1); Est GFR (Non-African American) 84.6; Potassium 3.5 mmol/L (3.5-5.1)
--- NOTE | 2019-11-12 19:25 | Discharge Summary ---
Date of Service November 12, 2019 Admission HPI Per Admitting Provider The patient is an 79-year-old female with a past medical history including cardiac pacemaker, B12 deficiency, severe protein energy malnutrition, pulmonary hypertension, peripheral vascular disease, mitral valve insufficiency, hypertension, hyperlipidemia, atrial fibrillation, HFpEF and long-term anticoagulant use presently on apixaban. The patient presents to the emergency department with acute onset of bright red blood per rectum when she had a bowel movement earlier in the day prior to arrival. She denies any previous occurrence of bleeding. She has no abdominal pain or rectal pain. She has not had any recent travels or sick exposures. She does not feel lightheaded, dizzy or have any presyncopal symptoms. 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) acute blood loss anemia polyp Discharge Exam vitals noted nad heent nc at mmm breathing unlabored steady on feet slow but steady gait cn 2-12 grossly intact gross motor and sensory intact no pallor Discharge Data Allergies Allergy/AdvReac Type Severity Reaction Status Date / Time HOLDEN Inhibitors AdvReac Mild COUGH Verified 11/10/19 21:52 Consultations 11/10/19 23:35 ED Decision to Admit Stat 11/11/19 04:48 Consult Case Management - Discharge Planning Routine Consult Gastroenterology Routine Procedures Performed Operation Date: 11/12/19 15:45 Actual Procedures p Esophagogastroduodenoscopy - Esteban Ramirez MD s EGD Polypectomy - Esteban Ramirez MD s EGD Hemostasis - Esteban Ramirez MD Ordered Studies 11/10/19 21:50 CT abd pelvis IV con only Urgent Hospital Course (1) Hematochezia: with hindsight most likely diverticular bleed accentuated by anticoagulation w apixaban had acute blood loss anemia but fortunately never hemodynamic instability/never needed transfusion bleeding stopped, Hgb stable, no active bleeding on scope --> stable for home hold apixaban for 2wks, then resume w close f/u and f/u Hgb EGD: Findings: The examined esophagus was normal. A small hiatal hernia was present. The entire examined stomach was normal. The duodenal bulb and second portion of the duodenum were normal. Impression: - Normal esophagus. - Small hiatal hernia. - Normal stomach. - Normal duodenal bulb and second portion of the duodenum. - No specimens collected. Recommendation: - Return patient to [facility] for [facility] care. - Resume previous diet today. Avoid NSAIDS strictly Combs: Findings: A 5 mm polyp was found in the ascending colon. The polyp was sessile. The polyp was removed with a cold snare. Resection and retrieval were complete. To prevent bleeding after the polypectomy, one hemostatic clip was successfully placed. There was no bleeding at the end of the procedure. Estimated blood loss: none. Many small and large-mouthed diverticula were found in the sigmoid colon, descending colon, transverse colon and ascending colon. Estimated blood loss: none. No active bleeding noted throughout the entire colon. Old blood was noted in the colon. Impression: - Preparation of the colon was fair. - One 5 mm polyp in the ascending colon, removed with a cold snare. Resected and retrieved. Clip was placed. - Diverticulosis in the sigmoid colon, in the descending colon, in the transverse colon and in the ascending colon. Recommendation: - Resume previous diet today. - Return patient to [facility] for ongoing care. - Await pathology results. 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 (3) (HFpEF) heart failure with preserved ejection fraction: compensated through her stay (4) Presence of permanent cardiac pacemaker: (5) Hypertension: home on home meds (6) Atrial fibrillation: See above (7) Peripheral vascular disease: home on home meds (8) Hyperlipidemia: home meds (9) Severe protein-energy malnutrition: Noted in the past, Nutrition counseling/outpatient follow up Total Time Total Time Spent Total Time Spent (In Minutes): >30 Discharge Plan Discharge Items Patient Disposition: Home - Self-Care Reason For Visit: GI BLEED, DIARRHEAL ILLNESS Discharge Diagnosis: GI bleed resolved Activity: Per Instructions section Non-emergency contact: Primary Care Provider Call non-emergency contact if: your symptoms worsen Follow-up/Referrals: Francesco Leon MD [Primary Care Provider] - Diet: Regular Addtl Attending Provider Instructions: Blood in your stool You came to the hospital for blood in your bowel movement. We looked at your labs to see that you had lost a concerning amount of blood. You were seen by the Gastroenterologists and they did a scope of your upper and lower GI tract. They did not see any active bleeding on the scope and your labs showed that your bleeding had stopped. We will want to have you get labs to make sure that you don't continue to lose blood. Weight loss You have been losing weight over the last several years. You explained that you have lost interest in eating. Your weight loss is concerning for us and we would like to have you follow up with your primary doctor to ensure that you don't loose more weight and hopefully gain some weight. Blood thinners You were on Eliquis prior to coming into the hospital. We stopped your Eliquis since you were bleeding. We will want you to stop taking Eliquis for the next 2 weeks. After two weeks you can start this medication again. In that respect, presumptively we'll be looking to have you restart the eliquis on about 11/26/19. Around the time you start it we'll want you to touch base with Dr Leon to make sure you haven't developed any new symptoms that would have him instruct you to hold it further. Also, between when you restart it on 11/25 and around December 04 (so about a week, it's just that the fourth is easier to remember!) watch your stools to see if there's any blood in them, and then after you've been back on the eliquis for about a week we'll ask that dr leon have some bloodwork drawn to make sure your counts are stable. Red flags When you go home we will want you to call or come in if you have blood in your bowel movements again. Pending Studies at Discharge: Yes Studies:: pathology specimen from colonoscopy Stand-Alone Forms: [facility], Smoking Cessation Medications and DC Order Prescriptions: Continued amlodipine 5 mg tablet 5 mg PO DAILY Qty: 90 RF: 3 furosemide [Lasix] 20 mg tablet 20 mg PO DAILY Qty: 90 RF: 3 digoxin 125 mcg (0.125 mg) tablet 125 mcg PO 3XWK Qty: 60 RF: 3 sertraline 100 mg tablet 100 mg PO DAILY Qty: 90 RF: 3 simvastatin 40 mg tablet 40 mg PO DAILY RF: 0 metoprolol succinate 200 mg Tablet Extended Release 24 Hr 200 mg PO DAILY RF: 0 ramipril 10 mg Capsule 10 mg PO DAILY RF: 0 Discontinued Eliquis 2.5 mg tablet 2.5 mg PO BID Qty: 60 RF: 3 Discharge Orders: Discharge Order (Routine); Ordered 11/12/19 Ordered By: Jae Valdez/Other Patient Handouts: Diverticulosis Diverticulitis Admission Data Admit Date/Time: 11/11/19 02:55 Attending Provider: Jae Roldan Admit Provider: Malachi Scott Primary Care Provider: Francesco Leon Other Providers: Malachi Scott ; Cali Pickett Other Interventions: Discharge Summary Assessment (RN) Last Done: 11/12/19 16:43 DC Date/Time DO NOT enter until pt leaves facility: 11/12/19 17:25 Coding Level of Care Code D/C Day Management >30 mins Diagnoses Hematochezia K92.1 On apixaban therapy Z79.01 (HFpEF) heart failure with preserved ejection fraction I50.30 Presence of permanent cardiac pacemaker Z95.0 Hypertension I10 Atrial fibrillation I48.20 Atrial fibrillation type: unspecified chronic Peripheral vascular disease I73.9 Hyperlipidemia E78.5 Severe protein-energy malnutrition E43
== END 2019-11-12 17:25 | disposition home or self-care (01) | DRG 377 ==
LOC: ED 20:21 → 2S 11-11 02:55 → SUATTDRO 11-11 02:55 → 2S 11-11 04:13

== ENCOUNTER 2020-06-26 14:56 | Inpatient (IN) ==
--- NOTE | 2020-06-26 15:43 | Emergency Department Note ---
History of Present Illness General Chief complaint: Fall Time Seen by Provider: 06/26/20 15:16 Source: patient Mode of arrival: EMS Limitations: altered mental status History of Present Illness Provider complaint: dizzy, fall Onset (ago): hour(s) Location: chest Radiation: non-radiation Severity: moderate Pain Consistency: + constant Maximum Pain Intensity: 5 Current Pain Intensity: 5 Quality: + constant Relieved By: + none Exacerbated By: + movement Associated symptoms: + malaise; no chest pain and no shortness of breath Treatments prior to arrival: none This is an 80-year-old female who presents to the emergency room via EMS after a fall in a grocery store. Patient reports she was shopping, began to feel dizzy and off balance, and fell to the ground. Patient states she felt dizzy and slightly confused yesterday as well as this morning. Patient is a poor historian and continues to mention wanting to ask her roommate about details. Patient cannot recall all of her medications. Patient denies any recent illness, or other recent falls. Patient denies any recent illness. Patient denies any current chest pain or shortness of breath, states she has pain along her right flank over her ribs and her right shoulder. Patient denies head trauma or loss of consciousness in the fall today. Patient denies any current nausea or vomiting. Patient states she does have pain over hips but that is chronic. Patient also complains of neck pain but denies back pain. Pt seen during a time of high acuity and national emergency pandemic while wearing PPE. Home Medications Medication Instructions Recorded Confirmed Type digoxin 125 mcg (0.125 mg) tablet 125 mcg PO 3XWK #60 tab 07/08/19 06/26/20 Rx sertraline 100 mg tablet 100 mg PO DAILY #90 tab 09/10/19 06/26/20 Rx atorvastatin 40 mg tablet 40 mg PO DAILY 11/13/19 06/26/20 History apixaban 2.5 mg tablet 2.5 mg PO BID #60 tab 03/01/20 06/26/20 Rx metoprolol succinate 200 mg 200 mg PO DAILY #30 tab 05/09/20 06/26/20 Rx tablet,extended release 24 hr ramipril 10 mg capsule 10 mg PO DAILY #30 cap 05/17/20 06/26/20 Rx furosemide 20 mg PO DIRECTED 06/26/20 06/26/20 History Allergies Allergy/AdvReac Type Severity Reaction Status Date / Time HOLDEN Inhibitors AdvReac Mild COUGH Verified 05/13/20 14:20 Past Med/Surg History Medical History (Updated 06/28/20 @ 23:11 by Kendra Hearn DO) (HFpEF) heart failure with preserved ejection fraction Anticoagulant long-term use Atrial fibrillation Benign hypertension (10/03/12) Chronic hoarseness Dyshidrotic eczema Gait disturbance Hyperlipidemia (10/03/12) Hypertension Insomnia Low BMI Mitral valve insufficiency, acquired Osteoarthritis of knee Palliative care encounter Peripheral vascular disease Pleural effusion Poor balance Postoperative bleeding from incision Pulmonary hypertension Right asymmetrical SNHL Severe protein-energy malnutrition Vitamin B12 deficiency Surgical History History of appendectomy History of cataract surgery 2009 History of corneal transplant History of exploratory thoracotomy History of hysterectomy age 36 History of knee surgery ACL repair History of lung surgery insertion of tunnel pleural catheter with cuff left History of tonsillectomy Status post placement of cardiac pacemaker Family History Family/Other No problems noted. Father Myocardial infarction Other Heart disease Hypertension Nephrolithiasis Denies family history of Ovarian cancer Prostate cancer Breast cancer Colorectal cancer Social History Smoking Status: Never smoker Age Started Using Tobacco: 17; Number of Years Since Quit: 25; Second Hand Exposure: Yes; Hx Alcohol Use: Yes Alcohol type: beer Alcohol Intake Frequency: 2-3 x/Week Hx Substance Use: No Preferred Language: Trinidadian Communication Ability: Effective Visual Impairment: Limited Hearing Ability: Hard of Hearing Black Top Raker Required: No Beliefs That Will Affect Care: None marital status: Single Current Living Situation: Other Current Living Situation Comment: friend current occupational status: retired 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 Unobtainable due to cognitive status Physical Exam Vital Signs Vital Signs - 24 hr 06/26/20 15:10 06/26/20 15:30 06/26/20 16:00 Temperature 36.6 C Temperature Source Oral Pulse Rate 65 66 65 Pulse Rate [Apical] 65 Pulse Rate from SpO2 Sensor 66 65 Respiratory Rate 16 19 20 Blood Pressure 223/109 H 216/100 H 203/99 H Blood Pressure [Right Arm] 200/99 H Blood Pressure Mean 147 138 133 Blood Pressure Mean [Right Arm] 132 Blood Pressure Position [Right Arm] Lying Pulse Oximetry 100 98 99 Oxygen Delivery Method Room Air Room Air Sepsis Recent Fever Within 48 Hours No Sepsis New/Unexplained Change in Mental Status N/A Sepsis Action Taken by Nursing No Action Required 06/26/20 16:30 06/26/20 18:32 06/26/20 19:00 Temperature Temperature Source Pulse Rate 67 67 Pulse Rate [Apical] 66 Pulse Rate from SpO2 Sensor 65 66 Respiratory Rate 19 22 22 Blood Pressure 184/90 H 200/98 H Blood Pressure [Right Arm] 209/92 H Blood Pressure Mean 121 132 Blood Pressure Mean [Right Arm] 131 Blood Pressure Position [Right Arm] Lying Pulse Oximetry 85 L 100 99 Oxygen Delivery Method Room Air Sepsis Recent Fever Within 48 Hours Sepsis New/Unexplained Change in Mental Status Sepsis Action Taken by Nursing 06/26/20 21:00 Temperature Temperature Source Pulse Rate Pulse Rate [Apical] 68 Pulse Rate from SpO2 Sensor Respiratory Rate 18 Blood Pressure Blood Pressure [Right Arm] 193/89 H Blood Pressure Mean Blood Pressure Mean [Right Arm] 123 Blood Pressure Position [Right Arm] Pulse Oximetry 95 Oxygen Delivery Method Sepsis Recent Fever Within 48 Hours Sepsis New/Unexplained Change in Mental Status Sepsis Action Taken by Nursing GENERAL: alert, cachectic, ill-appearing, no distress, non-toxic HEAD: nc/at, no arguelles sign, no raccoon eyes EYE EXAM: normal conjunctiva, PERRL and EOM's grossly intact OROPHARYNX: no exudate, no erythema, lips, buccal mucosa, and tongue normal and mucous membranes are moist NECK: supple, no nuchal rigidity, no adenopathy, non-tender LUNGS: Clear to auscultation. Normal chest wall mechanics, no w/r/r CHEST WALL: No crepitus, no ecchymosis, no obvious evidence of chest wall trauma, mild discomfort with palpation over the right lateral ribs in the right flank HEART: no murmurs, S1 normal and S2 normal ABDOMEN: abdomen soft, non-tender, normo-active bowel sounds, no masses, no rebound or guarding. BACK: Back is symmetrical on inspection and there is no deformity, no midline tenderness, no CVA tenderness. SKIN: no rashes and no bruising UPPER EXTREMITIES: upper extremities are grossly normal. FROM, nml pulses b/l. No deformities, sensation intact, no evidence of trauma. LOWER EXTREMITIES: No pitting edema. FROM, nml pulses b/l. No deformities, sensation intact, no evidence of trauma. NEURO EXAM: Normal sensorium, cranial nerves II-XII grossly intact, normal speech, no gross weakness of arms, no gross weakness of legs. Gross sensation intact. Course Course 1911: Patient updated on results. 1949: Discussed with patient's roommate and friend, Vannessa. 2019: Pt failed ambulatory trial. I contacted case management about possible placement in inpatient rehab, there are no available beds tonight. 2209: Case discussed with Dr. Scott. He would like an additional CT angiography of the aorta with runoff performed due to the mention of an arterial thrombus in the lower extremity. Patient does not present as though this is acute, she did have distal pulses bilateral lower extremities denied any complaints of acute pain. Leg is not ecchymotic. Likely this is a chronic finding. Pt denies any pain or tingling in the LE. Administered Medications Amlodipine Besylate (Amlodipine Besylate 5 Mg Tab) 5 mg PO QAM [facility] Stop: 07/28/20 09:14 Last Admin: 06/28/20 10:40 Dose: 5 mg Documented by: [id number] Apixaban (Apixaban 2.5 Mg Tab) 2.5 mg PO BID [facility] Stop: 07/27/20 08:59 Last Admin: 06/27/20 08:06 Dose: 2.5 mg Documented by: [id number] Atorvastatin Calcium (Atorvastatin 40 Mg Tab) 40 mg PO DAILY [facility] Stop: 07/27/20 08:59 Last Admin: 06/28/20 10:40 Dose: 40 mg Documented by: [id number] Admin: 06/27/20 08:06 Dose: 40 mg Documented by: [id number] Digoxin (Digoxin 0.125 Mg Tab) 0.125 mg PO [id number] [facility] Stop: 07/27/20 15:59 Last Admin: 06/27/20 16:09 Dose: 0.125 mg Documented by: [id number] Enalapril Maleate (Enalapril Maleate 10 Mg Tab) 40 mg PO DAILY [facility] Stop: 07/27/20 08:59 Last Admin: 06/28/20 10:39 Dose: 40 mg Documented by: [id number] Admin: 06/27/20 08:06 Dose: 40 mg Documented by: [id number] Thiamine HCl 100 mg/ Syringe 10 mls @ 2 mls/min IV QAM [facility] Stop: 07/27/20 18:29 Last Admin: 06/28/20 10:39 Dose: 2 mls/min Documented by: [id number] Admin: 06/27/20 19:47 Dose: 2 mls/min Documented by: [id number] Metoprolol Succinate (Metoprolol Succ 50mg Ext Rel Tab) 200 mg PO DAILY [facility] Stop: 07/27/20 08:59 Last Admin: 06/28/20 10:39 Dose: 200 mg Documented by: [id number] Admin: 06/27/20 08:07 Dose: 200 mg Documented by: [id number] Multivitamins/Minerals (Cerovite Adv Formula Tab) 1 tab PO QAM [facility] Stop: 07/27/20 18:29 Last Admin: 06/28/20 10:40 Dose: 1 tab Documented by: [id number] Admin: 06/27/20 19:48 Dose: 1 tab Documented by: [id number] Sertraline HCl (Sertraline Hcl 100 Mg Tablet) 100 mg PO DAILY [facility] Stop: 07/27/20 08:59 Last Admin: 06/28/20 10:40 Dose: 100 mg Documented by: [id number] Admin: 06/27/20 08:06 Dose: 100 mg Documented by: [id number] Discontinued Medications Amlodipine Besylate (Amlodipine Besylate 5 Mg Tab) 5 mg PO NOW ONE Stop: 06/26/20 20:39 Last Admin: 06/26/20 21:27 Dose: 5 mg Documented by: [id number] Hydralazine HCl (Hydralazine Hcl 20 Mg/Ml Vial) 5 mg IV NOW ONE Stop: 06/26/20 21:59 Last Admin: 06/26/20 22:30 Dose: 5 mg Documented by: [id number] Sodium Chloride (Nss 1000ml) 1,000 mls @ 200 mls/hr IV .Q5H [facility] Stop: 07/26/20 15:44 Last Admin: 06/27/20 01:30 Dose: Not Given Documented by: [id number] Infusion: 06/26/20 21:46 Dose: 0 mls/hr Documented by: [id number] Admin: 06/26/20 16:10 Dose: 200 mls/hr Documented by: [id number] Ioversol (Ioversol 100ml) 93 ml IV ONCE ONE Stop: 06/26/20 17:08 Last Admin: 06/26/20 17:08 Dose: 93 ml Documented by: [id number] Ioversol (Optiray 320 125ml) 125 ml IV ONCE ONE Stop: 06/26/20 23:08 Last Admin: 06/26/20 23:08 Dose: 118 ml Documented by: [id number] Potassium Chloride (Potassium Chloride Pwd 20 Meq Pack) 40 meq PO NOW STA Stop: 06/27/20 01:37 Last Admin: 06/27/20 01:58 Dose: 40 meq Documented by: [id number] Potassium Chloride (Potassium Chloride Crtab 20 Meq Tabcr) 40 meq PO NOW STA Stop: 06/28/20 08:42 Last Admin: 06/28/20 10:40 Dose: 40 meq Documented by: [id number] Potassium Chloride (Potassium Chloride Crtab 20 Meq Tabcr) 20 meq PO NOW STA Stop: 06/28/20 09:54 Last Admin: 06/28/20 10:49 Dose: Not Given Documented by: [id number] Medical Decision Making Differential Diagnosis Differential diagnoses include major intracranial, cervical, spinal, thoracic, abdominal, pelvic and neurologic injury. Fracture, contusion, sprain, strain, laceration, abrasions included as well. Medical Records Attestation: I reviewed the patient's medical records. Home Medications Current Medication List: was personally reviewed by me Laboratory Data Attestation: I reviewed the patient's lab results. Result diagrams: 06/26/20 16:06 06/28/20 06:57 Lab Results 06/26/20 06/26/20 06/26/20 Range/Units 15:55 16:06 16:06 WBC 6.06 (4.8-10.8) K/uL RBC 4.86 (4.2-5.4) M/uL Hgb 12.3 (12.0-16.0) g/dL Hct 41.0 (37-47) % MCV 84.4 (80-100) fL MCH 25.3 (25-34) pg MCHC 30.0 L (32-36) g/dL RDW Std Deviation 60.3 H (36.4-46.3) fL RDW Coeff of Khalida 19.5 H (11.5-14.5) % Plt Count 244 (130-400) K/uL MPV 9.8 (7.4-10.4) fL Immature Gran % (Auto) 0.2 % Neut % (Auto) 74.1 % Lymph % (Auto) 14.7 % [place] % (Auto) 9.2 % Eos % (Auto) 1.5 % Baso % (Auto) 0.3 % Neut # (Auto) 4.49 (1.4-6.5) K/uL Lymph # (Auto) 0.89 L (1.2-3.4) K/uL [place] # (Auto) 0.56 (0.11-0.59) K/uL Eos # (Auto) 0.09 (0-0.5) K/uL Baso # (Auto) 0.02 (0-0.2) K/uL Immature Gran # (Auto) 0.01 (0.00-0.02) K/uL PT 12.3 H (9.0-12.0) Seconds INR 1.2 H (0.9-1.1) Sodium (136-145) mmol/L Potassium (3.5-5.1) mmol/L Chloride (98-107) mmol/L Carbon Dioxide (21-32) mmol/L Anion Gap (3-11) BUN (7-18) mg/dl Creatinine (0.6-1.2) mg/dl Est Cr Clr Drug Dosing Est GFR ( Amer) Est GFR (Non-Af Amer) BUN/Creatinine Ratio (10-20) Glucose (70-99) mg/dl Calcium (8.5-10.1) mg/dl Magnesium (1.8-2.4) mg/dl Total Bilirubin (0.2-1) mg/dl AST (15-37) U/L ALT (12-78) U/L Alkaline Phosphatase (45-117) U/L Troponin I (0-0.045) ng/ml NT-Pro-B Natriuret Pep (0-1800) pg/ml Total Protein (6.4-8.2) gm/dl Albumin (3.4-5.0) gm/dl Globulin (2.5-4.0) gm/dl Albumin/Globulin Ratio (0.9-2) Lipase (73-393) U/L TSH (0.300-4.500) uIu/ml Urine Color Yellow Urine Appearance Clear (Clear) Urine pH 6.5 (4.5-7.5) Ur Specific [place] 1.011 (1.000-1.030) Urine Protein 1+ H (Negative) Urine Glucose (UA) Negative (Negative) Urine Ketones Negative (Negative) Urine Blood 2+ H (Negative) Urine Nitrite Negative (Negative) Urine Bilirubin Negative (Negative) Urine Urobilinogen Negative (Negative) Ur Leukocyte Esterase Negative (Negative) Urine WBC (Auto) 1-5 (0-5) /hpf Urine RBC (Auto) >30 H (0-4) /hpf U Hyaline Cast (Auto) 1-5 (0-5) /lpf U Epithel Cells (Auto) 10-20 H (0-5) /lpf Urine Bacteria (Auto) Negative (Negative) Urine Yeast Not Reportable COVID-19 Eval Order SARS-CoV-2, RNA, NAAT (NEGATIVE) 06/26/20 06/26/20 06/26/20 Range/Units 16:06 20:38 20:38 WBC (4.8-10.8) K/uL RBC (4.2-5.4) M/uL Hgb (12.0-16.0) g/dL Hct (37-47) % MCV (80-100) fL MCH (25-34) pg MCHC (32-36) g/dL RDW Std Deviation (36.4-46.3) fL RDW Coeff of Khalida (11.5-14.5) % Plt Count (130-400) K/uL MPV (7.4-10.4) fL Immature Gran % (Auto) % Neut % (Auto) % Lymph % (Auto) % [place] % (Auto) % Eos % (Auto) % Baso % (Auto) % Neut # (Auto) (1.4-6.5) K/uL Lymph # (Auto) (1.2-3.4) K/uL [place] # (Auto) (0.11-0.59) K/uL Eos # (Auto) (0-0.5) K/uL Baso # (Auto) (0-0.2) K/uL Immature Gran # (Auto) (0.00-0.02) K/uL PT (9.0-12.0) Seconds INR (0.9-1.1) Sodium 141 (136-145) mmol/L Potassium 3.4 L (3.5-5.1) mmol/L Chloride 103 (98-107) mmol/L Carbon Dioxide 34 H (21-32) mmol/L Anion Gap 4.0 (3-11) BUN 19 H (7-18) mg/dl Creatinine 1.08 (0.6-1.2) mg/dl Est Cr Clr Drug Dosing Not Reportable Est GFR ( Amer) 55.4 Est GFR (Non-Af Amer) 47.8 BUN/Creatinine Ratio 17.5 (10-20) Glucose 94 (70-99) mg/dl Calcium 9.1 (8.5-10.1) mg/dl Magnesium 2.3 (1.8-2.4) mg/dl Total Bilirubin 0.6 (0.2-1) mg/dl AST 30 (15-37) U/L ALT 24 (12-78) U/L Alkaline Phosphatase 62 (45-117) U/L Troponin I 0.017 (0-0.045) ng/ml NT-Pro-B Natriuret Pep 6589 H (0-1800) pg/ml Total Protein 7.9 (6.4-8.2) gm/dl Albumin 4.1 (3.4-5.0) gm/dl Globulin 3.8 (2.5-4.0) gm/dl Albumin/Globulin Ratio 1.1 (0.9-2) Lipase 219 (73-393) U/L TSH 1.680 (0.300-4.500) uIu/ml Urine Color Urine Appearance (Clear) Urine pH (4.5-7.5) Ur Specific [place] (1.000-1.030) Urine Protein (Negative) Urine Glucose (UA) (Negative) Urine Ketones (Negative) Urine Blood (Negative) Urine Nitrite (Negative) Urine Bilirubin (Negative) Urine Urobilinogen (Negative) Ur Leukocyte Esterase (Negative) Urine WBC (Auto) (0-5) /hpf Urine RBC (Auto) (0-4) /hpf U Hyaline Cast (Auto) (0-5) /lpf U Epithel Cells (Auto) (0-5) /lpf Urine Bacteria (Auto) (Negative) Urine Yeast COVID-19 Eval Order Covid19 [facility] SARS-CoV-2, RNA, NAAT NEGATIVE (NEGATIVE) Imaging Data Radiologist's Impression: SINGLE VIEW PELVIS CLINICAL HISTORY: Trauma. Fall. FINDINGS: AP supine view of the pelvis is correlated with pelvic CT dated 11/10/2019. The skeletal structures are osteopenic. There is no radiographic evidence of fracture involving the hips or bony pelvis. Moderate degenerative joint space narrowing is present in both hips. There is degenerative sclerosis of the sacroiliac joints. Enthesophytes arise from the anterior superior iliac spines. The overlying soft tissues are normal as imaged. Lumbosacral spondylosis is partially visualized, as is left-sided nephrolithiasis. A metallic foreign body projects just above the right pelvic brim. IMPRESSION: No fracture is identified. Electronically signed by: Federico Collazo M.D. 06/26/2020 6:04 PM AP CHEST WITH RIGHT-SIDED RIB SERIES CLINICAL HISTORY: Fall. Right-sided chest wall pain. FINDINGS: An AP upright chest radiograph with 4 additional views from a right- sided rib series is compared to study dated 10/14/2019 and correlated with chest CT dated 05/20/2017. A 2-lead cardiac pacemaker is unchanged in position. The h eart is enlarged noting atherosclerotic calcification of the thoracic aorta. The pulmonary vasculature is noncongested. Apical scarring and chronic additional thickening are similar to previous. There is bibasilar scarring/atelectasis. No airspace consolidation is seen typical for pneumonia. Small pleural effusions are noted. No pneumothorax is seen. The skeletal structures are osteopenic. There are several chronic/healed right-sided rib fractures. There are acute appearing posterior right 6th and 7th rib fractures. The remainder of the bony thorax is grossly intact. IMPRESSION: 1. Cardiomegaly and cardiac pacemaker. There is no radiographic evidence of congestive failure. 2. Small pleural effusions. 3. There are acute appearing nondisplaced posterior right 6th and 7th rib fractures. Correlate for point tenderness. ACT 112: Negative or not required by law. Electronically signed by: Federico Collazo M.D. 06/26/2020 6:[address] SCAN OF THE BRAIN WITHOUT IV CONTRAST CLINICAL HISTORY: Trauma. COMPARISON STUDY: No priors. TECHNIQUE: Unenhanced axial CT scan of the brain is performed from the vertex to the skull base. A dose lowering technique was utilized adhering to the principles of ALARA. FINDINGS: Brain parenchyma: There are age-related involutional changes noting advanced confluent subcortical and periventricular microangiopathic change. There is no hemorrhage, mass effect, or evidence of acute territorial ischemia by CT criteria. Marc-white matter differentiation is preserved. No extra-axial fluid collection is seen. Ventricles, sulci, cisterns: Prominent secondary to involutional change. Intracranial vasculature: There is atherosclerotic calcification of the cavernous carotid arteries. Calvarium: The skeletal structures are osteopenic. No depressed calvarial fracture is identified. Sinuses and mastoids: The visualized paranasal sinuses are clear. The mastoid air cells are well pneumatized. Orbits: The bony orbits are grossly intact. There is a left ocular lens implant. IMPRESSION: There is no hemorrhage, mass effect, or evidence of acute territorial ischemia by CT criteria. ACT 112: Negative or not required by law. Electronically signed by: Federico Collazo M.D. 06/26/2020 5:[address] SCAN OF THE CERVICAL SPINE CLINICAL HISTORY: Trauma. COMPARISON STUDY: No priors. TECHNIQUE: CT scan of the cervical spine is performed from the skull base to the upper thoracic spine. Images are reviewed in the axial, sagittal, and coronal planes. IV contrast was not administered for this examination. A dose lowering technique was utilized adhering to the principles of ALARA. CT DOSE: 823.24 mGy.cm FINDINGS: Skeletal structures: The skeletal structures are osteopenic. There is no evidence of fracture or subluxation involving the cervical spine. Vertebral body height is maintained. There is minimal anterolisthesis at C4-C5. Alignment is otherwise preserved. Anterior osteophytes are seen throughout. The odontoid process and lateral masses are intact. The atlantoaxial articulation is preserved noting productive degenerative change. The spinous processes appear intact. There is mild/moderate multilevel cervical spondylosis. Uncovertebral and facet arthropathy contribute to neural foraminal stenosis at several levels. Erosive change is seen in the left facet joints at C2-C3 and C3-C4. Intervertebral discs: There is advanced disc space narrowing seen at C5-C6 and C6-C7. Moderate disc space narrowing is seen at C4-C5. Mild disc space narrowing is noted at the remaining cervical levels. Central canal: Posterior disc osteophyte complexes from C4-C5 through C6-C7 likely contribute to multilevel acquired compromise of the central canal. Soft tissues: The prevertebral and paraspinous soft tissues are within normal li mits. There is atherosclerotic calcification of the carotid bulbs. Calvarium: The visualized calvarium at the skull base appears intact. Brain parenchyma: Partially visualized brain parenchyma at the skull base is within normal limits noting age-related involutional change. Sinuses and mastoids: The visualized paranasal sinuses are clear. The mastoid air cells are well pneumatized. Lung apices: Fibrotic change is noted at the partially imaged lung apices. IMPRESSION: 1. There is no evidence of fracture or subluxation involving the cervical spine. 2. Osteopenia and spondylotic change as above. ACT 112: Negative or not required by law. Electronically signed by: Federico Collazo M.D. 06/26/2020 6:[address] SCAN OF THE ABDOMEN AND PELVIS WITH IV CONTRAST CLINICAL HISTORY: Trauma. Fall. COMPARISON STUDY: Abdominal CT dated 11/10/2019. TECHNIQUE: Following the IV administration of 93 cc of Optiray 320, CT scan of the abdomen and pelvis is performed from the lung bases to the proximal femora. Images are reviewed in the axial, sagittal, and coronal planes. IV contrast was administered without complication. A dose lowering technique was utilized adhering to the principles of ALARA. CT DOSE: 239.36 mGy.cm FINDINGS: Lung bases: The heart is enlarged and without pericardial effusion. Pacemaker leads are noted. Trace pleural effusions and chronic parenchymal scarring is noted at the lung bases Liver: The contrast-enhanced liver is normal in size in contour. The liver is markedly heterogeneous in attenuation and this is similar to previous. There is no intrahepatic biliary ductal dilatation. The hepatic veins and portal veins are patent. Gallbladder: Unremarkable. Spleen: Normal in size and attenuation. Pancreas: Moderately atrophic and grossly unremarkable. Adrenal glands: Unremarkable. Kidneys: The contrast enhanced kidneys are atrophic and without hydronephrosis. Foci of cortical scarring are noted in both kidneys. Bilateral renal cysts measure up to 2.3 cm. The kidneys enhance symmetrically. An 11 mm nonobstructing calculus is seen in the left lower pole. There is high-grade stenosis of the right renal artery seen on image #87. A left renal artery stent is patent. Abdominal vasculature: The abdominal aorta is normal in course and caliber no ting advanced atherosclerotic calcification. There is moderate focal stenosis of the left common iliac artery seen on image #188. 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 There is high-grade stenosis with near complete occlusion at the origin of the left internal iliac artery. There is only trace flow seen within the right superficial femoral artery. Bowel: There is no bowel obstruction. Moderate fecal retention is seen throughout the colon. There is advanced diverticulosis of the colon without CT evidence of acute diverticulitis. A metallic foreign body is seen involving the right colon on image #175. Nonspecific mucosal hyperemia of the right colon is unchanged from previous. The appendix is not visualized. Peritoneum: There is no intraperitoneal free air or abdominal ascites. Lymphadenopathy: None. Pelvic viscera: The bladder is distended but otherwise normal in appearance. The uterus is surgically absent. No adnexal lesion is seen. Findings suggest pelvic floor prolapse. There is a small volume of free fluid in the cul-de-sac. Skeletal structures: The skeletal structures are osteopenic. Moderate lumbosacral spondylosis is noted. No acute fracture is identified. No lytic or blastic lesions are seen. There are numerous healed right-sided rib fractures. IMPRESSION: 1. There is no evidence of solid organ injury in the abdomen or pelvis. 2. No acute fracture is seen. 3. Left-sided nephrolithiasis. 4. Advanced colonic diverticulosis without CT evidence of acute diverticulitis. 5. There is a small volume of nonspecific free fluid in the pelvis. 6. Cardiomegaly and trace pleural effusions. 7. The liver is markedly heterogeneous in attenuation. This is unchanged from 11/10/2019. 8. 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 9. There is only trace flow seen within the right superficial femoral artery. 10. Additional findings as above. ACT 112: Positive. There are findings on this exam that require communication between the performing entity and the patient following Patient Test Result Information Act ([place] Act 112) guidelines. Electronically signed by: Federico Collaoz M.D. 06/26/2020 6:14 PM ECG Data Attestation: I personally reviewed and interpreted this ECG as follows: Rate (beats per minute): 67 Rhythm: + other (Paced) ECG Intervals/blocks: + Normal QRS and + Normal QT ECG [place]: + Right axis deviation ECG ST segments: + Nonspecific ST abnormalities Blood Pressure Blood Pressure Findings: Elevated blood pressure Blood Pressure Disposition: further management by hospitalist MDM Narrative This is an elderly female who presents the emergency department following a fall while getting groceries with her roommate/friend today. Patient is anticoagulated. Patient is a poor historian and there is history in the EMR of prior "cognitive impairment", although no formal diagnosis of dementia is listed. There are no visible evidence of trauma on physical exam, however patient could not describe accurately how she may have fallen. Patient sent for both CT and x-ray imaging. Labs are drawn as a precaution to evaluate for possible additional etiology which could have led to increased weakness or dizziness or even a syncopal event. Imaging did reveal multiple rib fractures on the right flank which was the area patient indicated was painful with movement and palpation. No evidence of pneumothorax, hemothorax, no solid organ injury seen on CT. Hematuria was noted in the patient's UA, I suspect this is likely due to anticoagulation and less likely from acute renal trauma. Patient's other labs were reassuring. Elevated BNP was noted, however I suspect this may be chronic as the patient did not otherwise appear to be in a volume overloaded state such as congestive heart failure, and her renal function was i ntact. I did discuss the events of today as well as the patient's condition with her roommate and friend. There is no other power of attorney lawyer listed for the patient. We did attempt an ambulatory trial which the patient failed. We did evaluate for possible placement in inpatient rehab and there was no availability. In light of this, with the patient's advanced age, fragile state, multiple comorbidities, ambulatory dysfunction I feel she is at high risk for additional injury and fall and thus we did not feel we had a safe discharge plan as her roommate/friend is also of advanced age. Case discussed with hospitalist for additional evaluation and management. An order was placed for continuous cardiac monitoring. The monitor shows a rate of _70_ with _paced_ rhythm. Impression & Plan Acute right flank pain, Anticoagulant long-term use, Gait disturbance, Cognitive impairment, Multiple rib fractures, Fall, Hypertension Discharge Plan Visit Data Chief Complaint: Fall ED Provider: Kendra Hearn Discharge Problem: Acute right flank pain, Anticoagulant long-term use, Gait disturbance, Cognitive impairment, Multiple rib fractures, Fall, Hypertension Patient Disposition: Admitted As Inpatient Discharge Instructions Interventions: ED Discharge Assessment Last Done: 06/27/20 01:08 Discharge Problem: Multiple rib fractures Qualifiers: Encounter type: initial encounter Fracture type: closed Laterality: right Qualified Code(s): S22.41XA - Multiple fractures of ribs, right side, initial encounter for closed fracture Fall Qualifiers: Encounter type: initial encounter Qualified Code(s): W19.XXXA - Unspecified fall, initial encounter Hypertension Qualifiers: Hypertension type: essential hypertension Qualified Code(s): I10 - Essential (primary) hypertension
[2020-06-26] MEDS: SODIUM CHLORIDE 0.9% 1000ML 1,000 ML IV SCH (16:10)
[2020-06-26 16:28] LABS: Basophils # (auto) 0.02 K/uL (0-0.2); Basophils % (auto) 0.3 %; Eosinophils # (auto) 0.09 K/uL (0-0.5); Eosinophils % (auto) 1.5 %; Hemoglobin 12.3 g/dL (12.0-16.0); Immature Granulocytes # (auto) 0.01 K/uL (0.00-0.02); Immature Granulocytes % (auto) 0.2 %; Lymphocytes # (auto) 0.89 K/uL (1.2-3.4); Lymphocytes % (auto) 14.7 %; Mean Corpuscular Hemoglobin 25.3 pg (25-34); Mean Corpuscular Volume 84.4 fL (80-100); Mean Platelet Volume 9.8 fL (7.4-10.4); Monocytes # (auto) 0.56 K/uL (0.11-0.59); Monocytes % (auto) 9.2 %; Neutrophils # (auto) 4.49 K/uL (1.4-6.5); Neutrophils % (auto) 74.1 %; Platelet Count 244 K/uL (130-400); RDW Coefficient of Variation 19.5 % (11.5-14.5); RDW Standard Deviation 60.3 fL (36.4-46.3); Red Blood Count 4.86 M/uL (4.2-5.4); White Blood Count 6.06 K/uL (4.8-10.8)
[2020-06-26 16:30] LABS: Appearance Urine Clear (Clear); Bacteria Urine Automated Negative (Negative); Bilirubin Urine Negative (Negative); Blood Urine 2+ (Negative); Color Urine Yellow; Glucose Urine UA Negative (Negative); Ketones Urine Negative (Negative); Leukocyte Esterase Urine Negative (Negative); Nitrite Urine Negative (Negative); Protein Urine 1+ (Negative); Specific Gravity Urine 1.011 (1.000-1.030); Urobilinogen Urine Negative (Negative); pH Urine 6.5 (4.5-7.5)
[2020-06-26 16:39] LABS: INR 1.2 (0.9-1.1); Prothrombin Time 12.3 Seconds (9.0-12.0)
[2020-06-26 16:46] LABS: RBC Urine Automated >30 /hpf (0-4)
[2020-06-26 16:53] LABS: Alanine Aminotransferase 24 U/L (12-78); Albumin Level 4.1 gm/dl (3.4-5.0); Aspartate Aminotransferase 30 U/L (15-37); BUN Creatinine Ratio 17.5 (10-20); Blood Urea Nitrogen 19 mg/dl (7-18); Calcium 9.1 mg/dl (8.5-10.1); Carbon Dioxide 34 mmol/L (21-32); Chloride 103 mmol/L (98-107); Est GFR (African American) 55.4; Est GFR (Non-African American) 47.8; Glucose 94 mg/dl (70-99); Lipase 219 U/L (73-393); Magnesium 2.3 mg/dl (1.8-2.4); Potassium 3.4 mmol/L (3.5-5.1); Sodium 141 mmol/L (136-145)
[2020-06-26 17:04] LABS: Albumin Globulin Ratio 1.1 (0.9-2); Alkaline Phosphatase 62 U/L (45-117); Bilirubin,Total 0.6 mg/dl (0.2-1); Globulin 3.8 gm/dl (2.5-4.0); NT Pro B Type Natriuretic Pept 6589 pg/ml (0-1800); Total Protein 7.9 gm/dl (6.4-8.2); Troponin I 0.017 ng/ml (0-0.045)
[2020-06-26] MEDS ORDERED: IOVERSOL 100ml IV ONE (17:07)
--- NOTE | 2020-06-26 17:53 | CT Scan Report ---
CT SCAN OF THE BRAIN WITHOUT IV CONTRAST CLINICAL HISTORY: Trauma. COMPARISON STUDY: No priors. TECHNIQUE: Unenhanced axial CT scan of the brain is performed from the vertex to the skull base. A do se lowering technique was utilized adhering to the principles of ALARA. FINDINGS: Brain parenchyma: There are age-related involutional changes noting advanced confluent subcortical a nd periventricular microangiopathic change. There is no hemorrhage, mass effect, or evidence of acute territorial ischemia by CT criteria. Marc-white matter differentiation is preserved. No extra-axial fluid collection is seen. Ventricles, sulci, cisterns: Prominent secondary to involutional change. Intracranial vasculature: There is atherosclerotic calcification of the cavernous carotid arteries. Calvarium: The skeletal structures are osteopenic. No depressed calvarial fracture is identified. Sinuses and mastoids: The visualized paranasal sinuses are clear. The mastoid air cells are well pneu matized. Orbits: The bony orbits are grossly intact. There is a left ocular lens implant. IMPRESSION: There is no hemorrhage, mass effect, or evidence of acute territorial ischemia by CT kim coles. ACT 112: Negative or not required by law. Electronically signed by: Federico Collazo M.D. 06/26/2020 5:51 PM
--- NOTE | 2020-06-26 18:02 | CT Scan Report ---
CT SCAN OF THE CERVICAL SPINE CLINICAL HISTORY: Trauma. COMPARISON STUDY: No priors. TECHNIQUE: CT scan of the cervical spine is performed from the skull base to the upper thoracic spine . Images are reviewed in the axial, sagittal, and coronal planes. IV contrast was not administered fo r this examination. A dose lowering technique was utilized adhering to the principles of ALARA. CT DOSE: 823.24 mGy.cm FINDINGS: Skeletal structures: The skeletal structures are osteopenic. There is no evidence of fracture or subl uxation involving the cervical spine. Vertebral body height is maintained. There is minimal anterolis thesis at C4-C5. Alignment is otherwise preserved. Anterior osteophytes are seen throughout. The odon toid process and lateral masses are intact. The atlantoaxial articulation is preserved noting product iva degenerative change. The spinous processes appear intact. There is mild/moderate multilevel cervi patric spondylosis. Uncovertebral and facet arthropathy contribute to neural foraminal stenosis at sever al levels. Erosive change is seen in the left facet joints at C2-C3 and C3-C4. Intervertebral discs: There is advanced disc space narrowing seen at C5-C6 and C6-C7. Moderate disc s pace narrowing is seen at C4-C5. Mild disc space narrowing is noted at the remaining cervical levels. Central canal: Posterior disc osteophyte complexes from C4-C5 through C6-C7 likely contribute to mult ilevel acquired compromise of the central canal. Soft tissues: The prevertebral and paraspinous soft tissues are within normal limits. There is athero sclerotic calcification of the carotid bulbs. Calvarium: The visualized calvarium at the skull base appears intact. Brain parenchyma: Partially visualized brain parenchyma at the skull base is within normal limits not ing age-related involutional change. Sinuses and mastoids: The visualized paranasal sinuses are clear. The mastoid air cells are well pneu matized. Lung apices: Fibrotic change is noted at the partially imaged lung apices. IMPRESSION: 1. There is no evidence of fracture or subluxation involving the cervical spine. 2. Osteopenia and spondylotic change as above. ACT 112: Negative or not required by law. Electronically signed by: Federico Collazo M.D. 06/26/2020 6:01 PM
--- NOTE | 2020-06-26 18:05 | XRay Report ---
SINGLE VIEW PELVIS CLINICAL HISTORY: Trauma. Fall. FINDINGS: AP supine view of the pelvis is correlated with pelvic CT dated 11/10/2019. The skeletal stru ctures are osteopenic. There is no radiographic evidence of fracture involving the hips or bony pelvi s. Moderate degenerative joint space narrowing is present in both hips. There is degenerative scleros is of the sacroiliac joints. Enthesophytes arise from the anterior superior iliac spines. The overlyi ng soft tissues are normal as imaged. Lumbosacral spondylosis is partially visualized, as is left-richard ed nephrolithiasis. A metallic foreign body projects just above the right pelvic brim. IMPRESSION: No fracture is identified. Electronically signed by: Federico Collazo M.D. 06/26/2020 6:04 PM
--- NOTE | 2020-06-26 18:15 | CT Scan Report ---
CT SCAN OF THE ABDOMEN AND PELVIS WITH IV CONTRAST CLINICAL HISTORY: Trauma. Fall. COMPARISON STUDY: Abdominal CT dated 11/10/2019. TECHNIQUE: Following the IV administration of 93 cc of Optiray 320, CT scan of the abdomen and pelvi s is performed from the lung bases to the proximal femora. Images are reviewed in the axial, sagittal , and coronal planes. IV contrast was administered without complication. A dose lowering technique wa s utilized adhering to the principles of ALARA. CT DOSE: 239.36 mGy.cm FINDINGS: Lung bases: The heart is enlarged and without pericardial effusion. Pacemaker leads are noted. Trace pleural effusions and chronic parenchymal scarring is noted at the lung bases Liver: The contrast-enhanced liver is normal in size in contour. The liver is markedly heterogeneous in attenuation and this is similar to previous. There is no intrahepatic biliary ductal dilatation. T he hepatic veins and portal veins are patent. Gallbladder: Unremarkable. Spleen: Normal in size and attenuation. Pancreas: Moderately atrophic and grossly unremarkable. Adrenal glands: Unremarkable. Kidneys: The contrast enhanced kidneys are atrophic and without hydronephrosis. Foci of cortical scar ring are noted in both kidneys. Bilateral renal cysts measure up to 2.3 cm. The kidneys enhance symme trically. An 11 mm nonobstructing calculus is seen in the left lower pole. There is high-grade stenos is of the right renal artery seen on image #87. A left renal artery stent is patent. Abdominal vasculature: The abdominal aorta is normal in course and caliber noting advanced atheroscle rotic calcification. There is moderate focal stenosis of the left common iliac artery seen on image # 188. 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 There is high-grade stenosis with near complete occlusion at the origi n of the left internal iliac artery. There is only trace flow seen within the right superficial femor al artery. Bowel: There is no bowel obstruction. Moderate fecal retention is seen throughout the colon. There is advanced diverticulosis of the colon without CT evidence of acute diverticulitis. A metallic foreign body is seen involving the right colon on image #175. Nonspecific mucosal hyperemia of the right col on is unchanged from previous. The appendix is not visualized. Peritoneum: There is no intraperitoneal free air or abdominal ascites. Lymphadenopathy: None. Pelvic viscera: The bladder is distended but otherwise normal in appearance. The uterus is surgically absent. No adnexal lesion is seen. Findings suggest pelvic floor prolapse. There is a small volume o f free fluid in the cul-de-sac. Skeletal structures: The skeletal structures are osteopenic. Moderate lumbosacral spondylosis is note d. No acute fracture is identified. No lytic or blastic lesions are seen. There are numerous healed r ight-sided rib fractures. IMPRESSION: 1. There is no evidence of solid organ injury in the abdomen or pelvis. 2. No acute fracture is seen. 3. Left-sided nephrolithiasis. 4. Advanced colonic diverticulosis without CT evidence of acute diverticulitis. 5. There is a small volume of nonspecific free fluid in the pelvis. 6. Cardiomegaly and trace pleural effusions. 7. The liver is markedly heterogeneous in attenuation. This is unchanged from 11/10/2019. 8. 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 9. There is only trace flow seen within the right superficial femoral artery. 10. Additional findings as above. ACT 112: Positive. There are findings on this exam that require communication between the performing entity and the patient following Patient Test Result Information Act ([place] Act 112) guidelines. Electronically signed by: Federico Collazo M.D. 06/26/2020 6:14 PM
--- NOTE | 2020-06-26 18:38 | XRay Report ---
AP CHEST WITH RIGHT-SIDED RIB SERIES CLINICAL HISTORY: Fall. Right-sided chest wall pain. FINDINGS: An AP upright chest radiograph with 4 additional views from a right-sided rib series is com pared to study dated 10/14/2019 and correlated with chest CT dated 05/20/2017. A 2-lead cardiac pacema ker is unchanged in position. The heart is enlarged noting atherosclerotic calcification of the thora cic aorta. The pulmonary vasculature is noncongested. Apical scarring and chronic additional thickeni ng are similar to previous. There is bibasilar scarring/atelectasis. No airspace consolidation is see n typical for pneumonia. Small pleural effusions are noted. No pneumothorax is seen. The skeletal str uctures are osteopenic. There are several chronic/healed right-sided rib fractures. There are acute a ppearing posterior right 6th and 7th rib fractures. The remainder of the bony thorax is grossly intac t. IMPRESSION: 1. Cardiomegaly and cardiac pacemaker. There is no radiographic evidence of congestive failure. 2. Small pleural effusions. 3. There are acute appearing nondisplaced posterior right 6th and 7th rib fractures. Correlate for po int tenderness. ACT 112: Negative or not required by law. Electronically signed by: Federico Collazo M.D. 06/26/2020 6:37 PM
[2020-06-26] MEDS ORDERED: amLODIPine BESYLATE 5 MG TAB PO ONE (20:38)
[2020-06-26] MEDS ORDERED: hydrALAZINE HCL 20 MG/ML VIAL IV ONE (21:58)
[2020-06-26] MEDS ORDERED: OPTIRAY 320 125ml IV ONE (23:07)
--- NOTE | 2020-06-27 01:11 | History & Physical Report ---
Date of Service June 27, 2020 Assessment & Plan (1) Syncope and collapse: Mrs. Diaz is an 80 yo woman with a PMHx of peripheral vascular disease, HF with preserved EF, Atrial fibrillation on anticoagulation with Eliquis, s/p pacemaker placement who was brought to the ED after sustaining a fall at the grocery store. - patient denies tripping or slipping; fall does not seem to be mechanical in origin - suspect fall represents a syncopal episode - Cardiac origin is possible given patient was exerting herself (walking around grocery store), but she denied any palpations. Pacemaker was most recently interrogated in 10/2019. Will order repeat interrogation. Patient did not appear to be in A-fib on admission EKG (as P waves were detectable); no heart block. Most recent Echo 06/2016 showed normal EF - will repeat in the event patient now has reduced systolic function (and syncope is due to diminished outflow). Moderate to high grade stenosis of L common carotid noted on CTA. 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 - Vaso-vagal is possible as patient did feel a prodrome of dizziness. No cough, micturition or defection or emesis - Orthostatic is unlikely, as patient was walking around store (did not go from sitting to standing position). Will order orthostatic vitals. - Hypotension unlikely as BP was 226/109 on arrival. - Medication: patient is on several antihypertensives, however BP elevated on arrival as above. QTc normal on admission EKG. Patient did not take a nitroglycerin the grocery store. - Neurologic: rare, no report of seizure by bystanders. No seizure history (2) Peripheral vascular disease: - patient with history of PVD - extensive vascular disease visualized on imaging (see HPI) - [facility] report of CTA aorta with Runoff was difficult to follow and improperly labeled. Recommend close attention to official read. - although likely unrelated to fall - consider consult of Dr. Adebayo Rdz for future follow up - continue atorvastatin (3) Hypertension: - BP 223/109 on arrival to ED --> patient given Amlodipine 5mg, PO and Hydralazine 5mg IV in ED. BP improved to 165/109. - patient denied any CP, SOB. Trop undetectable. Cr normal at 1.03. EKG with ST segment changes. No evidence of end organ damage - hypertensive emergency - Continue home ramipril 10mg, daily and metoprolol succinate 200mg daily (4) Hyperlipidemia: - continue home dose atorvastatin (5) Atrial fibrillation: - History of A-fib - anticoagulated on low dose Eliquis (age > 80 years, body weight < 60kg) - patient has a pacemaker in place - continue digoxin 125mcg 3x weekly (6) (HFpEF) heart failure with preserved ejection fraction: - history of HFpEF - most recent ECHO 06/2016 showed normal EF (60-65%) - BNP was elevated to 6589 on admission - small b/l pleural effusions noted on chest imaging - patient did not appear to be volume overloaded on exam - will order repeat ECHO as above - Patient follows with [facility] cardiology (7) Anticoagulant long-term use: - on Eliquis for Afib as above (8) Elevated brain natriuretic peptide (BNP) level: - elevated to 6589 on admission - see above (9) Hypokalemia: - K mildly low at 3.4 on admission - will order KcL 40mg PO supplement - patient does take furosemide at home, although dosing schedule is unknown ("as directed"). - repeat BMP in am (10) Ribs, multiple fractures: - rib XR showing 2 acute fractures: R posterior 6th and 7th ribs - traumatic, secondary to fall - patient denied any pain on admission - Tylenol ordered prn - consider Lidoderm patch if pain increases - incentive spirometer ordered Dispo: Med/Surg with tele. Diet: Heart healthy Dvt: anticoagulated on Eliquis Code: Full, I discussed with patient History of Present Illness Primary Care Provider: Francesco Mancia MD Mrs. Diaz is an 80 yo woman with a PMHx of peripheral vascular disease, HF with preserved EF, Atrial fibrillation on anticoagulation with Eliquis, s/p pacemaker placement who was brought to the ED after sustaining a fall at the grocery store. Per patient, she did not trip over anything or slip. She did feel slightly dizzy before falling but denied any prodrome of nausea, diaphoresis, graying of vision, palpitations, or sensation of warmth. Patient denies loss of consciousness. She recalls the events leading up to and after the fall. Prior to this episode, she was in her usual state of health - feeling well. No sick contacts. She denies any recent falls at home. Social Hx: She lives in an apartment with her close friend, Vannessa Joseph. She is amenable to doing inpatient rehab at [facility]. On arrival to the ED, her BP was hypertensive at 223/109, HR normal at 65, afebrile, RR 18, satting 100% on room air. WBC normal Hgb normal. INR 1.2. K mildly low at 3.4. Cr 1.08. BNP 6589. TSH 1.6. UA 2+ blood, neg LE, neg nitrites, neg bacteria. Urine culture pending. COVID 19 neg. EKG showing a paced rhythm, QTc 420ms. Head CT negative for acute hemorrhage. Cervical spine CT without fracture or subluxation. Pelvis XR without fracture. Rib XR showing acute fractures of the R posterior 6th and 7th ribs; small bilateral pleural effusions. Cat scan of abdomen and pelvis showing no evidence of solid organ injury. 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 Aorta with runoff CTA ordered, confirmed occlusion of the left external iliac artery, occlusion of proximal left superficial femoral artery, moderate to high grade stenosis involving the midportion of the L popliteal artery, moderate stenosis of the R common femoral artery, and occlusion of the distal superficial femoral artery with reconstitution of the R popliteal artery; per [facility] Official read pending. In te ED she was given 1 liter of normal saline, 5mg PO amlodipine and 5mg IV hydralazine Allergies Allergy/AdvReac Type Severity Reaction Status Date / Time HOLDEN Inhibitors AdvReac Mild COUGH Verified 05/13/20 14:20 Home Medications Medication Instructions Recorded Confirmed Type digoxin 125 mcg (0.125 mg) tablet 125 mcg PO 3XWK #60 tab 07/08/19 06/26/20 Rx sertraline 100 mg tablet 100 mg PO DAILY #90 tab 09/10/19 06/26/20 Rx atorvastatin 40 mg tablet 40 mg PO DAILY 11/13/19 06/26/20 History apixaban 2.5 mg tablet 2.5 mg PO BID #60 tab 03/01/20 06/26/20 Rx metoprolol succinate 200 mg 200 mg PO DAILY #30 tab 05/09/20 06/26/20 Rx tablet,extended release 24 hr ramipril 10 mg capsule 10 mg PO DAILY #30 cap 05/17/20 06/26/20 Rx furosemide 20 mg PO DIRECTED 06/26/20 06/26/20 History Past Med/Surg History Medical History (Updated 06/27/20 @ 15:46 by Timothy Mae DO) (HFpEF) heart failure with preserved ejection fraction Anticoagulant long-term use Atrial fibrillation Benign hypertension (10/03/12) Chronic hoarseness Dyshidrotic eczema Gait disturbance Hyperlipidemia (10/03/12) Hypertension Insomnia Low BMI Mitral valve insufficiency, acquired Osteoarthritis of knee Peripheral vascular disease Pleural effusion Poor balance Postoperative bleeding from incision Pulmonary hypertension Right asymmetrical SNHL Severe protein-energy malnutrition Vitamin B12 deficiency Surgical History History of appendectomy History of cataract surgery 2009 History of corneal transplant History of exploratory thoracotomy History of hysterectomy age 36 History of knee surgery ACL repair History of lung surgery insertion of tunnel pleural catheter with cuff left History of tonsillectomy Status post placement of cardiac pacemaker Family History Family/Other No problems noted. 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 Required: No Beliefs That Will Affect Care: None marital status: Single Current Living Situation: Other Current Living Situation Comment: friend current occupational status: retired 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 How many Children do You have: 0 Feels Safe at Home: Yes Safety Concerns: Feels Safe At This Time Childhood Exposure to Second-Hand Smoke: Yes caffeine: Yes Dental Care, Regularly: Yes Physical Activity Frequency: 3-4 Times per Week Seatbelt Use: always Sunscreen Use: Yes Assistive Devices: None Review of Systems Constitutional: + weakness; no fever and no chills Cardiovascular: no chest pain and no dyspnea Genitourinary: no dysuria Physical Exam Constitutional: + cachectic and cooperative; no acute distress Eyes: + eyelid abnormality ENMT: external ear and nose normal, oropharynx normal Neck: normal visual inspection and trachea midline Respiratory: normal respiratory effort, lungs clear to auscultation Auscultation: no crackles, no rales and no wheezes Cardiovascular: Rate/Rhythm: regular rate and regular rhythm Heart Sounds: normal S1, normal S2 and + murmur Extremities: no pedal edema Chest (Breasts): Chest: + pacemaker Gastrointestinal (Abdomen): normal bowel sounds, soft, nontender, no hepatosplenomegaly Skin: no rashes, warm and dry Neurologic: moves all extremities Psychiatric: Orientation: alert, oriented to person and oriented to place; + not oriented to time Results & Data Results & Data ([facility]) Vital Signs (Past 12 Hours) Vital Signs Temp Pulse Pulse Resp BP BP Pulse Ox 06/26/20 23:00 68 18 190/79 H 96 06/26/20 21:00 68 18 193/89 H 95 06/26/20 19:00 66 22 209/92 H 99 06/26/20 18:32 67 22 200/98 H 100 06/26/20 16:30 67 19 184/90 H 85 L 06/26/20 16:00 65 20 203/99 H 99 06/26/20 15:30 66 65 19 216/100 H 200/99 H 98 06/26/20 15:10 36.6 C 65 16 223/109 H 100 Supervising Physician Co-Signing Physician Notes Attending addendum: I have physically seen this patient, have supervised the medical residents activities, and agree with the H&P unless as otherwise noted. Assessment and Plan: Syncope and collapse- Admit to monitored bed to monitor for arrhythmia Pacemaker will need to be interrogated per Consult cardiology Check orthostatic vitals Peripheral vascular disease- Extensive disease noted on CT abdomen pelvis, with attempt to clarify on CT aorta with runoff. We will ask our radiologist to interpret the latter study Hypertension- Continue ramipril and metoprolol succinate. Hydralazine 5 mg IV every 4 hours as needed systolic blood pressure above 160 Reassess in a.m. Remainder of orders and notations as noted Resident Activity Tracking Resident Involvement: Resident Care Provided Care Provided: Adult Hospital Medicine (1) Atrial fibrillation Atrial fibrillation type: unspecified chronic Qualified Code(s): I48.20 - Chronic atrial fibrillation, unspecified
[2020-06-27] MEDS ORDERED: POLYETHYLENE (MIRALAX) 17 GM PACK PO PRN (01:21)
[2020-06-27] MEDS ORDERED: ACETAMINOPHEN 325 MG TAB PO PRN (01:21)
[2020-06-27] MEDS ORDERED: ONDANSETRON INJ 2 MG/ML 2 ML VIAL IV PRN (01:21)
[2020-06-27] MEDS ORDERED: POTASSIUM CHLORIDE CRTAB 20 MEQ TABCR PO STA (01:21)
[2020-06-27] MEDS: SODIUM CHLORIDE 0.9% 1000ML 1,000 ML IV SCH (01:30)
[2020-06-27] MEDS ORDERED: POTASSIUM CHLORIDE PWD 20 MEQ PACK PO STA (01:36)
[2020-06-27] MEDS: ENALAPRIL MALEATE 10 MG TAB PO SCH (08:06)
[2020-06-27] MEDS: SERTRALINE HCL 100 MG TABLET PO SCH (08:06)
[2020-06-27] MEDS: ATORVASTATIN 40 MG TAB PO SCH (08:06)
[2020-06-27] MEDS: METOPROLOL SUCC 50MG EXT REL TAB PO SCH (08:07)
--- NOTE | 2020-06-27 08:07 | CT Scan Report ---
CT angiography [facility] [place] alayna delgado CT DOSE: 774.66 mGy.cm CLINICAL HISTORY: Abnormal prior CT scan with left external iliac artery thrombosis. TECHNIQUE: CT angiography was performed in a dynamic helical fashion during the intravenous administr ation of 118 cc of Optiray 320. MIP images were acquired. A dose lowering technique was utilized adh ering to the principles of ALARA. COMPARISON STUDY: CT scan the abdomen and pelvis performed the same day. FINDINGS: Images to the lung bases reveal bibasilar opacities, likely atelectatic. There are trace pleural effu sions. The heart is enlarged. There is no pericardial effusion. No hepatic masses are visualized in this arterial phase study. There are tiny gallstones. No splenic masses are visualized. No pancreatic masses are visualized. There is no pancreatic ductal dilatation. No adrenal masses are visualized. Both kidneys are lobulated. Bilateral renal hypodensities, are consistent with cysts. There is an 8 m m lower pole left renal calculus. There are no transition zones to indicate bowel obstruction. There is extensive colonic diverticulosis. There is no evidence of acute diverticulitis. The appendix is not visualized. There is minimal free pelvic fluid. Bones are osteopenic. No destructive skeletal lesions are visualized There is no evidence of celiac or superior mesenteric artery stenosis. There is a 70% stenosis the proximal right renal artery. There are bilateral common iliac artery dissections. There is a 50% diameter stenosis of the left com mon iliac artery. The left external iliac artery is occluded. There are mild multifocal stenoses of t he right external iliac artery. On the left, there is reconstitution of the common femoral artery. The left superficial femoral arter y is occluded proximally with reconstitution of the artery and its midportion. There are multifocal h igh-grade stenoses within the superficial femoral artery. There are mild multifocal popliteal artery stenoses. There is faint three-vessel runoff to the ankle. The scan out rather contrast bolus. On the right there are multifocal high-grade superficial femoral artery stenoses. The right superfici al femoral artery occludes distally. There is reconstitution at the level of the popliteal artery. Th ere are multifocal mild popliteal artery stenoses. There are multifocal stenoses within the runoff ve ssels. The anterior tibial artery occludes in the proximal to midportion. IMPRESSION: 1. Cholelithiasis 2. 8 mm lower pole left renal calculus 3. Advanced bilateral atherosclerotic disease. 4. 70% stenosis of the proximal right renal artery 5. Bilateral common iliac artery dissections. 50% diameter stenosis left common iliac artery 6. Occlusion of the left external iliac artery. 7. Occlusion of the proximal left superficial femoral artery with distal reconstitution 8. Multifocal right superficial femoral artery stenoses with distal right SFA occlusion. 9. Multifocal stenoses within the runoff vessels. Occlusion of the right anterior tibial artery in th e proximal to midportion. ACT 112: Negative or not required by law. Electronically signed by: Cristopher Bedoya M.D. 06/27/2020 8:06 AM
[2020-06-27] MEDS ORDERED: APIXABAN 2.5 MG TAB PO SCH (09:00)
--- NOTE | 2020-06-27 11:09 | XCELERA ---
[id number] \\[id number]
--- NOTE | 2020-06-27 11:16 | Electrocardiogram Report ---
Test Reason : Blood Pressure : / mmHG Vent. Rate : 067 BPM Atrial Rate : 038 BPM P-R Int : 000 ms QRS Dur : 088 ms QT Int : 398 ms P-R-T Axes : 000 098 -84 degrees QTc Int : 420 ms Poor data quality, interpretation may be adversely affected liokely atrial flutter Rightward axis Ventricular pacing Abnormal ECG Confirmed by Georges Dennis ([id number]) on 06/27/2020 11:16:27 AM Referred By: REFERRED SELF Confirmed By:Alfonzo Dennis
--- NOTE | 2020-06-27 15:33 | Cardiology Consultation ---
Date of Consultation June 27, 2020 Assessment & Plan (1) Gait disturbance: Patient presented with a fall, I am not certain that this would be classified as syncope, per her roommate, she has had a progressive decline from a mental status standpoint, and physical standpoint over the last year.Vannessa (her roommate) describes that she had hoped the patient would stay in the car because she was concerned that she was not capable of walking. -Unfortunately, no electrograms are available to see if we can correlate an arrhythmia with her event. (2) (HFpEF) heart failure with preserved ejection fraction: Chest x-ray with small pleural effusions without interstitial edema. I think her volume status is relatively stable if not a little intravascularly volume depleted. Echocardiogram performed today, with images reviewed independently revealing preserved LVEF around 60%, with dyskinesis of the apical portion of the inferoseptum, apical wall, due to coronary heart disease, or perhaps due to activation of pacemaker from the right ventricular apex. Severe left atrial enlargement noted consistent with history of atrial fibrillation/atrial flutter. (3) Atrial fibrillation: Rate controlled atrial fibrillation/atrial flutter. On Eliquis 2.5 mg twice daily for stroke prophylaxis. (4) Peripheral vascular disease: Severe multilevel peripheral arterial disease noted on CT angiogram. Physical exam with findings consistent with such. My impression is that she is not a candidate for intervention. (5) Pacemaker at end of battery life: Patient has a single-chamber Medtronic permanent pacemaker. Her most recent generator change took place by Dr. Locke in 2012 at which time her atrial lead was capped as permanent atrial fibrillation noted, and she has been chronically paced with a basal rate of 60 bpm, VVIR mode. On 01/04/2020 she reverted to the elective replacement interval (IVY). Her most recent outpatient device check was in Oct, 2018. Since this is the first time I have encountered this patient, I am uncertain as to how much of her cognitive status is due to dementia, or acute delirium. Vannessa Jake describes that patient has some days that are better than others, but has had a progressive physical and cognitive decline since 2019 per her description. Vannessa is not the patient's power of prosecuting attorney per her description however. Patient reportedly has a brother, "Inocencio Diaz" per Vannessa that lives locally , however, I am unable to find a contact number for him. For now will continue Eliquis and outpatient medications. While I do not think her pacemaker generator at end-of-life was the cause of her collapse, generator change is indicated from a purely technical standpoint. The patient however is unable to consent for such a procedure at present, and we are unable to locate an appropriate family member to act as a surrogate. Case discussed with Dr Up by phone. At this time will continue to assess for reversible causes of mental status change. CT of brain was negative for acute intracranial pathology. Palliative care may be the most appropriate approach. 60 minutes were spent on direct patient care including review of records, examining patient, reviewing and analyzing data as noted above, speaking with patient's roommate by phone (she is unable to visit due to COVID-19 restrictions), and coordinating care with Dr Up. History of Present Illness Attending Physician: Michelle Up MD History of Present Illness Shaista Diaz is an 80 year old female seen in cardiology consultation per the request of Dr Up for the evaluation of syncope. History was obtained via review of her records and telephone review with her friend/roommate, Vannessa Joseph. She was reportedly in the car in the grocery store parking lot yesterday 06/06/2020 while her friend/roommate, Vannessa Joseph went into the store. Vannessa tells me that when she existed the store bystanders were helping Shaista who had exited the car and fell. She was transferred to the emergency room by EMS, trauma work-up is negative thus far. At the time of my assessment this morning, patient was lying comfortably supine in bed, and had no complaints. She was unable to provide any history for me, and she was unable to tell me anything about the events that led to her hospital stay, or her past cardiac care. The patient was most recently seen by Primo Johnson PA-C of our practice as an outpatient in Oct, 2018. Device interrogation at that time revealed underlying atrial fibrillation, with pacemaker in VVIR mode, basal rate of 60, and 19 months of generator longevity. Device interrogation reveals that the patient reached the elective replacement interval (IVY) 01/04/2020. Therefore the high rate data collection stopped at that point, and there are no electrograms to review to correlate with any arrhythmia that would have occurred at the time of her fall yesterday. Allergies Allergy/AdvReac Type Severity Reaction Status Date / Time HOLDEN Inhibitors AdvReac Mild COUGH Verified 05/13/20 14:20 Home Medications Medication Instructions Recorded Confirmed Type digoxin 125 mcg (0.125 mg) tablet 125 mcg PO 3XWK #60 tab 07/08/19 06/26/20 Rx sertraline 100 mg tablet 100 mg PO DAILY #90 tab 09/10/19 06/26/20 Rx atorvastatin 40 mg tablet 40 mg PO DAILY 11/13/19 06/26/20 History apixaban 2.5 mg tablet 2.5 mg PO BID #60 tab 03/01/20 06/26/20 Rx metoprolol succinate 200 mg 200 mg PO DAILY #30 tab 05/09/20 06/26/20 Rx tablet,extended release 24 hr ramipril 10 mg capsule 10 mg PO DAILY #30 cap 05/17/20 06/26/20 Rx furosemide 20 mg PO DIRECTED 06/26/20 06/26/20 History Patient History Medical History (Updated 06/27/20 @ 15:46 by Timothy Mae DO) (HFpEF) heart failure with preserved ejection fraction Anticoagulant long-term use Atrial fibrillation Benign hypertension (10/03/12) Chronic hoarseness Dyshidrotic eczema Gait disturbance Hyperlipidemia (10/03/12) Hypertension Insomnia Low BMI Mitral valve insufficiency, acquired Osteoarthritis of knee Peripheral vascular disease Pleural effusion Poor balance Postoperative bleeding from incision Pulmonary hypertension Right asymmetrical SNHL Severe protein-energy malnutrition Vitamin B12 deficiency Surgical History History of appendectomy History of cataract surgery 2009 History of corneal transplant History of exploratory thoracotomy History of hysterectomy age 36 History of knee surgery ACL repair History of lung surgery insertion of tunnel pleural catheter with cuff left History of tonsillectomy Status post placement of cardiac pacemaker Family History Family/Other No problems noted. Father Myocardial infarction Other Heart disease Hypertension Nephrolithiasis Denies family history of Ovarian cancer Prostate cancer Breast cancer Colorectal cancer Social History Smoking Status: Never smoker Age Started Using Tobacco: 17; Number of Years Since Quit: 25; Second Hand Exposure: Yes; Hx Alcohol Use: Yes Alcohol type: beer Alcohol Intake Frequency: 2-3 x/Week Hx Substance Use: No Preferred Language: Faroese Communication Ability: Effective Visual Impairment: Limited Hearing Ability: Hard of Hearing Race Car Mechanic Required: No Beliefs That Will Affect Care: None marital status: Single Current Living Situation: Other Current Living Situation Comment: friend current occupational status: retired 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 How many Children do You have: 0 Feels Safe at Home: Yes Safety Concerns: Feels Safe At This Time Childhood Exposure to Second-Hand Smoke: Yes caffeine: Yes Dental Care, Regularly: Yes Physical Activity Frequency: 3-4 Times per Week Seatbelt Use: always Sunscreen Use: Yes Assistive Devices: None Review of Systems Review of Systems: Unobtainable due to cognitive status Physical Exam Physical Exam: Temp Pulse Resp BP Pulse Ox 36.3 C L 66 16 177/75 H 92 06/27/20 11:18 06/27/20 15:07 06/27/20 11:18 06/27/20 11:18 06/27/20 11:18 Constitutional: + ill appearing and + cachectic Respiratory: normal respiratory effort, lungs clear to auscultation Cardiovascular: RRR, no murmur, no edema Chest (Breasts): Additional Comments: left infraclavicular pacemaker pocket clean , dry and intact Gastrointestinal (Abdomen): normal bowel sounds, soft, nontender, no hepatosplenomegaly Neurologic: not following commands Results & Data ([facility]) Vital Signs (Past 12 Hours) Vital Signs Temp Pulse Pulse Resp BP Pulse Ox 06/27/20 15:07 66 06/27/20 11:18 36.3 C L 64 16 177/75 H 92 06/27/20 07:28 36.6 C 66 16 160/62 H 91 06/27/20 07:01 65 Laboratory Results Cardiac Enzymes 06/26/20 Range/Units 16:06 AST 30 (15-37) U/L Troponin I 0.017 (0-0.045) ng/ml Coagulation 06/26/20 Range/Units 16:06 PT 12.3 H (9.0-12.0) Seconds CBC 06/26/20 Range/Units 16:06 WBC 6.06 (4.8-10.8) K/uL RBC 4.86 (4.2-5.4) M/uL Hgb 12.3 (12.0-16.0) g/dL Hct 41.0 (37-47) % Plt Count 244 (130-400) K/uL Neut # (Auto) 4.49 (1.4-6.5) K/uL Lymph # (Auto) 0.89 L (1.2-3.4) K/uL [place] # (Auto) 0.56 (0.11-0.59) K/uL Eos # (Auto) 0.09 (0-0.5) K/uL Baso # (Auto) 0.02 (0-0.2) K/uL Comprehensive Metabolic Panel 06/26/20 Range/Units 16:06 Sodium 141 (136-145) mmol/L Potassium 3.4 L (3.5-5.1) mmol/L Chloride 103 (98-107) mmol/L Carbon Dioxide 34 H (21-32) mmol/L BUN 19 H (7-18) mg/dl Creatinine 1.08 (0.6-1.2) mg/dl Glucose 94 (70-99) mg/dl Calcium 9.1 (8.5-10.1) mg/dl AST 30 (15-37) U/L ALT 24 (12-78) U/L Alkaline Phosphatase 62 (45-117) U/L Total Protein 7.9 (6.4-8.2) gm/dl Albumin 4.1 (3.4-5.0) gm/dl Intake and Output 06/27/20 06/27/20 06/27/20 06:59 14:59 22:59 Other: # Unmeasured Voids 1 Weight 30.1 kg Weight Measurement Method Standing Scale Diagnostic Findings EKG reveals underlying atrial fibrillation or atrial flutter, with demand ventricular pacing. (1) Atrial fibrillation Atrial fibrillation type: unspecified chronic Qualified Code(s): I48.20 - Chronic atrial fibrillation, unspecified
[2020-06-27] MEDS: DIGOXIN 0.125 MG TAB PO SCH (16:09)
[2020-06-27] MEDS: THIAMINE HCL 100 MG in SYRINGE 9 ML IV SCH (19:47)
[2020-06-27] MEDS: CEROVITE ADV FORMULA TAB PO SCH (19:48)
--- NOTE | 2020-06-27 21:44 | History & Physical Bridge Note ---
Date of Service June 27, 2020 History & Physical Bridge Note I have examined the patient, reviewed the History & Physical and in the interval since the performance of the History & Physical I have noted the following changes of clinical significance: Patient is a bit confused but does know that she is in [place]. She reports that she fell because she lost her balance in the parking lot of the store yesterday. She denies any pain in the ribs or any pain anywhere. She seems frustrated when I bring up the fact of how thin she has and that she has lost a lot of weight. She denies any shortness of breath or any other problems. I discussed her case with the dry house operator as well as the warp preparer. When I attempted to explain to her that her pacemaker generator needed to be exchanged, she seemed confused and was not able to participate in a discussion of pros and cons of doing the procedure. Reviewed cardiology consultation
--- NOTE | 2020-06-28 03:18 | Billing Data ---
Date of Service June 28, 2020 Coding Level of Care Code 01770 OBS Care - Level 3
[2020-06-28 08:12] LABS: BUN Creatinine Ratio 15.4 (10-20); Creatinine Clr Calc Pharmacy 22.1 ml/min; Est GFR (African American) 57.9; Potassium 3.1 mmol/L (3.5-5.1)
[2020-06-28] MEDS ORDERED: POTASSIUM CHLORIDE CRTAB 20 MEQ TABCR PO STA ×2 (08:41→09:53)
--- NOTE | 2020-06-28 10:01 | Consultation ---
Date of Consultation June 28, 2020 Assessment & Plan (1) Peripheral vascular disease: Pt with severe PAD on CTA, however, pt is asymptomatic from this and has adequate perfusion BLE. No indications for vascular surgical intervention at this time. Can reassess in 3-6 months. Would recommend pt be seen by [facility] for her small toe wound and have cotton placed between her toes to separate them from overlap. ALso recommend have her see podiatry as outpt on a regular basis since her home foot care is poor and she has hammer toes with overlap. Please call if needed. Patient was seen, examined, and chart reviewed. Agree with exam and treatment plan of the Vascular PA. History of Present Illness Reason for Consultation: PAD Attending Physician: Michelle Up MD History of Present Illness 80 yo f with multiple medical problems, including pulmonary HTN, HTN, hyperlipidemia, PAD, osteoarthritis, a fib on apixaban, pacemaker, CHF, mitral valve insufficiency, malnutrition, admitted after a fall possibly associated with syncope/near syncope, seen in consultation today for PAD noted on testing. Pt also with hx of cognitive decline over past year or so. Pt denies any previous hx of PAD or claudication, rest pain, toe discoloration. Denies ABDI, fever, chest pain, SOB, dizziness, abd pain, N/V, other complaints. CTA abd/pelvis with runoff demonstrates severe PAD throughout BLE, with BL common iliac dissections, L ext iliac occlusion, L prox SFA occlusion, and poor opacification of infrapop arteries BLE. Additionally, her RLE demonstrates distal SFA occlusion with reconstitution. No arterial US or FILIPE's were performed. Allergies Allergy/AdvReac Type Severity Reaction Status Date / Time HOLDEN Inhibitors AdvReac Mild COUGH Verified 05/13/20 14:20 Home Medications Medication Instructions Recorded Confirmed Type digoxin 125 mcg (0.125 mg) tablet 125 mcg PO 3XWK #60 tab 07/08/19 06/26/20 Rx sertraline 100 mg tablet 100 mg PO DAILY #90 tab 09/10/19 06/26/20 Rx atorvastatin 40 mg tablet 40 mg PO DAILY 11/13/19 06/26/20 History apixaban 2.5 mg tablet 2.5 mg PO BID #60 tab 03/01/20 06/26/20 Rx metoprolol succinate 200 mg 200 mg PO DAILY #30 tab 05/09/20 06/26/20 Rx tablet,extended release 24 hr ramipril 10 mg capsule 10 mg PO DAILY #30 cap 05/17/20 06/26/20 Rx furosemide 20 mg PO DIRECTED 06/26/20 06/26/20 History Patient History Medical History (Updated 06/28/20 @ 23:37 by Michelle Up MD) (HFpEF) heart failure with preserved ejection fraction Anticoagulant long-term use Atrial fibrillation Benign hypertension (10/03/12) Chronic hoarseness Dyshidrotic eczema Gait disturbance Hyperlipidemia (10/03/12) Hypertension Insomnia Low BMI Mitral valve insufficiency, acquired Mood disorder Osteoarthritis of knee Palliative care encounter Peripheral vascular disease Pleural effusion Poor balance Postoperative bleeding from incision Pulmonary hypertension Right asymmetrical SNHL Severe protein-energy malnutrition Vitamin B12 deficiency Surgical History History of appendectomy History of cataract surgery 2009 History of corneal transplant History of exploratory thoracotomy History of hysterectomy age 36 History of knee surgery ACL repair History of lung surgery insertion of tunnel pleural catheter with cuff left History of tonsillectomy Status post placement of cardiac pacemaker Family History Family/Other No problems noted. Father Myocardial infarction Other Heart disease Hypertension Nephrolithiasis Denies family history of Ovarian cancer Prostate cancer Breast cancer Colorectal cancer Social History Smoking Status: Never smoker Age Started Using Tobacco: 17; Number of Years Since Quit: 25; Second Hand Exposure: Yes; Hx Alcohol Use: Yes Alcohol type: beer Alcohol Intake Frequency: 2-3 x/Week Hx Substance Use: No Preferred Language: Togolese Communication Ability: Effective Visual Impairment: Limited Hearing Ability: Hard of Hearing Dinkey Engineer Required: No Beliefs That Will Affect Care: None marital status: Single Current Living Situation: Other Current Living Situation Comment: friend current occupational status: 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 How many Children do You have: 0 Feels Safe at Home: Yes Safety Concerns: Feels Safe At This Time Childhood Exposure to Second-Hand Smoke: Yes caffeine: Yes Dental Care, Regularly: Yes Physical Activity Frequency: 3-4 Times per Week Seatbelt Use: always Sunscreen Use: Yes Assistive Devices: Walker Review of Systems Review of Systems: All systems reviewed & are unremarkable except as noted in HPI & below Physical Exam Constitutional: + thin, + cachectic, + frail appearing, cooperative, comfortable, + malnourished and + underweight; not in distress Eyes: PERRL, conjunctivae normal, anicteric sclerae ENMT: Ears: no hearing impairment Neck: trachea midline Respiratory: normal respiratory effort; no respiratory distress Auscultation: + diminished lung sounds Cardiovascular: Rate/Rhythm: + irregularly irregular Vessels: femoral pulses present (L femoral nonpalpable, R femoral +1), posterior tibial pulses present (RLE biphasic with doppler, LLE monophasic with doppler), dorsalis pedis pulses present (RLE +2, LLE monophasic with doppler) and radial pulses present; + abnormal peripheral pulses Extremities: normal capillary refill; no edema Gastrointestinal (Abdomen): normal bowel sounds, soft, nontender, no hepatosplenomegaly Musculoskeletal: no cyanosis or clubbing, extremities motor strength 5/5 Skin: no rashes, warm and dry + ulcer (tiny ulcer between R 2nd and 3rd toes, toes overlap, poor care) Neurologic: moves all extremities and awake; no focal motor deficits Psychiatric: Orientation: alert, oriented to person and oriented to place; + not oriented to time (and poor memory) Affect: + irritable affect Results & Data ([facility]) Vital Signs (Past 12 Hours) Vital Signs Temp Pulse Pulse Resp BP BP Pulse Ox 06/28/20 07:22 36.4 C L 65 18 169/73 H 97 06/28/20 04:15 36.4 C L 69 17 169/81 H 97 06/27/20 23:07 36.4 C L 64 17 174/72 H 98 06/27/20 22:20 67
--- NOTE | 2020-06-28 10:33 | Palliative Care Consultation ---
Date of Consultation June 28, 2020 Assessment & Plan (1) Palliative care encounter: Shaista is an 80 year old female who presented to [facility] s/p fall likely associated with syncope. Additional PMH includes: pHTN, HTN, HLD, PAD, OA, A-fib on Apixaban, CHF, MV insufficiency and failure to thrive. Upon arrival, an abdominal CT and pelvis was performed indicating severe PAD. Cardiology was consulted and saw the patient. Her initial pacemaker generator reached the elective replacement interval January 2020. She has not been pacemaker dependent. Per Cardiology, pacemaker generator change will be completed tomorrow, Saturday06/29/20. Patient is a full code. Palliative Care was consulted to discuss goals of care with the patient. I met with Shaista in room 262. She was sitting in her bedside chair in no apparent distress. She had good eye contact and was able to hold a meaningful conversation with me, which, apparently is improved from her mental status yesterday. Shaista was able to tell me that she was in the hospital and the medical events that led her here. She was able to tell me that her 'heart machine' needed to be 'redone'. She lives in a apartment with her best friend from childhood; Vannessa. I asked her some cognition questions that she was able to answer effectively and appropriately: She could tell me that she would stop if the traffic light was red and go if it was green. She also, on two occasions, was able to tell me that she would put oven mits on to remove a hot item from the oven. I asked her who she would appoint as her decision maker should she not be able to make decisions and she, without hesitation, said Vannessa. From a professional standpoint, I do believe, as of today, while her insight may be limited to the extent of her disease details, she has the ability to appoint a decision maker. I did discuss with Dr. Up prior to my visit and all organic reasons for delirium have been ruled out. Of course, Shaista's mental status could change at any time, but I do feel she likely has returned to her baseline (without knowing her true baseline) I did call Ladan with [employer] and left a voicemail for assistance in legal documentation, if able, of Vannessa to be her decision maker. Jesus did get in contact with me and stated that she would meet with Shaista tomorrow and if that did not work because of her procedure, prior to her being discharged. I did call Vannessa to discuss further at the # listed in contacts. She was agreeable to be Shaista's legal decision maker. Further discussion held regarding code status and of course during her pacemaker exchange she would remain a full code, but we did discuss in detail CPR, intubation, etc and the likelihood that she would not survive such an event if it occurred, she asked for us to talk to Vannessa in more detail about this. When I spoke with Vannessa, she said that she does not think she would want to be kept alive on machines if she was unable to return to her baseline functional status. For now, patient will remain Full Code as Vannessa said she would speak with her. Palliative care will follow. (2) Pacemaker at end of battery life: generator to be changed out tomorrow 06/29/20 (3) Cognitive impairment: Appears to have returned to her baseline (4) Syncope and collapse: Likely related to pacemaker failure History of Present Illness Reason for Consultation: Goals of Care Requesting Physician: Dr. Up Attending Physician: Michelle Up MD History of Present Illness Shaista is an 80 year old female who presented to [facility] s/p fall likely associated with syncope. Additional PMH includes: pHTN, HTN, HLD, PAD, OA, A-fib on Apixaban, CHF, MV insufficiency and failure to thrive. Upon arrival, an abdomi nal CT and pelvis was performed indicating severe PAD. Cardiology was consulted and saw the patient. Her initial pacemaker generator reached the elective replacement interval January 2020. She has not been pacemaker dependent. Per Cardiology, pacemaker generator change will be completed tomorrow, Saturday06/29/20. Patient is a full code. Palliative Care was consulted to discuss goals of care with the patient. Please see A/P for further details. Thank you for involving palliative care with this individual. Allergies Allergy/AdvReac Type Severity Reaction Status Date / Time HOLDEN Inhibitors AdvReac Mild COUGH Verified 05/13/20 14:20 Home Medications Medication Instructions Recorded Confirmed Type digoxin 125 mcg (0.125 mg) tablet 125 mcg PO 3XWK #60 tab 07/08/19 06/26/20 Rx sertraline 100 mg tablet 100 mg PO DAILY #90 tab 09/10/19 06/26/20 Rx atorvastatin 40 mg tablet 40 mg PO DAILY 11/13/19 06/26/20 History apixaban 2.5 mg tablet 2.5 mg PO BID #60 tab 03/01/20 06/26/20 Rx metoprolol succinate 200 mg 200 mg PO DAILY #30 tab 05/09/20 06/26/20 Rx tablet,extended release 24 hr ramipril 10 mg capsule 10 mg PO DAILY #30 cap 05/17/20 06/26/20 Rx furosemide 20 mg PO DIRECTED 06/26/20 06/26/20 History Patient History Medical History (Updated 06/28/20 @ 16:00 by Michelle Up MD) (HFpEF) heart failure with preserved ejection fraction Anticoagulant long-term use Atrial fibrillation Benign hypertension (10/03/12) Chronic hoarseness Dyshidrotic eczema Gait disturbance Hyperlipidemia (10/03/12) Hypertension Insomnia Low BMI Mitral valve insufficiency, acquired Osteoarthritis of knee Palliative care encounter Peripheral vascular disease Pleural effusion Poor balance Postoperative bleeding from incision Pulmonary hypertension Right asymmetrical SNHL Severe protein-energy malnutrition Vitamin B12 deficiency Surgical History History of appendectomy History of cataract surgery 2009 History of corneal transplant History of exploratory thoracotomy History of hysterectomy age 36 History of knee surgery ACL repair History of lung surgery insertion of tunnel pleural catheter with cuff left History of tonsillectomy Status post placement of cardiac pacemaker Family History Family/Other No problems noted. Father Myocardial infarction Other Heart disease Hypertension Nephrolithiasis Denies family history of Ovarian cancer Prostate cancer Breast cancer Colorectal cancer Social History Smoking Status: Never smoker Age Started Using Tobacco: 17; Number of Years Since Quit: 25; Second Hand Exposure: Yes; Hx Alcohol Use: Yes Alcohol type: beer Alcohol Intake Frequency: 2-3 x/Week Hx Substance Use: No Preferred Language: Yi Communication Ability: Effective Visual Impairment: Limited Hearing Ability: Hard of Hearing Insurance Business Analyst Required: No Beliefs That Will Affect Care: None marital status: Single Current Living Situation: Other Current Living Situation Comment: friend current occupational status: retired 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 How many Children do You have: 0 Feels Safe at Home: Yes Safety Concerns: Feels Safe At This Time Childhood Exposure to Second-Hand Smoke: Yes caffeine: Yes Dental Care, Regularly: Yes Physical Activity Frequency: 3-4 Times per Week Seatbelt Use: always Sunscreen Use: Yes Assistive Devices: None Review of Systems Review of Systems: Unobtainable due to cognitive status [place] Symptom Assessment Scale Pain: 0/3 Tiredness: 1/3 Nausea:0/3 Shortness of breath: 0/3 Lack of Appetite: 1/3 Palliative Performance Scale: 30% Physical Exam Constitutional: + thin, + cachectic, + frail appearing and cooperative Neck: trachea midline, no thyromegaly Respiratory: normal respiratory effort; no respiratory distress and does not use accessory muscles Auscultation: + diminished lung sounds Cardiovascular: Rate/Rhythm: regular rate and regular rhythm Extremities: normal capillary refill Gastrointestinal (Abdomen): normal bowel sounds, soft, nontender, no hepatosplenomegaly Skin: + dry skin and + pallor; no mottling Psychiatric: Orientation: alert, oriented to person, oriented to place, oriented to time and cooperative Insight: + limited insight Judgement: + limited judgement Lymphatic: no cervical or axillary lymphadenopathy Results & Data ([facility]) Vital Signs (Past 12 Hours) Vital Signs Temp Pulse Resp BP BP Pulse Ox 06/28/20 07:22 36.4 C L 65 18 169/73 H 97 06/28/20 04:15 36.4 C L 69 17 169/81 H 97 06/27/20 23:07 36.4 C L 64 17 174/72 H 98 PG Care Time/CCT Total # of Minutes Spent Total Time Spent with Patient: Total time spent is greater than 50% in coordination of care (as documented) at patient's floor/unit and/or counseling patient: 70 Coding Level of Care Code 53784 Inpt Consult Level 3 Diagnoses Palliative care encounter Z51.5 Pacemaker at end of battery life Z45.010 Cognitive impairment R41.89 Syncope and collapse R55 Time Spent (min) 70 Time Spent Midlevel Total time spent 70 minutes with > 50% of that time spent assessing the patient, discussing goals of care with patient and collaborating with IDT
[2020-06-28] MEDS: METOPROLOL SUCC 50MG EXT REL TAB PO SCH (10:39)
[2020-06-28] MEDS: ENALAPRIL MALEATE 10 MG TAB PO SCH (10:39)
[2020-06-28] MEDS: THIAMINE HCL 100 MG in SYRINGE 9 ML IV SCH (10:39)
[2020-06-28] MEDS: CEROVITE ADV FORMULA TAB PO SCH (10:40)
[2020-06-28] MEDS: amLODIPine BESYLATE 5 MG TAB PO SCH (10:40)
[2020-06-28] MEDS: SERTRALINE HCL 100 MG TABLET PO SCH (10:40)
[2020-06-28] MEDS: ATORVASTATIN 40 MG TAB PO SCH (10:40)
--- NOTE | 2020-06-28 11:45 | Cardiology Progress Note ---
Date of Service June 28, 2020 Assessment & Plan (1) Pacemaker at end of battery life: Patient's generator reached the elective replacement interval January,, although she is not pacemaker dependent, she clearly has a longstanding history of tachycardia-bradycardia syndrome requiring high-dose AV prabhjot blockers, and anticipate that if we reduced these doses she would end up current symptomatic atrial fibrillation with RVR. Think it is most reasonable to proceed with generator change. Patient more alert today, and she is agreeable to having the procedure performed. I spoke to her brother, Henry Rodney" , and philosophically, he was in favor of pacemaker. The patient's improved mental status, is felt that her admission is suitable for her to name a decision maker, and she elects for this to be Vannessa, and the appropriate legal paper work is to be performed today. She is tentatively scheduled for pacemaker generator change with Dr. Fuller , 06/29/2020, consent will be obtained by phone with Vannessa Jake, . (2) Gait disturbance: It is unclear whether she had a postural loss of consciousness, or has difficulty walking. She is frail, and is certainly a fall risk. Will continue to address. (3) Atrial fibrillation: Longstanding history of permanent atrial fibrillation. Anticoagulated with Eliquis 2.5 mg twice daily, this is on hold, with last dose on 06/27/2020 at 8 AM. Hold for now. Further recommendations with regards to DVT prophylaxis and stroke prophylaxis with be forthcoming following the procedure. (4) (HFpEF) heart failure with preserved ejection fraction: Volume status stable. (5) Cognitive impairment: Dementia is chronic, mental status improved today. (6) Hypokalemia: Replace orally (7) Hypertension: Add amlodipine. Admission and Anticipated Discharge Date Admission Date: June 27, 2020 Subjective Patient seen in follow-up having presented with gait instability, fall, perhaps syncopal episode. She is sitting in the bedside chair, and she is much more alert today. She is conversant. She is able to tell me that she lives with Vannessa. She was able to provide her brother's name , Henry Rodney". She swallowed her pills this morning. Physical Exam Physical Exam: Temp Pulse Resp BP Pulse Ox 36.4 C L 68 18 149/66 H 90 06/28/20 07:22 06/28/20 11:31 06/28/20 11:31 06/28/20 11:31 06/28/20 11:31 Constitutional: + cachectic Respiratory: normal respiratory effort, lungs clear to auscultation Cardiovascular: Heart Sounds: no murmur Vessels: no JVD Extremities: + edema Chest (Breasts): Additional Comments: Left infraclavicular pacemaker pocket, no erosion, no erythema Neurologic: Moves all 4 extremities, follows commands Results & Data ([facility]) Vital Signs (Past 12 Hours) Vital Signs Temp Pulse Resp BP BP Pulse Ox 06/28/20 11:31 68 18 149/66 H 90 06/28/20 07:22 36.4 C L 65 18 169/73 H 97 06/28/20 04:15 36.4 C L 69 17 169/81 H 97 Laboratory Results Comprehensive Metabolic Panel 06/28/20 Range/Units 06:57 Sodium 141 (136-145) mmol/L Potassium 3.1 L (3.5-5.1) mmol/L Chloride 106 (98-107) mmol/L Carbon Dioxide 31 (21-32) mmol/L BUN 16 (7-18) mg/dl Creatinine 1.04 (0.6-1.2) mg/dl Glucose 88 (70-99) mg/dl Calcium 9.0 (8.5-10.1) mg/dl Intake and Output 06/27/20 06/28/20 06/28/20 22:59 06:59 14:59 Intake Total 220 / 320 100 / 320 Balance 220 / 320 100 / 320 Intake: Oral 220 / 320 100 / 320 Other: # Unmeasured Voids 1 1 Weight 30.1 kg 33.5 kg Weight Measurement Method Built in [facility] (1) Atrial fibrillation Atrial fibrillation type: unspecified chronic Qualified Code(s): I48.20 - Chronic atrial fibrillation, unspecified
--- NOTE | 2020-06-28 15:52 | Hospitalist Progress Note ---
Date of Service June 28, 2020 Assessment & Plan (1) Syncope and collapse: Mrs. Diaz is an 80 yo woman with a PMHx of peripheral vascular disease, HF with preserved EF, Atrial fibrillation on anticoagulation with Eliquis, s/p pacemaker placement who was brought to the ED after sustaining a fall in parking lot of grocery store after being unattended by her friend. Pt with moderate cognitive impairment. Reports she "lost her balance" but does not recall passing out although unsure if she is reliable. - Vaso-vagal is possible as patient did feel a prodrome of dizziness. No cough, micturition or defection or emesis - Orthostatic is unlikely, as patient was walking around store (did not go from sitting to standing position) - Hypotension unlikely as BP was 226/109 on arrival. - Medication: patient is on several antihypertensives, however BP elevated on arrival as above. QTc normal on admission EKG. Patient did not take a nitroglycerin the grocery store. - Neurologic: rare, no report of seizure by bystanders. No seizure history With severe malnutrition and low body weight, deconditioning, PAD, and likely neuropathy also contributing to fall. Fall could represent a syncopal episode Pacer interrogation unrevealing as her battery is running out-she no longer records events, only paces. ECHO here with WMAs, preserved EF, RVSP>60, moderate MR and TR Moderate to high grade stenosis of L common carotid noted on CTA Pacing on tele PT/OT evals performed-may need rehab placement Plan for changeout of Pacer generator tomorrow-holding Eliquis and NPO after midnight--Appreciate Cardiology consultation (2) Peripheral vascular disease: - patient with history of PVD - extensive vascular disease visualized on imaging Appreciate Vascular Surgery consultation--> severe disease but with some blood flow to feet and asymptomatic, no intervention at this time - continue atorvastatin (3) Hypertension: - BP 223/109 on arrival to ED --> patient given Amlodipine 5mg, PO and Hydralazine 5mg IV in ED. BP improved to 165/109. - patient denied any CP, SOB. Trop undetectable. Cr normal at 1.03. EKG with ST segment changes. No evidence of end organ damage - hypertensive urgency - Continue home ramipril 10mg, daily and metoprolol succinate 200mg daily -Cardio added amlodipine 10mg daily (4) Hyperlipidemia: - continue home dose atorvastatin (5) Atrial fibrillation: - History of A-fib - anticoagulated on low dose Eliquis (age > 80 years, body weight < 60kg) - patient has a pacemaker in place - continue digoxin 125mcg 3x weekly (6) (HFpEF) heart failure with preserved ejection fraction: - history of HFpEF - most recent ECHO 06/2016 showed normal EF (60-65%) and ECHO here as above, preserved EF, Pulm HTN, moD MR - BNP was elevated to 6589 on admission - small b/l pleural effusions noted on chest imaging - patient did not appear to be volume overloaded on exam - no diuretics needed -BP control as above (7) Anticoagulant long-term use: - on Eliquis for Afib as above -on hold for pacer (8) Hypokalemia: low today, replace with po KCl - patient does take furosemide at home, although dosing schedule is unknown ("as directed"). - repeat BMP in am along with mag (9) Ribs, multiple fractures: - rib XR showing 2 acute fractures: R posterior 6th and 7th ribs - traumatic, secondary to fall - patient denies any pain - Tylenol ordered prn - consider Lidoderm patch if pain increases - incentive spirometer ordered (10) Cognitive impairment: at least moderate in nature supportive care need to ensure being taken care of given significant weight loss (11) Presence of permanent cardiac pacemaker: as above, has not followed up with Cardiology in almost 2 years, battery at end of life, needs generator replacement (12) Severe protein-energy malnutrition: body weight severely low, has lost 19% of body weight in 6 months Nutrition consult appreciated added IV thiamine and convert to po on dc added MVI with minerals liberalized diet (13) Mood disorder: continue Zoloft (14) DVT prophylaxis: Eliquis on hold for procedure Dispo-continued stay, PT/OT evals placed, CM involved, may need rehab vs prison care Admission and Anticipated Discharge Date Admission Date: June 27, 2020 Subjective Pt much more interactive and alert today, less confused. She is eating and had a BM. Is out of bed with a walker as per nursing. Reports some pain in her toe where there is a small sore. Otherwise denies rib or chest pain, no SOB. Asks about her upcoming surgery. She wants to know when she can go home. Discussed her care with Cardiology as well as Palliative Care Review of Systems Review of Systems: All systems reviewed & are unremarkable except as noted in HPI & below Physical Exam Constitutional: + cachectic and + malnourished; no acute distress Eyes: + anicteric sclerae; no conjunctival abnormality Neck: trachea midline, no thyromegaly Respiratory: normal respiratory effort, lungs clear to auscultation Cardiovascular: RRR, no murmur, no edema Chest (Breasts): Chest: normal inspection of chest Gastrointestinal (Abdomen): normal bowel sounds, soft, nontender, no hepatosplenomegaly Musculoskeletal: Extremities: no cyanosis and no clubbing Skin: no rashes, warm and dry Neurologic: moves all extremities and awake; no focal motor deficits Psychiatric: Orientation: alert, oriented to person, oriented to place and cooperative; + not oriented to time Eye Contact: good eye contact Speech: normal rate/rhythm/volume of speech Affect: euthymic affect Cognition: + recent memory not intact Lymphatic: no lymphedema Results & Data Results & Data ([facility]) Vital Signs (Past 12 Hours) Vital Signs Temp Pulse Resp BP BP Pulse Ox 06/28/20 15:12 36.4 C L 65 18 158/61 H 99 06/28/20 11:31 68 18 149/66 H 90 06/28/20 07:22 36.4 C L 65 18 169/73 H 97 06/28/20 04:15 36.4 C L 69 17 169/81 H 97 Laboratory Results 06/26/20 16:06 06/28/20 06:57 PG Care Time/CCT Total # of Minutes Spent Total Time Spent with Patient: Total time spent is greater than 50% in c oordination of care (as documented) at patient's floor/unit and/or counseling patient: Coding Level of Care Code 43246 Subseq Hosp Care Lvl 3 Diagnoses Syncope and collapse R55 Peripheral vascular disease I73.9 Hypertension I10 Hyperlipidemia E78.5 Atrial fibrillation I48.20 Atrial fibrillation type: unspecified chronic (HFpEF) heart failure with preserved ejection fraction I50.30 Anticoagulant long-term use Z79.01 Hypokalemia E87.6 Ribs, multiple fractures S22.49XA Cognitive impairment R41.89 Presence of permanent cardiac pacemaker Z95.0 Severe protein-energy malnutrition E43 Mood disorder F39 DVT prophylaxis Z29.9 (1) Atrial fibrillation Atrial fibrillation type: unspecified chronic Qualified Code(s): I48.20 - Chronic atrial fibrillation, unspecified
[2020-06-29 07:33] LABS: Basophils # (auto) 0.03 K/uL (0-0.2); Basophils % (auto) 0.6 %; Eosinophils # (auto) 0.11 K/uL (0-0.5); Eosinophils % (auto) 2.1 %; Hematocrit (blood only) 33.6 % (37-47); Hemoglobin 10.3 g/dL (12.0-16.0); Immature Granulocytes # (auto) 0.01 K/uL (0.00-0.02); Immature Granulocytes % (auto) 0.2 %; Lymphocytes # (auto) 0.69 K/uL (1.2-3.4); Mean Corpuscular Hemoglobin 25.7 pg (25-34); Mean Corpuscular Hgb Conc 30.7 g/dL (32-36); Mean Corpuscular Volume 83.8 fL (80-100); Mean Platelet Volume 10.1 fL (7.4-10.4); Monocytes # (auto) 0.64 K/uL (0.11-0.59); Monocytes % (auto) 12.1 %; Neutrophils # (auto) 3.82 K/uL (1.4-6.5); Platelet Count 198 K/uL (130-400); RDW Coefficient of Variation 19.9 % (11.5-14.5); RDW Standard Deviation 61.3 fL (36.4-46.3); Red Blood Count 4.01 M/uL (4.2-5.4)
[2020-06-29] MEDS: ENALAPRIL MALEATE 10 MG TAB PO SCH (08:05)
[2020-06-29] MEDS: METOPROLOL SUCC 50MG EXT REL TAB PO SCH (08:06)
[2020-06-29] MEDS: CEROVITE ADV FORMULA TAB PO SCH (08:06)
[2020-06-29] MEDS: ATORVASTATIN 40 MG TAB PO SCH (08:06)
[2020-06-29] MEDS: SERTRALINE HCL 100 MG TABLET PO SCH (08:06)
[2020-06-29] MEDS: amLODIPine BESYLATE 5 MG TAB PO SCH (08:06)
[2020-06-29] MEDS: THIAMINE HCL 100 MG in SYRINGE 9 ML IV SCH (08:07)
[2020-06-29 08:17] LABS: BUN Creatinine Ratio 20.8 (10-20); Calcium 9.3 mg/dl (8.5-10.1); Creatinine Clr Calc Pharmacy 19.2 ml/min; Est GFR (African American) 51.3; Est GFR (Non-African American) 44.3; Potassium 4.3 mmol/L (3.5-5.1)
[2020-06-29] MEDS ORDERED: BUPIVACAINE 0.25% 30 ML VIAL ONE (09:14)
[2020-06-29] MEDS ORDERED: LIDOCAINE HCL 1% 20 ML VIAL ONE (09:14)
[2020-06-29] MEDS ORDERED: BACITRACIN INJ 50,000 UNIT VIAL ONE (09:15)
[2020-06-29] MEDS ORDERED: fentaNYL citrate 100 MCG/2 ML VIAL ONE (09:40)
[2020-06-29] MEDS ORDERED: MIDAZOLAM HCL 1 MG/ML 2ML VIAL ONE (09:40)
--- NOTE | 2020-06-29 10:03 | Pre Anesthesia Assessment ---
Date of Service June 29, 2020 Pre Sedation Assessment Vital Signs Temp Pulse Pulse Resp BP BP Pulse Ox 06/29/20 07:27 36.4 C L 65 18 153/67 H 97 06/29/20 03:09 36.8 C 69 19 165/81 H 96 06/28/20 23:33 36.8 C 69 18 180/89 H 98 06/28/20 22:20 65 06/28/20 19:58 37.2 C 68 16 178/71 H 99 06/28/20 15:12 36.4 C L 65 18 158/61 H 99 06/28/20 11:31 68 18 149/66 H 90 Cardiovascular + regular rhythm Respiratory normal respiratory effort, lungs clear to auscultation Pre-Sedation Airway Assessment Smoking Status: Never smoker Hx Sleep Apnea: No Short, Thick Neck: No Thyromental Distance: > or= 3.5 Finger Breadths Oral Cavity: + WNL Mallampati Class: III ASA: ASA4 NPO Status Date of Last Intake of Fluids: 06/29/20 Time of Last Intake of Fluids: 08:00 Last Oral Intake of Fluids Comment: sip with meds Date of Last Intake of Solid Food: 06/28/20 Time of Last Intake of Solid Foods: 18:30 Procedure Planning Contraindications for Sedation: none Current Medications Reviewed: Yes Notes The planned sedation has been discussed with the patient. Informed Consent was obtained. I have identified the patient, determined the appropriateness of sedation and have assessed the patient immediately prior to the procedure. All medicine(s) and interventions are by my order.
--- NOTE | 2020-06-29 10:04 | History & Physical Bridge Note ---
Date of Service June 29, 2020 History & Physical Bridge Note I have examined the patient, reviewed the History & Physical and in the interval since the performance of the History & Physical I have noted the following changes of clinical significance: Pt with ppm at EOL for generator change; spoke to Vannessa Joseph about the procedure and consents obtained.
--- NOTE | 2020-06-29 10:58 | Post Anesthesia Assessment ---
Date of Service June 29, 2020 Post Sedation Assessment Vital Signs Temp Pulse Pulse Resp BP BP Pulse Ox 06/29/20 07:27 36.4 C L 65 18 153/67 H 97 06/29/20 03:09 36.8 C 69 19 165/81 H 96 06/28/20 23:33 36.8 C 69 18 180/89 H 98 06/28/20 22:20 65 06/28/20 19:58 37.2 C 68 16 178/71 H 99 06/28/20 15:12 36.4 C L 65 18 158/61 H 99 06/28/20 11:31 68 18 149/66 H 90 Recovery Score Activity: Moves 4 extremities Respiration: Deep Breath/Cough Circulation: +/-20% PreAnes Value Consciousness: Fully Awake Oxygen Saturation: > 92% On Room Air Discharge Sedation Level of Care: Fast Track Phase II Post Sedation Plan On clinical assessment, the patient appears to have tolerated the sedation without complications. Patient is recovering as anticipated. Patient will continue to be monitored by nursing and may be discharged when sedation discharge criteria are met per below protocol. Upon Completions of procedure up to 15 minutes continue every 5 minute vital signs and the P.A.R. score; then discharge to a Phase I or Fast Track to Phase II per the following guidelines: * Discharge Patient to appropriate Phase II area if PAR is 8 or greater or return to pre- procedure baseline. The post - procedure orders will be as directed. * If PAR score is less than 8 or not return to pre-procedure baseline then patient will follow Phase I monitoring till PAR is reached for Phase II. The Phase I may be done in procedure room or may call to secure a Phase I area. * If naloxone or flumazenil are used for reversal, hold in Phase I for continued monitoring from when last reversal dose was given for a minimum of 60 minutes or longer pending the nurse and/or physician discretion of patient condition before discharge to Phase II. Please call the Sedation Physician to re-evaluate and complete post-note for discharge to Phase II area. Do NOT discharge from procedure sedation or Phase 1 until post- sedation evaluation note is complete by procedure /sedation MD Sedation Discharge Instructions to be given to the patient at discharge to home.
--- NOTE | 2020-06-29 10:59 | Operative Report ---
Post Operative Report Pre & Post Diagnosis tbs, ppm at EOL Operation Date: 06/29/20 10:00 <No data on this case meets the specified criteria> I identified the patient and participated in the time-out.: Yes Procedure Operation Date: 06/29/20 10:00 Actual Procedures p Pacer Gen Change Single - Roxana Mckeon DO Surgeon Roxana Mckeon, Oxygen Therapy Teacher none Estimated Blood Loss 5 Findings Consistent with Post-Op Diagnosis Specimens none Description of Procedure see official report I attest to the content of the Intraoperative Record and any orders documented therein. Any exceptions are noted below.
--- NOTE | 2020-06-29 11:27 | Communication Note ---
Date of Service: June 29, 2020 Post pacer generator change. Continue to hold Eliquis pending cardiology reassessment. Please avoid SQ heparin / Lovenox pending cardiology assessment. Pt characteristics place her at high risk for pocket hematoma.
[2020-06-29] MEDS: DIGOXIN 0.125 MG TAB PO SCH (15:35)
--- NOTE | 2020-06-29 16:09 | Cardiology Progress Note ---
Date of Service June 29, 2020 Assessment & Plan (1) Pacemaker at end of battery life: (2) Atrial fibrillation: (3) (HFpEF) heart failure with preserved ejection fraction: Telemetry reveals ventricular paced rhythm in the 60s, known to have underlying permanent atrial fibrillation. Continue metoprolol and digoxin. Incision to be reassessed by cardiology in the a.m. 06/30/2020. As long as stable without hematoma, will re-start Eliquis 2.5 mg twice daily then as per my discussion with Dr Mckeon. In the meantime, I have significant concerns about the potential risk for pacemaker pocket hematoma, and would advise against bridge therapy or DVT prophylaxis with unfractionated heparin or low molecular weight heparin. Has postoperative wound check/device interrogation tentatively planned at [facility] 07/08/2020, 10 AM. (4) Hypertension: Amlodipine added to her prior to hospital treatment with metoprolol and enalapril. I think a systolic blood pressure in the 160s is reasonable for her. (5) [facility] disturbance: [facility] pending approval. (6) Cognitive impairment: Per my discussion with patient contacts, has had progressive dementia. (7) Peripheral vascular disease: Vascular surgery input noted and appreciated, ongoing conservative therapy without intervention recommended. Admission and Anticipated Discharge Date Admission Date: June 28, 2020 Subjective Patient seen in general cardiology follow-up having undergone generator change earlier today. Patient examined in room 2382. No complaints. Physical Exam Physical Exam: Temp Pulse Resp BP Pulse Ox 36.4 C L 61 20 166/72 H 97 06/29/20 15:16 06/29/20 15:35 06/29/20 15:16 06/29/20 15:16 06/29/20 15:16 Constitutional: + cachectic Respiratory: normal respiratory effort, lungs clear to auscultation Cardiovascular: Rate/Rhythm: regular rate Heart Sounds: + murmur (1/6 systolic murmur) Vessels: no JVD Extremities: no edema Chest (Breasts): Additional Comments: Left infraclavicular pacemaker site, bandage not removed, as patient recently was transferred from the operating suite. Results & Data ([facility]) Vital Signs (Past 12 Hours) Vital Signs Temp Pulse Pulse Pulse Resp BP BP 06/29/20 15:35 61 06/29/20 15:16 36.4 C L 61 20 166/72 H 06/29/20 15:07 62 06/29/20 13:30 36.7 C 60 20 160/78 H 06/29/20 13:10 61 16 151/65 H 06/29/20 12:40 63 16 170/74 H 06/29/20 11:50 59 L 16 136/68 06/29/20 11:35 61 16 138/72 06/29/20 11:20 62 16 146/60 H 06/29/20 11:05 61 16 165/67 H 06/29/20 07:27 36.4 C L 65 18 153/67 H Pulse Ox 06/29/20 15:35 06/29/20 15:16 97 06/29/20 15:07 06/29/20 13:30 99 06/29/20 13:10 97 06/29/20 12:40 98 06/29/20 11:50 98 06/29/20 11:35 98 06/29/20 11:20 98 06/29/20 11:05 94 06/29/20 07:27 97 (1) Atrial fibrillation Atrial fibrillation type: unspecified chronic Qualified Code(s): I48.20 - Chronic atrial fibrillation, unspecified (2) Hypertension Hypertension type: essential hypertension Qualified Code(s): I10 - Essential (primary) hypertension
--- NOTE | 2020-06-29 16:37 | Palliative Care Progress Note ---
Date of Service June 29, 2020 Assessment & Plan (1) Palliative care encounter: I spoke with Shaista's longtime friend, Vannessa to f/u on her conversation with Carmela yesterday regarding goals of care for Shaista. Vannessa is very confused and did not know where Shaista was. She did not recall her conversation with Carmela yesterday. I reviewed the discussion but Vannessa was very distracted and not able to discuss this. She did indicate that Shaista has a brother, Inocencio Diaz, who lives in [facility] but was not able to locate his phone number. At this time it does not appear that either Shaista, or Vannessa are able to make decisions regarding her care. I will try to reach out to her brother for additional input. Per case management note, Shaista will be transferred to [facility] tomorrow. If possible, I will complete POLST prior to discharge. Admission and Anticipated Discharge Date Admission Date: June 28, 2020 Subjective She is comfortable after her pacemaker procedure. She is very anxious and having paranoia. She is repeatedly concerned about young people coming in at night and taking her mother, despite reassurance. Review of Systems Review of Systems: Unobtainable due to cognitive status [place] Symptom Assessment Scale Anxiety 2/3 Pain 0/3 Physical Exam Constitutional: + cachectic and + frail appearing Respiratory: normal respiratory effort; no labored breathing Musculoskeletal: Extremities: + muscle atrophy Neurologic: + confused Psychiatric: Orientation: alert; + not oriented x 3 Affect: + anxious affect Results & Data ([facility]) Vital Signs (Past 12 Hours) Vital Signs Temp Pulse Pulse Pulse Resp BP BP 06/29/20 15:35 61 06/29/20 15:16 97.5 F L 61 20 166/72 H 06/29/20 15:07 62 06/29/20 13:30 98.1 F 60 20 160/78 H 06/29/20 13:10 61 16 151/65 H 06/29/20 12:40 63 16 170/74 H 06/29/20 11:50 59 L 16 136/68 06/29/20 11:35 61 16 138/72 06/29/20 11:20 62 16 146/60 H 06/29/20 11:05 61 16 165/67 H 06/29/20 07:27 97.5 F L 65 18 153/67 H Pulse Ox 01/27/21 15:35 06/29/20 15:16 97 06/29/20 15:07 06/29/20 13:30 99 06/29/20 13:10 97 06/29/20 12:40 98 06/29/20 11:50 98 06/29/20 11:35 98 06/29/20 11:20 98 06/29/20 11:05 94 06/29/20 07:27 97 PG Care Time/CCT Total # of Minutes Spent Total Time Spent with Patient: Total time spent is greater than 50% in coordination of care (as documented) at patient's floor/unit and/or counseling patient: total time spent 40 minutes with more than 50% of time spent on goals of care and communication with hospitalist physician Coding Level of Care Code 86688 Subseq Hosp Care Lvl 3 Diagnoses Palliative care encounter Z51.5
--- NOTE | 2020-06-29 18:45 | Hospitalist Progress Note ---
Date of Service June 29, 2020 Assessment & Plan (1) Syncope and collapse: Mrs. Diaz is an 80 yo woman with a PMHx of peripheral vascular disease, HF with preserved EF, Atrial fibrillation on anticoagulation with Eliquis, s/p pacemaker placement who was brought to the ED after sustaining a fall in parking lot of grocery store after being unattended by her friend. Pt with moderate cognitive impairment. Reports she "lost her balance" but does not recall passing out although unsure if she is reliable. - Vaso-vagal is possible as patient did feel a prodrome of dizziness. No cough, micturition or defection or emesis - Orthostatic is unlikely, as patient was walking around store (did not go from sitting to standing position) - Hypotension unlikely as BP was 226/109 on arrival. - Medication: patient is on several antihypertensives, however BP elevated on arrival as above. QTc normal on admission EKG. Patient did not take a nitroglycerin the grocery store. - Neurologic: rare, no report of seizure by bystanders. No seizure history With severe malnutrition and low body weight, deconditioning, PAD, and likely neuropathy also contributing to fall. Fall could represent a syncopal episode Pacer interrogation unrevealing as her battery is running out-she no longer records events, only paces. ECHO here with WMAs, preserved EF, RVSP>60, moderate MR and TR Moderate to high grade stenosis of L common carotid noted on CTA Pacing on tele PT/OT evals performed-needs rehab placement Now status post change out of Pacer generator --Appreciate Cardiology consultation (2) Peripheral vascular disease: - patient with history of PVD - extensive vascular disease visualized on imaging Appreciate Vascular Surgery consultation--> severe disease but with some blood flow to feet and asymptomatic, no intervention at this time - continue atorvastatin (3) Hypertension: - BP 223/109 on arrival to ED --> patient given Amlodipine 5mg, PO and Hydralazine 5mg IV in ED. BP improved to 165/109. - patient denied any CP, SOB. Trop undetectable. Cr normal at 1.03. EKG with ST segment changes. No evidence of end organ damage - hypertensive urgency - Continue home ramipril 10mg, daily and metoprolol succinate 200mg daily -Cardio added amlodipine 10mg daily Acceptable blood pressure of systolic 160 (4) Hyperlipidemia: - continue home dose atorvastatin (5) Atrial fibrillation: - History of A-fib - anticoagulated on low dose Eliquis (age > 80 years, body weight < 60kg) - patient has a pacemaker in place - continue digoxin 125mcg 3x weekly -Continue Toprol-XL 200 mg daily (6) (HFpEF) heart failure with preserved ejection fraction: - history of HFpEF - most recent ECHO 06/2016 showed normal EF (60-65%) and ECHO here as above, preserved EF, Pulm HTN, moD MR - BNP was elevated to 6589 on admission - small b/l pleural effusions noted on chest imaging - patient did not appear to be volume overloaded on exam - no diuretics needed -BP control as above (7) Anticoagulant long-term use: - on Eliquis for Afib as above -on hold for pacer (8) Hypokalemia: Replaced and now resolved (9) Ribs, multiple fractures: - rib XR showing 2 acute fractures: R posterior 6th and 7th ribs - traumatic, secondary to fall - patient denies any pain - Tylenol ordered prn - consider Lidoderm patch if pain increases - incentive spirometer ordered (10) Cognitive impairment: at least moderate in nature supportive care need to ensure being taken care of given significant weight loss With some hospital delirium status post pacemaker exchange (11) Presence of permanent cardiac pacemaker: as above, has not followed up with Cardiology in almost 2 years, battery at end of life, now status post generator exchange on 06/29 Continue to hold Eliquis and watch for bleeding at pocket site Plan for outpatient follow-up with cardiology within 1 week as scheduled (12) Severe protein-energy malnutrition: body weight severely low, has lost 19% of body weight in 6 months Nutrition consult appreciated added IV thiamine and convert to po on dc added MVI with minerals liberalized diet (13) Mood disorder: continue Zoloft (14) DVT prophylaxis: Eliquis on hold for procedure, can restart tomorrow morning if no bleeding after seen by cardiology Dispo-continued stay, PT/OT evals placed, CM involved, plan for discharge to [facility] hopefully tomorrow Admission and Anticipated Discharge Date Admission Date: June 28, 2020 Subjective Patient had generator change out of pacemaker today. When I saw her after that she was very paranoid and angry at being in the hospital and stated "someone tell me what the hell is going on here!" I explained why she was in the hospital and what happened and her condition and she continued to be angry with me. Telemetry with paced rhythm in the 60s. I discussed the case with cardiology. Review of Systems Review of Systems: All systems reviewed & are unremarkable except as noted in HPI & below Denies pain anywhere Denies shortness of breath Physical Exam Constitutional: + cachectic and + malnourished; no acute distress Eyes: + anicteric sclerae; no conjunctival abnormality Neck: trachea midline, no thyromegaly Respiratory: normal respiratory effort, lungs clear to auscultation Cardiovascular: RRR, no murmur, no edema Chest (Breasts): Chest: normal inspection of chest Gastrointestinal (Abdomen): normal bowel sounds, soft, nontender, no hepatosplenomegaly Musculoskeletal: Extremities: no cyanosis and no clubbing Skin: no rashes, warm and dry Neurologic: moves all extremities and awake; no focal motor deficits Psychiatric: Orientation: alert and cooperative; + not oriented to place and + not oriented to time Speech: normal rate/rhythm/volume of speech Affect: + angry affect Thought Content: + paranoid Cognition: + recent memory not intact Lymphatic: no lymphedema Results & Data Results & Data ([facility]) Vital Signs (Past 12 Hours) Vital Signs Temp Pulse Pulse Pulse Resp BP BP 06/29/20 15:35 61 06/29/20 15:16 36.4 C L 61 20 166/72 H 06/29/20 15:07 62 06/29/20 13:30 36.7 C 60 20 160/78 H 06/29/20 13:10 61 16 151/65 H 06/29/20 12:40 63 16 170/74 H 06/29/20 11:50 59 L 16 136/68 06/29/20 11:35 61 16 138/72 06/29/20 11:20 62 16 146/60 H 06/29/20 11:05 61 16 165/67 H 06/29/20 07:27 36.4 C L 65 18 153/67 H Pulse Ox 06/29/20 15:35 06/29/20 15:16 97 06/29/20 15:07 06/29/20 13:30 99 06/29/20 13:10 97 06/29/20 12:40 98 06/29/20 11:50 98 06/29/20 11:35 98 06/29/20 11:20 98 06/29/20 11:05 94 06/29/20 07:27 97 Laboratory Results 06/29/20 06/29/20 Range/Units 06:39 06:39 WBC 5.30 (4.8-10.8) K/uL RBC 4.01 L (4.2-5.4) M/uL Hgb 10.3 L (12.0-16.0) g/dL Hct 33.6 L (37-47) % MCV 83.8 (80-100) fL MCH 25.7 (25-34) pg MCHC 30.7 L (32-36) g/dL RDW Std Deviation 61.3 H (36.4-46.3) fL RDW Coeff of Khalida 19.9 H (11.5-14.5) % Plt Count 198 (130-400) K/uL MPV 10.1 (7.4-10.4) fL Immature Gran % (Auto) 0.2 % Neut % (Auto) 72.0 % Lymph % (Auto) 13.0 % [place] % (Auto) 12.1 % Eos % (Auto) 2.1 % Baso % (Auto) 0.6 % Neut # (Auto) 3.82 (1.4-6.5) K/uL Lymph # (Auto) 0.69 L (1.2-3.4) K/uL [place] # (Auto) 0.64 H (0.11-0.59) K/uL Eos # (Auto) 0.11 (0-0.5) K/uL Baso # (Auto) 0.03 (0-0.2) K/uL Immature Gran # (Auto) 0.01 (0.00-0.02) K/uL Sodium 141 (136-145) mmol/L Potassium 4.3 D (3.5-5.1) mmol/L Chloride 106 (98-107) mmol/L Carbon Dioxide 30 (21-32) mmol/L Anion Gap 4.0 (3-11) BUN 24 H (7-18) mg/dl Creatinine 1.15 (0.6-1.2) mg/dl Est Cr Clr Drug Dosing 19.2 ml/min Est GFR ( Amer) 51.3 Est GFR (Non-Af Amer) 44.3 BUN/Creatinine Ratio 20.8 H (10-20) Glucose 85 (70-99) mg/dl Calcium 9.3 (8.5-10.1) mg/dl Magnesium 2.0 (1.8-2.4) mg/dl PG Care Time/CCT Total # of Minutes Spent Total Time Spent with Patient: Total time spent is greater than 50% in coordination of care (as documented) at patient's floor/unit and/or counseling patient: Coding Level of Care Code 77255 Subseq Hosp Care Lvl 3 Diagnoses Syncope and collapse R55 Peripheral vascular disease I73.9 Hypertension I10 Hypertension type: essential hypertension Hyperlipidemia E78.5 Atrial fibrillation I48.20 Atrial fibrillation type: unspecified chronic (HFpEF) heart failure with preserved ejection fraction I50.30 Anticoagulant long-term use Z79.01 Hypokalemia E87.6 Ribs, multiple fractures S22.49XA Cognitive impairment R41.89 Presence of permanent cardiac pacemaker Z95.0 Severe protein-energy malnutrition E43 Mood disorder F39 DVT prophylaxis Z29.9 (1) Hypertension Hypertension type: essential hypertension Qualified Code(s): I10 - Essential (primary) hypertension (2) Atrial fibrillation Atrial fibrillation type: unspecified chronic Qualified Code(s): I48.20 - Chronic atrial fibrillation, unspecified
[2020-06-30 05:57] LABS: Basophils # (auto) 0.03 K/uL (0-0.2); Basophils % (auto) 0.5 %; Eosinophils # (auto) 0.11 K/uL (0-0.5); Eosinophils % (auto) 1.7 %; Hematocrit (blood only) 35.5 % (37-47); Hemoglobin 10.8 g/dL (12.0-16.0); Immature Granulocytes # (auto) 0.02 K/uL (0.00-0.02); Immature Granulocytes % (auto) 0.3 %; Lymphocytes # (auto) 0.83 K/uL (1.2-3.4); Lymphocytes % (auto) 13.1 %; Mean Corpuscular Hemoglobin 25.7 pg (25-34); Mean Corpuscular Hgb Conc 30.4 g/dL (32-36); Mean Corpuscular Volume 84.5 fL (80-100); Mean Platelet Volume 9.6 fL (7.4-10.4); Monocytes # (auto) 0.67 K/uL (0.11-0.59); Monocytes % (auto) 10.6 %; Neutrophils # (auto) 4.69 K/uL (1.4-6.5); Neutrophils % (auto) 73.8 %; Platelet Count 179 K/uL (130-400); RDW Coefficient of Variation 19.6 % (11.5-14.5); RDW Standard Deviation 61.4 fL (36.4-46.3); White Blood Count 6.35 K/uL (4.8-10.8)
[2020-06-30 06:22] LABS: BUN Creatinine Ratio 21.7 (10-20); Calcium 8.6 mg/dl (8.5-10.1); Creatinine Clr Calc Pharmacy 21.2 ml/min; Est GFR (African American) 57.3; Est GFR (Non-African American) 49.4; Potassium 4.2 mmol/L (3.5-5.1)
[2020-06-30] MEDS: METOPROLOL SUCC 50MG EXT REL TAB PO SCH (08:12)
[2020-06-30] MEDS: SERTRALINE HCL 100 MG TABLET PO SCH (08:12)
[2020-06-30] MEDS: ATORVASTATIN 40 MG TAB PO SCH (08:12)
[2020-06-30] MEDS: THIAMINE HCL 100 MG in SYRINGE 9 ML IV SCH (08:12)
[2020-06-30] MEDS: CEROVITE ADV FORMULA TAB PO SCH (08:12)
[2020-06-30] MEDS: amLODIPine BESYLATE 5 MG TAB PO SCH (08:13)
[2020-06-30] MEDS: ENALAPRIL MALEATE 10 MG TAB PO SCH (08:13)
--- NOTE | 2020-06-30 11:19 | Cardiology Progress Note ---
Date of Service June 30, 2020 Assessment & Plan (1) Pacemaker at end of battery life: Status post pulse generator change 06/29/2020 as patient had reached IVY January,. Wound is stable. Resume Eliquis first dose now. (2) Atrial fibrillation: Continue prior to hospital treatment with metoprolol digoxin. Eliquis 2.5 mg twice daily as noted above. (3) (HFpEF) heart failure with preserved ejection fraction: Volume status stable, she can resume her prior to hospital treatment with furosemide 20 mg daily, as per her outpatient medication list. (4) Peripheral vascular disease: Multilevel peripheral arterial disease noted CTA with runoff. Conservative management/observation recommended, not a candidate for intervention. [facility] -Has wound check/device interrogation scheduled at [facility] 07/08/20, 10 am. -Clinical cardiology follow up visit 07/15/2020, prakash Jordan, Primo Johnson PA-C , patient arrival 240 pm for 3 pm appointment. Admission and Anticipated Discharge Date Admission Date: June 28, 2020 Subjective Patient seen in follow up of permanent atrial fibrillation , tachy nkechi syndrome , with generator change having performed yesterday. She is sitting in the bedside chair. No complaints. Telemetry reveals AF with ventricular pacing in the 60s. Review of Systems Review of Systems: Unobtainable due to cognitive status Physical Exam Physical Exam: Temp Pulse Resp BP Pulse Ox 36.5 C 66 16 173/72 H 99 06/30/20 07:11 06/30/20 07:11 06/30/20 07:11 06/30/20 07:11 06/30/20 07:11 Constitutional: + cachectic Respiratory: normal respiratory effort, lungs clear to auscultation Cardiovascular: Rate/Rhythm: regular rhythm Heart Sounds: + murmur (1/6 SM) Vessels: no JVD Extremities: no edema Chest (Breasts): Chest: + pacemaker (Left infraclavicular pacemaker site clean dry and intact) Additional Comments: An appropriate degree of incisional erythema noted, no hematoma, wound well approximated. Neurologic: cognitive impairment of dementia, moves all 4 extremities and follows commands Results & Data ([facility]) Vital Signs (Past 12 Hours) Vital Signs Temp Pulse Resp BP Pulse Ox 06/30/20 07:11 36.5 C 66 16 173/72 H 99 06/30/20 04:19 36.4 C L 61 18 181/82 H 98 06/30/20 00:14 36.6 C 62 18 164/71 H 98 (1) Atrial fibrillation Atrial fibrillation type: unspecified chronic Qualified Code(s): I48.20 - Chronic atrial fibrillation, unspecified
[2020-06-30] MEDS ORDERED: APIXABAN 2.5 MG TAB PO ONE (11:30)
--- NOTE | 2020-06-30 11:34 | Palliative Care Progress Note ---
Date of Service June 30, 2020 Assessment & Plan (1) Palliative care encounter: Per EMR, Shaista has completed an advance directive at some point, though there is not one on file. Her friend, Vannessa, and brother, Inocencio, are not aware of an advance directive. Vannessa has been very confused on last phone call and unfortunately not able to participate in goals of care discussion. I spoke with Inocencio on the phone this morning. He is trying to locate Shaista's legal documents and review them. He tells me that she has never discussed health care preferences with him. He is aware that she has been a full code. We discussed that given her frailty and chronic medical problems, it may not be in her best interest to do resuscitation and would likely not be successful for her. He agrees with this and would like her code status changed to DNR, which I have done. He is not, at this time, able to complete full POLST form and would like to review her documents first. (2) Multiple rib fractures: (3) Fall: (4) Presence of permanent cardiac pacemaker: Admission and Anticipated Discharge Date Admission Date: June 28, 2020 Subjective "Bernice" continues to be confused and anxious today. She is crying and repeatedly saying "I've been a good person". She is talking about someone who murdered her mother and father. She is redirected briefly when talking about family. She denies pain or shortness of breath. Review of Systems Review of Systems: Unobtainable due to cognitive status [place] Symptom Assessment Scale Pain 0/3 Dyspnea 0/3 Nausea 0/3 Anxiety 2/3 Palliative Performance Score 40% Physical Exam Constitutional: + cachectic and + frail appearing Respiratory: normal respiratory effort; no labored breathing Gastrointestinal (Abdomen): Percussion/Palpation: abdomen nontender Musculoskeletal: Extremities: + muscle atrophy Skin: no rashes, warm and dry Neurologic: awake and + confused Psychiatric: Affect: + anxious affect Results & Data ([facility]) Vital Signs (Past 12 Hours) Vital Signs Temp Pulse Resp BP Pulse Ox 06/30/20 07:11 97.7 F 66 16 173/72 H 99 06/30/20 04:19 97.5 F L 61 18 181/82 H 98 06/30/20 00:14 97.9 F 62 18 164/71 H 98 PG Care Time/CCT Total # of Minutes Spent Total Time Spent with Patient: Total time spent is greater than 50% in coordination of care (as documented) at patient's floor/unit and/or counseling patient: total time spent 35 minutes with more than 50% of time spent on goals of care discussion and code status. Coding Level of Care Code 36027 Subseq Hosp Care Lvl 3 Diagnoses Palliative care encounter Z51.5 Multiple rib fractures S22.41XA Encounter type: initial encounter Fracture type: closed Laterality: right Fall W19.XXXA Encounter type: initial encounter Presence of permanent cardiac pacemaker Z95.0 (1) Multiple rib fractures Encounter type: initial encounter Fracture type: closed Laterality: right Qualified Code(s): S22.41XA - Multiple fractures of ribs, right side, initial encounter for closed fracture (2) Fall Encounter type: initial encounter Qualified Code(s): W19.XXXA - Unspecified fall, initial encounter
--- NOTE | 2020-06-30 12:10 | Discharge Summary ---
Date of Service June 30, 2020 Admission HPI Per Admitting Provider Mrs. Diaz is an 80 yo woman with a PMHx of peripheral vascular disease, HF with preserved EF, Atrial fibrillation on anticoagulation with Eliquis, s/p pacemaker placement who was brought to the ED after sustaining a fall at the grocery store. Per patient, she did not trip over anything or slip. She did feel slightly dizzy before falling but denied any prodrome of nausea, diaphoresis, graying of vision, palpitations, or sensation of warmth. Patient denies loss of consciousness. She recalls the events leading up to and after the fall. Prior to this episode, she was in her usual state of health - feeling well. No sick contacts. She denies any recent falls at home. Social Hx: She lives in an apartment with her close friend, Vannessa Joseph. She is amenable to doing inpatient rehab at [facility]. On arrival to the ED, her BP was hypertensive at 223/109, HR normal at 65, afebrile, RR 18, satting 100% on room air. WBC normal Hgb normal. INR 1.2. K mildly low at 3.4. Cr 1.08. BNP 6589. TSH 1.6. UA 2+ blood, neg LE, neg nitrites, neg bacteria. Urine culture pending. COVID 19 neg. EKG showing a paced rhythm, QTc 420ms. Head CT negative for acute hemorrhage. Cervical spine CT without fracture or subluxation. Pelvis XR without fracture. Rib XR showing acute fractures of the R posterior 6th and 7th ribs; small bilateral pleural effusions. Cat scan of abdomen and pelvis showing no evidence of solid organ injury. 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 Aorta with runoff CTA ordered, confirmed occlusion of the left external iliac artery, occlusion of proximal left superficial femoral artery, moderate to high grade stenosis involving the midportion of the L popliteal artery, moderate stenosis of the R common femoral artery, and occlusion of the distal superficial femoral artery with reconstitution of the R popliteal artery; per [employer] Official read pending. In te ED she was given 1 liter of normal saline, 5mg PO amlodipine and 5mg IV hydralazine Principal Diagnosis Fall, Rib fractures, Severe protein calorie malnutrition, Pacemaker generator exchange Discharge Exam Constitutional + cachectic and + malnourished; no acute distress Eyes + anicteric sclerae; no conjunctival abnormality Neck trachea midline, no thyromegaly Respiratory normal respiratory effort, lungs clear to auscultation Cardiovascular RRR, no murmur, no edema Chest (Breasts) Chest: + pacemaker (left chest with dressing in place) Gastrointestinal (Abdomen) normal bowel sounds, soft, nontender, no hepatosplenomegaly Musculoskeletal Extremities: no cyanosis and no clubbing Skin no rashes, warm and dry Neurologic moves all extremities and awake; no focal motor deficits Psychiatric Orientation: alert and cooperative; + not oriented to place and + not oriented to time Eye Contact: good eye contact Speech: normal rate/rhythm/volume of speech Affect: + angry affect Thought Content: + paranoid Cognition: + recent memory not intact Lymphatic no lymphedema Discharge Data Allergies Allergy/AdvReac Type Severity Reaction Status Date / Time HOLDEN Inhibitors AdvReac Mild COUGH Verified 07/02/20 09:36 Consultations 06/26/20 21:58 ED Decision to Admit Stat 06/27/20 09:57 Consult Cardiology Routine 06/27/20 10:05 Consult Vascular Surgery Routine 06/27/20 15:37 Consult Case Management - Discharge Planning Routine 06/27/20 18:19 Consult Palliative Care Routine Procedures Performed Operation Date: 06/29/20 10:00 Actual Procedures p Pacer Gen Change Single - Roxana Mckeon DO Ordered Studies 06/26/20 15:33 CT cervical spine wo con Stat 06/26/20 15:34 CT head/brain wo con Stat 06/26/20 16:59 CT abd pelvis IV con only Stat 06/26/20 22:13 CTA abd aorta runof w con [CT ang AA runof w inc wo ifdon] Urgent 06/29/20 06:30 CL Cath Imgs for PACS use only Routine Pelvis xray Rib series and CXR ECHO Hospital Course (1) Syncope and collapse: Mrs. Diaz is an 80 yo woman with a PMHx of peripheral vascular disease, HF with preserved EF, Atrial fibrillation on anticoagulation with Eliquis, s/p pacemaker placement who was brought to the ED after sustaining a fall in parking lot of grocery store after being unattended by her friend. Pt with moderate cognitive impairment. Reports she "lost her balance" but does not recall passing out although unsure if she is reliable. - Vaso-vagal is possible as patient did feel a prodrome of dizziness. No cough, micturition or defection or emesis - Orthostatic possible but has been rehydrated here and now hypertensive - Hypotension unlikely as BP was 226/109 on arrival. - Medication: patient is on several antihypertensives, however BP elevated on arrival as above. QTc normal on admission EKG. Patient did not take a nitroglycerin the grocery store. - Neurologic: rare, no report of seizure by bystanders. No seizure history With severe malnutrition and low body weight, deconditioning, PAD, and likely neuropathy also contributing to fall. Fall could represent a syncopal episode Pacer interrogation unrevealing as her battery is running out-she no longer records events, only paces. ECHO here with WMAs, preserved EF, RVSP>60, moderate MR and TR Moderate to high grade stenosis of L common carotid noted on CTA Pacing on tele PT/OT evals performed-needs rehab placement Now status post change out of Pacer generator --Appreciate Cardiology consultation (2) Peripheral vascular disease: - patient with history of PVD - extensive vascular disease visualized on imaging Appreciate Vascular Surgery consultation--> severe disease but with some blood flow to feet and asymptomatic, no intervention at this time - continue atorvastatin (3) Hypertension: - BP 223/109 on arrival to ED --> patient given Amlodipine 5mg, PO and Hydralazine 5mg IV in ED. BP improved to 165/109. - patient denied any CP, SOB. Trop undetectable. Cr normal at 1.03. EKG with ST segment changes. No evidence of end organ damage - hypertensive urgency - Continue home ramipril 10mg, daily and metoprolol succinate 200mg daily -Cardio added amlodipine 10mg daily Acceptable blood pressure of systolic 160 (4) Hyperlipidemia: - continue home dose atorvastatin (5) Atrial fibrillation: - History of A-fib - anticoagulated on low dose Eliquis (age > 80 years, body weight < 60kg) - patient has a pacemaker in place - continue digoxin 125mcg 3x weekly -Continue Toprol-XL 200 mg daily (6) (HFpEF) heart failure with preserved ejection fraction: - history of HFpEF - most recent ECHO 06/2016 showed normal EF (60-65%) and ECHO here as above, preserved EF, Pulm HTN, moD MR - BNP was elevated to 6589 on admission - small b/l pleural effusions noted on chest imaging - patient did not appear to be volume overloaded on exam - no diuretics needed acutely but can continue on lasix 20mg daily prn at home -BP control as above (7) Anticoagulant long-term use: - on Eliquis for Afib as above-ok to restart after pacer generator exchange (8) Hypokalemia: Replaced and now resolved (9) Ribs, multiple fractures: - rib XR showing 2 acute fractures: R posterior 6th and 7th ribs - traumatic, secondary to fall - patient denies any pain - Tylenol ordered prn - consider Lidoderm patch if pain increases - incentive spirometer ordered (10) Cognitive impairment: at least moderate in nature supportive care need to ensure being taken care of given significant weight loss With some hospital delirium status post pacemaker exchange should improve with time and is able to be redirected (11) Presence of permanent cardiac pacemaker: as above, has not followed up with Cardiology in almost 2 years, battery at end of life, now status post generator exchange on 06/29 Plan for outpatient follow-up with cardiology within 1 week as scheduled (12) Severe protein-energy malnutrition: body weight severely low, has lost 19% of body weight in 6 months Nutrition consult appreciated added IV thiamine and convert to po on dc added MVI with minerals liberalized diet (13) Mood disorder: continue Zoloft (14) DVT prophylaxis: Eliquis Dispo-discharge to [facility] today Total Time Total Time Spent Total Time Spent (In Minutes): 45 min Total Time Includes: Examination of the Patient, Discharge Planning, Medication Reconciliation and Communication With Other Providers (Cardiology) Discharge Plan Discharge Items Patient Disposition: Transfer Inpatient Rehab Fac Reason For Visit: FALL Discharge Diagnosis: Fall,Rib fractures, Pacemaker generator replacement Condition on Discharge: Fair Activity: As commented below Exercise/Sports: Gradually increase as tolerated Weightbearing: Full weightbearing Non-emergency contact: Primary Care Provider and Tack Maker Call non-emergency contact if: you have any medication questions and your symptoms worsen Follow-up/Referrals: Francesco Mancia MD [Primary Care Provider] - (Follow up within 1 week) Timothy Mae DO [Tack Maker] - (Follow up within 1-2 weeks ) Diet: Regular Addtl Attending Provider Instructions: Keep dressing on and dry until wound check next week at [facility] on Saturday07/08/2020 at 9:45am Pending Studies at Discharge: No Stand-Alone Forms: My New [facility] Skilled Items Patient informed of condition?: Yes DNR: Yes Discharge Level of Care: Skilled Communicable Disease: No Discharge Prognosis: Improving Lines: None Urinary Catheter: No Medications and DC Order Prescriptions: New acetaminophen 325 mg Tablet 650 mg PO Q4H PRN (Reason: pain) Qty: 30 RF: 0 amlodipine [Norvasc] 5 mg Tablet 5 mg PO QAM Qty: 30 RF: 0 Certavite-Antioxidant 18-400 mg-mcg Tablet 1 tab PO QAM Qty: 30 RF: 0 thiamine HCl (vitamin B1) 100 mg tablet 100 mg PO DAILY Qty: 30 RF: 0 Continued digoxin 125 mcg (0.125 mg) tablet 125 mcg PO 3XWK Qty: 60 RF: 3 sertraline 100 mg tablet 100 mg PO DAILY Qty: 90 RF: 3 Eliquis 2.5 mg tablet 2.5 mg PO BID Qty: 60 RF: 5 metoprolol succinate 200 mg tablet extended release 24 hr 200 mg PO DAILY Qty: 30 RF: 5 ramipril 10 mg capsule 10 mg PO DAILY Qty: 30 RF: 5 atorvastatin 40 mg tablet 40 mg PO DAILY RF: 0 Discontinued furosemide 20 mg tablet 20 mg PO DIRECTED RF: 0 Discharge Orders: Discharge Order (Routine); Ordered 06/30/20 Ordered By: Michelle Up Admission Data Admit Date/Time: 06/28/20 23:39 Attending Provider: Michelle Up Admit Provider: Mili Qureshi Primary Care Provider: Francesco Mancia [facility] ; Malachi Scott ; Timothy Mae ; Tushar Rodríguez ; Kendra Gr Other Interventions: Discharge Summary Assessment (RN) Last Done: 06/30/20 12:12 Coding Level of Care Code D/C Day Management >30 mins Diagnoses Syncope and collapse R55 Peripheral vascular disease I73.9 Hypertension I10 Hypertension type: essential hypertension Hyperlipidemia E78.5 Atrial fibrillation I48.20 Atrial fibrillation type: unspecified chronic (HFpEF) heart failure with preserved ejection fraction I50.30 Anticoagulant long-term use Z79.01 Hypokalemia E87.6 Ribs, multiple fractures S22.49XA Cognitive impairment R41.89 Presence of permanent cardiac pacemaker Z95.0 Severe protein-energy malnutrition E43 Mood disorder F39 DVT prophylaxis Z29.9
[2020-06-30] MEDS ORDERED: APIXABAN 2.5 MG TAB PO SCH (21:00)
--- NOTE | 2020-07-02 23:53 | Operative Report (OR) ---
DATE OF OPERATION: 06/29/2020 PREOPERATIVE DIAGNOSIS: Pacemaker at EOL. POSTOPERATIVE DIAGNOSIS: Pacemaker at EOL. PROCEDURE: Single chamber rate responsive permanent pacemaker generator change. SURGEON: Roxana Mckeon DO. ASSISTANTS: None. ANESTHESIA: Monitored conscious sedation administered under my supervision by Maryam Guajardo. Her start time 10:21, end time 10:56. A total of 1 mg of Versed, 25 mcg of fentanyl. INTRAVENOUS FLUIDS: 50 mL. URINE OUTPUT: Not applicable. SPECIMENS: None. FINDINGS: See below. DRAINS: None. COMPLICATIONS: None. CONDITION: Stable. 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 The patient was admitted to the hospital. Her device was interrogated and it had been some time she has been lost to followup in our Device [facility] where she was found that the device had hit IVY back on 01/04/2020 and so she was recommended a generator change as an inpatient secondary to the device being at EOL. CONSENT: Consent was obtained prior to the patient going into electrophysiology lab. The patient was informed of the risks, benefits and alternatives of procedure. Risks include but not limited to sudden cardiac , cardiac arrhythmias, cerebrovascular accident, myocardial infarction, bleeding, and infection. The patient understood these risks and agreed to undergo the procedure as planned. Informed consent was obtained. DESCRIPTION OF THE PROCEDURE: The patient was brought into the electrophysiology lab in a fasting state. She was connected to continuous bottom cager. Timeout was performed to ensure patient identity and procedure correctly. She received prophylactic antibiotics prior to incision. She was prepped and draped over the left inferior space in normal surgical standard fashion. Monitored conscious sedation was given throughout the procedure for patient's comfort level. [place] precautions were maintained throughout the procedure. 20 mL of 1% lidocaine, bupivacaine mixture were given over the prior surgical incision. Incision was made over the prior surgical incision. Blunt dissection performed down to the prior pulse generator. The pulse generator was freed from the capsule. The capsule was disrupted inferiorly and caudally to allow for new blood flow. The lead was tested intraoperatively, see below for results. The pocket was flushed with copious amounts of bacitracin saline solution, washed and inspected for hemostasis. The new pulse generator was attached to the lead making sure the pins were in appropriate position, passed set screw and set screws were all tightened. The new pulse generator was placed in the antibiotic pouch followed then by being placed in the pocket, making sure the leads were lying flat beneath the device. The incision was then closed in 3-layer fashion with 2-0 Vicryl interrupted suture followed by 3-0 Vicryl interrupted suture, followed by a 4-0 Monocryl running stitch and Dermabond was applied followed by Telfa and micropore dressing. EQUIPMENT: 1. Explanted generator is a Sensia RSR [id number], serial #[id number], implanted 01/20/2013. IVY on 01/04/2020 with a voltage of 2.6 volts. 2. The new pulse generator was an Attesta SR MRI SureScan [id number], serial number #[id number]. 3. Tyrx pouch reference [id number], lot number [id number], expiration 03/16/2021. Of note, the right atrial lead that is capped. 4. The right ventricular lead 4092-52 cm, serial #[id number], implanted 11/24/2004. INTRAOPERATIVE TESTING: Right ventricular lead R waves 10.1 millivolts, impedance 473 ohms, threshold 1.4 volts at 0.5 milliseconds. FINAL MEASUREMENTS THROUGH THE DEVICE: R waves 11.2 millivolts, impedance 46 ohms, threshold 1.75 volts at 0.4 milliseconds. FINAL PARAMETERS: VVIR 60/120. IMPRESSION: Successful single chamber rate responsive permanent pacemaker generator change secondary to device at EOL and tachybrady syndrome. PLAN: Monitor patient post-procedure, transfer back to inpatient, she is to keep the dressing on and dry until her wound check next week. I attest to the content of the Intraoperative Record and any orders documented therein. Any exception s are noted below.
== END 2020-06-30 14:14 | DRG 258 ==
LOC: ED 14:56 → 2W 14:56 → SUATTDRO 06-27 00:23 → 2W 06-27 01:08 → 2S 06-29 13:22

== ENCOUNTER 2020-11-02 17:09 | Inpatient (IN) ==
[2020-11-02 18:56] LABS: Basophils # (auto) 0.03 K/uL (0-0.2); Basophils % (auto) 0.3 %; Eosinophils # (auto) 0.38 K/uL (0-0.5); Eosinophils % (auto) 4.4 %; Hematocrit (blood only) 28.4 % (37-47); Hemoglobin 8.6 g/dL (12.0-16.0); Immature Granulocytes # (auto) 0.01 K/uL (0.00-0.02); Immature Granulocytes % (auto) 0.1 %; Lymphocytes # (auto) 0.51 K/uL (1.2-3.4); Lymphocytes % (auto) 5.9 %; Mean Corpuscular Hemoglobin 27.2 pg (25-34); Mean Corpuscular Hgb Conc 30.3 g/dL (32-36); Mean Corpuscular Volume 89.9 fL (80-100); Mean Platelet Volume 9.2 fL (7.4-10.4); Monocytes # (auto) 1.15 K/uL (0.11-0.59); Monocytes % (auto) 13.2 %; Neutrophils % (auto) 76.1 %; Platelet Count 254 K/uL (130-400); RDW Coefficient of Variation 17.7 % (11.5-14.5); RDW Standard Deviation 58.4 fL (36.4-46.3); Red Blood Count 3.16 M/uL (4.2-5.4); White Blood Count 8.68 K/uL (4.8-10.8)
[2020-11-02 19:14] LABS: Alanine Aminotransferase 22 U/L (12-78); Aspartate Aminotransferase 22 U/L (15-37); BUN Creatinine Ratio 42.5 (10-20); Blood Urea Nitrogen 65 mg/dl (7-18); Calcium 8.9 mg/dl (8.5-10.1); Carbon Dioxide 26 mmol/L (21-32); Chloride 110 mmol/L (98-107); Creatinine Clr Calc Pharmacy 22.7 ml/min; Est GFR (African American) 36.6 ml/min; Est GFR (Non-African American) 31.6 ml/min; Glucose 102 mg/dl (70-99); Magnesium 2.3 mg/dl (1.8-2.4); Potassium 5.2 mmol/L (3.5-5.1); Sodium 142 mmol/L (136-145)
[2020-11-02 19:25] LABS: Albumin Globulin Ratio 0.9 (0.9-2); Alkaline Phosphatase 51 U/L (45-117); Bilirubin,Total 0.4 mg/dl (0.2-1); Globulin 3.2 gm/dl (2.5-4.0); Total Protein 6.2 gm/dl (6.4-8.2); Troponin I < 0.015 ng/ml (0-0.045)
--- NOTE | 2020-11-02 19:55 | XRay Report ---
SINGLE VIEW CHEST CLINICAL HISTORY: Generalized weakness. FINDINGS: An AP, portable, upright chest radiograph is compared to study dated 10/07/2020 and correlate d with chest CT dated 05/20/2017. The examination is degraded by portable technique and patient rotat ion. A 2-lead cardiac pacemaker is unchanged in position. The heart is enlarged noting atheroscleroti c calcification of the thoracic aorta. There is pulmonary vascular congestion. Bilateral airspace opa cities likely represent interstitial edema. There are small pleural effusions with bibasilar consolid ation. No pneumothorax is seen. The skeletal structures are osteopenic. The bony thorax is grossly in tact. Atherosclerotic calcification is noted in the subclavian arteries. IMPRESSION: 1. Cardiomegaly and cardiac pacemaker with evidence of congestive failure. 2. Bilateral airspace opacities likely represent pulmonary edema. Correlate clinically for evidence o f superimposed pneumonia. 3. Small pleural effusions with bibasilar consolidation. ACT 112: Negative or not required by law. Electronically signed by: Federico Collazo M.D. 11/02/2020 7:53 PM
[2020-11-02 21:08] LABS: Appearance Urine Cloudy (Clear); Bacteria Urine Automated Negative (Negative); Bilirubin Urine Negative (Negative); Blood Urine 3+ (Negative); Color Urine Yellow; Glucose Urine UA Negative (Negative); Ketones Urine Negative (Negative); Leukocyte Esterase Urine Trace (Negative); Nitrite Urine Negative (Negative); Protein Urine 2+ (Negative); Specific Gravity Urine 1.019 (1.000-1.030); Urobilinogen Urine Negative (Negative)
[2020-11-02 21:24] LABS: RBC Urine Automated >30 /hpf (0-4)
--- NOTE | 2020-11-02 21:43 | History & Physical Report ---
Date of Service November 02, 2020 Assessment & Plan (1) Edema: Patient with significant bilateral LE edema to sacral region - 3+ pitting. Ddx to include CHF decompensation. TSH WNL, Albumin = 3, UA with 2+ protein. -Lasix 20mg IV now - closely monitor output, daily weights and renal function -Check doppler bilateral LE - patient is anticoagulated on Eliquis Present on Admission?: Yes (2) Anemia: Hgb=8.6, Hct=28.4 which is decreased from prior value of 11.7. Patient denies melena or hematochezia. FOBT performed in ER was guaic negative. Patient has been on Naproxen BID as well as Eliquis - some concern for GI irritation. -Montior CBC, transfuse for acute drop or bleeding -Guaic all stools Present on Admission?: Yes (3) CHERRY (acute kidney injury): BUN=65, Cr=1.52, increased from prior value of 0.83. Possibly secondary to CHF, poor flow -Avoid nephrotoxic agents -Renal dosing where needed -Lasix 20mg IV now - redose pending tomorrow's labs Present on Admission?: Yes (4) Cognitive impairment: Patient oriented x 1. She is intermittently confused and distractible, high risk for hospital delirium -Continue Risperdal -Frequent orientation, maintenance of sleep/wake cycles as able, delirium prevention strategies Present on Admission?: Yes (5) Hypertension: Blood pressure mildly elevated at 149/118 -Continue Metoprolol 200mg po daily -Hold Lisinopril in setting of CHERRY -Hold Ramipril - Patient has Lisinopril and Ramipril on her list - should not be taking both. Per Cardiology notes, she has most recently been on Ramipril 10mg po daily and Lisinopril removed from her list. This can be resumed pending improvement in renal function -Continue Amlodipine -Continue to monitor Present on Admission?: Yes (6) Hyperlipidemia: Chronic. -Continue Atorvastatin 40mg po qHS Present on Admission?: Yes (7) Atrial fibrillation: Rate controlled. Currently A-sensed, V-paced. Rhythm refractory to Flecainide, she experienced significant QT prolongation with Sotalol and intolerance to Amiodarone. -Continue Metoprolol -Continue Eliquis -Check Digoxin level Present on Admission?: Yes (8) (HFpEF) heart failure with preserved ejection fraction: Suspect acute on chronic CHF contributing to bilateral LE edema and orthopnea -Lasix 20mg IV now and daily -Monitor renal function and electrolytes -Continue metoprolol -Holding Ramipril as above in setting of CHERRY F/E/N - Lasix as above, monitor electrolytes and K, Heart healthy diet as tolerated Ppx - Continue Eliquis and Pepcid Code - Full per discussion with patient and review of chart Dispo - Admit to medical Present on Admission?: Yes History of Present Illness Chief Complaint: confusion, edema Primary Care Provider: [facility] [place] Shaista Diaz is an 80yo C female with history of paroxysmal atrial fibrillation on Eliquis anticoagulation, severe PH, HTN and diastolic dysfunction. Patient resides at [facility]. She is a poor historian and suffers from cognitive impairment. Per record review, she has been experiencing worsening shortness of breath and bilateral LE edema as well as orthopnea. She was evaluated by Cardiology on 10/28/20 and restarted on Lasix 20mg po daily. Patient offers no complaints. Specifically denies fevers, chills, chest pain, palpitations, abdominal pain, nausea, vomiting, diarrhea or constipation. She is anxious and reports she becomes short of breath at rest and with exertion. She is very anxious and confused. Able to answer most questions appropriately and follow commands. ER Course: No medications administered Allergies Allergy/AdvReac Type Severity Reaction Status Date / Time HOLDEN Inhibitors AdvReac Mild COUGH Verified 11/02/20 17:47 Home Medications Medication Instructions Recorded Confirmed Type sertraline 100 mg tablet 100 mg PO DAILY #90 tab 09/10/19 11/02/20 Rx atorvastatin 40 mg tablet 40 mg PO HS 11/13/19 11/02/20 History metoprolol succinate 200 mg 200 mg PO DAILY #30 tab 05/09/20 11/02/20 Rx tablet,extended release 24 hr ramipril 10 mg capsule 10 mg PO DAILY #30 cap 05/17/20 11/02/20 Rx thiamine HCl (vitamin B1) 100 mg PO DAILY #30 tab 06/30/20 11/02/20 Rx buspirone 10 mg PO BID 10/07/20 11/02/20 History cholecalciferol (vitamin D3) 50 mcg PO DAILY 10/07/20 11/02/20 History [Vitamin D3] digoxin 125 mcg PO MOWEFR 10/07/20 11/02/20 History docusate sodium 100 mg PO BID 10/07/20 11/02/20 History famotidine 10 mg PO QAM 10/07/20 11/02/20 History lisinopril 40 mg PO DAILY 10/07/20 11/02/20 History melatonin 3 mg PO HS 10/07/20 11/02/20 History polyethylene glycol 3350 [Miralax] 17 g PO DAILY 10/07/20 11/02/20 History zinc sulfate 220 mg PO DAILY 10/07/20 11/02/20 History Eliquis 2.5 mg PO Q12 11/02/20 11/02/20 History acetaminophen 325 mg PO Q8 PRN 11/02/20 11/02/20 History amlodipine 5 mg PO DAILY 11/02/20 11/02/20 History ascorbic acid (vitamin C) 500 mg PO BIDM 11/02/20 11/02/20 History furosemide 20 mg PO QAM 11/02/20 11/02/20 History multivitamin [Multiple Vitamin] 1 tab PO DAILY 11/02/20 11/02/20 History naproxen 250 mg PO BID 11/02/20 11/02/20 History risperidone 0.25 mg PO . Q AFTERNOON 11/02/20 11/02/20 History risperidone [Risperdal] 0.5 mg PO HS 11/02/20 11/02/20 History Past Med/Surg History Medical History (HFpEF) heart failure with preserved ejection fraction Anticoagulant long-term use Atrial fibrillation Benign hypertension (10/03/12) Chronic hoarseness Dyshidrotic eczema Gait disturbance Hyperlipidemia (10/03/12) Hypertension Insomnia Low BMI Mitral valve insufficiency, acquired Mood disorder Osteoarthritis of knee Palliative care encounter Peripheral vascular disease Pleural effusion Poor balance Postoperative bleeding from incision Pulmonary hypertension Right asymmetrical SNHL Severe protein-energy malnutrition Vitamin B12 deficiency Surgical History History of appendectomy History of cataract surgery 2009 History of corneal transplant History of exploratory thoracotomy History of hysterectomy age 36 History of knee surgery ACL repair History of lung surgery insertion of tunnel pleural catheter with cuff left History of tonsillectomy Status post placement of cardiac pacemaker Family History Family/Other No problems noted. Father Myocardial infarction Other Heart disease Hypertension Nephrolithiasis Denies family history of Ovarian cancer Prostate cancer Breast cancer Colorectal cancer Social History Smoking Status: Unknown if ever smoked Age Started Using Tobacco: 17; Number of Years Since Quit: 25; Second Hand Exposure: Yes; Hx Alcohol Use: Yes Alcohol type: beer Alcohol Intake Frequency: 2-3 x/Week Hx Substance Use: No Preferred Language: [place]ican Communication Ability: Effective Visual Impairment: Limited Hearing Ability: Hard of Hearing [employer] Production [employer] Required: No Beliefs That Will Affect Care: None marital status: Single Current Living Situation: Other Current Living Situation Comment: friend current occupational status: retired 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 How many Children do You have: 0 Feels Safe at Home: Yes Childhood Exposure to Second-Hand Smoke: Yes caffeine: Yes Dental Care, Regularly: Yes Physical Activity Frequency: 3-4 Times per Week Seatbelt Use: always Sunscreen Use: Yes Assistive Devices: None Review of Systems Review of Systems: All systems reviewed & are unremarkable except as noted in HPI & below Physical Exam Physical Exam: General: patient anxious, somewhat confused, frail and cachectic in appearance, non-toxic in appearance, oriented to self only, distractable Skin: warm, dry, intact HEENT: NC/AT, PERRL, EOMI, anicteric sclera, conjunctiva without injection, external ear normal to inspection and nontender, nares patent, moist mucus membranes, dentition intact, no oropharyngeal lesions, neck supple, trachea midline, no LAD, no thyromegaly, no JVD Heart: +S1/S2, regular with ectopy, no m/r/g Lungs: equal air entry bilaterally, no rales/rhonchi/wheezes Abd: +BS, soft, NT/ND, no masses/organomegaly/ascites Ext: warm, 1+ pulses palpable, 3+ pitting edema of bilateral LE to sacrum, skin thickening Neuro: nonfocal, patient AA&O to self, hoarse voice, no facial droop, moving all extremities on command with equal strength 5/5 Results & Data Results & Data ([facility]) Vital Signs (Past 12 Hours) Vital Signs Temp Pulse Pulse Resp BP BP Pulse Ox 11/02/20 20:09 64 20 149/118 H 90 11/02/20 18:28 60 95 11/02/20 17:20 36.5 C 74 18 154/74 H 94 Laboratory Results Laboratory Results WBC 8.68 K/uL (4.8-10.8) 11/02/20 18:50 RBC 3.16 M/uL (4.2-5.4) L 11/02/20 18:50 Hgb 8.6 g/dL (12.0-16.0) L 11/02/20 18:50 Hct 28.4 % (37-47) L 11/02/20 18:50 MCV 89.9 fL (80-100) 11/02/20 18:50 MCH 27.2 pg (25-34) 11/02/20 18:50 MCHC 30.3 g/dL (32-36) L 11/02/20 18:50 RDW Std Deviation 58.4 fL (36.4-46.3) H 11/02/20 18:50 RDW Coeff of Khalida 17.7 % (11.5-14.5) H 11/02/20 18:50 Plt Count 254 K/uL (130-400) 11/02/20 18:50 MPV 9.2 fL (7.4-10.4) 11/02/20 18:50 Immature Gran % (Auto) 0.1 % 11/02/20 18:50 Neut % (Auto) 76.1 % 11/02/20 18:50 Lymph % (Auto) 5.9 % 11/02/20 18:50 [place] % (Auto) 13.2 % 11/02/20 18:50 Eos % (Auto) 4.4 % 11/02/20 18:50 Baso % (Auto) 0.3 % 11/02/20 18:50 Neut # (Auto) 6.60 K/uL (1.4-6.5) H 11/02/20 18:50 Lymph # (Auto) 0.51 K/uL (1.2-3.4) L 11/02/20 18:50 [place] # (Auto) 1.15 K/uL (0.11-0.59) H 11/02/20 18:50 Eos # (Auto) 0.38 K/uL (0-0.5) 11/02/20 18:50 Baso # (Auto) 0.03 K/uL (0-0.2) 11/02/20 18:50 Immature Gran # (Auto) 0.01 K/uL (0.00-0.02) 11/02/20 18:50 Sodium 142 mmol/L (136-145) 11/02/20 18:50 Potassium 5.2 mmol/L (3.5-5.1) H 11/02/20 18:50 Chloride 110 mmol/L (98-107) H 11/02/20 18:50 Carbon Dioxide 26 mmol/L (21-32) 11/02/20 18:50 Anion Gap 6.0 (3-11) 11/02/20 18:50 BUN 65 mg/dl (7-18) H 11/02/20 18:50 Creatinine 1.52 mg/dl (0.6-1.2) H 11/02/20 18:50 Est Cr Clr Drug Dosing 22.7 ml/min 11/02/20 18:50 Est GFR ( Amer) 36.6 ml/min 11/02/20 18:50 Est GFR (Non-Af Amer) 31.6 ml/min 11/02/20 18:50 BUN/Creatinine Ratio 42.5 (10-20) H 11/02/20 18:50 Glucose 102 mg/dl (70-99) H 11/02/20 18:50 Calcium 8.9 mg/dl (8.5-10.1) 11/02/20 18:50 Magnesium 2.3 mg/dl (1.8-2.4) 11/02/20 18:50 Total Bilirubin 0.4 mg/dl (0.2-1) 11/02/20 18:50 AST 22 U/L (15-37) 11/02/20 18:50 ALT 22 U/L (12-78) 11/02/20 18:50 Alkaline Phosphatase 51 U/L (45-117) 11/02/20 18:50 Troponin I < 0.015 ng/ml (0-0.045) 11/02/20 18:50 Total Protein 6.2 gm/dl (6.4-8.2) L 11/02/20 18:50 Albumin 3.0 gm/dl (3.4-5.0) L 11/02/20 18:50 Globulin 3.2 gm/dl (2.5-4.0) 11/02/20 18:50 Albumin/Globulin Ratio 0.9 (0.9-2) 11/02/20 18:50 TSH 1.690 uIu/ml (0.300-4.500) 11/02/20 18:50 Urine Color Yellow 11/02/20 20:33 Urine Appearance Cloudy (Clear) A 11/02/20 20:33 Urine pH 5.0 (4.5-7.5) 11/02/20 20:33 Ur Specific [place] 1.019 (1.000-1.030) 11/02/20 20:33 Urine Protein 2+ (Negative) H 11/02/20 20:33 Urine Glucose (UA) Negative (Negative) 11/02/20 20:33 Urine Ketones Negative (Negative) 11/02/20 20:33 Urine Blood 3+ (Negative) H 11/02/20 20:33 Urine Nitrite Negative (Negative) 11/02/20 20:33 Urine Bilirubin Negative (Negative) 11/02/20 20:33 Urine Urobilinogen Negative (Negative) 11/02/20 20:33 Ur Leukocyte Esterase Trace (Negative) H 11/02/20 20:33 Urine WBC (Auto) 1-5 /hpf (0-5) 11/02/20 20:33 Urine RBC (Auto) >30 /hpf (0-4) H 11/02/20 20:33 U Hyaline Cast (Auto) 1-5 /lpf (0-5) 11/02/20 20:33 U Epithel Cells (Auto) 5-10 /lpf (0-5) H 11/02/20 20:33 Urine Bacteria (Auto) Negative (Negative) 11/02/20 20:33 Urine Yeast Not Reportable 11/02/20 20:33 COVID-19 Eval Order Covid19 at [facility] 11/02/20 20:44 SARS-CoV-2 (PCR) NEGATIVE (Negative) 11/02/20 20:44 Impressions Chest X-Ray 11/02/20 18:28 SINGLE VIEW CHEST CLINICAL HISTORY: Generalized weakness. FINDINGS: An AP, portable, upright chest radiograph is compared to study dated 10/07/2020 and correlated with chest CT dated 05/20/2017. The examination is degraded by portable technique and patient rotation. A 2-lead cardiac pacemaker is unchanged in position. The heart is enlarged noting atherosclerotic calcification of the thoracic aorta. There is pulmonary vascular congestion. Bilateral airspace opacities likely represent interstitial edema. There are small pleural effusions with bibasilar consolidation. No pneumothorax is seen. The skeletal structures are osteopenic. The bony thorax is grossly intact. Atherosclerotic calcification is noted in the subclavian arteries. IMPRESSION: 1. Cardiomegaly and cardiac pacemaker with evidence of congestive failure. 2. Bilateral airspace opacities likely represent pulmonary edema. Correlate clinically for evidence of superimposed pneumonia. 3. Small pleural effusions with bibasilar consolidation. ACT 112: Negative or not required by law. Electronically signed by: Federico Collazo M.D. 11/02/2020 7:53 PM ECG Additional Comments: A-sensed, V-paced, no acute ischemic changes PG Care Time/CCT Total # of Minutes Spent Total Time Spent with Patient: Total time spent is greater than 50% in coordination of care (as documented) at patient's floor/unit and/or counseling patient: Coding Level of Care Code 11843 Initial Inpt Care Lvl 3 Diagnoses Edema R60.9 Edema type: unspecified Anemia D64.9 Anemia type: unspecified type CHERRY (acute kidney injury) N17.9 Cognitive impairment R41.89 Hypertension I10 Hypertension type: essential hypertension Hyperlipidemia E78.5 Hyperlipidemia type: unspecified Atrial fibrillation I48.20 Atrial fibrillation type: unspecified chronic (HFpEF) heart failure with preserved ejection fraction I50.33 Heart failure chronicity: acute on chronic (1) Hypertension Hypertension type: essential hypertension Qualified Code(s): I10 - Essential (primary) hypertension (2) Hyperlipidemia Hyperlipidemia type: unspecified Qualified Code(s): E78.5 - Hyperlipidemia, unspecified (3) Atrial fibrillation Atrial fibrillation type: unspecified chronic Qualified Code(s): I48.20 - Chronic atrial fibrillation, unspecified (4) (HFpEF) heart failure with preserved ejection fraction Heart failure chronicity: acute on chronic Qualified Code(s): I50.33 - Acute on chronic diastolic (congestive) heart failure (5) Edema Edema type: unspecified Qualified Code(s): R60.9 - Edema, unspecified (6) Anemia Anemia type: unspecified type Qualified Code(s): D64.9 - Anemia, unspecified
[2020-11-02] MEDS ORDERED: ONDANSETRON INJ 2 MG/ML 2 ML VIAL IV PRN (23:15)
[2020-11-02] MEDS ORDERED: ACETAMINOPHEN 325 MG TAB PO PRN (23:15)
[2020-11-02 23:33] LABS: NT Pro B Type Natriuretic Pept 6394 pg/ml (0-1800)
[2020-11-02 23:39] LABS: Sodium Random Urine 10 mmol/L; Urea Nitrogen, Urine Random 903 mg/dl
[2020-11-02] MEDS ORDERED: FUROSEMIDE 40 MG/4 ML VIAL IV STA (23:42)
--- NOTE | 2020-11-03 00:25 | Emergency Department Note ---
History of Present Illness General Chief complaint: Illness Stated complaint: Fluid retention Time Seen by Provider: 11/02/20 18:00 Source: patient and RN notes reviewed Mode of arrival: EMS Limitations: no limitations History of Present Illness Provider complaint: fluid retention, swelling legs This patient is an 80-year-old female who presents emergency department with complaints of lower extremity edema per intermediate records. Patient is apparently followed by cardiology and was referred to the emergency department for pitting edema to the lower extremities to the lower abdomen/groin. Patient was started on Lasix this week but the swelling has not improved. She has noted to be anemic on laboratory work. Patient and is not able to give history due to cognitive impairment and states she is here looking for her mother. Patient denies any pain at this time. Home Medications Medication Instructions Recorded Confirmed Type sertraline 100 mg tablet 100 mg PO DAILY #90 tab 09/10/19 11/02/20 Rx atorvastatin 40 mg tablet 40 mg PO HS 11/13/19 11/02/20 History metoprolol succinate 200 mg 200 mg PO DAILY #30 tab 05/09/20 11/02/20 Rx tablet,extended release 24 hr ramipril 10 mg capsule 10 mg PO DAILY #30 cap 05/17/20 11/02/20 Rx thiamine HCl (vitamin B1) 100 mg PO DAILY #30 tab 06/30/20 11/02/20 Rx buspirone 10 mg PO BID 10/07/20 11/02/20 History cholecalciferol (vitamin D3) 50 mcg PO DAILY 10/07/20 11/02/20 History [Vitamin D3] digoxin 125 mcg PO MOWEFR 10/07/20 11/02/20 History docusate sodium 100 mg PO BID 10/07/20 11/02/20 History famotidine 10 mg PO QAM 10/07/20 11/02/20 History lisinopril 40 mg PO DAILY 10/07/20 11/02/20 History melatonin 3 mg PO HS 10/07/20 11/02/20 History polyethylene glycol 3350 [Miralax] 17 g PO DAILY 10/07/20 11/02/20 History zinc sulfate 220 mg PO DAILY 10/07/20 11/02/20 History Eliquis 2.5 mg PO Q12 11/02/20 11/02/20 History acetaminophen 325 mg PO Q8 PRN 11/02/20 11/02/20 History amlodipine 5 mg PO DAILY 11/02/20 11/02/20 History ascorbic acid (vitamin C) 500 mg PO BIDM 11/02/20 11/02/20 History furosemide 20 mg PO QAM 11/02/20 11/02/20 History multivitamin [Multiple Vitamin] 1 tab PO DAILY 11/02/20 11/02/20 History naproxen 250 mg PO BID 11/02/20 11/02/20 History risperidone 0.25 mg PO . Q AFTERNOON 11/02/20 11/02/20 History risperidone [Risperdal] 0.5 mg PO HS 11/02/20 11/02/20 History Allergies Allergy/AdvReac Type Severity Reaction Status Date / Time HOLDEN Inhibitors AdvReac Mild COUGH Verified 11/02/20 17:47 Past Med/Surg History Medical History (HFpEF) heart failure with preserved ejection fraction Anticoagulant long-term use Atrial fibrillation Benign hypertension (10/03/12) Chronic hoarseness Dyshidrotic eczema Gait disturbance Hyperlipidemia (10/03/12) Hypertension Insomnia Low BMI Mitral valve insufficiency, acquired Mood disorder Osteoarthritis of knee Palliative care encounter Peripheral vascular disease Pleural effusion Poor balance Postoperative bleeding from incision Pulmonary hypertension Right asymmetrical SNHL Severe protein-energy malnutrition Vitamin B12 deficiency Surgical History History of appendectomy History of cataract surgery 2009 History of corneal transplant History of exploratory thoracotomy History of hysterectomy age 36 History of knee surgery ACL repair History of lung surgery insertion of tunnel pleural catheter with cuff left History of tonsillectomy Status post placement of cardiac pacemaker Family History Family/Other No problems noted. Father Myocardial infarction Other Heart disease Hypertension Nephrolithiasis Denies family history of Ovarian cancer Prostate cancer Breast cancer Colorectal cancer Social History Smoking Status: Former smoker Age Started Using Tobacco: 17; Number of Years Since Quit: 25; Second Hand Exposure: Yes; Hx Alcohol Use: No Hx Substance Use: No Preferred Language: Congolese Communication Ability: Impaired Visual Impairment: Limited Hearing Ability: Hard of Hearing Fruit Dryer Required: No Beliefs That Will Affect Care: None marital status: Single Current Living Situation: [facility] Current Living Situation Comment: friend current occupational status: retired 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 How many Children do You have: 0 Feels Safe at Home: Yes Childhood Exposure to Second-Hand Smoke: Yes caffeine: Yes Dental Care, Regularly: Yes Physical Activity Frequency: 3-4 Times per Week Seatbelt Use: always Sunscreen Use: Yes Assistive Devices: None Review of Systems Unobtainable due to cognitive status (Dementia) Physical Exam Vital Signs Vital Signs - 24 hr 11/02/20 17:20 11/02/20 18:28 11/02/20 20:09 Temperature 36.5 C Temperature Source Oral Pulse Rate 74 60 Pulse Rate [Apical] 64 Respiratory Rate 18 20 Respiratory Effort / Characteristics Non-Labored Respiratory Depth Normal Blood Pressure 154/74 H Blood Pressure [Right Arm] 149/118 H Blood Pressure Mean 100 Blood Pressure Mean [Right Arm] 128 Blood Pressure Position [Right Arm] Lying Pulse Oximetry 94 95 90 Oxygen Delivery Method Room Air Room Air Room Air Sepsis Recent Fever Within 48 Hours No Sepsis New/Unexplained Change in Mental Status N/A Sepsis Action Taken by Nursing No Action Required Vital signs reviewed. General: Chronically ill-appearing 80 yo female, in no significant distress. HEENT: No scleral icterus, PERRLA, neck supple. Cardiovascular: Regular rate and rhythm, no extra sounds. Pulmonary: Clear to auscultation bilaterally, normal work of breathing. Abdomen: Soft, nontender, nondistended, positive bowel sounds. Musculoskeletal: Atraumatic, 3+ pitting edema to the lower extremities extending through the lower abdomen/groin. Rectal: Normal external rectal mucosa, guaiac negative brown stool Neurologic: Patient awake alert and tearful. Unable to answer questions appropriately. States she is looking for her mother. Skin: Warm, dry, no rash Course Administered Medications Acetaminophen (Acetaminophen 325 Mg Tab) 650 mg PO Q4H PRN PRN Reason: pain/fever Stop: 12/02/20 23:14 Last Admin: 11/03/20 01:49 Dose: 650 mg Documented by: [id number] Amlodipine Besylate (Amlodipine Besylate 5 Mg Tab) 5 mg PO DAILY RAQUEL Stop: 12/03/20 08:59 Last Admin: 11/03/20 09:56 Dose: 5 mg Documented by: [id number] Atorvastatin Calcium (Atorvastatin 40 Mg Tab) 40 mg PO HS RAQUEL Stop: 12/03/20 20:59 Last Admin: 11/03/20 20:07 Dose: 40 mg Documented by: [id number] Buspirone HCl (Buspirone 5 Mg Tab) 10 mg PO BID RAQUEL Stop: 12/02/20 23:14 Last Admin: 11/03/20 20:07 Dose: 10 mg Documented by: [id number] Admin: 11/03/20 09:38 Dose: 10 mg Documented by: [id number] Admin: 11/03/20 01:10 Dose: 10 mg Documented by: [id number] Docusate Sodium (Docusate Sodium 100 Mg Cap) 100 mg PO BID RAQUEL Stop: 12/03/20 08:59 Last Admin: 11/03/20 20:07 Dose: 100 mg Documented by: [id number] Admin: 11/03/20 09:56 Dose: 100 mg Documented by: [id number] Pantoprazole Sodium 40 mg/ (Syringe) 10 mls @ 5 mls/min IV BID RAQUEL Stop: 12/03/20 08:59 Last Admin: 11/03/20 20:08 Dose: 5 mls/min Documented by: [id number] Admin: 11/03/20 09:59 Dose: 5 mls/min Documented by: [id number] Melatonin (Melatonin 3 Mg Tab) 3 mg PO HS RAQUEL Stop: 12/03/20 20:59 Last Admin: 11/03/20 20:04 Dose: 3 mg Documented by: [id number] Metoprolol Succinate (Metoprolol Succ 50mg Ext Rel Tab) 200 mg PO DAILY RAQUEL Stop: 12/03/20 08:59 Last Admin: 11/03/20 09:39 Dose: 200 mg Documented by: [id number] Polyethylene Glycol (Polyethylene (Miralax) 17 Gm Pack) 17 gm PO DAILY RAQUEL Stop: 12/03/20 08:59 Last Admin: 11/03/20 10:09 Dose: 17 gm Documented by: [id number] Risperidone (Risperidone 0.5 Mg Tablet) 0.25 mg PO Q24H RAQUEL Stop: 12/03/20 13:59 Last Admin: 11/03/20 12:43 Dose: 0.25 mg Documented by: [id number] Risperidone (Risperidone 0.5 Mg Tablet) 0.5 mg PO HS RAQUEL Stop: 12/03/20 20:59 Last Admin: 11/03/20 20:05 Dose: 0.5 mg Documented by: [id number] Sertraline HCl (Sertraline Hcl 100 Mg Tablet) 100 mg PO DAILY RAQUEL Stop: 12/03/20 08:59 Last Admin: 11/03/20 09:41 Dose: 100 mg Documented by: [id number] Thiamine HCl (Thiamine Hcl 100 Mg Tab) 100 mg PO DAILY RAQUEL Stop: 12/03/20 08:59 Last Admin: 11/03/20 09:57 Dose: 100 mg Documented by: [id number] Zinc Sulfate (Zinc Sulfate 220 Mg Capsule) 220 mg PO DAILY RAQUEL Stop: 12/03/20 08:59 Last Admin: 11/03/20 09:57 Dose: 220 mg Documented by: [id number] Discontinued Medications Furosemide (Furosemide 40 Mg/4 Ml Vial) 20 mg IV NOW STA Stop: 11/02/20 23:43 Last Admin: 11/03/20 01:10 Dose: 20 mg Documented by: [id number] Furosemide 40 mg/ Syringe 4 mls @ 4 mls/min IV ONE ONE Stop: 11/03/20 08:46 Last Admin: 11/03/20 09:59 Dose: 4 mls/min Documented by: [id number] Medical Decision Making Differential Diagnosis COPD, CHF, low protein state, anemia, electrolyte abnormality, acute renal failure, UTI, infection, cardiac ischemia, pulmonary embolism, musculoskeletal, gastrointestinal, as well as other pathologies. Medical Records Attestation: I reviewed the patient's medical records. Home Medications Current Medication List: was personally reviewed by me Laboratory Data Attestation: I reviewed the patient's lab results. Result diagrams: 11/03/20 15:05 11/03/20 06:38 Lab Results 11/02/20 11/02/20 11/02/20 Range/Units 18:50 18:50 20:33 WBC 8.68 (4.8-10.8) K/uL RBC 3.16 L (4.2-5.4) M/uL Hgb 8.6 L (12.0-16.0) g/dL Hct 28.4 L (37-47) % MCV 89.9 (80-100) fL MCH 27.2 (25-34) pg MCHC 30.3 L (32-36) g/dL RDW Std Deviation 58.4 H (36.4-46.3) fL RDW Coeff of Khalida 17.7 H (11.5-14.5) % Plt Count 254 (130-400) K/uL MPV 9.2 (7.4-10.4) fL Immature Gran % (Auto) 0.1 % Neut % (Auto) 76.1 % Lymph % (Auto) 5.9 % Corson % (Auto) 13.2 % Eos % (Auto) 4.4 % Baso % (Auto) 0.3 % Neut # (Auto) 6.60 H (1.4-6.5) K/uL Lymph # (Auto) 0.51 L (1.2-3.4) K/uL Corson # (Auto) 1.15 H (0.11-0.59) K/uL Eos # (Auto) 0.38 (0-0.5) K/uL Baso # (Auto) 0.03 (0-0.2) K/uL Immature Gran # (Auto) 0.01 (0.00-0.02) K/uL Sodium 142 (136-145) mmol/L Potassium 5.2 H (3.5-5.1) mmol/L Chloride 110 H (98-107) mmol/L Carbon Dioxide 26 (21-32) mmol/L Anion Gap 6.0 (3-11) BUN 65 H (7-18) mg/dl Creatinine 1.52 H (0.6-1.2) mg/dl Est Cr Clr Drug Dosing 22.7 ml/min Est GFR ( Amer) 36.6 ml/min Est GFR (Non-Af Amer) 31.6 ml/min BUN/Creatinine Ratio 42.5 H (10-20) Glucose 102 H (70-99) mg/dl Calcium 8.9 (8.5-10.1) mg/dl Magnesium 2.3 (1.8-2.4) mg/dl Total Bilirubin 0.4 (0.2-1) mg/dl AST 22 (15-37) U/L ALT 22 (12-78) U/L Alkaline Phosphatase 51 (45-117) U/L Troponin I < 0.015 (0-0.045) ng/ml NT-Pro-B Natriuret Pep 6394 H (0-1800) pg/ml Total Protein 6.2 L (6.4-8.2) gm/dl Albumin 3.0 L (3.4-5.0) gm/dl Globulin 3.2 (2.5-4.0) gm/dl Albumin/Globulin Ratio 0.9 (0.9-2) TSH 1.690 (0.300-4.500) uIu/ml Urine Color Yellow Urine Appearance Cloudy A (Clear) Urine pH 5.0 (4.5-7.5) Ur Specific Hope 1.019 (1.000-1.030) Urine Protein 2+ H (Negative) Urine Glucose (UA) Negative (Negative) Urine Ketones Negative (Negative) Urine Blood 3+ H (Negative) Urine Nitrite Negative (Negative) Urine Bilirubin Negative (Negative) Urine Urobilinogen Negative (Negative) Ur Leukocyte Esterase Trace H (Negative) Urine WBC (Auto) 1-5 (0-5) /hpf Urine RBC (Auto) >30 H (0-4) /hpf U Hyaline Cast (Auto) 1-5 (0-5) /lpf U Epithel Cells (Auto) 5-10 H (0-5) /lpf Urine Bacteria (Auto) Negative (Negative) Urine Yeast Not Reportable Ur Random Sodium mmol/L Ur Random Urea Nitrogn mg/dl COVID-19 Eval Order SARS-CoV-2 (PCR) (Negative) 11/02/20 11/02/20 11/02/20 Range/Units 20:33 20:44 20:44 WBC (4.8-10.8) K/uL RBC (4.2-5.4) M/uL Hgb (12.0-16.0) g/dL Hct (37-47) % MCV (80-100) fL MCH (25-34) pg MCHC (32-36) g/dL RDW Std Deviation (36.4-46.3) fL RDW Coeff of Khalida (11.5-14.5) % Plt Count (130-400) K/uL MPV (7.4-10.4) fL Immature Gran % (Auto) % Neut % (Auto) % Lymph % (Auto) % Corson % (Auto) % Eos % (Auto) % Baso % (Auto) % Neut # (Auto) (1.4-6.5) K/uL Lymph # (Auto) (1.2-3.4) K/uL Corson # (Auto) (0.11-0.59) K/uL Eos # (Auto) (0-0.5) K/uL Baso # (Auto) (0-0.2) K/uL Immature Gran # (Auto) (0.00-0.02) K/uL Sodium (136-145) mmol/L Potassium (3.5-5.1) mmol/L Chloride (98-107) mmol/L Carbon Dioxide (21-32) mmol/L Anion Gap (3-11) BUN (7-18) mg/dl Creatinine (0.6-1.2) mg/dl Est Cr Clr Drug Dosing ml/min Est GFR ( Amer) ml/min Est GFR (Non-Af Amer) ml/min BUN/Creatinine Ratio (10-20) Glucose (70-99) mg/dl Calcium (8.5-10.1) mg/dl Magnesium (1.8-2.4) mg/dl Total Bilirubin (0.2-1) mg/dl AST (15-37) U/L ALT (12-78) U/L Alkaline Phosphatase (45-117) U/L Troponin I (0-0.045) ng/ml NT-Pro-B Natriuret Pep (0-1800) pg/ml Total Protein (6.4-8.2) gm/dl Albumin (3.4-5.0) gm/dl Globulin (2.5-4.0) gm/dl Albumin/Globulin Ratio (0.9-2) TSH (0.300-4.500) uIu/ml Urine Color Urine Appearance (Clear) Urine pH (4.5-7.5) Ur Specific Hope (1.000-1.030) Urine Protein (Negative) Urine Glucose (UA) (Negative) Urine Ketones (Negative) Urine Blood (Negative) Urine Nitrite (Negative) Urine Bilirubin (Negative) Urine Urobilinogen (Negative) Ur Leukocyte Esterase (Negative) Urine WBC (Auto) (0-5) /hpf Urine RBC (Auto) (0-4) /hpf U Hyaline Cast (Auto) (0-5) /lpf U Epithel Cells (Auto) (0-5) /lpf Urine Bacteria (Auto) (Negative) Urine Yeast Ur Random Sodium 10 mmol/L Ur Random Urea Nitrogn 903 mg/dl COVID-19 Eval Order Covid19 at [facility] SARS-CoV-2 (PCR) NEGATIVE (Negative) Imaging Data Radiologist's Impression: Chest X-Ray 11/02/20 18:28 SINGLE VIEW CHEST CLINICAL HISTORY: Generalized weakness. FINDINGS: An AP, portable, upright chest radiograph is compared to study dated 10/07/2020 and correlated with chest CT dated 05/20/2017. The examination is degraded by portable technique and patient rotation. A 2-lead cardiac pacemaker is unchanged in position. The heart is enlarged noting atherosclerotic calci fication of the thoracic aorta. There is pulmonary vascular congestion. Bilateral airspace opacities likely represent interstitial edema. There are small pleural effusions with bibasilar consolidation. No pneumothorax is seen. The skeletal structures are osteopenic. The bony thorax is grossly intact. Atherosclerotic calcification is noted in the subclavian arteries. IMPRESSION: 1. Cardiomegaly and cardiac pacemaker with evidence of congestive failure. 2. Bilateral airspace opacities likely represent pulmonary edema. Correlate clinically for evidence of superimposed pneumonia. 3. Small pleural effusions with bibasilar consolidation. ACT 112: Negative or not required by law. Electronically signed by: Federico Collazo M.D. 11/02/2020 7:53 PM ECG Data Attestation: I personally reviewed and interpreted this ECG as follows: Indication: + weakness Rate (beats per minute): 65 Rhythm: + other (Ventricularly paced) ECG Intervals/blocks: + Prolonged QT (490) ECG Findings: + Other (Atrially sensed and ventricularly paced); no PVCs Additional Comments: Poor quality baseline for interpretation Blood Pressure Blood Pressure Findings: Normal blood pressure Blood Pressure Disposition: did not require urgent referral MDM Narrative This patient was evaluated and appeared to be in distress. Patient is a poor historian secondary to her dementia. An order for cardiac monitoring was placed and the patient is noted to be in a paced rhythm at 74 bpm. Chest x-ray was obtained and reveals cardiomegaly with evidence of pulmonary edema. Patient is in no respiratory distress. Laboratory work reveals a prerenal state with an elevated creatinine above her baseline at 1.52 with a BUN of 65. Patient's anemic with hemoglobin of 8.6. Stool is guaiac negative. The etiology of the patient's anemia is unclear at this time but it appears that the patient will require diuresis in house and may require transfusion or albumin. Patient's case was discussed with Dr. Gutierrez of the hospitalist service who will evaluate the patient for admission and further management. Impression & Plan Fluid retention in legs, (HFpEF) heart failure with preserved ejection fraction, CHERRY (acute kidney injury), Anemia Discharge Plan Visit Data Chief Complaint: Illness Stated Complaint: Fluid retention ED Provider: Praveena White Discharge Problem: Fluid retention in legs, (HFpEF) heart failure with preserved ejection fraction, CHERRY (acute kidney injury), Anemia Patient Disposition: Admitted As Inpatient Discharge Instructions Interventions: ED Discharge Assessment Last Done: 11/02/20 22:51 Discharge Problem: (HFpEF) heart failure with preserved ejection fraction Qualifiers: Heart failure chronicity: acute on chronic Qualified Code(s): I50.33 - Acute on chronic diastolic (congestive) heart failure Anemia Qualifiers: Anemia type: unspecified type Qualified Code(s): D64.9 - Anemia, unspecified
[2020-11-03] MEDS: busPIRone 5 MG TAB PO SCH ×3 (01:10→20:07)
[2020-11-03] MEDS: ACETAMINOPHEN 325 MG TAB PO PRN (01:49)
[2020-11-03 07:25] LABS: Basophils # (auto) 0.02 K/uL (0-0.2); Basophils % (auto) 0.3 %; Eosinophils # (auto) 0.29 K/uL (0-0.5); Eosinophils % (auto) 3.9 %; Hematocrit (blood only) 26.6 % (37-47); Hemoglobin 8.3 g/dL (12.0-16.0); Immature Granulocytes # (auto) 0.02 K/uL (0.00-0.02); Immature Granulocytes % (auto) 0.3 %; Lymphocytes # (auto) 0.54 K/uL (1.2-3.4); Lymphocytes % (auto) 7.3 %; Mean Corpuscular Hemoglobin 27.3 pg (25-34); Mean Corpuscular Hgb Conc 31.2 g/dL (32-36); Mean Corpuscular Volume 87.5 fL (80-100); Mean Platelet Volume 9.2 fL (7.4-10.4); Monocytes # (auto) 1.12 K/uL (0.11-0.59); Monocytes % (auto) 15.1 %; Neutrophils # (auto) 5.42 K/uL (1.4-6.5); Neutrophils % (auto) 73.1 %; Platelet Count 237 K/uL (130-400); RDW Coefficient of Variation 17.5 % (11.5-14.5); RDW Standard Deviation 55.2 fL (36.4-46.3); Red Blood Count 3.04 M/uL (4.2-5.4); White Blood Count 7.41 K/uL (4.8-10.8)
[2020-11-03 07:55] LABS: BUN Creatinine Ratio 45.2 (10-20); Calcium 8.4 mg/dl (8.5-10.1); Est GFR (African American) 40.8 ml/min; Est GFR (Non-African American) 35.2 ml/min; Potassium 4.5 mmol/L (3.5-5.1)
--- NOTE | 2020-11-03 08:23 | Hospitalist Progress Note ---
Date of Service November 03, 2020 Assessment & Plan (1) Edema: Patient with bilateral LE edema to sacral region - 2+ pitting. Likely acute systolic heart failure with nutritional parameters causing third spacing., in the past the pt has had EF of 25%. TSH WNL, third spacing due to poor Albumin = 3, UA with 2+ protein. -Lasix 20mg IV Negative doppler bilateral LE - patient is anticoagulated on Eliquis as an outpt but on hold with concern for GI bleed (2) Anemia: Hgb=8.6, Hct=28.4 which is decreased from prior value of 11.7. Patient denies melena or hematochezia. FOBT performed in ER was guaic negative. Patient has been on Naproxen BID as well as Eliquis - some concern for GI bleeding despite no tell tale signs as the BUN/Cr ratio is high and hgb with precipitous drop -Guaic stools on ppi (3) CHERRY (acute kidney injury): BUN=65, Cr=1.52, increased from prior value of 0.83. Possibly secondary to CHF, poor flow Acute kidney injury is resolving (4) Cognitive impairment: Patient oriented x 1. She is intermittently confused and distractible, high risk for hospital delirium -Continue Risperdal -Frequent orientation, maintenance of sleep/wake cycles as able, delirium prevention strategies -In the past family and friends could not find information or make decisions for the pt, she remains a full code (5) Hypertension: Blood pressure mildly elevated at 149/118 -Continue Metoprolol 200mg po daily -Hold Lisinopril in setting of CHERRY -Hold Ramipril - Patient has Lisinopril and Ramipril on her list - should not be taking both. Per Cardiology notes, she has most recently been on Ramipril 10mg po daily and Lisinopril removed from her list. This can be resumed pending improvement in renal function -Continue Amlodipine, can consider hydralazine -Continue to monitor (6) Hyperlipidemia: Chronic. -Continue Atorvastatin 40mg po qHS (7) Atrial fibrillation: Rate controlled. Currently A-sensed, V-paced. Rhythm refractory to Flecainide, she experienced significant QT prolongation with Sotalol and intolerance to Amiodarone. -Continue Metoprolol -Continue Eliquis -subtherapeutic Digoxin level (8) (HFpEF) heart failure with preserved ejection fraction: Suspect acute on chronic CHF contributing to bilateral LE edema and orthopnea -Lasix 20mg IV now and daily -Monitor renal function and electrolytes -Continue metoprolol -Holding Ramipril as above in setting of CHERRY will hold eliquis and change pepcid to protonix Code - Full venously documented. We will attempt to call her proper assistant county attorney Eliu which reported is her nephew [phone] Admission and Anticipated Discharge Date Admission Date: November 02, 2020 Subjective Patient was chronically ill she is very thin and emaciated. She is demented and cannot provide much direction. She states she has no abdominal pain but examination she had abdominal pain Review of Systems Review of Systems: Unobtainable due to cognitive status Physical Exam Physical Exam: The patient appeared malnourished and older than her stated age Vital signs as documented. Head exam is normocephalic atraumatic Neck is without JVD, thyromegaly, or carotid bruits. Lungs are clear to auscultation, significantly diminished at the bases Cardiac exam, Rhythm is regular.. Systolic murmur is heard Abdominal exam reveals normal bowel sounds, gastric and right upper quadrant tenderness Extremities are nonedematous and both pedal pulses are present Neurologic exam is alert and oriented x1, slightly weak and deconditioned Psychologically is with significant dementia Results & Data Results & Data ([facility]) Vital Signs (Past 12 Hours) Vital Signs Temp Pulse Pulse Resp BP BP Pulse Ox 11/03/20 07:16 97.2 F L 67 18 169/72 H 91 11/02/20 23:20 97.7 F 66 20 152/67 H 96 11/02/20 22:20 63 20 139/69 90 Chest X-Ray 11/02/20 18:28 SINGLE VIEW CHEST CLINICAL HISTORY: Generalized weakness. FINDINGS: An AP, portable, upright chest radiograph is compared to study dated 10/07/2020 and correlated with chest CT dated 05/20/2017. The examination is degraded by portable technique and patient rotation. A 2-lead cardiac pacemaker is unchanged in position. The heart is enlarged noting atherosclerotic calcification of the thoracic aorta. There is pulmonary vascular congestion. Bilateral airspace opacities likely represent interstitial edema. There are small pleural effusions with bibasilar consolidation. No pneumothorax is seen. The skeletal structures are osteopenic. The bony thorax is grossly intact. Atherosclerotic calcification is noted in the subclavian arteries. IMPRESSION: 1. Cardiomegaly and cardiac pacemaker with evidence of congestive failure. 2. Bilateral airspace opacities likely represent pulmonary edema. Correlate clinically for evidence of superimposed pneumonia. 3. Small pleural effusions with bibasilar consolidation. ACT 112: Negative or not required by law. Electronically signed by: Federico Collazo M.D. 11/02/2020 7:53 PM Venous Doppler Study 11/02/20 23:15 US venous doppler LE BI CLINICAL HISTORY: edema COMPARISON STUDY: No previous studies for comparison. FINDINGS: Real-time and color flow Doppler imaging were performed. Flow was seen within the femoral, popliteal and calf veins with no intraluminal thrombus demonstrated. The saphenous vein is patent. Pulsatile waveforms are seen within the venous structures. Diffuse soft tissue edema is seen. There is complex hypoechoic structure within popliteal fossa measuring 3.3 x 0.7 x 2.0 cm in size. IMPRESSION: 1. No evidence of deep venous thrombosis. 2. Possible Pappas's cyst within popliteal fossa. 3. Unusual pulsatile waveform within venous structures, could be seen in presence of cardiac abnormalities versus other etiology. Please correlate above- mentioned findings was prior history. ACT 112: Negative or not required by law. The above report was generated using voice recognition software. It may contain grammatical, syntax or spelling errors. Electronically signed by: Cassidy Jorgensen DO 11/03/2020 11:33 AM PG Care Time/CCT Total # of Minutes Spent Total Time Spent with Patient: Total time spent is greater than 50% in coordination of care (as documented) at patient's floor/unit and/or counseling patient: Coding Level of Care Code 36083 Subseq Hosp Care Lvl 3 Diagnoses Edema R60.9 Edema type: unspecified Anemia D64.9 Anemia type: unspecified type CHERRY (acute kidney injury) N17.9 Cognitive impairment R41.89 Hypertension I10 Hypertension type: essential hypertension Hyperlipidemia E78.5 Hyperlipidemia type: unspecified Atrial fibrillation I48.20 Atrial fibrillation type: unspecified chronic (HFpEF) heart failure with preserved ejection fraction I50.33 Heart failure chronicity: acute on chronic (1) (HFpEF) heart failure with preserved ejection fraction Heart failure chronicity: acute on chronic Qualified Code(s): I50.33 - Acute on chronic diastolic (congestive) heart failure (2) Anemia Anemia type: unspecified type Qualified Code(s): D64.9 - Anemia, unspecified (3) Atrial fibrillation Atrial fibrillation type: unspecified chronic Qualified Code(s): I48.20 - Chronic atrial fibrillation, unspecified (4) Edema Edema type: unspecified Qualified Code(s): R60.9 - Edema, unspecified (5) Hyperlipidemia Hyperlipidemia type: unspecified Qualified Code(s): E78.5 - Hyperlipidemia, unspecified (6) Hypertension Hypertension type: essential hypertension Qualified Code(s): I10 - Essential (primary) hypertension
[2020-11-03] MEDS ORDERED: FUROSEMIDE 40 MG in SYRINGE 0 ML IV ONE (08:45)
[2020-11-03] MEDS ORDERED: APIXABAN 2.5 MG TAB PO SCH (09:00)
[2020-11-03] MEDS ORDERED: FAMOTIDINE 10 MG TABLET PO SCH (09:00)
[2020-11-03] MEDS: METOPROLOL SUCC 50MG EXT REL TAB PO SCH (09:39)
[2020-11-03] MEDS: SERTRALINE HCL 100 MG TABLET PO SCH (09:41)
[2020-11-03] MEDS: DOCUSATE SODIUM 100 MG CAP PO SCH ×2 (09:56→20:07)
[2020-11-03] MEDS: amLODIPine BESYLATE 5 MG TAB PO SCH (09:56)
[2020-11-03] MEDS: THIAMINE HCL 100 MG TAB PO SCH (09:57)
[2020-11-03] MEDS: ZINC SULFATE 220 MG CAPSULE PO SCH (09:57)
[2020-11-03] MEDS: PANTOprazole 40 MG in SYRINGE 0 ML IV SCH ×2 (09:59→20:08)
[2020-11-03] MEDS: POLYETHYLENE (MIRALAX) 17 GM PACK PO SCH (10:09)
--- NOTE | 2020-11-03 11:34 | Ultrasound Report ---
US venous doppler LE BI CLINICAL HISTORY: edema COMPARISON STUDY: No previous studies for comparison. FINDINGS: Real-time and color flow Doppler imaging were performed. Flow was seen within the femoral, popliteal and calf veins with no intraluminal thrombus demonstrated. The saphenous vein is patent. Pulsatile waveforms are seen within the venous structures. Diffuse soft tissue edema is seen. There is complex hypoechoic structure within popliteal fossa measuring 3.3 x 0.7 x 2.0 cm in size. IMPRESSION: 1. No evidence of deep venous thrombosis. 2. Possible Pappas's cyst within popliteal fossa. 3. Unusual pulsatile waveform within venous structures, could be seen in presence of cardiac abnorma lities versus other etiology. Please correlate above-mentioned findings was prior history. ACT 112: Negative or not required by law. The above report was generated using voice recognition software. It may contain grammatical, syntax o r spelling errors. Electronically signed by: Cassidy Jorgensen DO 11/03/2020 11:33 AM
[2020-11-03] MEDS: risperiDONE 0.5 MG TABLET PO SCH ×2 (12:43→20:05)
--- NOTE | 2020-11-03 12:46 | Electrocardiogram Report ---
Test Reason : Blood Pressure : / mmHG Vent. Rate : 065 BPM Atrial Rate : 065 BPM P-R Int : 440 ms QRS Dur : 144 ms QT Int : 472 ms P-R-T Axes : 085 267 090 degrees QTc Int : 490 ms Poor data quality, interpretation may be adversely affected Atrial-sensed ventricular-paced rhythm with prolonged AV conduction Abnormal ECG When compared with ECG of 02-JUL-2020 08:56, Vent. rate has increased BY 2 BPM Underlying rhyhm appears to have changed from afib to sinus Confirmed by Maycol Lees ([id number]) on 11/03/2020 12:46:26 PM Referred By: [facility] Confirmed By:Maycol Lees
[2020-11-03] MEDS: MELATONIN 3 MG TAB PO SCH (20:04)
[2020-11-03] MEDS: ATORVASTATIN 40 MG TAB PO SCH (20:07)
[2020-11-04] MEDS ORDERED: FUROSEMIDE 40 MG in SYRINGE 0 ML IV ONE (04:25)
[2020-11-04] MEDS ORDERED: FUROSEMIDE 40 MG/4 ML VIAL IV ONE (04:44)
--- NOTE | 2020-11-04 04:44 | Communication Note ---
Date of Service: November 04, 2020 Notified by nursing that patient had increased need of O2 from RA to 3L NC for hypoxemic event of 78% on RA, now 95% on 3L NC. Patient also with worsening sh ortness of breath and moist non-productive cough. Went up to assess patient who did not she was feeling more short of breath. On chart review patient had received 40mg of lasix IV this AM, but currently did not have any scheduled. She appears to be net -200mL since admission, though unsure of accuracy of patients intake. Exam: Vitals: BP 113/51, Pulse 60, Resp 28, Afebrile, 95% on 3L Heart: RRR Lungs: Increased respiratory effort, lungs with crackles b/l at the bases. 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
[2020-11-04 06:17] LABS: Hematocrit (blood only) 26.8 % (37-47); Hemoglobin 8.3 g/dL (12.0-16.0); Mean Corpuscular Hemoglobin 27.2 pg (25-34); Mean Corpuscular Volume 87.9 fL (80-100); Mean Platelet Volume 8.9 fL (7.4-10.4); Platelet Count 220 K/uL (130-400); RDW Coefficient of Variation 17.8 % (11.5-14.5); RDW Standard Deviation 57.3 fL (36.4-46.3); Red Blood Count 3.05 M/uL (4.2-5.4); White Blood Count 7.53 K/uL (4.8-10.8)
--- NOTE | 2020-11-04 06:31 | XRay Report ---
XR chest 1V portable CLINICAL HISTORY: suspected chf overload COMPARISON STUDY: Chest radiograph November 02, 2020. FINDINGS: A dual-lead left subclavian pacemaker is in place. There is cardiomegaly. No pneumothorax i s present. Bilateral pleural effusions have increased in size. Extensive bilateral perihilar and biba silar opacities have increased. There is pulmonary edema. IMPRESSION: 1. Progression of pulmonary edema and increase in bilateral pleural effusions. 2. Bilateral airspace opacities which likely reflect alveolar edema although superimposed pneumonia c ould appear similar. ACT 112: Negative or not required by law. Electronically signed by: Rikki Mcpherson M.D. 11/04/2020 6:30 AM
[2020-11-04 06:54] LABS: BUN Creatinine Ratio 37.2 (10-20); Calcium 7.9 mg/dl (8.5-10.1); Creatinine Clr Calc Pharmacy 22.4 ml/min; Est GFR (African American) 37.5 ml/min; Est GFR (Non-African American) 32.4 ml/min; Magnesium 2.5 mg/dl (1.8-2.4); Potassium 4.5 mmol/L (3.5-5.1)
[2020-11-04] MEDS: DOCUSATE SODIUM 100 MG CAP PO SCH ×2 (10:15→20:23)
[2020-11-04] MEDS: ZINC SULFATE 220 MG CAPSULE PO SCH (10:15)
[2020-11-04] MEDS: busPIRone 5 MG TAB PO SCH ×2 (10:15→20:23)
[2020-11-04] MEDS: METOPROLOL SUCC 50MG EXT REL TAB PO SCH (10:18)
[2020-11-04] MEDS: SERTRALINE HCL 100 MG TABLET PO SCH (10:19)
[2020-11-04] MEDS: THIAMINE HCL 100 MG TAB PO SCH (10:19)
[2020-11-04] MEDS: PANTOprazole 40 MG in SYRINGE 0 ML IV SCH ×2 (10:19→20:28)
[2020-11-04] MEDS: amLODIPine BESYLATE 5 MG TAB PO SCH (10:19)
[2020-11-04] MEDS: POLYETHYLENE (MIRALAX) 17 GM PACK PO SCH (10:34)
--- NOTE | 2020-11-04 17:14 | Hospitalist Progress Note ---
Date of Service November 04, 2020 Assessment & Plan (1) Edema: Patient with bilateral LE edema to sacral region - 2+ pitting. Likely acute systolic heart failure with nutritional parameters causing third spacing., in the past the pt has had EF of 25%. TSH WNL, third spacing due to poor Albumin = 3, UA with 2+ protein. -Lasix 20mg IV given overnight 06/27/20, Echo, could be due to diastolic heart failure exacerbated by anemia Negative Doppler bilateral LE - patient is anticoagulated on Eliquis as an outpt but on hold with concern for GI bleed (2) Anemia: Hgb=8.6, Hct=28.4 which is decreased from prior value of 11.7. Patient denies melena or hematochezia. FOBT performed in ER was guaic negative. Patient has been on Naproxen BID as well as Eliquis - some concern for GI bleeding despite no tell tale signs as the BUN/Cr ratio is high and hgb with precipitous drop -Guaic stools on ppi (3) CHERRY (acute kidney injury): BUN=65, Cr=1.52, increased from prior value of 0.83. Possibly secondary to CHF, poor flow Acute kidney injury is resolving (4) Cognitive impairment: Patient oriented x 1. She is intermittently confused and distractible, high risk for hospital delirium -Continue Risperdal -Frequent orientation, maintenance of sleep/wake cycles as able, delirium prevention strategies -In the past family and friends could not find information or make decisions for the pt, she remains a full code (5) Hypertension: Blood pressure mildly elevated at 149/118 -Continue Metoprolol 200mg po daily -Hold Lisinopril in setting of CHERRY -Hold Ramipril - Patient has Lisinopril and Ramipril on her list - should not be taking both. Per Cardiology notes, she has most recently been on Ramipril 10mg po daily and Lisinopril removed from her list. This can be resumed pending improvement in renal function -Continue Amlodipine, can consider hydralazine -Continue to monitor (6) Hyperlipidemia: Chronic. -Continue Atorvastatin 40mg po qHS (7) Atrial fibrillation: Rate controlled. Currently A-sensed, V-paced. Rhythm refractory to Flecainide, she experienced significant QT prolongation with Sotalol and intolerance to Amiodarone. -Continue Metoprolol -hold Eliquis -subtherapeutic Digoxin level (8) (HFpEF) heart failure with preserved ejection fraction: Suspect acute on chronic CHF contributing to bilateral LE edema and orthopnea -Lasix 20mg IV now and daily -Monitor renal function and electrolytes -Continue metoprolol -Holding Ramipril as above in setting of CHERRY will hold eliquis and change pepcid to protonix Code - Full venously documented. I phoned alicia, he directes me to the patients brother Inocencio Diaz [phone] Admission and Anticipated Discharge Date Admission Date: November 02, 2020 Subjective Patient was chronically ill she is very thin and emaciated. She is demented and cannot provide much direction. She states she has no abdominal pain but examination she had abdominal pain overnight she had progressive hypoxia and cxr supported HF, was given lasix suspect this is diastolic due to valvular heart disease and lvh Review of Systems Review of Systems: Unobtainable due to cognitive status Physical Exam Physical Exam: The patient appeared malnourished and older than her stated age Vital signs as documented. Head exam is normocephalic atraumatic Neck is without JVD, thyromegaly, or carotid bruits. Lungs are clear to auscultation, significantly diminished at the bases Cardiac exam, Rhythm is regular.. Systolic murmur is heard Abdominal exam reveals normal bowel sounds, gastric and right upper quadrant tenderness Extremities are nonedematous and both pedal pulses are present Neurologic exam is alert and oriented x1, slightly weak and deconditioned Psychologically is with significant dementia Results & Data Results & [facility] ([facility]) Vital Signs (Past 12 Hours) Vital Signs Temp Pulse Resp BP Pulse Ox 11/04/20 15:32 97.3 F L 71 22 146/69 H 97 11/04/20 07:28 98.4 F 69 20 151/68 H 93 PG Care Time/CCT Total # of Minutes Spent Total Time Spent with Patient: Total time spent is greater than 50% in coordination of care (as documented) at patient's floor/unit and/or counseling patient: Coding Level of Care Code 99339 Subseq Hosp Care Lvl 3 Diagnoses Edema R60.9 Edema type: unspecified Anemia D64.9 Anemia type: unspecified type CHERRY (acute kidney injury) N17.9 Cognitive impairment R41.89 Hypertension I10 Hypertension type: essential hypertension Hyperlipidemia E78.5 Hyperlipidemia type: unspecified Atrial fibrillation I48.20 Atrial fibrillation type: unspecified chronic (HFpEF) heart failure with preserved ejection fraction I50.33 Heart failure chronicity: acute on chronic (1) Edema Edema type: unspecified Qualified Code(s): R60.9 - Edema, unspecified (2) Anemia Anemia type: unspecified type Qualified Code(s): D64.9 - Anemia, unspecified (3) Hypertension Hypertension type: essential hypertension Qualified Code(s): I10 - Essential (primary) hypertension (4) Hyperlipidemia Hyperlipidemia type: unspecified Qualified Code(s): E78.5 - Hyperlipidemia, unspecified (5) Atrial fibrillation Atrial fibrillation type: unspecified chronic Qualified Code(s): I48.20 - Chronic atrial fibrillation, unspecified (6) (HFpEF) heart failure with preserved ejection fraction Heart failure chronicity: acute on chronic Qualified Code(s): I50.33 - Acute on chronic diastolic (congestive) heart failure
[2020-11-04] MEDS: risperiDONE 0.5 MG TABLET PO SCH ×2 (18:58→20:23)
[2020-11-04] MEDS: DIGOXIN 0.125 MG TAB PO SCH (18:58)
[2020-11-04] MEDS: ATORVASTATIN 40 MG TAB PO SCH (20:23)
[2020-11-04] MEDS: MELATONIN 3 MG TAB PO SCH (20:26)
[2020-11-05 06:53] LABS: Hematocrit (blood only) 26.1 % (37-47); Hemoglobin 7.8 g/dL (12.0-16.0); Mean Corpuscular Hemoglobin 26.8 pg (25-34); Mean Corpuscular Hgb Conc 29.9 g/dL (32-36); Mean Corpuscular Volume 89.7 fL (80-100); Mean Platelet Volume 8.8 fL (7.4-10.4); Platelet Count 197 K/uL (130-400); RDW Coefficient of Variation 17.4 % (11.5-14.5); RDW Standard Deviation 57.5 fL (36.4-46.3); Red Blood Count 2.91 M/uL (4.2-5.4); White Blood Count 6.13 K/uL (4.8-10.8)
[2020-11-05 07:28] LABS: BUN Creatinine Ratio 36.3 (10-20); Creatinine Clr Calc Pharmacy 24.1 ml/min; Est GFR (Non-African American) 37.1 ml/min; Magnesium 2.2 mg/dl (1.8-2.4); Potassium 4.2 mmol/L (3.5-5.1)
[2020-11-05] MEDS: SERTRALINE HCL 100 MG TABLET PO SCH (09:32)
[2020-11-05] MEDS: amLODIPine BESYLATE 5 MG TAB PO SCH (09:32)
[2020-11-05] MEDS: DOCUSATE SODIUM 100 MG CAP PO SCH ×2 (09:32→20:20)
[2020-11-05] MEDS: ZINC SULFATE 220 MG CAPSULE PO SCH (09:32)
[2020-11-05] MEDS: busPIRone 5 MG TAB PO SCH ×2 (09:32→20:20)
[2020-11-05] MEDS: FUROSEMIDE 20 MG in SYRINGE 0 ML IV SCH (09:32)
[2020-11-05] MEDS: THIAMINE HCL 100 MG TAB PO SCH (09:32)
[2020-11-05] MEDS: PANTOprazole 40 MG in SYRINGE 0 ML IV SCH ×2 (09:32→20:21)
[2020-11-05] MEDS: METOPROLOL SUCC 50MG EXT REL TAB PO SCH (09:33)
[2020-11-05] MEDS: POLYETHYLENE (MIRALAX) 17 GM PACK PO SCH (09:46)
[2020-11-05] MEDS ORDERED: SODIUM CHLORIDE 0.9% 250 ML IV PRN (14:00)
[2020-11-05] MEDS: risperiDONE 0.5 MG TABLET PO SCH ×2 (16:07→20:21)
--- NOTE | 2020-11-05 19:29 | Hospitalist Progress Note ---
Date of Service November 05, 2020 Assessment & Plan (1) Edema: Patient with bilateral LE edema to sacral region - 2+ pitting. Likely acute systolic heart failure with nutritional parameters causing third spacing., in the past the pt has had EF of 25%. TSH WNL, third spacing due to poor Albumin = 3, UA with 2+ protein. -Lasix 20mg IV given overnight 06/27/20, Echo, could be due to diastolic heart failure exacerbated by anemia Negative Doppler bilateral LE - patient is anticoagulated on Eliquis as an outpt but on hold with concern for GI bleed (2) Anemia: Hgb=8.6, Hct=28.4 which is decreased from prior value of 11.7. Patient denies melena or hematochezia. FOBT performed in ER was guaic negative. Patient has been on Naproxen BID as well as Eliquis - some concern for GI bleeding despite no tell tale signs as the BUN/Cr ratio is high and hgb with precipitous drop -Guaic stools on ppi Consider endoscopy in the future (3) CHERRY (acute kidney injury): BUN=65, Cr=1.52, increased from prior value of 0.83. Possibly secondary to CHF, poor flow Acute kidney injury is resolving (4) Cognitive impairment: Patient oriented x 1. She is intermittently confused and distractible, high risk for hospital delirium -Continue Risperdal -Frequent orientation, maintenance of sleep/wake cycles as able, delirium prevention strategies -In the past family and friends could not find information or make decisions for the pt, she remains a full code (5) Hypertension: Blood pressure mildly elevated at 149/118 -Continue Metoprolol 200mg po daily -Hold Lisinopril in setting of CHERRY -Hold Ramipril - Patient has Lisinopril and Ramipril on her list - should not be taking both. Per Cardiology notes, she has most recently been on Ramipril 10mg po daily and Lisinopril removed from her list. This can be resumed pending improvement in renal function -Continue Amlodipine, can consider hydralazine -Continue to monitor (6) Hyperlipidemia: Chronic. -Continue Atorvastatin 40mg po qHS (7) Atrial fibrillation: Rate controlled. Currently A-sensed, V-paced. Rhythm refractory to Flecainide, she experienced significant QT prolongation with Sotalol and intolerance to Amiodarone. -Continue Metoprolol -holding Eliquis -subtherapeutic Digoxin level (8) (HFpEF) heart failure with preserved ejection fraction: Suspect acute on chronic CHF contributing to bilateral LE edema and orthopnea -Lasix 20mg IV now and daily -Monitor renal function and electrolytes -Continue metoprolol -Holding Ramipril as above in setting of CHERRY will hold eliquis and change pepcid to protonix Code - Full previously documented. I phoned alicia, he directes me to the patients brother Inocencio Diaz [phone]. I spoke to Mr. Inocencio Resendez today got consent for blood informed him that we may be getting consent in the future for possible endoscopy if her hemoglobin still continues to track down Admission and Anticipated Discharge Date Admission Date: November 02, 2020 Subjective Patient was chronically ill she is very thin and emaciated. She is demented and cannot provide much direction. She states she has no abdominal pain but examination she had abdominal pain overnight she had progressive hypoxia and cxr supported HF, was given lasix suspect this is diastolic due to valvular heart disease and lvh Review of Systems Review of Systems: Unobtainable due to cognitive status Physical Exam Physical Exam: The patient appeared malnourished and older than her stated age Vital signs as documented. Head exam is normocephalic atraumatic Neck is without JVD, thyromegaly, or carotid bruits. Lungs are clear to auscultation, significantly diminished at the bases Cardiac exam, Rhythm is regular.. Systolic murmur is heard Abdominal exam reveals normal bowel sounds, gastric and right upper quadrant tenderness Extremities are nonedematous and both pedal pulses are present Neurologic exam is alert and oriented x1, slightly weak and deconditioned Psychologically is with significant dementia Results & Data Results & [facility] ([facility]) Vital Signs (Past 12 Hours) Vital Signs Temp Pulse Pulse Resp BP BP Pulse Ox 11/05/20 19:20 97.9 F 60 14 154/78 H 98 11/05/20 15:47 98.1 F 59 L 20 146/68 H 98 11/05/20 15:46 99.0 F 60 20 122/61 99 11/05/20 15:30 99.3 F 60 20 135/60 11/05/20 07:49 98.2 F 60 16 160/68 H 98 PG Care Time/CCT Total # of Minutes Spent Total Time Spent with Patient: Total time spent is greater than 50% in coordination of care (as documented) at patient's floor/unit and/or counseling patient: Coding Level of Care Code 64663 Subseq Hosp Care Lvl 3 Diagnoses Edema R60.9 Edema type: unspecified Anemia D64.9 Anemia type: unspecified type CHERRY (acute kidney injury) N17.9 Cognitive impairment R41.89 Hypertension I10 Hypertension type: essential hypertension Hyperlipidemia E78.5 Hyperlipidemia type: unspecified Atrial fibrillation I48.20 Atrial fibrillation type: unspecified chronic (HFpEF) heart failure with preserved ejection fraction I50.33 Heart failure chronicity: acute on chronic (1) Edema Edema type: unspecified Qualified Code(s): R60.9 - Edema, unspecified (2) Anemia Anemia type: unspecified type Qualified Code(s): D64.9 - Anemia, unspecified (3) Hypertension Hypertension type: essential hypertension Qualified Code(s): I10 - Essential (primary) hypertension (4) Hyperlipidemia Hyperlipidemia type: unspecified Qualified Code(s): E78.5 - Hyperlipidemia, unspecified (5) Atrial fibrillation Atrial fibrillation type: unspecified chronic Qualified Code(s): I48.20 - Chronic atrial fibrillation, unspecified (6) (HFpEF) heart failure with preserved ejection fraction Heart failure chronicity: acute on chronic Qualified Code(s): I50.33 - Acute on chronic diastolic (congestive) heart failure
[2020-11-05] MEDS: MELATONIN 3 MG TAB PO SCH (20:19)
[2020-11-05] MEDS: ATORVASTATIN 40 MG TAB PO SCH (20:20)
[2020-11-06 06:57] LABS: Hematocrit (blood only) 30.9 % (37-47); Hemoglobin 9.7 g/dL (12.0-16.0); Mean Corpuscular Hemoglobin 27.4 pg (25-34); Mean Corpuscular Hgb Conc 31.4 g/dL (32-36); Mean Corpuscular Volume 87.3 fL (80-100); Mean Platelet Volume 8.8 fL (7.4-10.4); Platelet Count 180 K/uL (130-400); RDW Coefficient of Variation 17.1 % (11.5-14.5); RDW Standard Deviation 54.6 fL (36.4-46.3); Red Blood Count 3.54 M/uL (4.2-5.4); White Blood Count 8.86 K/uL (4.8-10.8)
[2020-11-06 07:42] LABS: BUN Creatinine Ratio 35.3 (10-20); Calcium 7.7 mg/dl (8.5-10.1); Creatinine Clr Calc Pharmacy 23.5 ml/min; Est GFR (African American) 40.8 ml/min; Est GFR (Non-African American) 35.2 ml/min; Magnesium 2.4 mg/dl (1.8-2.4); Potassium 4.9 mmol/L (3.5-5.1)
[2020-11-06] MEDS: ZINC SULFATE 220 MG CAPSULE PO SCH (08:49)
[2020-11-06] MEDS: THIAMINE HCL 100 MG TAB PO SCH (08:49)
[2020-11-06] MEDS: METOPROLOL SUCC 50MG EXT REL TAB PO SCH (08:49)
[2020-11-06] MEDS: DOCUSATE SODIUM 100 MG CAP PO SCH ×2 (08:50→20:24)
[2020-11-06] MEDS: PANTOprazole 40 MG in SYRINGE 0 ML IV SCH ×2 (08:50→20:26)
[2020-11-06] MEDS: amLODIPine BESYLATE 5 MG TAB PO SCH (08:50)
[2020-11-06] MEDS: FUROSEMIDE 20 MG in SYRINGE 0 ML IV SCH (08:50)
[2020-11-06] MEDS: busPIRone 5 MG TAB PO SCH ×2 (08:50→20:25)
[2020-11-06] MEDS: SERTRALINE HCL 100 MG TABLET PO SCH (08:50)
[2020-11-06] MEDS: POLYETHYLENE (MIRALAX) 17 GM PACK PO SCH (08:57)
[2020-11-06] MEDS: risperiDONE 0.5 MG TABLET PO SCH ×3 (18:18→22:24)
--- NOTE | 2020-11-06 18:22 | Hospitalist Progress Note ---
Date of Service November 06, 2020 Assessment & Plan (1) Edema: Patient with bilateral LE edema to sacral region - 2+ pitting. Likely acute systolic heart failure with nutritional parameters causing third spacing., in the past the pt has had EF of 25%. TSH WNL, third spacing due to poor Albumin = 3, UA with 2+ protein. -Lasix 20mg IV given overnight 06/27/20, Echo, could be due to diastolic heart failure exacerbated by anemia Negative Doppler bilateral LE - patient is anticoagulated on Eliquis as an outpt but on hold with concern for GI bleed (2) Anemia: hgb appropriately augmented with transfusion. Patient denies melena or hematochezia. FOBT performed in ER was guaic negative. Patient has been on Naproxen BID as well as Eliquis - some concern for GI bleeding despite no tell tale signs as the BUN/Cr ratio is high and hgb with precipitous drop -Guaic stools on ppi Consider endoscopy in the future, she is typically on anticoagulation for afib, will keep npo after mn in case she GI feels she can be done on 11/07 (3) CHERRY (acute kidney injury): BUN=65, Cr=1.52, increased from prior value of 0.83. Possibly secondary to CHF, poor flow Acute kidney injury is resolving (4) Cognitive impairment: Patient oriented x 1. She is intermittently confused and distractible, high risk for hospital delirium -Continue Risperdal -Frequent orientation, maintenance of sleep/wake cycles as able, delirium prevention strategies -In the past family and friends could not find information or make decisions for the pt, she remains a full code (5) Hypertension: Blood pressure mildly elevated at 149/118 -Continue Metoprolol 200mg po daily -Hold Lisinopril in setting of CHERRY -Hold Ramipril - Patient has Lisinopril and Ramipril on her list - should not be taking both. Per Cardiology notes, she has most recently been on Ramipril 10mg po daily and Lisinopril removed from her list. This can be resumed pending improvement in renal function -Continue Amlodipine, can consider hydralazine -Continue to monitor (6) Hyperlipidemia: Chronic. -Continue Atorvastatin 40mg po qHS (7) Atrial fibrillation: Rate controlled. Currently A-sensed, V-paced. Rhythm refractory to Flecainide, she experienced significant QT prolongation with Sotalol and intolerance to Amiodarone. -Continue Metoprolol -holding Eliquis -subtherapeutic Digoxin level (8) (HFpEF) heart failure with preserved ejection fraction: Suspect acute on chronic CHF contributing to bilateral LE edema and orthopnea -Lasix 20mg IV now and daily -Monitor renal function and electrolytes -Continue metoprolol -Holding Ramipril as above in setting of CHERRY will hold eliquis and change pepcid to protonix Code - Full previously documented. I phoned alicia, he directes me to the patients brother Inocencio Diaz [phone]. I spoke to Mr. Inocencio Resendez today got consent for blood informed him that we may be getting consent in the future for possible endoscopy if her hemoglobin still continues to track down Admission and Anticipated Discharge Date Admission Date: November 02, 2020 Subjective Patient was chronically ill she is very thin and emaciated. She is demented and cannot provide much direction. She states she has no abdominal pain but examination but continues to have abdominal pain overnight 2 days ago she had progressive hypoxia and cxr supported HF, was given lasix suspect this is diastolic due to valvular heart disease and lvh no additional symptoms even with blood transfusion Review of Systems Review of Systems: Unobtainable due to cognitive status Physical Exam Physical Exam: The patient appeared malnourished and older than her stated age Vital signs as documented. Head exam is normocephalic atraumatic Neck is without JVD, thyromegaly, or carotid bruits. Lungs are clear to auscultation, significantly diminished at the bases Cardiac exam, Rhythm is regular.. Systolic murmur is heard Abdominal exam reveals normal bowel sounds, gastric and right upper quadrant tenderness Extremities are nonedematous and both pedal pulses are present Neurologic exam is alert and oriented x1, slightly weak and deconditioned Psychologically is with significant dementia Results & Data Results & Data ([facility]) Vital Signs (Past 12 Hours) Vital Signs Temp Pulse Resp BP Pulse Ox 11/06/20 08:37 98.4 F 94 H 18 137/66 91 PG Care Time/CCT Total # of Minutes Spent Total Time Spent with Patient: Total time spent is greater than 50% in coordination of care (as documented) at patient's floor/unit and/or counseling patient: Coding Level of Care Code 78097 Subseq Hosp Care Lvl 2 Diagnoses Edema R60.9 Edema type: unspecified Anemia D64.9 Anemia type: unspecified type CHERRY (acute kidney injury) N17.9 Cognitive impairment R41.89 Hypertension I10 Hypertension type: essential hypertension Hyperlipidemia E78.5 Hyperlipidemia type: unspecified Atrial fibrillation I48.20 Atrial fibrillation type: unspecified chronic (HFpEF) heart failure with preserved ejection fraction I50.33 Heart failure chronicity: acute on chronic (1) Edema Edema type: unspecified Qualified Code(s): R60.9 - Edema, unspecified (2) Anemia Anemia type: unspecified type Qualified Code(s): D64.9 - Anemia, unspecified (3) Hypertension Hypertension type: essential hypertension Qualified Code(s): I10 - Essential (primary) hypertension (4) Hyperlipidemia Hyperlipidemia type: unspecified Qualified Code(s): E78.5 - Hyperlipidemia, unspecified (5) Atrial fibrillation Atrial fibrillation type: unspecified chronic Qualified Code(s): I48.20 - Chronic atrial fibrillation, unspecified (6) (HFpEF) heart failure with preserved ejection fraction Heart failure chronicity: acute on chronic Qualified Code(s): I50.33 - Acute on chronic diastolic (congestive) heart failure
[2020-11-06] MEDS ORDERED: ALUMINUM/MAGNESIUM SUSP 18 ML, LIDOCAINE VISCOUS 2% SOLN 6 ML, BARCODE IDENTIFIER 1 EA PO ONE (20:01)
[2020-11-06] MEDS: MELATONIN 3 MG TAB PO SCH ×2 (20:24→22:23)
[2020-11-06] MEDS: ACETAMINOPHEN 325 MG TAB PO PRN (20:24)
[2020-11-06] MEDS: ATORVASTATIN 40 MG TAB PO SCH ×2 (20:25→22:23)
[2020-11-06] MEDS ORDERED: MoRPHine SULFATE 2 MG/ML CARP IV STA (20:40)
[2020-11-06] MEDS ORDERED: LORazepam 0.25 MG/0.5 ML VIAL IV STA (21:34)
[2020-11-07] MEDS ORDERED: OLANZapine ZYDIS 5 MG ORALLY DIS. TAB PO STA (02:10)
[2020-11-07 06:34] LABS: Hemoglobin 9.9 g/dL (12.0-16.0); Mean Corpuscular Hemoglobin 26.8 pg (25-34); Mean Corpuscular Volume 89.2 fL (80-100); Mean Platelet Volume 9.5 fL (7.4-10.4); Platelet Count 205 K/uL (130-400); RDW Coefficient of Variation 16.9 % (11.5-14.5); RDW Standard Deviation 55.2 fL (36.4-46.3); White Blood Count 14.23 K/uL (4.8-10.8)
[2020-11-07 07:12] LABS: BUN Creatinine Ratio 31.5 (10-20); Calcium 7.9 mg/dl (8.5-10.1); Creatinine Clr Calc Pharmacy 21.2 ml/min; Est GFR (African American) 35.5 ml/min; Est GFR (Non-African American) 30.6 ml/min; Potassium 4.6 mmol/L (3.5-5.1)
[2020-11-07] MEDS: POLYETHYLENE (MIRALAX) 17 GM PACK PO SCH (08:29)
[2020-11-07] MEDS: PANTOprazole 40 MG in SYRINGE 0 ML IV SCH ×2 (08:31→22:19)
[2020-11-07] MEDS: FUROSEMIDE 20 MG in SYRINGE 0 ML IV SCH (08:31)
[2020-11-07] MEDS: busPIRone 5 MG TAB PO SCH ×2 (09:07→22:08)
[2020-11-07] MEDS: DOCUSATE SODIUM 100 MG CAP PO SCH ×2 (09:07→22:08)
[2020-11-07] MEDS: THIAMINE HCL 100 MG TAB PO SCH (09:08)
[2020-11-07] MEDS: METOPROLOL SUCC 50MG EXT REL TAB PO SCH (09:08)
[2020-11-07] MEDS: ZINC SULFATE 220 MG CAPSULE PO SCH (09:08)
[2020-11-07] MEDS: SERTRALINE HCL 100 MG TABLET PO SCH (09:08)
[2020-11-07] MEDS: amLODIPine BESYLATE 5 MG TAB PO SCH (09:09)
--- NOTE | 2020-11-07 09:58 | XRay Report ---
XR chest 1V portable CLINICAL HISTORY: worsening hypoxia COMPARISON STUDY: 11/04/2020 FINDINGS: Heart remains enlarged. There is a left subclavian dual-chamber central venous pacemaker. T here are bilateral pleural effusions. There are bilateral pulmonary airspace opacities with a perihil ar distribution. The findings are suggestive of pulmonary edema. Left lower lobe air bronchograms are suspected. As previously stated, a superimposed pneumonia cannot be excluded. There is an old right- sided rib deformity possibly postsurgical.[ IMPRESSION: Slight progression in the asymmetric pulmonary edema pattern with cardiomegaly and bilate ral pleural effusions. ACT 112: Negative or not required by law. Electronically signed by: Cristopher Bedoya M.D. 11/07/2020 9:57 AM
--- NOTE | 2020-11-07 10:04 | Gastrointestinal Consultation ---
Date of Consultation November 07, 2020 Assessment & Plan (1) Anemia: Patient is a 80 y.o. female with a history of paroxysmal atrial fibrillation on chronic anticoagulation with Eliquis. She was guaiac negative on admission and has a positive trend to her H&H. 1. Given hemodynamic improvement and currently respiratory status, no plan for invasive GI work up. 2. Continue Pantoprazole 40 mg IV BID. 3. Agree to hold Eliquis. 4. Continue supportive care. Thank you for allowing us to participate in the care of this patient. If you have any questions or concerns, please do not hesitate to contact us. Supervising Physician Co-Signing Physician Notes I personally evaluated the patient and agree with the findings as documented by HEIDE Duncan Exam: abd: soft, nt, nd History of Present Illness Reason for Consultation: Anemia Requesting Physician: Dr. Barnes Attending Physician: Steffen Rocha MD History of Present Illness Patient is a 80 y.o. female with a history of dementia, paroxysmal AFib on chronic anticoagulation with Eliquis, HTN and HLD admitted with progressive shortness of breath and BLE edema. GI has been consulted in regard to anemia. She was admitted approximately one year ago with anemia and Dr. Ramirez did perform both EGD and colonoscopy at that time without any overt GIB source. She was guaiac negative on this admission and her H&H has trended upward. Patient is unable to provide any history at this time but she remains in mild respiratory distress with O2sat of 93% on 11 liters oxygen via face mask delivery. H&H was noted to be 9.9/33.0 this morning. Has been placed on Pantoprazole 40 mg IV BID. Allergies Allergy/AdvReac Type Severity Reaction Status Date / Time HOLDEN Inhibitors AdvReac Mild COUGH Verified 11/02/20 17:47 Home Medications Medication Instructions Recorded Confirmed Type sertraline 100 mg tablet 100 mg PO DAILY #90 tab 09/10/19 11/02/20 Rx atorvastatin 40 mg tablet 40 mg PO HS 11/13/19 11/02/20 History metoprolol succinate 200 mg 200 mg PO DAILY #30 tab 05/09/20 11/02/20 Rx tablet,extended release 24 hr ramipril 10 mg capsule 10 mg PO DAILY #30 cap 05/17/20 11/02/20 Rx thiamine HCl (vitamin B1) 100 mg PO DAILY #30 tab 06/30/20 11/02/20 Rx buspirone 10 mg PO BID 10/07/20 11/02/20 History cholecalciferol (vitamin D3) 50 mcg PO DAILY 10/07/20 11/02/20 History [Vitamin D3] digoxin 125 mcg PO MOWEFR 10/07/20 11/02/20 History docusate sodium 100 mg PO BID 10/07/20 11/02/20 History famotidine 10 mg PO QAM 10/07/20 11/02/20 History lisinopril 40 mg PO DAILY 10/07/20 11/02/20 History melatonin 3 mg PO HS 10/07/20 11/02/20 History polyethylene glycol 3350 [Miralax] 17 g PO DAILY 10/07/20 11/02/20 History zinc sulfate 220 mg PO DAILY 10/07/20 11/02/20 History Eliquis 2.5 mg PO Q12 11/02/20 11/02/20 History acetaminophen 325 mg PO Q8 PRN 11/02/20 11/02/20 History amlodipine 5 mg PO DAILY 11/02/20 11/02/20 History ascorbic acid (vitamin C) 500 mg PO BIDM 11/02/20 11/02/20 History furosemide 20 mg PO QAM 11/02/20 11/02/20 History multivitamin [Multiple Vitamin] 1 tab PO DAILY 11/02/20 11/02/20 History naproxen 250 mg PO BID 11/02/20 11/02/20 History risperidone 0.25 mg PO . Q AFTERNOON 11/02/20 11/02/20 History risperidone [Risperdal] 0.5 mg PO HS 11/02/20 11/02/20 History Patient History Medical History (HFpEF) heart failure with preserved ejection fraction Anticoagulant long-term use Atrial fibrillation Benign hypertension (10/03/12) Chronic hoarseness Dyshidrotic eczema Gait disturbance Hyperlipidemia (10/03/12) Hypertension Insomnia Low BMI Mitral valve insufficiency, acquired Mood disorder Osteoarthritis of knee Palliative care encounter Peripheral vascular disease Pleural effusion Poor balance Postoperative bleeding from incision Pulmonary hypertension Right asymmetrical SNHL Severe protein-energy malnutrition Vitamin B12 deficiency Surgical History History of appendectomy History of cataract surgery 2010 History of corneal transplant History of exploratory thoracotomy History of hysterectomy age 36 History of knee surgery ACL repair History of lung surgery insertion of tunnel pleural catheter with cuff left History of tonsillectomy Status post placement of cardiac pacemaker Family History Family/Other No problems noted. Father Myocardial infarction Other Heart disease Hypertension Nephrolithiasis Denies family history of Ovarian cancer Prostate cancer Breast cancer Colorectal cancer Social History Smoking Status: Former smoker Age Started Using Tobacco: 17; Number of Years Since Quit: 25; Second Hand Exposure: Yes; Hx Alcohol Use: No Hx Substance Use: No Preferred Language: Bulgarian Communication Ability: Impaired Visual Impairment: Limited Hearing Ability: Hard of Hearing Director Gift Required: No Beliefs That Will Affect Care: None marital status: Single Current Living Situation: Halfway Current Living Situation Comment: friend current occupational status: retired current occupation: [employer] How many Children do You have: 0 Feels Safe at Home: Yes Childhood Exposure to Second-Hand Smoke: Yes caffeine: Yes Dental Care, Regularly: Yes Physical Activity Frequency: 3-4 Times per Week Seatbelt Use: always Sunscreen Use: Yes Assistive Devices: Oxygen - Continuous and Walker Review of Systems Review of Systems: Unobtainable due to cognitive status Physical Exam Constitutional: + cachectic and + frail appearing Respiratory: + labored breathing and + cough Auscultation: + diminished lung sounds Cardiovascular: Rate/Rhythm: regular rate and regular rhythm Gastrointestinal (Abdomen): Inspection/Auscultation: normal bowel sounds Percussion/Palpation: abdomen soft; no guarding Musculoskeletal: Extremities: extremities normal to inspection Results & Data ([facility]) Vital Signs (Past 12 Hours) Vital Signs Temp Pulse Resp BP Pulse Ox 11/07/20 08:30 93 11/07/20 07:37 37.3 C 63 20 131/62 90 11/07/20 06:35 93 11/07/20 06:18 91 11/07/20 06:15 87 L 11/07/20 00:30 36.6 C 60 19 142/62 H 97 11/06/20 22:35 94 11/06/20 22:30 74 L Laboratory Results Abnormal lab results 11/07/20 11/07/20 11/07/20 Range/Units 05:50 05:50 08:51 WBC 14.23 H (4.8-10.8) K/uL RBC 3.70 L (4.2-5.4) M/uL Hgb 9.9 L (12.0-16.0) g/dL Hct 33.0 L (37-47) % MCHC 30.0 L (32-36) g/dL RDW Std Deviation 55.2 H (36.4-46.3) fL RDW Coeff of Khalida 16.9 H (11.5-14.5) % Chloride 111 H (98-107) mmol/L BUN 49 H (7-18) mg/dl Creatinine 1.56 H (0.6-1.2) mg/dl BUN/Creatinine Ratio 31.5 H (10-20) Glucose 103 H (70-99) mg/dl Calcium 7.9 L (8.5-10.1) mg/dl Procalcitonin 6.36 H (0-0.5) ng/ml PG Care Time/CCT Total # of Minutes Spent Total Time Spent with Patient: Total time spent is greater than 50% in coordination of care (as documented) at patient's floor/unit and/or counseling patient: Coding Level of Care Code 17613 Initial Inpt Care Lvl 3 Diagnoses Anemia D64.9 Anemia type: unspecified type (1) Anemia Anemia type: unspecified type Qualified Code(s): D64.9 - Anemia, unspecified
[2020-11-07] MEDS ORDERED: PIPERACILL/TAZOBAC CONSULT ACTIVE PRN (10:25)
[2020-11-07] MEDS ORDERED: PIPERACILLIN/TAZOBACTAM 3.375 GM in DEXTROSE 5% 100 ML IV ONE (10:45)
--- NOTE | 2020-11-07 10:47 | Hospitalist Progress Note ---
Date of Service November 07, 2020 Assessment & Plan (1) Acute respiratory failure with hypoxia: Worse this morning with increased WBC. Repeat CXR shows worsening infiltrates R > L. Subsequent procalcitonin positive. Suspect aspiration PNA (see below). Aim O2 sats > 90%. (2) Pneumonia: Suspect this may have triggered b/l leg and pulmonary edema. WBC increased this morning and procalcitonin subsequently high. Blood and sputum cultures Cover for aspiration PNA with Insert bustamante cath Transfer to med/tele pending goals of care discussion with POA. Left HIPPA compliant message to call back Consult palliative care - previously patient DNR/DNI, [facility] documentation Code status: POA. Admitted as full code. Prognosis is poor. (3) (HFpEF) heart failure with preserved ejection fraction: Worsening infiltrates on CXR ?aspiration vs. pulmonary edema Transfer to med/tele Suspect acute on chronic CHF contributing to bilateral LE edema and orthopnea -Lasix 20mg IV now and daily -Monitor renal function and electrolytes -Continue metoprolol -Holding Ramipril as above in setting of CHERRY - consult cardiology - monitor I&Os - daily weights will hold eliquis and change pepcid to protonix (4) Edema: Patient with bilateral LE edema to sacral region - 2+ pitting. Likely acute systolic heart failure with nutritional parameters causing third spacing., in the past the pt has had EF of 25%. TSH WNL, third spacing due to poor Albumin = 3, UA with 2+ protein. - Continue lasix 20mg IV daily, given progressive pulmonary edema liklely to need increase but will defer to cardiology - urine protein/Cr ratio (5) Anemia: hgb appropriately augmented with transfusion. Patient denies melena or hematochezia. FOBT performed in ER was guaic negative. Patient has been on Naproxen BID as well as Eliquis - some concern for GI bleeding despite no tell tale signs as the BUN/Cr ratio is high and hgb with precipitous drop -Guaic stools on ppi - Appreciate GI consult, agree not stable for EGD at the present time. (6) CHERRY (acute kidney injury): BUN=65, Cr=1.52, increased from prior value of 0.83. Possibly secondary to CHF, poor flow Acute kidney injury is resolving (7) Cognitive impairment: Patient oriented x 1. She is intermittently confused and distractible, high risk for hospital delirium -Continue Risperdal -Frequent orientation, maintenance of sleep/wake cycles as able, delirium prevention strategies -In the past family and friends could not find information or make decisions for the pt, she remains a full code (8) Hypertension: Blood pressure mildly elevated at 149/118 -Continue Metoprolol 200mg po daily -Hold Lisinopril in setting of CHERRY -Hold Ramipril - Patient has Lisinopril and Ramipril on her list - should not be taking both. Per Cardiology notes, she has most recently been on Ramipril 10mg po daily and Lisinopril removed from her list. This can be resumed pending improvement in renal function -Continue Amlodipine -Continue to monitor (9) Hyperlipidemia: Chronic. -Continue Atorvastatin 40mg po qHS (10) Atrial fibrillation: Rate controlled. Currently A-sensed, V-paced. Rhythm refractory to Flecainide, she experienced significant QT prolongation with Sotalol and intolerance to Amiodarone. -Continue Metoprolol -holding Eliquis -subtherapeutic Digoxin level Admission and Anticipated Discharge Date Admission Date: November 02, 2020 Subjective Patient appears short of breath. Unable to communicate. Worsening hypoxia overnight. Discussed with Inocencio over the phone who reports patient is DNR/DNI. Advised patient getting progressively worse. He is planning on coming in tomorrow to see her. Review of Systems Review of Systems: Unobtainable due to cognitive status Physical Exam Constitutional: + acute distress (Respiratory), + ill appearing and + frail appearing Eyes: + anicteric sclerae Respiratory: + respiratory distress, + labored breathing, + retractions and + uses accessory muscles Auscultation: + diminished lung sounds (bibasal); no crackles and no wheezes Cardiovascular: Rate/Rhythm: regular rate and regular rhythm Gastrointestinal (Abdomen): normal bowel sounds, soft, nontender, no hepatosplenomegaly Skin: no rashes, warm and dry Neurologic: awake and + confused Psychiatric: Orientation: alert; + not oriented x 3 Results & Data Results & [facility] ([facility]) Vital Signs (Past 12 Hours) Vital Signs Temp Pulse Resp BP Pulse Ox 11/07/20 08:30 93 11/07/20 07:37 37.3 C 63 20 131/62 90 11/07/20 06:35 93 11/07/20 06:18 91 11/07/20 06:15 87 L 11/07/20 00:30 36.6 C 60 19 142/62 H 97 PG Care Time/CCT Total # of Minutes Spent Total Time Spent with Patient: Total time spent is greater than 50% in coordination of care (as documented) at patient's floor/unit and/or counseling patient: Coding Level of Care Code 94785 Subseq Hosp Care Lvl 3 Diagnoses Acute respiratory failure with hypoxia J96.01 Pneumonia J18.9 Pneumonia type: aspiration pneumonia (HFpEF) heart failure with preserved ejection fraction I50.33 Heart failure chronicity: acute on chronic Edema R60.9 Edema type: unspecified Anemia D64.9 Anemia type: unspecified type CHERRY (acute kidney injury) N17.9 Cognitive impairment R41.89 Hypertension I10 Hypertension type: essential hypertension Hyperlipidemia E78.5 Hyperlipidemia type: unspecified Atrial fibrillation I48.20 Atrial fibrillation type: unspecified chronic (1) (HFpEF) heart failure with preserved ejection fraction Heart failure chronicity: acute on chronic Qualified Code(s): I50.33 - Acute on chronic diastolic (congestive) heart failure (2) Anemia Anemia type: unspecified type Qualified Code(s): D64.9 - Anemia, unspecified (3) Atrial fibrillation Atrial fibrillation type: unspecified chronic Qualified Code(s): I48.20 - Chronic atrial fibrillation, unspecified (4) Edema Edema type: unspecified Qualified Code(s): R60.9 - Edema, unspecified (5) Hyperlipidemia Hyperlipidemia type: unspecified Qualified Code(s): E78.5 - Hyperlipidemia, unspecified (6) Hypertension Hypertension type: essential hypertension Qualified Code(s): I10 - Essential (primary) hypertension (7) Pneumonia Pneumonia type: aspiration pneumonia
[2020-11-07] MEDS: DOXYCYCLINE HYCLATE 100 MG in DEXTROSE 5% 100 ML IV SCH ×2 (11:34→21:45)
[2020-11-07 14:12] LABS: Creatinine Urine Random 91.5 mg/dl; Protein Creatinine Ratio Urine 0.6 (0-0.2)
[2020-11-07] MEDS: risperiDONE 0.5 MG TABLET PO SCH ×2 (14:27→22:08)
--- NOTE | 2020-11-07 15:21 | Cardiology Consultation ---
Date of Consultation November 07, 2020 Assessment & Plan (1) Fluid retention in legs: (2) Pneumonia: (3) Anemia: (4) CHERRY (acute kidney injury): (5) Diastolic CHF: (6) Pacemaker: (7) Cognitive impairment: I do not believe that we have had a recent echocardiogram despite the patient's recent change in clinical status. I have ordered a repeat transthoracic study. At present I would continue her current treatment. I will have additional recommendations following the echocardiogram. History of Present Illness Attending Physician: Steffen Rocha MD History of Present Illness This is an 80-year-old female with a complex cardiac history as outlined below. She was last seen in our clinic at the end of October with some increased lower extremity edema and restarted on a loop diuretic. She was admitted earlier this month with worsening lower extremity edema felt to be due to congestive heart failure. She has been in the hospital several days and and being given diuretics. Her last echocardiogram was performed in June that showed no significant valvular pathology and preserved left and right ventricular systolic function. She is not able to provide any significant history and most of the information is taken from the medical record. Past medical history: 1.Past paroxysmal atrial fibrillation (refractory to Flecainide, significant QT prolongation with Sotalol, intolerance to amiodarone) and now chronic atrial fibrillation 2.Eliquis anticoagulation 3.Atrial flutter status post RFCA of type I circuit in 2000 4.SA prabhjot dysfunction 1.Status post Medtronic dual chamber pacemaker implantation in 2004 2.Status post generator exchange on 01/20/2013 3.Status post single-chamber pacemaker implanted 06/29/[address] 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 7.Severe pulmonary hypertension 8.Hypertension, hypertensive heart disease 9.Diastolic dysfunction 10.Left greater than right pleural effusions status post thoracentesis followed by left PleurX catheter placement on June 27, 2016, removed around June 2017 per patient report. 11.Bilateral peripheral vascular disease (probable bilateral SFA disease with left iliac disease) with left lower extremity claudication previously aided with the addition of Pletal 12.Hyperlipidemia Allergies Allergy/AdvReac Type Severity Reaction Status Date / Time HOLDEN Inhibitors AdvReac Mild COUGH Verified 11/02/20 17:47 Home Medications Medication Instructions Recorded Confirmed Type sertraline 100 mg tablet 100 mg PO DAILY #90 tab 09/10/19 11/02/20 Rx atorvastatin 40 mg tablet 40 mg PO HS 11/13/19 11/02/20 History metoprolol succinate 200 mg 200 mg PO DAILY #30 tab 05/09/20 11/02/20 Rx tablet,extended release 24 hr ramipril 10 mg capsule 10 mg PO DAILY #30 cap 05/17/20 11/02/20 Rx thiamine HCl (vitamin B1) 100 mg PO DAILY #30 tab 06/30/20 11/02/20 Rx buspirone 10 mg PO BID 10/07/20 11/02/20 History cholecalciferol (vitamin D3) 50 mcg PO DAILY 10/07/20 11/02/20 History [Vitamin D3] digoxin 125 mcg PO MOWEFR 10/07/20 11/02/20 History docusate sodium 100 mg PO BID 10/07/20 11/02/20 History famotidine 10 mg PO QAM 10/07/20 11/02/20 History lisinopril 40 mg PO DAILY 10/07/20 11/02/20 History melatonin 3 mg PO HS 10/07/20 11/02/20 History polyethylene glycol 3350 [Miralax] 17 g PO DAILY 10/07/20 11/02/20 History zinc sulfate 220 mg PO DAILY 10/07/20 11/02/20 History Eliquis 2.5 mg PO Q12 11/02/20 11/02/20 History acetaminophen 325 mg PO Q8 PRN 11/02/20 11/02/20 History amlodipine 5 mg PO DAILY 11/02/20 11/02/20 History ascorbic acid (vitamin C) 500 mg PO BIDM 11/02/20 11/02/20 History furosemide 20 mg PO QAM 11/02/20 11/02/20 History multivitamin [Multiple Vitamin] 1 tab PO DAILY 11/02/20 11/02/20 History naproxen 250 mg PO BID 11/02/20 11/02/20 History risperidone 0.25 mg PO . Q AFTERNOON 11/02/20 11/02/20 History risperidone [Risperdal] 0.5 mg PO HS 11/02/20 11/02/20 History Patient History Medical History (HFpEF) heart failure with preserved ejection fraction Anticoagulant long-term use Atrial fibrillation Benign hypertension (10/03/12) Chronic hoarseness Dyshidrotic eczema Gait disturbance Hyperlipidemia (10/03/12) Hypertension Insomnia Low BMI Mitral valve insufficiency, acquired Mood disorder Osteoarthritis of knee Palliative care encounter Peripheral vascular disease Pleural effusion Poor balance Postoperative bleeding from incision Pulmonary hypertension Right asymmetrical SNHL Severe protein-energy malnutrition Vitamin B12 deficiency Surgical History History of appendectomy History of cataract surgery 2010 History of corneal transplant History of exploratory thoracotomy History of hysterectomy age 36 History of knee surgery ACL repair History of lung surgery insertion of tunnel pleural catheter with cuff left History of tonsillectomy Status post placement of cardiac pacemaker Family History Family/Other No problems noted. Father Myocardial infarction Other Heart disease Hypertension Nephrolithiasis Denies family history of Ovarian cancer Prostate cancer Breast cancer Colorectal cancer Social History Smoking Status: Former smoker Age Started Using Tobacco: 17; Number of Years Since Quit: 25; Second Hand Exposure: Yes; Hx Alcohol Use: No Hx Substance Use: No Preferred Language: Armenian Communication Ability: Impaired Visual Impairment: Limited Hearing Ability: Hard of Hearing Electrical Repairer Required: No Beliefs That Will Affect Care: None marital status: Single Current Living Situation: [facility] Current Living Situation Comment: friend current occupational status: retired 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 How many Children do You have: 0 Feels Safe at Home: Yes Childhood Exposure to Second-Hand Smoke: Yes caffeine: Yes Dental Care, Regularly: Yes Physical Activity Frequency: 3-4 Times per Week Seatbelt Use: always Sunscreen Use: Yes Assistive Devices: Oxygen - Continuous and Walker Review of Systems Review of Systems: Unobtainable due to cognitive status Physical Exam Physical Exam: General: no acute distress and stated age Head: normocephalic, no masses, lesions, tenderness or abnormalities Eyes: conjunctiva are pink and non-injected, sclera clear Neck: supple, no adenopathy, no bruits, normal jugular venous pulse, no hepatojugular reflux Chest: normal shape and normal respiratory effort Lungs: clear to auscultation and percussion Cardiac Exam: - regular rate & rhythm, no murmurs gallops or rubs - normal S1, normal S2 Pulses: 2(+) throughout Abdomen: abdomen soft, non-tender, no abnormal masses and no hepatosplenomegaly Musculoskeletal: no gait disturbance, no joint inflammation, no deforming arthritis Extremities: no edema and no cyanosis Neuro: grossly normal exam Results & Data ([facility]) Vital Signs (Past 12 Hours) Vital Signs Temp Pulse Pulse Resp BP Pulse Ox 11/07/20 12:30 36.8 C 60 62 16 125/53 L 99 11/07/20 08:30 93 11/07/20 07:37 37.3 C 63 20 131/62 90 11/07/20 06:35 93 11/07/20 06:18 91 11/07/20 06:15 87 L Laboratory Results Laboratory Results - last 24 hr 11/06/20 11/07/20 11/07/20 19:49 05:50 05:50 WBC 14.23 H RBC 3.70 L Hgb 9.9 L Hct 33.0 L MCV 89.2 MCH 26.8 MCHC 30.0 L RDW Std Deviation 55.2 H RDW Coeff of Khalida 16.9 H Plt Count 205 MPV 9.5 Sodium 144 Potassium 4.6 Chloride 111 H Carbon Dioxide 28 Anion Gap 5.0 BUN 49 H Creatinine 1.56 H Est Cr Clr Drug Dosing 21.2 Est GFR ( Amer) 35.5 Est GFR (Non-Af Amer) 30.6 BUN/Creatinine Ratio 31.5 H Glucose 103 H Calcium 7.9 L Troponin I < 0.015 NT-Pro-B Natriuret Pep Procalcitonin Ur Random Creatinine U Random Total Protein Protein/Creatinin Ratio 11/07/20 11/07/20 11/07/20 05:50 08:51 12:31 WBC RBC Hgb Hct MCV MCH MCHC RDW Std Deviation RDW Coeff of Khalida Plt Count MPV Sodium Potassium Chloride Carbon Dioxide Anion Gap BUN Creatinine Est Cr Clr Drug Dosing Est GFR ( Amer) Est GFR (Non-Af Amer) BUN/Creatinine Ratio Glucose Calcium Troponin I NT-Pro-B Natriuret Pep 8705 H Procalcitonin 6.36 H Ur Random Creatinine 91.5 U Random Total Protein 59.0 H Protein/Creatinin Ratio 0.6 H Medications Administered Current Inpatient Medications Acetaminophen (Acetaminophen 325 Mg Tab) 650 mg PO Q4H PRN PRN Reason: pain/fever Stop: 12/02/20 23:14 Last Admin: 11/03/20 01:49 Dose: 650 mg Documented by: Amlodipine Besylate (Amlodipine Besylate 5 Mg Tab) 5 mg PO DAILY RAQUEL Stop: 12/03/20 08:59 Last Admin: 11/07/20 09:09 Dose: Not Given Documented by: Atorvastatin Calcium (Atorvastatin 40 Mg Tab) 40 mg PO HS [facility] Stop: 12/03/20 20:59 Last Admin: 11/06/20 22:23 Dose: Not Given Documented by: Buspirone HCl (Buspirone 5 Mg Tab) 10 mg PO BID [facility] Stop: 12/02/20 23:14 Last Admin: 11/07/20 09:07 Dose: Not Given Documented by: Digoxin (Digoxin 0.125 Mg Tab) 0.125 mg PO [id number] [facility] Stop: 12/04/20 15:59 Last Admin: 11/04/20 18:58 Dose: 0.125 mg Documented by: Docusate Sodium (Docusate Sodium 100 Mg Cap) 100 mg PO BID [facility] Stop: 12/03/20 08:59 Last Admin: 11/07/20 09:07 Dose: Not Given Documented by: Pantoprazole Sodium 40 mg/ (Syringe) 10 mls @ 5 mls/min IV BID [facility] Stop: 12/03/20 08:59 Last Admin: 11/07/20 08:31 Dose: 5 mls/min Documented by: Furosemide 20 mg/ Syringe 2 mls @ 4 mls/min IV DAILY [facility] Stop: 12/05/20 08:59 Last Admin: 11/07/20 08:31 Dose: 4 mls/min Documented by: Doxycycline Hyclate 100 mg/ (Dextrose) 110 mls @ 50 mls/hr IV Q12 [facility]; Protocol Stop: 11/14/20 10:59 Last Infusion: 11/07/20 11:36 Dose: 0 mls/hr Documented by: Piperacillin Sod/Tazobactam (Sod 2.25 gm/ Dextrose) 110 mls @ 200 mls/hr IV Q6H [facility]; Protocol Stop: 11/14/20 17:59 Melatonin (Melatonin 3 Mg Tab) 3 mg PO HS [facility] Stop: 12/03/20 20:59 Last Admin: 11/06/20 22:23 Dose: Not Given Documented by: Metoprolol Succinate (Metoprolol Succ 50mg Ext Rel Tab) 200 mg PO DAILY [facility]QU[facility] Stop: 12/03/20 08:59 Last Admin: 11/07/20 09:08 Dose: Not Given Documented by: Miscellaneous Information (Piperacill/Tazobac Consult Active) 1 ea N/A UD PRN PRN Reason: Consult Stop: 12/07/20 10:24 Ondansetron HCl (Ondansetron Inj 2 Mg/Ml 2 Ml Vial) 4 mg IV Q6H PRN PRN Reason: Nausea Stop: 12/02/20 23:14 Last Admin: 11/06/20 20:31 Dose: 4 mg Documented by: Polyethylene Glycol (Polyethylene (Miralax) 17 Gm Pack) 17 gm PO DAILY [facility] Stop: 12/03/20 08:59 Last Admin: 11/07/20 08:29 Dose: Not Given Documented by: Risperidone (Risperidone 0.5 Mg Tablet) 0.25 mg PO Q24H [facility] Stop: 12/03/20 13:59 Last Admin: 11/07/20 14:27 Dose: Not Given Documented by: Risperidone (Risperidone 0.5 Mg Tablet) 0.5 mg PO HS [facility] Stop: 12/03/20 20:59 Last Admin: 11/06/20 22:24 Dose: Not Given Documented by: Sertraline HCl (Sertraline Hcl 100 Mg Tablet) 100 mg PO DAILY [facility]QU[facility] Stop: 12/03/20 08:59 Last Admin: 11/07/20 09:08 Dose: Not Given Documented by: Thiamine HCl (Thiamine Hcl 100 Mg Tab) 100 mg PO DAILY [facility] Stop: 12/03/20 08:59 Last Admin: 11/07/20 09:08 Dose: Not Given Documented by: Zinc Sulfate (Zinc Sulfate 220 Mg Capsule) 220 mg PO DAILY [facility] Stop: 12/03/20 08:59 Last Admin: 11/07/20 09:08 Dose: Not Given Documented by: (1) Pneumonia Pneumonia type: aspiration pneumonia (2) Anemia Anemia type: unspecified type Qualified Code(s): D64.9 - Anemia, unspecified
[2020-11-07] MEDS ORDERED: PIPERACILLIN/TAZOBACTAM 3.375 GM in DEXTROSE 5% 100 ML IV SCH (17:00)
[2020-11-07] MEDS: DIGOXIN 0.125 MG TAB PO SCH (17:03)
--- NOTE | 2020-11-07 17:07 | Palliative Care Consultation ---
Date of Consultation November 07, 2020 Assessment & Plan (1) Palliative care encounter: Shaista was seen by palliative care on her prior hospitalization. At that time I spoke with her brother Inocencio who had initially wanted full care, full code for her. Prior to her discharge, he did decide to change her code status to DNR but was not able to find an advance directive. Her friend Vannessa had been listed as her surrogate decision maker, however, Vannessa was not mentally capable of decision making. Inocencio had declined to fill out POLST at discharge and wanted to locate Shaista's documents before discussing further. On this admission, she was initially full code but after discussion with Dr. Rocha earlier today, Inocencio has decided on DNR. Shaista is extremely frail and has been very anxious and confused on prior admission. She did respond well to ativan last night. Given her current respiratory distress would treat with roxanol 5mg every four hours as needed. Will also order ativan for prn use as she has history of severe anxiety. Her prognosis is poor. Palliative care will follow. (2) Dyspnea: (3) Acute respiratory failure with hypoxia: History of Present Illness Reason for Consultation: goals of care Requesting Physician: Dr. Rocha Attending Physician: Steffen Rocha MD History of Present Illness 80 yo lady with progressive hypoxic respiratory failure. She is a resident at [facility] and was admitted with possible aspiration and lower extremity edema. She does have a history of diastolic heart failure and atrial fibrillation. Despite diuresis, she has had progressive hypoxia. She was evaluated by speech therapy and failed swallowing study. She is also noted to have anemia and CHERRY. I was called by RN to see patient who is restless, calling out for her mother and having respiratory distress. She is lethargic and opens her eyes but is unable to provide any history. She is reaching out at times, picking at sheets. Allergies Allergy/AdvReac Type Severity Reaction Status Date / Time HOLDEN Inhibitors AdvReac Mild COUGH Verified 11/02/20 17:47 Home Medications Medication Instructions Recorded Confirmed Type sertraline 100 mg tablet 100 mg PO DAILY #90 tab 09/10/19 11/02/20 Rx atorvastatin 40 mg tablet 40 mg PO HS 11/13/19 11/02/20 History metoprolol succinate 200 mg 200 mg PO DAILY #30 tab 05/09/20 11/02/20 Rx tablet,extended release 24 hr ramipril 10 mg capsule 10 mg PO DAILY #30 cap 05/17/20 11/02/20 Rx thiamine HCl (vitamin B1) 100 mg PO DAILY #30 tab 06/30/20 11/02/20 Rx buspirone 10 mg PO BID 10/07/20 11/02/20 History cholecalciferol (vitamin D3) 50 mcg PO DAILY 10/07/20 11/02/20 History [Vitamin D3] digoxin 125 mcg PO MOWEFR 10/07/20 11/02/20 History docusate sodium 100 mg PO BID 10/07/20 11/02/20 History famotidine 10 mg PO QAM 10/07/20 11/02/20 History lisinopril 40 mg PO DAILY 10/07/20 11/02/20 History melatonin 3 mg PO HS 10/07/20 11/02/20 History polyethylene glycol 3350 [Miralax] 17 g PO DAILY 10/07/20 11/02/20 History zinc sulfate 220 mg PO DAILY 10/07/20 11/02/20 History Eliquis 2.5 mg PO Q12 11/02/20 11/02/20 History acetaminophen 325 mg PO Q8 PRN 11/02/20 11/02/20 History amlodipine 5 mg PO DAILY 11/02/20 11/02/20 History ascorbic acid (vitamin C) 500 mg PO BIDM 11/02/20 11/02/20 History furosemide 20 mg PO QAM 11/02/20 11/02/20 History multivitamin [Multiple Vitamin] 1 tab PO DAILY 11/02/20 11/02/20 History naproxen 250 mg PO BID 11/02/20 11/02/20 History risperidone 0.25 mg PO . Q AFTERNOON 11/02/20 11/02/20 History risperidone [Risperdal] 0.5 mg PO HS 11/02/20 11/02/20 History Patient History Medical History (HFpEF) heart failure with preserved ejection fraction Anticoagulant long-term use Atrial fibrillation Benign hypertension (10/03/12) Chronic hoarseness Dyshidrotic eczema Gait disturbance Hyperlipidemia (10/03/12) Hypertension Insomnia Low BMI Mitral valve insufficiency, acquired Mood disorder Osteoarthritis of knee Palliative care encounter Peripheral vascular disease Pleural effusion Poor balance Postoperative bleeding from incision Pulmonary hypertension Right asymmetrical SNHL Severe protein-energy malnutrition Vitamin B12 deficiency Surgical History History of appendectomy History of cataract surgery 2010 History of corneal transplant History of exploratory thoracotomy History of hysterectomy age 36 History of knee surgery ACL repair History of lung surgery insertion of tunnel pleural catheter with cuff left History of tonsillectomy Status post placement of cardiac pacemaker Family History Family/Other No problems noted. Father Myocardial infarction Other Heart disease Hypertension Nephrolithiasis Denies family history of Ovarian cancer Prostate cancer Breast cancer Colorectal cancer Social History Smoking Status: Former smoker Age Started Using Tobacco: 17; Number of Years Since Quit: 25; Second Hand Exposure: Yes; Hx Alcohol Use: No Hx Substance Use: No Preferred Language: Greenlandic Communication Ability: Impaired Visual Impairment: Limited Hearing Ability: Hard of Hearing Supervisor Record Press Required: No Beliefs That Will Affect Care: None marital status: Single Current Living Situation: [facility] Current Living Situation Comment: friend current occupational status: retired 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 How many Children do You have: 0 Feels Safe at Home: Yes Childhood Exposure to Second-Hand Smoke: Yes caffeine: Yes Dental Care, Regularly: Yes Physical Activity Frequency: 3-4 Times per Week Seatbelt Use: always Sunscreen Use: Yes Assistive Devices: Oxygen - Continuous and Walker Review of Systems Review of Systems: Unobtainable due to reduced consciousness [place] Symptom Assessment Scale Dyspnea by observation 2/3 Palliative Performance Score 20% Physical Exam Constitutional: + ill appearing, + cachectic and + in distress ENMT: Mouth: + dry oral mucous membranes Respiratory: + respiratory distress, + labored breathing and + uses accessory muscles Cardiovascular: Extremities: + edema Gastrointestinal (Abdomen): Inspection/Auscultation: abdomen not distended Percussion/Palpation: abdomen nontender Musculoskeletal: Extremities: + muscle atrophy Neurologic: + not awake Genitourinary: bustamante catheter with scant straw colored urine Results & Data ([facility]) Vital Signs (Past 12 Hours) Vital Signs Temp Pulse Pulse Resp BP Pulse Ox 11/07/20 15:45 98.6 F 61 19 126/58 L 100 11/07/20 15:28 61 11/07/20 12:30 98.2 F 60 62 16 125/53 L 99 11/07/20 08:30 93 11/07/20 07:37 99.1 F 63 20 131/62 90 11/07/20 06:35 93 11/07/20 06:18 91 11/07/20 06:15 87 L PG Care Time/CCT Total # of Minutes Spent Total Time Spent with Patient: Total time spent is greater than 50% in coordination of care (as documented) at patient's floor/unit and/or counseling patient: Coding Level of Care Code 34305 Inpt Consult Level 2 Diagnoses Palliative care encounter Z51.5 Dyspnea R06.00 Acute respiratory failure with hypoxia J96.01
[2020-11-07] MEDS: MoRPHine SULFATE 5 MG/0.25 ML UDP PO PRN (17:08)
[2020-11-07] MEDS: PIPERACILLIN/TAZOBACTAM 2.25 GM in DEXTROSE 5% 100 ML IV SCH (17:08)
[2020-11-07] MEDS: LORazepam 0.5 MG/1 ML VIAL IV PRN ×2 (19:58→20:55)
--- NOTE | 2020-11-07 21:53 | Electrocardiogram Report ---
Test Reason : Blood Pressure : / mmHG Vent. Rate : 060 BPM Atrial Rate : 061 BPM P-R Int : 000 ms QRS Dur : 148 ms QT Int : 468 ms P-R-T Axes : 000 -78 089 degrees QTc Int : 468 ms Ventricular-paced rhythm Abnormal ECG When compared with ECG of 02-NOV-2020 17:19, Vent. rate has decreased BY 5 BPM Confirmed by Ky Bosch ([id number]) on 11/07/2020 9:52:32 PM Referred By: John hernández [facility] Confirmed By:Ky Bosch
[2020-11-07] MEDS: MELATONIN 3 MG TAB PO SCH (22:08)
[2020-11-07] MEDS: ATORVASTATIN 40 MG TAB PO SCH (22:08)
[2020-11-08] MEDS: MoRPHine SULFATE 5 MG/0.25 ML UDP PO PRN ×4 (00:13→20:40)
[2020-11-08] MEDS: PIPERACILLIN/TAZOBACTAM 2.25 GM in DEXTROSE 5% 100 ML IV SCH ×2 (00:19→05:26)
[2020-11-08] MEDS: LORazepam 0.5 MG/1 ML VIAL IV PRN ×4 (01:00→22:54)
[2020-11-08] MEDS: amLODIPine BESYLATE 5 MG TAB PO SCH (07:27)
[2020-11-08] MEDS: busPIRone 5 MG TAB PO SCH (07:27)
[2020-11-08] MEDS: DOCUSATE SODIUM 100 MG CAP PO SCH (07:27)
[2020-11-08] MEDS: METOPROLOL SUCC 50MG EXT REL TAB PO SCH (07:28)
[2020-11-08] MEDS: SERTRALINE HCL 100 MG TABLET PO SCH (07:28)
[2020-11-08] MEDS: POLYETHYLENE (MIRALAX) 17 GM PACK PO SCH (07:28)
[2020-11-08] MEDS: FUROSEMIDE 20 MG in SYRINGE 0 ML IV SCH (07:28)
[2020-11-08] MEDS: PANTOprazole 40 MG in SYRINGE 0 ML IV SCH (07:28)
[2020-11-08] MEDS: ZINC SULFATE 220 MG CAPSULE PO SCH (07:29)
[2020-11-08] MEDS: THIAMINE HCL 100 MG TAB PO SCH (07:29)
[2020-11-08 08:34] LABS: Basophils # (auto) 0.04 K/uL (0-0.2); Basophils % (auto) 0.3 %; Eosinophils # (auto) 0.07 K/uL (0-0.5); Eosinophils % (auto) 0.6 %; Hematocrit (blood only) 31.2 % (37-47); Hemoglobin 9.1 g/dL (12.0-16.0); Immature Granulocytes # (auto) 0.04 K/uL (0.00-0.02); Immature Granulocytes % (auto) 0.3 %; Lymphocytes # (auto) 0.51 K/uL (1.2-3.4); Lymphocytes % (auto) 4.3 %; Mean Corpuscular Hemoglobin 26.5 pg (25-34); Mean Corpuscular Hgb Conc 29.2 g/dL (32-36); Mean Platelet Volume 9.6 fL (7.4-10.4); Monocytes # (auto) 1.07 K/uL (0.11-0.59); Monocytes % (auto) 9.1 %; Neutrophils # (auto) 10.03 K/uL (1.4-6.5); Neutrophils % (auto) 85.4 %; Platelet Count 152 K/uL (130-400); RDW Coefficient of Variation 17.2 % (11.5-14.5); RDW Standard Deviation 57.3 fL (36.4-46.3); Red Blood Count 3.43 M/uL (4.2-5.4); White Blood Count 11.76 K/uL (4.8-10.8)
[2020-11-08 08:58] LABS: BUN Creatinine Ratio 30.6 (10-20); Calcium 8.4 mg/dl (8.5-10.1); Creatinine Clr Calc Pharmacy 15.9 ml/min; Est GFR (African American) 25.1 ml/min; Est GFR (Non-African American) 21.6 ml/min; Magnesium 2.4 mg/dl (1.8-2.4); Potassium 4.7 mmol/L (3.5-5.1)
[2020-11-08] MEDS: DOXYCYCLINE HYCLATE 100 MG in DEXTROSE 5% 100 ML IV SCH (09:02)
[2020-11-08 09:03] LABS: Phosphorus 4.1 mg/dl (2.5-4.9)
--- NOTE | 2020-11-08 10:23 | Palliative Care Progress Note ---
Date of Service November 08, 2020 Assessment & Plan (1) Palliative care encounter: Patient has worsened clinically since yesterday. On exam, she has labored, agonal breathing; is obtunded and has her mouth open and head tilted back. When I arrived, Dr. Rocha was speaking on the phone with Inocencio and I called Vannessa, her friend. Both were made aware that Shaista is in the active dying process and likely has hours to a day of life remaining. They were able to both visit her at the bedside. Confirmed DNR status that was achieved yesterday. Her last dose of PO Roxanol was at 0600 today, three doses over past 24 hours. She has received three doses of IV Ativan over past 24 hours. Full transition to comfort measures to occur. All non-comfort focused medications will be discontinued, including blood work. Palliative care will follow. (2) Dyspnea: Pt actively dying. Using diaphragmatic muscles to breathe, head tilted back, mouth open. Receiving PO Roxanol. (3) Acute respiratory failure with hypoxia: Admission and Anticipated Discharge Date Admission Date: November 02, 2020 Subjective Patient appears to be actively dying. Family and friends called and updated. Expected to be at bedside shortly as they wish to be with her as she dies. Patient likely has hours of life expectancy. SEe A/P for further information. Review of Systems Review of Systems: [place] Symptom Assessment Scale Dyspnea by observation 2/3 Palliative Performance Score 10% Physical Exam Constitutional: + ill appearing, + cachectic and + in distress ENMT: Mouth: + dry oral mucous membranes Respiratory: + respiratory distress, + labored breathing and + uses accessory muscles Cardiovascular: Extremities: + edema Gastrointestinal (Abdomen): Inspection/Auscultation: abdomen not distended Percussion/Palpation: abdomen nontender Musculoskeletal: Extremities: + muscle atrophy Neurologic: + not awake Results & Data ([facility]) Vital Signs (Past 12 Hours) Vital Signs Temp Pulse Pulse Resp BP Pulse Ox 11/08/20 07:54 36.7 C 67 21 132/64 100 11/08/20 03:25 36.5 C 69 16 112/60 96 11/08/20 02:21 60 11/07/20 23:16 36.3 C L 55 L 16 108/57 L 97 PG Care Time/CCT Total # of Minutes Spent Total Time Spent with Patient: Total time spent is greater than 50% in service coordinator rdination of care (as documented) at patient's floor/unit and/or counseling patient: 35 mintues with > 50% of that time spent assessing the patient, discussing goals of care with friend, providing symptom management, and collaborating with IDT Coding Level of Care Code 36667 Subseq Hosp Care Lvl 3 Diagnoses Palliative care encounter Z51.5 Dyspnea R06.00 Acute respiratory failure with hypoxia J96.01 Time Spent (min) 35
--- NOTE | 2020-11-08 12:50 | Hospitalist Progress Note ---
Date of Service November 08, 2020 Assessment & Plan (1) Comfort measures only status: Patient with apneic breathing this morning. Body appears much stiffer. Opens eyes to voice. Appears to be imminently dying. Appreciate palliative management of symptoms with Roxanol and Ativan (2) Acute respiratory failure with hypoxia: Aim O2 sats > 90%. (3) Pneumonia: Discontinue IV Abx due to comfort care approach (4) (HFpEF) heart failure with preserved ejection fraction: d/c lasix due to comfort care approach (5) Edema: (6) Anemia: (7) CHERRY (acute kidney injury): (8) Cognitive impairment: (9) Hypertension: (10) Hyperlipidemia: (11) Atrial fibrillation: Admission and Anticipated Discharge Date Admission Date: November 02, 2020 Subjective Patient having increased shortness of breath with agnoal breathing this morning. Appears to be imminently dying. Discussed with Inocencio her brother and decided to make comfort care. Review of Systems Review of Systems: Unobtainable due to cognitive status Physical Exam Constitutional: + acute distress (Respiratory), + ill appearing and + frail appearing Eyes: + anicteric sclerae Respiratory: + respiratory distress (apneic breathing), + labored breathing, + retractions and + uses accessory muscles Psychiatric: Orientation: alert (opens eyes to voice); + not oriented x 3 Results & Data Results & Data ([facility]) Vital Signs (Past 12 Hours) Vital Signs Temp Pulse Pulse Resp BP Pulse Ox 11/08/20 07:54 36.7 C 67 21 132/64 100 11/08/20 03:25 36.5 C 69 16 112/60 96 11/08/20 02:21 60 PG Care Time/CCT Total # of Minutes Spent Total Time Spent with Patient: Total time spent is greater than 50% in coordination of care (as documented) at patient's floor/unit and/or counseling patient: Coding Level of Care Code 62576 Subseq Hosp Care Lvl 2 Diagnoses Comfort measures only status Z51.5 Acute respiratory failure with hypoxia J96.01 Pneumonia J18.9 Pneumonia type: aspiration pneumonia (HFpEF) heart failure with preserved ejection fraction I50.33 Heart failure chronicity: acute on chronic Edema R60.9 Edema type: unspecified Anemia D64.9 Anemia type: unspecified type CHERRY (acute kidney injury) N17.9 Cognitive impairment R41.89 Hypertension I10 Hypertension type: essential hypertension Hyperlipidemia E78.5 Hyperlipidemia type: unspecified Atrial fibrillation I48.20 Atrial fibrillation type: unspecified chronic (1) (HFpEF) heart failure with preserved ejection fraction Heart failure chronicity: acute on chronic Qualified Code(s): I50.33 - Acute on chronic diastolic (congestive) heart failure (2) Anemia Anemia type: unspecified type Qualified Code(s): D64.9 - Anemia, unspecified (3) Atrial fibrillation Atrial fibrillation type: unspecified chronic Qualified Code(s): I48.20 - Chronic atrial fibrillation, unspecified (4) Edema Edema type: unspecified Qualified Code(s): R60.9 - Edema, unspecified (5) Hyperlipidemia Hyperlipidemia type: unspecified Qualified Code(s): E78.5 - Hyperlipidemia, unspecified (6) Hypertension Hypertension type: essential hypertension Qualified Code(s): I10 - Essential (primary) hypertension (7) Pneumonia Pneumonia type: aspiration pneumonia
[2020-11-08] MEDS ORDERED: STAT IV Infusion **Titration per Protocol STA (21:17)
[2020-11-08] MEDS ORDERED: MoRPHine SULF/SW 240 MG/240 ML BTL IV SCH (22:00)
[2020-11-08] MEDS ORDERED: SODIUM CHLORIDE 0.9% 250 ML IV PRN (22:25)
[2020-11-09] MEDS: LORazepam 0.5 MG/1 ML VIAL IV PRN (10:23)
--- NOTE | 2020-11-09 11:29 | Death Pronouncement Note ---
Date of Service November 09, 2020 Pronouncement Note Admission Date Admission Date: November 02, 2020 Date and Time of Date of : 11/09/20 Time of : 11:23 PCOD Preliminary cause of : Pneumonia Contributing Factors (1) Comfort measures only status: (2) Acute respiratory failure with hypoxia: (3) Pneumonia: (4) (HFpEF) heart failure with preserved ejection fraction: (5) Edema: (6) Anemia: (7) CHERRY (acute kidney injury): (8) Cognitive impairment: (9) Hypertension: (10) Hyperlipidemia: (11) Atrial fibrillation: Additional Data Confirmation of : no pulse, no respirations, no heart sounds and pupils fixed and dilated Family: contacted Attending physician: Steffen Rocha MD Was code activated?: No Autopsy requested?: No vocational examiner notified?: No Coding Level of Care Code None Diagnoses Comfort measures only status Z51.5 Acute respiratory failure with hypoxia J96.01 Pneumonia J18.9 Pneumonia type: aspiration pneumonia (HFpEF) heart failure with preserved ejection fraction I50.33 Heart failure chronicity: acute on chronic Edema R60.9 Edema type: unspecified Anemia D64.9 Anemia type: unspecified type CHERRY (acute kidney injury) N17.9 Cognitive impairment R41.89 Hypertension I10 Hypertension type: essential hypertension Hyperlipidemia E78.5 Hyperlipidemia type: unspecified Atrial fibrillation I48.20 Atrial fibrillation type: unspecified chronic
--- NOTE | 2020-11-09 11:29 | Discharge Summary ---
Date of Service November 09, 2020 Admission HPI Per Admitting Provider Shaista Diaz is an 80yo C female with history of paroxysmal atrial fibrillation on Eliquis anticoagulation, severe PH, HTN and diastolic dysfunction. Patient resides at [facility]. She is a poor historian and suffers from cognitive impairment. Per record review, she has been experiencing worsening shortness of breath and bilateral LE edema as well as orthopnea. She was evaluated by Cardiology on 10/28/20 and restarted on Lasix 20mg po daily. Patient offers no complaints. Specifically denies fevers, chills, chest pain, palpitations, abdominal pain, nausea, vomiting, diarrhea or constipation. She is anxious and reports she becomes short of breath at rest and with exertion. She is very anxious and confused. Able to answer most questions appropriately and follow commands. ER Course: No medications administered Admission Exam Per Admitting Provider General: patient anxious, somewhat confused, frail and cachectic in appearance, non-toxic in appearance, oriented to self only, distractable Skin: warm, dry, intact HEENT: NC/AT, PERRL, EOMI, anicteric sclera, conjunctiva without injection, external ear normal to inspection and nontender, nares patent, moist mucus membranes, dentition intact, no oropharyngeal lesions, neck supple, trachea midline, no LAD, no thyromegaly, no JVD Heart: +S1/S2, regular with ectopy, no m/r/g Lungs: equal air entry bilaterally, no rales/rhonchi/wheezes Abd: +BS, soft, NT/ND, no masses/organomegaly/ascites Ext: warm, 1+ pulses palpable, 3+ pitting edema of bilateral LE to sacrum, skin thickening Neuro: nonfocal, patient AA&O to self, hoarse voice, no facial droop, moving all extremities on command with equal strength 5/5 Principal Diagnosis Patient Discharge Exam Patient Discharge Data Allergies Allergy/AdvReac Type Severity Reaction Status Date / Time HOLDEN Inhibitors AdvReac Mild COUGH Verified 11/02/20 17:47 Consultations 11/02/20 21:15 ED Decision to Admit Stat 11/06/20 18:22 Consult Gastroenterology Routine 11/07/20 10:33 Consult Palliative Care Routine 11/07/20 13:27 Consult Cardiology Routine Ordered Studies 11/02/20 23:15 US venous doppler LE BI Routine Hospital Course (1) Comfort measures only status: Shaista Milton was admitted to [facility] [address] from November 02-2020 due to worsening shortness of breath and leg edema. Attempt at diuresis with Lasix were unsuccessful and ultimately suspect to have pneumonia. She continued to decline despite antibiotics and decision from family was to switch to a comfort care approach. She on November 09, 2020 at 11:23am. (2) Acute respiratory failure with hypoxia: (3) Pneumonia: (4) (HFpEF) heart failure with preserved ejection fraction: (5) Edema: (6) Anemia: (7) CHERRY (acute kidney injury): (8) Cognitive impairment: (9) Hypertension: (10) Hyperlipidemia: (11) Atrial fibrillation: Total Time Total Time Spent Total Time Spent (In Minutes): 20 Discharge Plan Discharge Items Patient Disposition: Coding Level of Care Code D/C Day Management <30 mins Diagnoses Comfort measures only status Z51.5 Acute respiratory failure with hypoxia J96.01 Pneumonia J18.9 Pneumonia type: aspiration pneumonia (HFpEF) heart failure with preserved ejection fraction I50.33 Heart failure chronicity: acute on chronic Edema R60.9 Edema type: unspecified Anemia D64.9 Anemia type: unspecified type CHERRY (acute kidney injury) N17.9 Cognitive impairment R41.89 Hypertension I10 Hypertension type: essential hypertension Hyperlipidemia E78.5 Hyperlipidemia type: unspecified Atrial fibrillation I48.20 Atrial fibrillation type: unspecified chronic
== END 2020-11-09 11:23 | disposition expired | DRG 291 ==
LOC: ED 17:09 → SUATTDRO 21:38 → 3W 21:38 → 2W 11-07 11:06 → 3E 11-08 10:27
DX: N17.9 Acute kidney failure, unspecified; Z79.01 Long term (current) use of anticoagulants; D64.9 Anemia, unspecified; I11.0 Hypertensive heart disease with heart failure; Z82.49 Family history of ischemic heart disease and other diseases of the circulatory system; I50.33 Acute on chronic diastolic (congestive) heart failure; R79.1 Abnormal coagulation profile; I73.9 Peripheral vascular disease, unspecified; I48.0 Paroxysmal atrial fibrillation; Z51.5 Encounter for palliative care; M17.9 Osteoarthritis of knee, unspecified; F03.90 Unspecified dementia, unspecified severity, without behavioral disturbance, psychotic disturbance, mood disturbance, and anxiety; Z79.899 Other long term (current) drug therapy; Z66 Do not resuscitate; I48.20 Chronic atrial fibrillation, unspecified; J96.01 Acute respiratory failure with hypoxia; I50.21 Acute systolic (congestive) heart failure; E78.5 Hyperlipidemia, unspecified; J69.0 Pneumonitis due to inhalation of food and vomit; Z88.8 Allergy status to other drugs, medicaments and biological substances; I27.20 Pulmonary hypertension, unspecified; Z87.891 Personal history of nicotine dependence; R41.89 Other symptoms and signs involving cognitive functions and awareness